=== PATIENT | male | born 1940 | race Caucasian/White ===

== ENCOUNTER 2018-02-07 12:53 | Emergency (ER) | payer OTHER, SELFPAY ==
[2018-02-07 12:54] VITALS: BP 149/91; PULSE 64; RESP 16; TEMP 36.8; O2SAT 97; BMI 23.8
--- NOTE | 2018-02-07 13:28 | ED.VISSUMM ---
- ER Visit Summary Date of Service: 02/07/18 Chief Complaint: Back pain History of Present Illness: The patient is a 77 M back pain after working out in the garden 2 days ago. Pain radiates to the back of the thigh. No loss of bowel or bladder control. No falls. Using topical BenGay cream with no relief. Had difficulty sleeping over last 2 days. States is similar symptoms 5 years ago was placed on naproxen and a pain medication. He states he was constipated due to medications at that time. However states the discomfort came the ED for treatment. He is followed by [place]. Denies history of gastric ulcers or kidney injuries. No other complaints. Physical Examination: General: Alert and oriented ?3, no acute distress HEENT: Normocephalic, atraumatic. Moist mucosa membranes Neck: supple, nontender. Cardiovascular: Regular rate and rhythm, no murmurs Respiratory: Normal breath sounds, symmetric, no distress Abdomen: Soft, nontender, nondistended Back: No midline tenderness. Tender palpation left lumbar, straight leg test negative bilaterally. 2+ patellar reflex bilaterally. Extremities: Nontender, no edema, pulses intact ?4 Neuro: no focal neurological deficits. Test Results: [] Emergency Department Course and Treatment: Patient nontoxic. History working the garden increasing pain afterwards. There is no falls or direct injuries. No indications for x-rays at this time. He will be treated symptomatically with naproxen and as needed oxycodone. Also placed on Colace to prevent constipation. He will follow-up with PCP, return if any worsening symptoms. Treatment Plan: [] Disposition: Discharge Impression: Sciatica This note was generated with M[employer] dictation software. It may contain incorrect words, spelling, and punctuation that were not noted in review of the chart prior to signing ED Disposition - Plan for ED Patient: Disposition: Home or Assisted Living Chief Complaint: Back Diagnosis: Sciatica Instructions: ED Sciatica Prescriptions: Oxycodone HCl/Acetaminophen [Percocet 5/325] 1 tablet PO Q6H PRN PRN 3 Days #12 tablet PRN Reason: Pain Docusate Sodium [Colace] 100 mg PO DAILY #20 capsule Naproxen [Naprosyn] 500 mg PO BID PRN #20 tablet Referrals: [facility] [Primary Care Provider] - 3-5 Days
--- NOTE | 2018-02-07 13:32 | ED.DCSUM_ITS ---
- ER Visit Summary Date of Service: 02/07/18 Chief Complaint: Back pain History of Present Illness: The patient is a 77 M back pain after working out in the garden 2 days ago. Pain radiates to the back of the thigh. No loss of bowel or bladder control. No falls. Using topical BenGay cream with no relief. Had difficulty sleeping over last 2 days. States is similar symptoms 5 years ago was placed on naproxen and a pain medication. He states he was constipated due to medications at that time. However states the discomfort came the ED for treatment. He is followed by [place]. Denies history of gastric ulcers or kidney injuries. No other complaints. Physical Examination: General: Alert and oriented ?3, no acute distress HEENT: Normocephalic, atraumatic. Moist mucosa membranes Neck: supple, nontender. Cardiovascular: Regular rate and rhythm, no murmurs Respiratory: Normal breath sounds, symmetric, no distress Abdomen: Soft, nontender, nondistended Back: No midline tenderness. Tender palpation left lumbar, straight leg test negative bilaterally. 2+ patellar reflex bilaterally. Extremities: Nontender, no edema, pulses intact ?4 Neuro: no focal neurological deficits. Test Results: [] Emergency Department Course and Treatment: Patient nontoxic. History working the garden increasing pain afterwards. There is no falls or direct injuries. No indications for x-rays at this time. He will be treated symptomatically with naproxen and as needed oxycodone. Also placed on Colace to prevent constipation. He will follow-up with PCP, return if any worsening symptoms. Treatment Plan: [] Disposition: Discharge Impression: Sciatica This note was generated with Tokal[employer] dictation software. It may contain incorrect words, spelling, and punctuation that were not noted in review of the chart prior to signing ED Disposition - Plan for ED Patient: Disposition: Home or Assisted Living Chief Complaint: Back Diagnosis: Sciatica Instructions: ED Sciatica Prescriptions: Oxycodone HCl/Acetaminophen [Percocet 5/325] 1 tablet PO Q6H PRN PRN 3 Days #12 tablet PRN Reason: Pain Docusate Sodium [Colace] 100 mg PO DAILY #20 capsule Naproxen [Naprosyn] 500 mg PO BID PRN #20 tablet Referrals: [facility] [Primary Care Provider] - 3-5 Days
[2018-02-07] MEDS: Naproxen 500 MG Tablet PO (13:55)
[2018-02-07] MEDS: oxyCODONE 5 MG Tablet PO (13:55)
[2018-02-07 13:58] VITALS: BP 149/91
== END 2018-02-07 14:03 | disposition home or self-care (01) ==
PROVIDERS: Emergency Provider Emergency Medicine
DX: M54.30 Sciatica, unspecified side (principal); E78.00 Pure hypercholesterolemia, unspecified
CPT/HCPCS: 99283

== ENCOUNTER 2019-03-19 15:09 | Emergency (ER) | payer OTHER, SELFPAY ==
[2019-03-19 15:10] VITALS: BP 151/100; PULSE 149; RESP 18; TEMP 36.5; O2SAT 97; BMI 23.1
[2019-03-19 15:34] VITALS: PULSE 139
[2019-03-19 15:44] VITALS: BP 151/76; PULSE 49; RESP 16; O2SAT 98
--- NOTE | 2019-03-19 16:03 | EKG12_ITS ---
Test Reason : TACHY Blood Pressure : / mmHG Vent. Rate : 116 BPM Atrial Rate : 208 BPM P-R Int : 000 ms QRS Dur : 082 ms QT Int : 286 ms P-R-T Axes : 000 053 -89 degrees QTc Int : 397 ms Atrial fibrillation with rapid ventricular response ST & T wave abnormality, consider inferolateral ischemia Abnormal ECG Confirmed by CON YUAN, BRIANA ([id number]), make up editor LISA BRAVO ([id number]) on 03/23/2019 8:51:03 AM Referred By: MARKO/ANKIT Confirmed By:BRIANA ANDUJAR MD
--- NOTE | 2019-03-19 16:06 | EKG12_ITS ---
Test Reason : REPEAT Blood Pressure : / mmHG Vent. Rate : 047 BPM Atrial Rate : 047 BPM P-R Int : 120 ms QRS Dur : 082 ms QT Int : 408 ms P-R-T Axes : 058 048 037 degrees QTc Int : 361 ms Sinus bradycardia Otherwise normal ECG Confirmed by CON YUAN, BRIANA ([id number]), electronic news gathering editor LISA BRAVO ([id number]) on 03/23/2019 8:51:15 AM Referred By: ANKIT Confirmed By:BRIANA ANDUJAR MD
--- NOTE | 2019-03-19 16:06 | ED.VISSUMM ---
- ER Visit Summary Date of Service: 03/19/19 Chief Complaint: Palpitations History of Present Illness: The patient is a 78 M who presents with palpitations that began today. Patient states that he felt his heart racing today. Approximately couple hours prior to arrival. Patient states he drank more caffeine than he usually does today. Patient states he drank 3 cups of coffee and a Pepsi-Cola. Patient states that his blood pressure continued to increase throughout the day. Patient denies any other symptoms. Patient denies any shortness of breath. Patient denies any nausea or vomiting. Patient denies any lightheadedness or dizziness. Patient states he does have a history of paroxysmal atrial fibrillation. Patient states he follows with a food service cashier at the [facility]. Physical Examination: Vital signs are stable. Patient's initial heart rate was 149. Patient is in no acute distress. Oral mucosa is pink and moist. Neck is supple. Trachea is midline. There is no JVD noted. Heart was regular and bradycardic. Lungs are clear and equal bilaterally. Abdomen is soft. Bowel sounds are normal. There is no tenderness. Cranial nerves II through XII are intact. There are no focal motor or sensory deficits noted. Test Results: Initial EKG showed atrial flutter with a rate of 116. There are nonspecific ST-T wave changes noted in the inferior leads. Prior EKG showed normal sinus rhythm with a rate of 56. There are no acute ST or T wave changes on that EKG dated 01/20/2017. EKG was repeated and showed sinus bradycardia with a rate of 47. There are no acute ST or T wave changes. CBC, basic metabolic profile, and troponin were obtained and were all normal. Chest x-ray shows chronic changes but no acute cardiopulmonary process. Emergency Department Course and Treatment: Prior to my examination the patient converted to a normal sinus rhythm. While I was examining the patient and he was on the nurse monitoring he had a normal sinus rhythm with a rate of 47. Patient feels better. Patient wants to go home and follow-up with his food service cashier at the [facility]. Patient was instructed to return if worse in any way. Patient understood and was agreeable with the plan. All questions were answered. Disposition: Discharge home Impression: Paroxysmal atrial flutter This note was generated with Spectrum Mobile[employer] software. It may contain incorrect words, spelling, and punctuation that were not noted in review of the chart prior to signing ED Disposition - Plan for ED Patient: Disposition: Home or Assisted Living Diagnosis: Paroxysmal atrial flutter Instructions: ED Paroxysmal Atrial Flutter [facility] [facility] [[facility] [place] - 3-5 Days
--- NOTE | 2019-03-19 16:10 | RAD_ITS ---
STUDY: X-RAY CHEST REASON FOR EXAM: Male, 78 years old. Palpitations. Chest pain. TECHNIQUE: Frontal and lateral views of the chest. COMPARISON: May 20, 2017 FINDINGS: There is stable hyperexpansion compatible with COPD. There are healed granulomatous calcifications. There is no demonstrated pleural abnormality. Normal size heart. Normal mediastinum and isela. Normal visualized pulmonary arteries. Normal visualized aortic arch and descending thoracic aorta. Normal visualized thoracic spine. Normal visualized ribs, clavicles, and shoulders. There is no demonstrated abnormality of the visualized soft tissue structures of the upper abdomen. RAD/Chest PA and Lateral IMPRESSION: Findings compatible with COPD unchanged. No acute finding. Electronically Signed: Emile Ponce MD at 16:29 EDT , Service support ,
--- NOTE | 2019-03-19 16:12 | ED.DCSUM_ITS ---
- ER Visit Summary Date of Service: 03/19/19 Chief Complaint: Palpitations History of Present Illness: The patient is a 78 M who presents with palpitations that began today. Patient states that he felt his heart racing today. Approximately couple hours prior to arrival. Patient states he drank more caffe ine than he usually does today. Patient states he drank 3 cups of coffee and a Pepsi-Cola. Patient states that his blood pressure continued to increase throughout the day. Patient denies any other symptoms. Patient denies any shortness of breath. Patient denies any nausea or vomiting. Patient denies any lightheadedness or dizziness. Patient states he does have a history of paroxysmal atrial fibrillation. Patient states he follows with a fire fighters dispatcher at the [facility]. Physical Examination: Vital signs are stable. Patient's initial heart rate was 149. Patient is in no acute distress. Oral mucosa is pink and moist. Neck is supple. Trachea is midline. There is no JVD noted. Heart was regular and bradycardic. Lungs are clear and equal bilaterally. Abdomen is soft. Bowel sounds are normal. There is no tenderness. Cranial nerves II through XII are intact. There are no focal motor or sensory deficits noted. Test Results: Initial EKG showed atrial flutter with a rate of 116. There are nonspecific ST-T wave changes noted in the inferior leads. Prior EKG showed normal sinus rhythm with a rate of 56. There are no acute ST or T wave changes on that EKG dated 01/20/2017. EKG was repeated and showed sinus bradycardia with a rate of 47. There are no acute ST or T wave changes. CBC, basic metabolic profile, and troponin were obtained and were all normal. Chest x-ray shows chronic changes but no acute cardiopulmonary process. Emergency Department Course and Treatment: Prior to my examination the patient converted to a normal sinus rhythm. While I was examining the patient and he was on the equipment monitor phototypesetting he had a normal sinus rhythm with a rate of 47. Patient feels better. Patient wants to go home and follow-up with his fire fighters dispatcher at the [facility]. Patient was instructed to return if worse in any way. Patient understood and was agreeable with the plan. All questions were answered. Disposition: Discharge home Impression: Paroxysmal atrial flutter This note was generated with [employer]Gabation software. It may contain incorrect words, spelling, and punctuation that were not noted in review of the chart prior to signing ED Disposition - Plan for ED Patient: Disposition: Home or Assisted Living Diagnosis: Paroxysmal atrial flutter Instructions: ED Paroxysmal Atrial Flutter [place] [facility] [place] [place] - [facility]-5 Days
[2019-03-19 16:19] LABS: Absolute Neutrophil Count 2.8 X10^3/uL (2.0-7.7); Basophil# 0.02 X10^3/uL; Basophil% 0.4 % (0-1); Eosinophil# 0.15 X10^3/uL; Eosinophils% 2.9 % (0-5); Hematocrit 43.6 % (40-54); Hemoglobin 14.6 g/dl (13.0-16.5); Lymphocyte % 30.6 % (19-41); Mean Corp Hgb Conc 33.5 g/gl (32-36); Mean Corpuscular Hgb 30.7 pg (27.0-32.0); Mean Corpuscular Volume 91.6 fL (80-94); Mean Platelet Vol. 11.4 fl (6.2-12.0); Monocyte# 0.65 X10^3/uL; Monocyte% 12.4 % (0-10); Neutrophil # 2.79 X10^3/uL (2.7-7.7); Neutrophil % 53.3 % (47-70); POSITIVE COUNT NO; POSITIVE DIFFERENTIAL NO; POSITIVE MORPHOLOGY NO; Platelet Count 179 K/mm3 (150-450); RBC Distribution Width CV 13.4 % (11.6-14.6); Red Blood Count 4.76 M/mm3 (4.6-6.2); White Blood Count 5.2 K/mm3 (4.4-11.0)
[2019-03-19 16:30] VITALS: BP 133/74; PULSE 46; RESP 12; O2SAT 97
[2019-03-19 16:32] LABS: Anion Gap 9 (5-15); BUN 22 mg/dL (7-18); Calcium,Total 9.8 mg/dL (8.5-10.1); Chloride 106 mmol/L (98-107); EST Glomerular Filtration Rate 77 mL/min (>60); Est Glom Filt Rate - Afr Amer 93 mL/min (>60); Estimated Creatinine Clearance 55.08 ml/min; Glucose 93 mg/dL (74-106); Potassium 4.4 mmol/L (3.5-5.1); Sodium Level 142 mmol/L (136-145)
[2019-03-19 17:47] VITALS: BP 130/62; PULSE 45; RESP 15; O2SAT 98
[2019-03-19 18:18] VITALS: BP 119/63; PULSE 54; RESP 17; O2SAT 97
== END 2019-03-19 18:19 | disposition home or self-care (01) ==
PROVIDERS: Emergency Provider Emergency Medicine
DX: I48.92 Unspecified atrial flutter (principal); I48.91 Unspecified atrial fibrillation; N40.0 Benign prostatic hyperplasia without lower urinary tract symptoms; Z82.49 Family history of ischemic heart disease and other diseases of the circulatory system; Z87.891 Personal history of nicotine dependence; R30.0 Dysuria
CPT/HCPCS: 71046; 80048; 84484; 85025; 93005; 99284; A4216

== ENCOUNTER 2019-09-16 12:42 | Inpatient (IN) | payer MEDICARE, OTHER, SELFPAY ==
[2019-09-16] VITALS (21 sets, daily range): BP systolic 104–157; BP diastolic 51–103; PULSE 58–118; RESP 12–22; TEMP 36.6–37.1; O2SAT 94–99; BMI 24.5; BMI 24.6; BMI 24.2
--- NOTE | 2019-09-16 13:00 | RAD_ITS ---
STUDY: X-RAY CHEST REASON FOR EXAM: Male, 79 years old. Hypotension and palpitations. TECHNIQUE: Single AP portable view of the chest. COMPARISON: Comparison is made with prior examination dated March 19, 2019. FINDINGS: EKG electrodes are seen. Hyperinflation. There is no demonstrated pleural abnormality. Normal size heart. Normal mediastinum and isela. There is prominence of the pulmonary hilar arteries without peripheral pulmonary vascular congestion, suggesting pulmonary hypertension. There is atherosclerotic calcification of the aortic arch with tortuosity. There are degenerative changes of the visualized thoracic spine. Normal visualized ribs, clavicles, and shoulders. There is no demonstrated abnormality of the visualized soft tissue structures of the upper abdomen. RAD/Chest 1 View (Portable) IMPRESSION: Hyperinflation. Prominence of the central pulmonary arteries. Electronically Signed: Mike Medina, at 13:35 EST , Service support ,
--- NOTE | 2019-09-16 13:01 | EKG12_ITS ---
Test Reason : CP Blood Pressure : / mmHG Vent. Rate : 121 BPM Atrial Rate : 363 BPM P-R Int : 000 ms QRS Dur : 082 ms QT Int : 254 ms P-R-T Axes : 000 055 260 degrees QTc Int : 360 ms Atrial flutter with variable A-V block with premature ventricular or aberrantly conducted complexes Nonspecific T wave abnormality Abnormal ECG Confirmed by THOMAS YUAN, DENZEL ([id number]), story editor LIDYA BOLDEN ([id number]) on 09/19/2019 9:58:53 AM Referred By: Lucia Coronado Confirmed By:ADALID GUZMAN MD
[2019-09-16] MEDS: dilTIAZem 25 MG/5 ML Vial 20 MG IV BOLUS (13:12)
[2019-09-16 13:14] LABS: Absolute Lymphocyte Count 1.22 X10^3/uL (0.83-4.51); Absolute Neutrophil Count 5.6 X10^3/uL (2.0-7.7); Basophil# 0.02 X10^3/uL; Basophil% 0.3 % (0-1); Eosinophil# 0.07 X10^3/uL; Eosinophils% 0.9 % (0-5); Hematocrit 41.9 % (40-54); Hemoglobin 13.7 g/dL (13.0-16.5); Lymphocyte # 1.22 X10^3/ul (4.0); Lymphocyte % 15.6 % (19-41); Mean Corp Hgb Conc 32.7 g/dL (32-36); Mean Corpuscular Hgb 30.9 pg (27.0-32.0); Mean Corpuscular Volume 94.4 fL (80-94); Mean Platelet Vol. 10.8 fl (6.2-12.0); Monocyte# 0.92 X10^3/uL; Monocyte% 11.7 % (0-10); NRBC Flagged by Analyzer 0 % (0-5); Neutrophil # 5.59 X10^3/uL (2.7-7.7); Neutrophil % 71.2 % (47-70); Platelet Count 175 K/mm3 (150-450); RBC Distribution Width CV 13.2 % (11.6-14.6); RBC Distribution Width SD 45.4 fl (35.1-43.9); Red Blood Count 4.44 M/mm3 (4.6-6.2); White Blood Count 7.8 K/mm3 (4.4-11.0)
[2019-09-16] MEDS: 0.9% Normal Saline 1,000 ML 150 ML IV ×2 (13:15→17:58)
[2019-09-16 13:37] LABS: Anion Gap 8 (5-15); BUN 25 mg/dL (7-18); BUN/Creat Ratio 19.4 RATIO (10-20); Calcium,Total 8.9 mg/dL (8.5-10.1); Chloride 107 mmol/L (98-107); Creatinine, Serum 1.29 mg/dL (0.70-1.30); EST Glomerular Filtration Rate 57 mL/min (>60); Est Glom Filt Rate - Afr Amer 69 mL/min (>60); Estimated Creatinine Clearance 41.99 ml/min; Glucose 96 mg/dL (74-106); Potassium 4.5 mmol/L (3.5-5.1); Sodium Level 140 mmol/L (136-145); Thyroid Stim Hormone (TSH) 2.19 uIU/mL (0.358-3.74)
--- NOTE | 2019-09-16 14:43 | ED.DCSUM_ITS ---
- ER Visit Summary Date of Service: 09/16/19 Chief Complaint: [Palpitations] History of Present Illness: The patient is a 79 M [to the emergency department with palpitations and tachycardia x48 hours. Patient does have history of A. fib and a flutter that is paroxysmal. Patient with history of COPD and high cholesterol. Patient states that he was told by the [place] in [place] that he needed to have a pacemaker. Patient was also told that he could have it done in the community since he was so far away from the [place]. Patient states that he was to await scheduling of pacemaker through the [place]. Patient denies any chest pain or shortness of breath. He denies recent illness. He denies recent travel or surgery.] Physical Examination: [HEENT-PERRLA, EOMI. Cranial nerves II through XII grossly intact. TMs clear. Mucous membranes moist. No adenopathy. Cardiovascular-irregularly irregular and tachycardic. No murmurs auscultated. Lungs-clear to auscultation, chest wall stable without crepitus or subcu emphysema Abdomen-normoactive bowel sounds, soft, nontender, no rebound or rigidity, no peritoneal signs. Extremities-intact ?4, normal range of motion, normal pulses, atraumatic] Test Results: [EKG obtained showed atrial flutter with a rapid ventricular response of 121 bpm CBC with differential obtained showed a white blood cell count of 7.8, hemoglobin 13.7, hematocrit 42, plates 175. Chemistries unremarkable. BUN 25 and creatinine 1.29. Troponin is less than 0.015. TSH was 2.19. Chest x-ray showed hyperinflation.] Emergency Department Course and Treatment: [Patient was started on Cardizem 20 mg IV bolus which slowed his heart rate down into the 80s but then he started go back up. Patient was then given Cardizem 25 mg bolus and started on a Cardizem drip. Case discussed with hospitalist will evaluate patient for admission.] Treatment Plan: [Admit] Disposition: Admit] Impression: [Atrial flutter with rapid ventricular response] This note was generated with eOriginal dictation software. It may contain incorrect words, spelling, and punctuation that were not noted in review of the chart prior to signing ED Disposition - Plan for ED Patient: [place]errals: [facility] [Primary Care Provider] -
[2019-09-16] MEDS: dilTIAZem 25 MG/5 ML Vial IV BOLUS (14:58)
--- NOTE | 2019-09-16 15:36 | HP.PCM_ITS ---
History of Present Illness Date of Admission: 09/16/19 Chief Complaint: Palpitations. The patient is a 79 year old M with a past medical history of A. fib and also bradycardia as well as high cholesterol. He was admitted through the ED on 09/16/2019 with a complaint of palpitations for 2 days prior to presentation. He said he noted his heart rate was fast but he had absolutely no other symptoms and denied any lightheadedness or dizziness, headache, chest pain, abdominal pain, diarrhea or vomiting. Patient states he does have a history of A. fib but at the same time usually has a history of bradycardia when not in A. fib with heart rate going down into the 40s. Usually follows up at the [place] with his c ardiologist and states he was scheduled to have a pacemaker implanted 1 week ago. However he was told that under the new [place] plan with the [place] access [place], it would be advisable for him to get the pacemaker placed in a local hospital close to him so he would have to go all the way up to [facility]. He states he was told that the [place] would contact him about arrangement for this but nobody has contacted him. [facility] but has not gotten feedback from anyone so he decided to come into the ED. Review of symptoms otherwise negative. On admission in the ED, he was in A. fib with heart rate going up to 105. Temperature was unremarkable and CBC was also unremarkable. Initial troponin was less than 0.015 and TSH was 2.19. EKG showed no acute ST changes and showed atrial flutter with heart rate of up to 121. He has been admitted to be managed for A. fib with RVR. He was started on Cardizem drip in the ED to help control heart rate. [] Past Medical History Past Medical History (Chronic Problems): Chronic Problems Former smoker (Chronic) Hyperlipidemia (Chronic) COPD (chronic obstructive pulmonary disease) (Chronic) Allergies No Known Allergies Allergy (Verified 02/07/18 12:56) Home Medications: Ambulatory Orders Medication Instructions Recorded Apixaban [Eliquis] 5 mg PO BID 09/16/19 Ascorbic Acid [Vitamin C] 2,000 mg PO DAILY 09/16/19 Aspirin [Aspirin EC] 81.25 mg PO DAILY 09/16/19 Atorvastatin Calcium 40 mg PO QHS 09/16/19 Glucos Sul 2Kcl/MSM/Chond/C/Mn 1 cap PO DAILY 09/16/19 [Glucosamine Chondroitin Cap] Lactobacillus Acidophilus 1 cap PO DAILY 09/16/19 [Probiotic] Abercrombie-3 Fatty Acids/Fish Oil [Fish 1 cap PO DAILY 09/16/19 Oil 1,000 mg Capsule] Vitamin B Complex 1 tab PO DAILY 09/16/19 Surgical History: no surgical history, - Psychiatric History: No pertinent psych hx Lives: Spouse/ Significant Other Smoking Status: Former smoker Tobacco Use: Cigarettes Alcohol: None Drugs: None - *Family History Maternal History Items: No pertinent history Paternal History Items: No pertinent history Review of Systems Constitutional: Denies: Chills, Fever, Malaise, Weakness, Weight Change Eyes: Denies: Blurred vision HEENT: Denies: Head Aches, Sinus Congestion, Sinus Drainage Cardiovascular: Reports: Heaviness, Palpitations. Denies: Chest Pain, Chest Tightness, Edema, Light Headedness, Orthopnea Respiratory: Denies: Cough, Shortness of Breath, Shortness of breath at rest, Shortness of breath upon exertion, Sputum production Gastrointestinal: Denies: Abdominal Pain, Nausea, Vomiting Genitourinary: Denies: Dysuria Musculoskeletal: Reports: Back Pain. Denies: Joint Pain, Joint Tenderness Skin: Denies: Rash, Wounds Neurological: Denies: Numbness, Tingling, Focal weakness Psychiatric: Denies: Anxiety, Depression, Homicidal Ideations, Suicidal Ideations Hematologic/ Lymphatic: Denies: Easy Bruising, Easy Bleeding VTE Information - Inpt Only VTE Present on Admission: No VTE Pharm Prophylaxis ordered?: Yes - Physical Exam Vitals/I&O's: Vital Signs Temp Pulse Resp BP Pulse Ox 98.1 F 66 16 115/60 98 09/16/19 12:43 09/16/19 15:27 09/16/19 15:29 09/16/19 15:27 09/16/19 15:27 Oxygen Delivery Method Room Air Weight: 157 lb Body Mass Index (BMI) 24.5 General: Alert, Oriented x3, Cooperative, No apparent distress HEENT: Atraumatic, PERRLA, EOMI, Normocephalic Oral: Moist Mucosa Neck: Supple, No JVD, Negative Carotid Bruits Lungs: Clear to auscultation, Normal air movement, No rhonchi, No wheeze, No rales Cardiovascular: Normal S1, Normal S2, No murmurs, Irregular Rate - on cardizem drip Abdomen: Bowel Sounds Present, Soft, Non Tender, Non-Distended, No Hepato- splenomegaly Extremities: No clubbing, No cyanosis, No edema, Capillary Refill Less than 3 Seconds Skin: No rashes, No breakdown Musculoskeletal: No Tenderness to Palpation of Joints or Extremities Lymphatic: No Cervical, Supraclavicular, or Inguinal Adenopathy Neurological: Cranial nerves II-XII grossly intact, Neuro grossly intact, Motor Exam 5/5 strength throughout Psych/Mental Status: Normal Affect, Appropriate, Alert and oriented to time, place, person, mood and affect Laboratory Results 09/16/19 13:00: WBC 7.8, RBC 4.44 L, Hgb 13.7, Hct 41.9, MCV 94.4 H, MCH 30.9, MCHC 32.7, RDW Std Deviation 45.4 H, RDW Coeff of Dianna 13.2, Plt Count 175, MPV 10.8, Immature Gran % (Auto) 0.300, Neut % (Auto) 71.2 H, Lymph % (Auto) 15.6 L, [place] % (Auto) 11.7 H, Eos % (Auto) 0.9, Baso % (Auto) 0.3, Absolute Neuts (auto) 5.6, Absolute Lymphs (auto) 1.22, Nucleated RBC % 0 09/16/19 13:00: Sodium 140, Potassium 4.5, Chloride 107, Carbon Dioxide 25.0, Anion Gap 8, BUN 25 H, Creatinine 1.29, Estim Creat Clear Calc 41.99, Est GFR (MDRD) Af Amer 69, Est GFR (MDRD) Non-Af 57 L, BUN/Creatinine Ratio 19.4, Glucose 96, Calcium 8.9, Troponin I < 0.015, TSH 2.19 Diagnostic Data Chest X-Ray 09/16/19 13:00 IMPRESSION: Hyperinflation. Prominence of the central pulmonary arteries. Electronically Signed: Mike Medina, at 13:35 EST , Service support , Current Medications Sodium Chloride () 1,000 mls @ 150 mls/hr IV .Q6H40M [facility] Last Admin: 09/16/19 13:15 Dose: 150 mls/hr Documented by: Diltiazem HCl 125 mg/ Dextrose 125 mls @ 5 mls/hr IV .Q25H [facility]; Protocol Last Admin: 09/16/19 14:59 Dose: 5 mg/hr, 5 mls/hr Documented by: Assessment/Plan All Active Problems Sinus tachycardia (Acute) Troponin I above reference range (Acute) Abnormal EKG (Acute) Paroxysmal atrial fibrillation (Resolved) 79-year-old male admitted with a complaint of palpitations 1. 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 * Currently on Cardizem drip. * Was supposed to have a pacemaker started on account of bradycardia. * He is on Eliquis but is not on any beta-nancy on account of history of bradycardia. * Will consult cardiology as patient cannot be transitioned to an oral beta- nancy on account of history of bradycardia. He may need to have the pacemaker put in during this admission. * TSH within normal limit and potassium is also within normal limits. Will check magnesium. * Titrate and try to wean off Cardizem drip as tolerated. * [facility] * 2. Hyperlipidemia: On statin. DVT Prophylaxis: Eliquis Code Status: Full code * Patient counseled extensively about different types of CODE STATUS including full code, DNR CCA and DNR CCA. Patient elects to be full code. Total rhhz-ar-oaly time 16 minutes. Code Visit OBSV E&M: 19513 Initial observation care L3 Procedures: 79654 Advncd Care Plan 30 Min
--- NOTE | 2019-09-16 18:45 | RAD_ITS ---
HISTORY: right hip pain, no known injury ADDITIONAL HISTORY: None provided. TECHNIQUE: AP and lateral views of the right hip including AP pelvis Number of images including paperwork: 3 COMPARISON: None FINDINGS: BONES: No acute fracture. JOINTS: No subluxation. SOFT TISSUES: No distinct foreign body. RAD/HIP, UNI W/ Pelvis 2-3 Views IMPRESSION: No acute osseous abnormality. at 2242 Reported and signed by: Arlin Dan MD Electronically Signed: Arlin Dan MD at 22:42 EST Tel , Service support ,
[2019-09-16] MEDS: Acetaminophen 325 MG Tablet 650 MG PO (19:15)
[2019-09-16] MEDS: APIXABAN 5 MG TABLET PO (21:52)
[2019-09-16] MEDS: Atorvastatin Calcium 40 MG Tablet PO (21:52)
[2019-09-17] VITALS (28 sets, daily range): BP systolic 92–143; BP diastolic 48–80; PULSE 53–85; RESP 12–24; TEMP 36.7–36.8; O2SAT 92–98
[2019-09-17] MEDS: 0.9% Saline Lock 10 ML Syringe IV (00:26)
[2019-09-17] MEDS: Ketorolac 15 MG/ML Vial IV (00:26)
[2019-09-17] MEDS: 0.9% Normal Saline 1,000 ML 150 ML IV ×2 (00:30→07:06)
--- NOTE | 2019-09-17 00:41 | EKG12_ITS ---
Test Reason : Blood Pressure : / mmHG Vent. Rate : 053 BPM Atrial Rate : 053 BPM P-R Int : 128 ms QRS Dur : 082 ms QT Int : 416 ms P-R-T Axes : 078 050 069 degrees QTc Int : 390 ms Sinus bradycardia Nonspecific T wave abnormality Abnormal ECG When compared with ECG of 16-SEP-2019 12:51, MANUAL COMPARISON REQUIRED, DATA IS UNCONFIRMED Confirmed by THOMAS YUAN, DENZEL ([id number]), fan mail editor LIDYA BOLDEN ([id number]) on 09/19/2019 10:24:40 AM Referred By: Lucia Coronado Confirmed By:ADALID GUZMAN MD
--- NOTE | 2019-09-17 05:55 | ECHOD_ITS ---
Reason For Study: ATRIAL FIB-FLUTTER Procedure This was a 2D Doppler, Color Flow transthoracic echocardiogram. Exam performed portable in patient room. Left Ventricle Normal LV size. The estimated ejection fraction is 60 %. No evidence for diastolic dysfunction. No regional wall motion abnormalities noted. Right Ventricle Normal RV size. Normal systolic function. Atria The left atrium is mildly enlarged. The right atrium is mildly enlarged. No doppler evidence for ASD. Mitral Valve There is no mitral valve stenosis. No mitral valve insufficiency. Tricuspid Valve There is no tricuspid stenosis. Trivial tricuspid valve insufficiency. Pulmonary artery systolic pressure is 40 mmHg. Aortic Valve Trisinus/trileaflet aortic valve. There is no aortic stenosis. No aortic valve insufficiency. Pulmonic Valve There is no pulmonic valvular stenosis. No pulmonic valve insufficiency. Great Vessels Normal aortic root. Pericardium/Pleural No pericardial effusion. MMode/2D Measurements & Calculations LVIDd: 4.5 cm IVSd: 0.74 cm Ao root diam: 3.1 cm LVIDs: 3.2 cm LVPWd: 0.78 cm RVDd: 3.5 cm FS: 28.6 % LAV(MOD-bp): 55.2 ml LVAd ap4: 23.4 cm2 SV(MOD-sp4): 36.9 ml LAV(MOD-bp) Indexed: 30.8 ml/m2 EDV(MOD-sp4): 71.0 ml LAV(MOD-sp2): 67.4 ml EDV(sp4-el): 71.0 ml LAV(MOD-sp4): 42.0 ml LVAs ap4: 15.3 cm2 ESV(MOD-sp4): 34.1 ml ESV(sp4-el): 33.3 ml EF(MOD-sp4): 51.9 % EF(sp4-el): 53.1 % SV(sp4-el): 37.7 ml LA A4 area: 16.6 cm2 LA dimension(2D): 3.8 cm RA A4 area: 18.3 cm2 Doppler Measurements & Calculations MV E max ambar: 131.7 cm/sec Ao V2 max: 153.3 cm/sec LV V1 max: 82.9 cm/sec MV A max ambar: 30.0 cm/sec Ao max P.4 mmHg LV V1 max P.8 mmHg MV E/A: 4.4 PA V2 max: 82.3 cm/sec TR max ambar: 298.7 cm/sec TR max P.8 mmHg Interpretation Summary The estimated ejection fraction is 60 %. No evidence for diastolic dysfunction. The left atrium is mildly enlarged. The right atrium is mildly enlarged. Trivial tricuspid valve insufficiency. Pulmonary artery systolic pressure is 40 mmHg. Ordering Physician: Lucia Coronado Referring Physician: Lucia Coronado Performed By: Tere Posada RDCS
[2019-09-17 06:35] LABS: Absolute Lymphocyte Count 1.62 X10^3/uL (0.83-4.51); Absolute Neutrophil Count 3.8 X10^3/uL (2.0-7.7); Basophil# 0.02 X10^3/uL; Basophil% 0.3 % (0-1); Eosinophil# 0.07 X10^3/uL; Eosinophils% 1.1 % (0-5); Hematocrit 33.4 % (40-54); Hemoglobin 10.7 g/dL (13.0-16.5); Lymphocyte # 1.62 X10^3/ul (4.0); Lymphocyte % 25.2 % (19-41); Mean Corpuscular Hgb 30.5 pg (27.0-32.0); Mean Corpuscular Volume 95.2 fL (80-94); Mean Platelet Vol. 11.4 fl (6.2-12.0); NRBC Flagged by Analyzer 0 % (0-5); Neutrophil # 3.79 X10^3/uL (2.7-7.7); Neutrophil % 59.1 % (47-70); Platelet Count 124 K/mm3 (150-450); RBC Distribution Width CV 13.8 % (11.6-14.6); Red Blood Count 3.51 M/mm3 (4.6-6.2); White Blood Count 6.4 K/mm3 (4.4-11.0)
[2019-09-17 06:51] LABS: Anion Gap 3 (5-15); BUN 25 mg/dL (7-18); BUN/Creat Ratio 19.7 RATIO (10-20); Calcium,Total 7.9 mg/dL (8.5-10.1); Chloride 111 mmol/L (98-107); Creatinine, Serum 1.27 mg/dL (0.70-1.30); EST Glomerular Filtration Rate 58 mL/min (>60); Est Glom Filt Rate - Afr Amer 70 mL/min (>60); Estimated Creatinine Clearance 41.17 ml/min; Glucose 103 mg/dL (74-106); Potassium 4.8 mmol/L (3.5-5.1); Sodium Level 139 mmol/L (136-145)
[2019-09-17] MEDS: Ascorbic Acid 500 MG Tablet 2000 MG PO (08:01)
[2019-09-17] MEDS: Vitamin B Comp W-C Capsule 1 CAP PO (08:01)
[2019-09-17] MEDS: Aspirin E.C. 81 MG Tablet PO (08:01)
--- NOTE | 2019-09-17 10:55 | CON.PCM_ITS ---
Problem List (1) Tachy-jimmie syndrome Status: Acute Reason for Consult Date of Consultation: 09/17/19 History of Present Illness: The patient is a 79 year old M with a past medical history of A. fib and also bradycardia as well as high cholesterol. He was admitted through the ED on 09/16/2019 with a complaint of palpitations for 2 days prior to presentation. He said he noted his heart rate was fast but he had absolutely no other symptoms and denied any lightheadedness or dizziness, headache, chest pain, abdominal pain, diarrhea or vomiting. Patient states he does have a history of A. fib but at the same time usually has a history of bradycardia when not in A. fib with heart rate going down into the 40s. 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 However he was told that under the new [facility] plan with the [place] access insurance, it would be advisable for him to get the pacemaker placed in a local hospital close to him so he would have to go all the way up to [facility]. He states he was told that the [place] would contact him about arrangement for this but nobody has contacted him. He tried to get [facility] to the [facility] when his palpitations started but has not gotten feedback from anyone so he decided to come into the ED. Review of symptoms otherwise negative. On admission in the ED, he was in A. fib with heart rate going up to 105. Temperature was unremarkable and CBC was also unremarkable. Initial troponin was less than 0.015 and TSH was 2.19. EKG showed no acute ST changes and showed atrial flutter with heart rate of up to 121. He has been admitted to be managed for A. fib with RVR. He was started on Cardizem drip in the ED to help control heart rate. Patient was on Cardizem drip overnight. He has converted to sinus rhythm now. His heart rate is in the 50s on 5 mg/h of Cardizem IV. Patient does not recall having any symptoms from bradycardia. He does not recall being on any medications that worsen his bradycardia and required them to be stopped. Review of systems: All systems reviewed. All else is negative except that in the HPI. Past Medical History Allergies/Adverse Reactions: Allergies No Known Allergies Allergy (Verified 02/07/18 12:56) Home Medications: Ambulatory Orders Medication Instructions Recorded Apixaban [Eliquis] 5 mg PO BID 09/16/19 Ascorbic Acid [Vitamin C] 2,000 mg PO DAILY 09/16/19 Aspirin [Aspirin EC] 81.25 mg PO DAILY 09/16/19 Atorvastatin Calcium 40 mg PO QHS 09/16/19 Glucos Sul 2Kcl/MSM/Chond/C/Mn 1 cap PO DAILY 09/16/19 [Glucosamine Chondroitin Cap] Lactobacillus Acidophilus 1 cap PO DAILY 09/16/19 [Probiotic] [place]-3 Fatty Acids/Fish Oil [Fish 1 cap PO DAILY 09/16/19 Oil 1,000 mg Capsule] Vitamin B Complex 1 tab PO DAILY 09/16/19 Past Medical History (Chronic Problems): Chronic Problems Former smoker (Chronic) Hyperlipidemia (Chronic) COPD (chronic obstructive pulmonary disease) (Chronic) Surgical History: no surgical history, - Psychiatric History: No pertinent psych hx - *Family History Maternal History Items: No pertinent history Paternal History Items: No pertinent history Lives: Spouse/ Significant Other Smoking Status: Former smoker Tobacco Use: Cigarettes Alcohol: None Drugs: None Objective: Vital Signs Temp Pulse Resp BP Pulse Ox 98.2 F 55 L 16 111/80 95 09/17/19 10:00 09/17/19 10:00 09/17/19 10:00 09/17/19 10:00 09/17/19 10:00 Oxygen Delivery Method Room Air Weight: 154 lb 1.65 oz Body Mass Index (BMI) 24.2 Intake and Output for Last 24 Hours 09/15/19 09/16/19 09/17/19 23:59 23:59 23:59 Intake Total 2263.66 / 2263.83 1115.33 / 1115.33 Balance 2263.66 / 2263.83 1115.33 / 1115.33 General: Awake, Alert, Oriented x 3 HEENT: PERRL, EOMI, Sclera Non Icteric Neck: Supple, Good ROM, No Lymph Node Enlargement Lungs: Clear to auscultation Cardiovascular: Regular Rhythm, Normal S1, Normal S2, No Murmurs, No Rubs, No Gallops Abdomen: Soft Skin: No Rashes Psych/Mental Status: Appropriate 09/16/19 13:00: WBC 7.8, RBC 4.44 L, Hgb 13.7, Hct 41.9, MCV 94.4 H, MCH 30.9, MCHC 32.7, Plt Count 175, MPV 10.8, Immature Gran % (Auto) 0.300, Neut % (Auto) 71.2 H, Lymph % (Auto) 15.6 L, [place] % (Auto) 11.7 H, Eos % (Auto) 0.9, Baso % (Auto) 0.3, Absolute Neuts (auto) 5.6, Nucleated RBC % 0 09/16/19 13:00: Sodium 140, Potassium 4.5, Chloride 107, Carbon Dioxide 25.0, Anion Gap 8, BUN 25 H, Creatinine 1.29, Est GFR (MDRD) Af Amer 69, Est GFR (MDRD) Non-Af 57 L, BUN/Creatinine Ratio 19.4, Glucose 96, Calcium 8.9, Troponin I < 0.015 09/16/19 13:00: Magnesium 2.0 09/16/19 17:46: Troponin I < 0.015 09/16/19 20:25: Troponin I < 0.015 09/16/19 23:05: Troponin I < 0.015 09/17/19 06:15: WBC 6.4, RBC 3.51 L, Hgb 10.7 L, Hct 33.4 L, MCV 95.2 H, MCH 30.5, MCHC 32.0, Plt Count 124 L, MPV 11.4, Immature Gran % (Auto) 0.300, Neut % (Auto) 59.1, Lymph % (Auto) 25.2, [place] % (Auto) 14.0 H, Eos % (Auto) 1.1, Baso % (Auto) 0.3, Absolute Neuts (auto) 3.8, Nucleated RBC % 0 09/17/19 06:15: Sodium 139, Potassium 4.8, Chloride 111 H, Carbon Dioxide 25.0, Anion Gap 3 L, BUN 25 H, Creatinine 1.27, Est GFR (MDRD) Af Amer 70, Est GFR (MDRD) Non-Af 58 L, BUN/Creatinine Ratio 19.7, Glucose 103, Calcium 7.9 L Rhythm: EKG: ECHO: Stress Test: Cardiac Cath: PCI: CT Surgery: Holter monitor: EPS: PPM: CXR: Chest CT Scan: Assessment/Plan 1. A. fib: Patient has converted to sinus rhythm. His heart rate did not drop significantly after converting to sinus rhythm. He is currently on Cardizem at 5 mg/h. I think it will be reasonable to start him on a low-dose beta-nancy and see if he is able to tolerate this. He does not recall having any issues with being on medications that worsen his bradycardia. It appears that he he ju st was not started on AV jose blocking agents because of underlying sinus bradycardia. [facility] Eventually he may end up requiring a pacemaker for tachybrady syndrome. However at this time we do not have enough data to justify it right away. Continue Eliquis.
--- NOTE | 2019-09-17 11:25 | PN_ITS ---
Patient Problems: Active and Suspected Problems Tachy-jimmie syndrome (Acute) Reason for Visit: A. fib with RVR Subjective: Patient is an 79-year-old admitted with palpitations found to have A. fib with RVR at a monitored bed for subsequent management Objective: GENERAL: cooperative HEENT: Atraumatic; EYES; Anicteric, Normal Conjunctiva NECK; supple, normal thyroid, RESPIRATORY: Diminished to auscultation CARDIOVASCULAR: Regular S1 S2, GI: soft, normoactive bowel sounds, : No Renal angle tenderness; EXTREMITIES: No edema, no clubbing, MUSCULOSKELETAL: no muscle waisting NEURO: Awake; no lateralizing signs. SKIN: No Rash PSYCH; Flat affect Vitals/I&O's: Vital Signs Temp Pulse Resp BP Pulse Ox 98.2 F 55 L 16 111/80 95 09/17/19 10:00 09/17/19 10:00 09/17/19 10:00 09/17/19 10:00 09/17/19 10:00 Oxygen Delivery Method Room Air Weight: 69.9 kg Body Mass Index (BMI) 24.2 Intake and Output for Last 24 Hours 09/15/19 09/16/19 09/17/19 23:59 23:59 23:59 Intake Total 2263.66 / 2263.83 1115.33 / 1115.33 Balance 2263.66 / 2263.83 1115.33 / 1115.33 Laboratory Results 09/16/19 13:00: WBC 7.8, RBC 4.44 L, Hgb 13.7, Hct 41.9, MCV 94.4 H, MCH 30.9, MCHC 32.7, RDW Std Deviation 45.4 H, RDW Coeff of Dianna 13.2, Plt Count 175, MPV 10.8, Immature Gran % (Auto) 0.300, Neut % (Auto) 71.2 H, Lymph % (Auto) 15.6 L, [place] % (Auto) 11.7 H, Eos % (Auto) 0.9, Baso % (Auto) 0.3, Absolute Neuts (auto) 5.6, Absolute Lymphs (auto) 1.22, Nucleated RBC % 0 09/16/19 13:00: Sodium 140, Potassium 4.5, Chloride 107, Carbon Dioxide 25.0, Anion Gap 8, BUN 25 H, Creatinine 1.29, Estim Creat Clear Calc 41.99, Est GFR (MDRD) Af Amer 69, Est GFR (MDRD) Non-Af 57 L, BUN/Creatinine Ratio 19.4, Glucose 96, Calcium 8.9, Troponin I < 0.015, TSH 2.19 09/16/19 13:00: Magnesium 2.0 09/16/19 17:46: Troponin I < 0.015 09/16/19 20:25: Troponin I < 0.015 09/16/19 23:05: Troponin I < 0.015 09/17/19 06:15: WBC 6.4, RBC 3.51 L, Hgb 10.7 L, Hct 33.4 L, MCV 95.2 H, MCH 30.5, MCHC 32.0, RDW Std Deviation 48.0 H, RDW Coeff of Dianna 13.8, Plt Count 124 L, MPV 11.4, Immature Gran % (Auto) 0.300, Neut % (Auto) 59.1, Lymph % (Auto) 25.2, [place] % (Auto) 14.0 H, Eos % (Auto) 1.1, Baso % (Auto) 0.3, Absolute Neuts (auto) 3.8, Absolute Lymphs (auto) 1.62, Nucleated RBC % 0 09/17/19 06:15: Sodium 139, Potassium 4.8, Chloride 111 H, Carbon Dioxide 25.0, Anion Gap 3 L, BUN 25 H, Creatinine 1.27, Estim Creat Clear Calc 41.17, Est GFR (MDRD) Af Amer 70, Est GFR (MDRD) Non-Af 58 L, BUN/Creatinine Ratio 19.7, Glucose 103, Calcium 7.9 L Current Medications Acetaminophen (Tylenol) 650 mg PO Q6H PRN PRN PRN Reason: Pain Score 1-10/10 Last Admin: 09/16/19 19:15 Dose: 650 mg Documented by: Apixaban (Eliquis) 5 mg PO BID [facility] Last Admin: 09/16/19 21:52 Dose: 5 mg Documented by: Ascorbic Acid (Vitamin C) 2,000 mg PO DAILY [facility] Last Admin: 09/17/19 08:01 Dose: 2,000 mg Documented by: Aspirin (Ecotrin) 81 mg PO DAILY@0800 [facility] Last Admin: 09/17/19 08:01 Dose: 81 mg Documented by: Atorvastatin Calcium (Lipitor) 40 mg PO QHS [facility] Last Admin: 09/16/19 21:52 Dose: 40 mg Documented by: Dextrose (D50w Syringe) 0 gm IV X1 PRN; Protocol PRN Reason: Hypoglycemia Glucagon () 1 mg IM .X1 PRN PRN Reason: Hypoglycemia Sodium Chloride () 1,000 mls @ 150 mls/hr IV .Q6H40M [facility] Last Admin: 09/17/19 07:06 Dose: 150 mls/hr Documented by: Lactobacillus Acidophilus (Acidophilus) 1 tablet PO DAILY [facility] Last Admin: 09/17/19 08:02 Dose: 1 tablet Documented by: Metoprolol Tartrate (Lopressor (Beta Mono)) 25 mg PO BID [facility] Multivitamins (Allbee W/C Caplet, Thera B Comp/C) [facility] Last Admin: 09/17/19 08:01 Dose: 1 capsule Documented by: Sodium Chloride () 10 - 40 ml IV UD PRN PRN Reason: SALINE FLUSH Last Admin: 09/17/19 00:26 Dose: 10 ml Documented by: STROKE Vital Signs/Narrative: Vital Signs Temp Pulse Resp BP Pulse Ox 09/17/19 10:00 98.2 F 55 L 16 111/80 95 09/17/19 09:00 55 L 18 120/62 94 09/17/19 08:52 95 09/17/19 08:00 58 L 15 113/61 96 Medical Necessity - Tobacco Use Smoking Status: Former smoker Tobacco Use: Cigarettes Assessment/Plan All Active Problems Tachy-jimmie syndrome (Acute) Sinus tachycardia (Acute) Troponin I above reference range (Acute) Abnormal EKG (Acute) Paroxysmal atrial fibrillation (Resolved) Patient is an 79-year-old admitted with palpitations found to have A. fib with RVR at a monitored bed for subsequent management 1. A. fib with RVR ~Patient has history of paroxysmal A. fib presented with rapid ventricular response patient was started on Cardizem drip admitted to a monitored bed did convert. Consultation placed to cardiology patient seen by Dr. Bran his notes and recommendations reviewed patient is on systemic anticoagulation with Eliquis did continue 2. 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 Dyslipidemia ~patient is on statin therapy, continued at home dose 4. DVT prophylaxis on Eliquis Active Medications Acetaminophen (Tylenol) 650 mg PO Q6H PRN PRN PRN Reason: Pain Score 1-10/10 Last Admin: 09/16/19 19:15 Dose: 650 mg Documented by: Apixaban (Eliquis) 5 mg PO BID [facility] Last Admin: 09/17/19 11:29 Dose: 5 mg Documented by: Ascorbic Acid (Vitamin C) 2,000 mg PO DAILY [facility] Last Admin: 09/17/19 08:01 Dose: 2,000 mg Documented by: Aspirin (Ecotrin) 81 mg PO DAILY@0800 [facility] Last Admin: 09/17/19 08:01 Dose: 81 mg Documented by: Atorvastatin Calcium (Lipitor) 40 mg PO QHS [facility] Last Admin: 09/16/19 21:52 Dose: 40 mg Documented by: Dextrose (D50w Syringe) 0 gm IV X1 PRN; Protocol PRN Reason: Hypoglycemia Glucagon () 1 mg IM .X1 PRN PRN Reason: Hypoglycemia Sodium Chloride () 1,000 mls @ 150 mls/hr IV .Q6H40M [facility] Last Admin: 09/17/19 07:06 Dose: 150 mls/hr Documented by: Lactobacillus Acidophilus (Acidophilus) 1 tablet PO DAILY [facility] Last Admin: 09/17/19 08:02 Dose: 1 tablet Documented by: Metoprolol Tartrate (Lopressor (Beta Mono)) 25 mg PO BID [facility] Last Admin: 09/17/19 11:28 Dose: 25 mg Documented by: Multivitamins (Allbee W/C Caplet, Thera B Comp/C) [facility] Last Admin: 09/17/19 08:01 Dose: 1 capsule Documented by: Sodium Chloride () 10 - 40 ml IV UD PRN PRN Reason: SALINE FLUSH Last Admin: 09/17/19 00:26 Dose: 10 ml Documented by:
[2019-09-17] MEDS: Metoprolol Tartrate 25 MG Tablet PO ×2 (11:28→21:47)
[2019-09-17] MEDS: APIXABAN 5 MG TABLET PO ×2 (11:29→21:47)
--- NOTE | 2019-09-17 11:35 | CASEMGMT ---
JESSICA DANGELO assessment: Face to Face with patient for initial transition planning/care coordination assessment. JESSICA DANGELO introduced self and role at [facility], pt voices understanding and consents to assessment at this time. Pt is sitting up in bed in no distress at this time. Pt is A/Ox4 at this time and answers all questions appropriately at this time. Pt's and family are at bedside during assessment. Care providers, pharmacy, and demographics verified at this time. PCP: Edilma BAZZI, Dr. Ang, clinicals faxed to [place] transfer center at this time and pt states that he is willing to transfer at this time if there was a bed available but would like to be asked again if a bed became available. Pt believes that he will not be here much longer anyway. Specialists: Chemistry Research Assistant at [facility] Pharmacy: [place]/[facility] Tom Insurance: [place]/[facility] A Prescription Benefit: [place] Living Will/HPOA: Pt states has LW/HPOA and is aware that they are not on file at this time. Pt states that his , Trudy French, is HPOA. LNOK: Trudy French, Living Arrangements: Pt states lives with in mobile home with 3 steps in and states no concerns at home at this time. Pt states is independent with ADL's. Transportation: Pt states drives self and states no transportation concerns at this time. DME/HHC: Pt states has the following DME but does not use it: cane, walker, grab bars, and shower chair. Pt states no hx of HHC or SNF in the past. Pt states no concerns with going home at time of discharge. Pt states is retired. Pt states does not smoke or drink ETOH. Pt states no further concerns/needs at this time. CM to follow for any further discharge planning/needs. Advised pt to ask for CM if any further questions/concerns/needs arise, voices understanding. Pt Goal: Home [place] JESSICA DANGELO
--- NOTE | 2019-09-17 14:53 | CHAPLAIN ---
Type of Pastoral Visit _x__ Initial Visit ___ Follow-up Visit ___ On-call Visit ___ General Patient Visit ___ Spiritual Assessment ___ Family Conference ___ Bereavement ___ Rapid Response ___ Code Blue ___ Other (describe below) Pastoral Care Referral From _x__ Patient ___ Family ___ Nurse ___ Physician ___ Studio Camera Operator ___ Surfacing Technician ___ Other (describe below) Sacrament/Intervention _x__ Active listening ___ Anointing ___ Adventist ___ Bereavement ___ Communion _x__ Judith exploration ___ _x__ Life review _x__ Prayer ___ Reconciliation ___ Sacrament of Sick ___ Supportive presence ___ Wedding ___ Other (describe below) Pastoral Comments
[2019-09-17] MEDS: Acetaminophen 325 MG Tablet 650 MG PO (21:47)
[2019-09-17] MEDS: Atorvastatin Calcium 40 MG Tablet PO (21:47)
[2019-09-18] VITALS (25 sets, daily range): BP systolic 93–154; BP diastolic 58–96; PULSE 56–124; RESP 15–22; TEMP 36.5–36.8; O2SAT 96–100
[2019-09-18] MEDS: Metoprolol Tartrate 25 MG Tablet PO ×3 (09:15→21:30)
[2019-09-18] MEDS: APIXABAN 5 MG TABLET PO ×2 (09:16→21:29)
[2019-09-18] MEDS: Aspirin E.C. 81 MG Tablet PO (09:16)
[2019-09-18] MEDS: Vitamin B Comp W-C Capsule 1 CAP PO (09:17)
[2019-09-18] MEDS: Ascorbic Acid 500 MG Tablet 2000 MG PO (09:17)
--- NOTE | 2019-09-18 10:22 | PCM.PN.HOSP ---
Patient Problems: Active and Suspected Problems Tachy-jimmie syndrome (Acute) Reason for Visit: A. fib with RVR Subjective: Patient has flipped back into A. fib with RVR. He was given an additional dose of metoprolol 25 mg this morning. Subsequent med adjustment deferred to cardiology Objective: GENERAL: cooperative HEENT: Atraumatic; EYES; Anicteric, Normal Conjunctiva NECK; supple, normal thyroid, RESPIRATORY: Diminished to auscultation CARDIOVASCULAR: Irregular S1-S2 tachycardic GI: soft, normoactive bowel sounds, : No Renal angle tenderness; EXTREMITIES: No edema, no clubbing, MUSCULOSKELETAL: no muscle waisting NEURO: Awake; no lateralizing signs. SKIN: No Rash PSYCH; Flat affect Vitals/I&O's: Vital Signs Temp Pulse Resp BP Pulse Ox 97.7 F L 124 H 16 154/90 H 97 09/18/19 09:12 09/18/19 09:15 09/18/19 09:12 09/18/19 09:12 09/18/19 09:12 Oxygen Flow Rate (L/min) 2 Oxygen Delivery Method Room Air Weight: 69.9 kg Body Mass Index (BMI) 24.2 Intake and Output for Last 24 Hours 09/16/19 09/17/19 09/18/19 23:59 23:59 23:59 Intake Total 2263.66 / 2263.83 2848.00 / 3328.00 480 / 480 Balance 2263.66 / 2263.83 2848.00 / 3328.00 480 / 480 Current Medications Acetaminophen (Tylenol) 650 mg PO Q6H PRN PRN PRN Reason: Pain Score 1-10/10 Last Admin: 09/17/19 21:47 Dose: 650 mg Documented by: Apixaban (Eliquis) 5 mg PO BID [facility] Last Admin: 09/18/19 09:16 Dose: 5 mg Documented by: Ascorbic Acid (Vitamin C) 2,000 mg PO DAILY [facility] Last Admin: 09/18/19 09:17 Dose: 2,000 mg Documented by: Aspirin (Ecotrin) 81 mg PO DAILY@0800 [facility] Last Admin: 09/18/19 09:16 Dose: 81 mg Documented by: Atorvastatin Calcium (Lipitor) 40 mg PO QHS [facility] Last Admin: 09/17/19 21:47 Dose: 40 mg Documented by: Dextrose (D50w Syringe) 0 gm IV X1 PRN; Protocol PRN Reason: Hypoglycemia Glucagon () 1 mg IM .X1 PRN PRN Reason: Hypoglycemia Lactobacillus Acidophilus (Acidophilus) 1 tablet PO DAILY [facility] Last Admin: 09/18/19 09:17 Dose: 1 tablet Documented by: Metoprolol Tartrate (Lopressor (Beta Mono)) 25 mg PO BID [facility] Last Admin: 09/18/19 09:15 Dose: 25 mg Documented by: Multivitamins (Allbee W/C Caplet, Thera B Comp/C) 1 capsule PO DAILYCM [facility] Last Admin: 09/18/19 09:17 Dose: 1 capsule Documented by: Sodium Chloride () 10 - 40 ml IV UD PRN PRN Reason: SALINE FLUSH Last Admin: 09/17/19 00:26 Dose: 10 ml Documented by: STROKE Vital Signs/Narrative: Vital Signs Temp Pulse Resp BP Pulse Ox 09/18/19 09:15 124 H 09/18/19 09:12 97.7 F L 124 H 16 154/90 H 97 09/18/19 06:49 56 L Medical Necessity - Tobacco Use Smoking Status: Former smoker Tobacco Use: Cigarettes Assessment/Plan All Active Problems Tachy-jimmie syndrome (Acute) Sinus tachycardia (Acute) Troponin I above reference range (Acute) Abnormal EKG (Acute) Paroxysmal atrial fibrillation (Resolved) Patient is an 79-year-old admitted with palpitations found to have A. fib with RVR at a monitored bed for subsequent management 1. A. fib with RVR ~Patient has history of paroxysmal A. fib presented with rapid ventricular response patient was started on Cardizem drip admitted to a monitored bed did convert. Consultation placed to cardiology patient seen by Dr. Bran his notes and recommendations reviewed patient is on systemic anticoagulation with Eliquis did continue ?09/18/2019:Patient has flipped back into A. fib with RVR. He was given an additional dose of metoprolol 25 mg this morning. Subsequent med adjustment deferred to cardiology 2. 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 Dyslipidemia ~patient is on statin therapy, continued at home dose 4. DVT prophylaxis on Eliquis Code Visit Inpatient E&M: 73006 Subs Hosp L2
[2019-09-18] MEDS: Atorvastatin Calcium 40 MG Tablet PO (21:29)
[2019-09-18] MEDS: 0.9% Saline Lock 10 ML Syringe IV (23:57)
[2019-09-18] MEDS: Acetaminophen 325 MG Tablet 650 MG PO (23:57)
[2019-09-18] MEDS: Ketorolac 15 MG/ML Vial IV (23:57)
[2019-09-19] VITALS (21 sets, daily range): BP systolic 115–150; BP diastolic 62–104; PULSE 35–114; RESP 12–22; TEMP 36.2–36.8; O2SAT 93–99
--- NOTE | 2019-09-19 08:59 | PN_ITS ---
Patient Problems: Active and Suspected Problems Tachy-jimmie syndrome (Acute) Reason for Visit: Follow-up atrial fibrillation Subjective: Patient [facility] into [facility] with RVR his metoprolol dose on the morning of 09/18/2019 was increased from 25 mg to 50 mg x 1. Patient was started on amiodarone drip by cardiology. Patient insist he was scheduled to undergo pacemaker placement. Records requested from [facility]. Decision for pacemaker placement or otherwise deferred to cardiology. Objective: GENERAL: cooperative HEENT: Atraumatic; EYES; Anicteric, Normal Conjunctiva NECK; supple, normal thyroid, RESPIRATORY: Diminished to auscultation CARDIOVASCULAR: Irregular S1-S2 tachycardic GI: soft, normoactive bowel sounds, : No Renal angle tenderness; EXTREMITIES: No edema, no clubbing, MUSCULOSKELETAL: no muscle waisting NEURO: Awake; no lateralizing signs. SKIN: No Rash PSYCH; Flat affect Vitals/I&O's: Vital Signs Temp Pulse Resp BP Pulse Ox 98.2 F 88 18 145/89 H 98 09/19/19 06:00 09/19/19 08:00 09/19/19 08:00 09/19/19 08:00 09/19/19 08:00 Oxygen Flow Rate (L/min) 2 Oxygen Delivery Method Room Air Weight: 69.9 kg Body Mass Index (BMI) 24.2 Intake and Output for Last 24 Hours 09/17/19 09/18/19 09/19/19 23:59 23:59 23:59 Intake Total 2848.00 / 3328.00 1491.21 / 1747.91 388.79 / 388.79 Output Total 475 / 975 1075 / 1075 Balance 2848.00 / 3328.00 1016.21 / 772.91 -686.21 / -686.21 Current Medications Acetaminophen (Tylenol) 650 mg PO Q6H PRN PRN PRN Reason: Pain Score 1-10/10 Last Admin: 09/18/19 23:57 Dose: 650 mg Documented by: Apixaban (Eliquis) 5 mg PO BID [facility] Last Admin: 09/18/19 21:29 Dose: 5 mg Documented by: Ascorbic Acid (Vitamin C) 2,000 mg PO DAILY [facility] Last Admin: 09/18/19 09:17 Dose: 2,000 mg Documented by: Aspirin (Ecotrin) 81 mg PO DAILY@0800 [facility] Last Admin: 09/18/19 09:16 Dose: 81 mg Documented by: Atorvastatin Calcium (Lipitor) 40 mg PO QHS [facility] Last Admin: 09/18/19 21:29 Dose: 40 mg Documented by: Dextrose (D50w Syringe) 0 gm IV X1 PRN; Protocol PRN Reason: Hypoglycemia Glucagon () 1 mg IM .X1 PRN PRN Reason: Hypoglycemia Amiodarone HCl 360 mg/ (Dextrose) 200 mls @ 16.667 mls/hr CONT INF .Q12H [facility] Stop: 09/19/19 13:59 Last Infusion: 09/19/19 08:00 Dose: Infused Documented by: Lactobacillus Acidophilus (Acidophilus) 1 tablet PO DAILY [facility] Last Admin: 09/18/19 09:17 Dose: 1 tablet Documented by: Metoprolol Tartrate (Lopressor (Beta Mono)) 25 mg PO BID [facility] Last Admin: 09/18/19 21:30 Dose: 25 mg Documented by: Multivitamins (Allbee W/C Caplet, Thera B Comp/C) 1 capsule PO DAILYCM [facility] Last Admin: 09/18/19 09:17 Dose: 1 capsule Documented by: Sodium Chloride () 10 - 40 ml IV UD PRN PRN Reason: SALINE FLUSH Last Admin: 09/18/19 23:57 Dose: 10 ml Documented by: STROKE Vital Signs/Narrative: Vital Signs Temp Pulse Resp BP Pulse Ox 09/19/19 08:00 88 18 145/89 H 98 09/19/19 07:31 97 09/19/19 07:00 91 19 H 122/83 H 97 09/19/19 06:48 81 09/19/19 06:00 98.2 F 74 12 120/82 H 96 09/19/19 05:00 80 14 115/76 93 Medical Necessity - Tobacco Use Smoking Status: Former smoker Tobacco Use: Cigarettes Assessment/Plan All Active Problems Tachy-jimmie syndrome (Acute) Sinus tachycardia (Acute) Troponin I above reference range (Acute) Abnormal EKG (Acute) Paroxysmal atrial fibrillation (Resolved) Patient is an 79-year-old admitted with palpitations found to have A. fib with RVR at a monitored bed for subsequent management 1. A. fib with RVR ~Patient has history of paroxysmal A. fib presented with rapid ventricular re sponse patient was started on Cardizem drip admitted to a monitored bed did convert. Consultation placed to cardiology patient seen by Dr. Bran his notes and recommendations reviewed patient is on systemic anticoagulation with Eliquis did continue ?09/18/2019:Patient has flipped back into A. fib with RVR. He was given an additional dose of metoprolol 25 mg this morning. Subsequent med adjustment deferred to cardiology ?09/19/2019Patient went back into A. fib with RVR his metoprolol dose on the morning of 09/18/2019 was increased from 25 mg to 50 mg x 1. Patient was started on amiodarone drip by cardiology. Patient insist he was scheduled to undergo pacemaker placement. Records requested from [facility]. Decision for pacemaker placement or otherwise deferred to cardiology. 2. History of tachybradycardia syndrome ~patient was apparently under consideration for possible pacemaker placement decision deferred to patient's undercoater 3. Dyslipidemia ~patient is on statin therapy, continued at home dose 4. DVT prophylaxis on Eliquis Code Visit Inpatient E&M: 59374 Subs Hosp L2
[2019-09-19] MEDS: Ascorbic Acid 500 MG Tablet 2000 MG PO (09:08)
[2019-09-19] MEDS: Aspirin E.C. 81 MG Tablet PO (09:09)
[2019-09-19] MEDS: Vitamin B Comp W-C Capsule 1 CAP PO (09:09)
[2019-09-19] MEDS: APIXABAN 5 MG TABLET PO (09:09)
[2019-09-19] MEDS: Metoprolol Tartrate 25 MG Tablet PO (09:47)
--- NOTE | 2019-09-19 11:52 | EKG12_ITS ---
Test Reason : Blood Pressure : / mmHG Vent. Rate : 047 BPM Atrial Rate : 047 BPM P-R Int : 128 ms QRS Dur : 082 ms QT Int : 478 ms P-R-T Axes : 053 053 060 degrees QTc Int : 423 ms Sinus bradycardia Otherwise normal ECG When compared with ECG of 17-SEP-2019 00:55, Nonspecific T wave abnormality no longer evident in Lateral leads Confirmed by CON YUAN, BRIANA ([id number]), editorial assistant LIDYA BOLDEN ([id number]) on 09/20/2019 8:04:47 AM Referred By: Lucia Coronado Confirmed By:BRIANA ANDUJAR MD
--- NOTE | 2019-09-19 14:17 | PCM.DC ---
- Discharge Diagnoses Current Active Problems: Current Active and Chronic Problems Tachy-jimmie syndrome (Acute) You will use the following diet at home:: No restrictions Allergies/Adverse Reactions: Allergies No Known Allergies Allergy (Verified 02/07/18 12:56) Medications to take at Discharge Apixaban [Eliquis] 5 mg PO BID 09/16/19 Ascorbic Acid [Vitamin C] 2,000 mg PO DAILY 09/16/19 Aspirin [Aspirin EC] 81.25 mg PO DAILY 09/16/19 Atorvastatin Calcium 40 mg PO QHS 09/16/19 Glucos Sul 2Kcl/MSM/Chond/C/Mn [Glucosamine Chondroitin Cap] 1 cap PO DAILY 09/16/19 Lactobacillus Acidophilus [Probiotic] 1 cap PO DAILY 09/16/19 [place]-3 Fatty Acids/Fish Oil [Fish Oil 1,000 mg Capsule] 1 cap PO DAILY 09/16/19 Vitamin B Complex 1 tab PO DAILY 09/16/19 Metoprolol Tartrate [Lopressor (beta nancy)] 25 mg PO BID #60 tab 09/19/19 The following prescriptions were given: Metoprolol Tartrate [Lopressor (beta nancy)] 25 mg PO BID #60 tab Transmission Status: Pending to [facility] #30 Primary Care Physician: [facility],[place] [Primary Care Provider] - Test Results: Test results from this visit will be discussed in further detail at your follow-up appointment, if applicable. Please Follow Up With: Neela Bran MD When: in 2-3 days Proposed Discharge Date: 09/19/19
--- NOTE | 2019-09-19 14:20 | PCM.DC.SUM ---
Discharge Date and Diagnosis - Problem List Patient Problems: Active and Suspected Problems Atrial fibrillation with RVR (Acute) Date of Admission: 09/16/19 Date of Discharge: 09/19/19 - Primary Discharge Diagnosis Active and Suspected Problems Atrial fibrillation with RVR (Acute) - Secondary Discharge Diagnosis Chronic Problems Tachy-jimmie syndrome (Chronic) Former smoker (Chronic) Hyperlipidemia (Chronic) COPD (chronic obstructive pulmonary disease) (Chronic) Hospital Course and Treatment Operations: None Summary of Care Provided: T Patient is an 79-year-old admitted with palpitations found to have A. fib with RVR at a monitored bed for subsequent management 1. A. fib with RVR ~Patient has history of paroxysmal A. fib presented with rapid ventricular response patient was started on Cardizem drip admitted to a monitored bed did convert. Consultation placed to cardiology patient seen by Dr. Bran his notes and recommendations reviewed patient is on systemic anticoagulation with Eliquis did continue ?09/18/2019:Patient has flipped back into A. fib with RVR. He was given an additional dose of metoprolol 25 mg this morning. Subsequent med adjustment deferred to cardiology ?09/19/2019Patient went back into A. fib with RVR his metoprolol dose on the morning of 09/18/2019 was increased from 25 mg to 50 mg x 1. Patient was started on amiodarone drip by cardiology. Patient insist he was scheduled to undergo pacemaker placement. Records requested from [facility]. Decision for pacemaker placement or otherwise deferred to cardiology.. Patient was later seen by cardiology patient was cleared for discharge with plans for patient to follow-up with cardiology as outpatient for pacemaker placement 2. History of tachybradycardia syndrome ~patient was apparently under consideration for possible pacemaker placement decision deferred to patient's flarer 3. Dyslipidemia ~patient is on statin therapy, continued at home dose 4. DVT prophylaxis on Eliquis Patient Problems: Active and Suspected Problems Atrial fibrillation with RVR (Acute) Objective: GENERAL: cooperative HEENT: Atraumatic; EYES; Anicteric, Normal Conjunctiva NECK; supple, normal thyroid, RESPIRATORY: Diminished to auscultation CARDIOVASCULAR: Irregular S1-S2 tachycardic GI: soft, normoactive bowel sounds, : No Renal angle tenderness; EXTREMITIES: No edema, no clubbing, MUSCULOSKELETAL: no muscle waisting NEURO: Awake; no lateralizing signs. SKIN: No Rash - Physical Exam Vitals/I&O's: Vital Signs Temp Pulse Resp BP Pulse Ox 97.1 F L 50 L 17 131/67 H 99 09/19/19 09:03 09/19/19 13:00 09/19/19 13:00 09/19/19 13:00 09/19/19 13:00 Oxygen Flow Rate (L/min) 2 Oxygen Delivery Method Room Air Weight: 69.9 kg Body Mass Index (BMI) 24.2 Intake and Output for Last 24 Hours 09/17/19 09/18/19 09/19/19 23:59 23:59 23:59 Intake Total 2848.00 / 3328.00 1491.21 / 1747.91 1029.21 / 1029.21 Output Total 475 / 975 1525 / 1525 Balance 2848.00 / 3328.00 1016.21 / 772.91 -495.79 / -495.79 Current Medications Acetaminophen (Tylenol) 650 mg PO Q6H PRN PRN PRN Reason: Pain Score 1-10/10 Last Admin: 09/18/19 23:57 Dose: 650 mg Documented by: Amiodarone HCl (Cordarone) 200 mg PO BID [facility] Apixaban (Eliquis) 5 mg PO BID [facility] Last Admin: 09/19/19 09:09 Dose: 5 mg Documented by: Ascorbic Acid (Vitamin C) 2,000 mg PO DAILY [facility] Last Admin: 09/19/19 09:08 Dose: 2,000 mg Documented by: Aspirin (Ecotrin) 81 mg PO DAILY@0800 [facility] Last Admin: 09/19/19 09:09 Dose: 81 mg Documented by: Atorvastatin Calcium (Lipitor) 40 mg PO QHS [facility] Last Admin: 09/18/19 21:29 Dose: 40 mg Documented by: Dextrose (D50w Syringe) 0 gm IV X1 PRN; Protocol PRN Reason: Hypoglycemia Glucagon () 1 mg IM .X1 PRN PRN Reason: Hypoglycemia Lactobacillus Acidophilus (Acidophilus) 1 tablet PO DAILY [facility] Last Admin: 09/19/19 09:09 Dose: 1 tablet Documented by: Metoprolol Tartrate (Lopressor (Beta Mono)) 25 mg PO BID [facility] Last Admin: 09/19/19 09:47 Dose: 25 mg Documented by: Multivitamins (Allbee W/C Caplet, Thera B Comp/C) 1 capsule PO DAILYCM [facility] Last Admin: 09/19/19 09:09 Dose: 1 capsule Documented by: Sodium Chloride () 10 - 40 ml IV UD PRN PRN Reason: SALINE FLUSH Last Admin: 09/18/19 23:57 Dose: 10 ml Documented by: Discharge Diet: No Restrictions Home Medications: Medications to take at Discharge Apixaban [Eliquis] 5 mg PO BID 09/16/19 Ascorbic Acid [Vitamin C] 2,000 mg PO DAILY 09/16/19 Aspirin [Aspirin EC] 81.25 mg PO DAILY 09/16/19 Atorvastatin Calcium 40 mg PO QHS 09/16/19 Glucos Sul 2Kcl/MSM/Chond/C/Mn [Glucosamine Chondroitin Cap] 1 cap PO DAILY 09/16/19 Lactobacillus Acidophilus [Probiotic] 1 cap PO DAILY 09/16/19 [place]-3 Fatty Acids/Fish Oil [Fish Oil 1,000 mg Capsule] 1 cap PO DAILY 09/16/19 Vitamin B Complex 1 tab PO DAILY 09/16/19 Metoprolol Tartrate [Lopressor (beta mono)] 25 mg PO BID #60 tab 09/19/19 Following Prescrptions Were Given to Patient: Metoprolol Tartrate [Lopressor (beta mono)] 25 mg PO BID #60 tab Transmission Status: Pending to [facility] #30 Primary Care Physician: [facility],[place] [Primary Care Provider] - Please Follow Up With: Neela Bran MD When: in 2-3 days Disposition: Home Minutes spent on discharge:: 45 Patient Condition:: Stable Medical Necessity - Tobacco Use Smoking Status: Former smoker Tobacco Use: Cigarettes Meaningful Use Info Meaningful Use Diagnoses (Choose all that apply): None applicable Code Visit Inpatient E&M: 37800 Disch Hosp
--- NOTE | 2019-09-19 14:27 | DCINST_ITS ---
- Discharge Diagnoses Current Active Problems: Current Active and Chronic Problems Atrial fibrillation with RVR (Acute) Tachy-jimmie syndrome (Chronic) Allergies/Adverse Reactions: Allergies No Known Allergies Allergy (Verified 02/07/18 12:56) Medications to take at Discharge Apixaban [Eliquis] 5 mg PO BID 09/16/19 Ascorbic Acid [Vitamin C] 2,000 mg PO DAILY 09/16/19 Aspirin [Aspirin EC] 81.25 mg PO DAILY 09/16/19 Atorvastatin Calcium 40 mg PO QHS 09/16/19 Glucos Sul 2Kcl/MSM/Chond/C/Mn [Glucosamine Chondroitin Cap] 1 cap PO DAILY 09/16/19 Lactobacillus Acidophilus [Probiotic] 1 cap PO DAILY 09/16/19 [place]-3 Fatty Acids/Fish Oil [Fish Oil 1,000 mg Capsule] 1 cap PO DAILY 09/16/19 Vitamin B Complex 1 tab PO DAILY 09/16/19 Amiodarone HCl [Cordarone] 200 mg PO BID #60 tab 09/19/19 Metoprolol Tartrate [Lopressor (beta nancy)] 25 mg PO BID #60 tab 09/19/19 The following prescriptions were given: Amiodarone HCl [Cordarone] 200 mg PO BID #60 tab Transmission Status: Pending to [facility] #30 Metoprolol Tartrate [Lopressor (beta nancy)] 25 mg PO BID #60 tab Transmission Status: Received by [facility] #30 Primary Care Physician: [facility],[place] [Primary Care Provider] - Test Results: Test results from this visit will be discussed in further detail at your follow- up appointment, if applicable. Please Follow Up With: Neela Bran MD When: in 2-3 days Proposed Discharge Date: 09/19/19
--- NOTE | 2019-09-19 15:27 | PCM.PN.CARD ---
Subjectve: Patient continues to remain asymptomatic for the most part. He converted to sinus rhythm and was in sinus bradycardia. He states that when he got up he felt a little lightheaded but then he started doing some exercise to bring his heart rate up and his heart rate had gone up to the 70s. [facility]. 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 He had a 2D echo and September 2018 which showed preserved EF and mild AR. His A. fib was diagnosed in October 2014. Objective: Vital Signs Temp Pulse Resp BP Pulse Ox 97.1 F L 50 L 17 131/67 H 99 09/19/19 09:03 09/19/19 13:00 09/19/19 13:00 09/19/19 13:00 09/19/19 13:00 Oxygen Flow Rate (L/min) 2 Oxygen Delivery Method Room Air Weight: 154 lb 1.65 oz Body Mass Index (BMI) 24.2 Intake and Output for Last 24 Hours 09/17/19 09/18/19 09/19/19 23:59 23:59 23:59 Intake Total 2848.00 / 3328.00 1491.21 / 1747.91 1029.21 / 1029.21 Output Total 475 / 975 1525 / 1525 Balance 2848.00 / 3328.00 1016.21 / 772.91 -495.79 / -495.79 General: Awake, Alert, Oriented x 3 HEENT: PERRL, EOMI, Sclera Non Icteric Neck: Supple, Good ROM, No Lymph Node Enlargement Lungs: Clear to auscultation Cardiovascular: Regular Rhythm, Normal S1, Normal S2, No Murmurs, No Rubs, No Gallops Abdomen: Soft Extremities: No edema Skin: No Rashes Psych/Mental Status: Appropriate Rhythm: EKG: ECHO: Stress Test: Cardiac Cath: PCI: CT Surgery: Holter monitor: EPS: PPM: CXR: Chest CT Scan: Medical Necessity - Tobacco Use Smoking Status: Former smoker Tobacco Use: Cigarettes Assessment/Plan 1. A. fib: Patient has converted to sinus rhythm. It will be reasonable to keep the patient on amiodarone 200 mg p.o. twice daily and metoprolol at this time. He does have sinus bradycardia but does not appear to be chronotropically incompetent. He does not have any symptoms from bradycardia. We will see him in the office and at some point if it is felt that patient has tachybradycardia syndrome that requires a pacemaker then he will be scheduled for that. At this time there is no conclusive evidence of that.
--- NOTE | 2019-09-20 15:18 | CASEMGMT ---
Case Management DC F/u Call DC Date: 09/19/19 DC Diagnosis: Atrial fibrillation with RVR (Acute) DC Disposition: Home Lace/Strata: 09/15 Called patient cell phone listed on demographics, answered and this scientific writer introduced self and role. Patient states that he has been doing good, states that [facility] office and set him up with a f/u appointment for tomorrow 09/21/19 at 2:30pm. Has been taking his DC medication and has been monitoring his HR and BP. Denies any questions, concerns, or issues with ACI, Medications or F/u. Thanked patient for choosing care at [facility] and ended conversation. Caitlyn Macdonald RNCM
== END 2019-09-19 14:52 | disposition home or self-care (01) | DRG 310 ==
LOC: ED 13:08 → PCU 15:26
PROVIDERS: Admitting Provider Student in an Organized Health Care Education/Training Program; Emergency Provider Emergency Medicine; Referring Provider Student in an Organized Health Care Education/Training Program; Visit Provider Internal Medicine
DX: I48.91 Unspecified atrial fibrillation (principal); E78.5 Hyperlipidemia, unspecified; J44.9 Chronic obstructive pulmonary disease, unspecified; I48.92 Unspecified atrial flutter; Z87.891 Personal history of nicotine dependence; Z79.01 Long term (current) use of anticoagulants; I49.5 Sick sinus syndrome
CPT/HCPCS: 36415; 71045; 73502; 80048; 83735; 84443; 84484; 85025; 93005; 93306; 99284; J7030; Q9957; A4216

== ENCOUNTER 2019-10-11 08:45 | Day surgery (SDC) | payer OTHER, SELFPAY ==
[2019-09-28 14:27] VITALS: BMI 25.2
[2019-10-04 10:27] LABS: Bacteria 0 SEEN /hpf (None Seen); Mucous, Urine 0 SEEN /hpf (<or=2+); Red Blood Cells-Urine 0 SEEN /hpf (0-5); Squamous Epithelial Cells - UA 0 SEEN /hpf (0-5)
[2019-10-04 11:16] LABS: Color, Urine Yellow (Yellow); Glucose, Dipstick Normal (Normal); Ketone-Dipstick Negative (Negative); Leukocyte Esterase-Dipstick 25 /ul (Negative); Nitrite-Dipstick Negative (Negative); Occult Blood-Urine Negative /ul (Negative); Protein-Dipstick Negative (Negative); Urine Bilirubin Dipstick Negative (Negative); Urine Clarity Clear (Clear); Urine Urobilinogen Normal (Normal)
[2019-10-04 11:19] LABS: Hemoglobin 12.8 g/dL (13.0-16.5); Mean Corp Hgb Conc 31.2 g/dL (32-36); Mean Corpuscular Hgb 30.3 pg (27.0-32.0); Mean Corpuscular Volume 97.2 fL (80-94); Mean Platelet Vol. 11.1 fl (6.2-12.0); Platelet Count 276 K/mm3 (150-450); RBC Distribution Width CV 13.5 % (11.6-14.6); RBC Distribution Width SD 48.2 fl (35.1-43.9); Red Blood Count 4.22 M/mm3 (4.6-6.2); White Blood Count 6.7 K/mm3 (4.4-11.0)
[2019-10-04 11:21] LABS: White Blood Cells 0-5 SEEN /hpf (0-5)
[2019-10-04 11:24] LABS: International Normalized Ratio 1.5; Prothrombin Time (Protime)PT. 17.7 SECONDS (11.7-14.9)
[2019-10-04 11:44] LABS: Anion Gap 2 (5-15); BUN 24 mg/dL (7-18); BUN/Creat Ratio 16.7 RATIO (10-20); Calcium,Total 9.2 mg/dL (8.5-10.1); Chloride 109 mmol/L (98-107); Creatinine, Serum 1.44 mg/dL (0.70-1.30); EST Glomerular Filtration Rate 50 mL/min (>60); Est Glom Filt Rate - Afr Amer 61 mL/min (>60); Glucose 90 mg/dL (74-106); Potassium 4.7 mmol/L (3.5-5.1); Sodium Level 140 mmol/L (136-145)
[2019-10-08 12:27] VITALS: BMI 25.2
[2019-10-11] VITALS (14 sets, daily range): BP systolic 124–155; BP diastolic 63–83; PULSE 60–93; RESP 12–19; TEMP 36.3–36.8; O2SAT 91–96
[2019-10-11] MEDS: Cefazolin 2 GM in 0.9% Normal Saline 100 ML IV (07:00)
--- NOTE | 2019-10-11 12:06 | CL.IE_ITS ---
Patient: KATHIA PAT Study Date: 10/11/2019 Performing: Chino Reece MD : [id number] Age: 79 Gender: male PROCEDURES PERFORMED [id number] PACER INSERT+DUAL LEADS INDICATIONS Sinoatrial node dysfunction/Sick sinus syndrome PROCEDURE DETAILS The patient was brought to the Catheterization Lab in the postabsorptive nonsedated state. Infor med consent was obtained prior to the procedure. Local anesthetic was given subcutaneously to the le ft subclavian region with Lidocaine 2%. Access was achieved and a guidewire was advanced into the lef t subclavian vein. Incision was made to the left upper chest. PPM ventricular lead was inserted / pos itioned to right ventricular apex. PPM ventricular lead testing performed. PPM ventricular lead testi ng performed. PPM atrial lead was inserted / positioned to the right atrial appendage. PPM atrial luis angel d testing performed. PPM atrial lead was repositioned and checked. The Ventricular PM lead sutured in place with 2-0 Silk. The Atrial lead sutured in place with 2-0 Silk. PPM generator was attached to t he lead(s) and inserted into the pocket. PPM generator was then interrogated by the clinical statistical programmer. Devic e pocket was irrigated with antibiotic. The PPM generator was sutured in place with 2-0 Vicryl. Subcutaneous closure was completed with 3-0 Vicryl. Skin closure was completed with 4-0 Vicry l. Steri-strips applied to left subclavicular incision. Pressure dressing applied to left chest. Inst rument, sponge, and needle counts were noted to be normal. The patient tolerated the procedure well. Estimated Blood Loss: 100 ml's IMPLANTED / EX-PLANTED DEVICES IMPLANTED DEVICE(S): PPM Ventricular lead - Veneer Grader: [employer], Model # 7742 , Serial # [id number] PPM Atrial lead - Veneer Grader: [employer], Model # 7741 , Serial # [id number] PPM Generator - Veneer Grader: [employer], Model # L111 , Serial # [id number] DEVICE PARAMETERS ATRIAL LEAD PARAMETERS: P wave (mV) - 1.6 Current (mA) - 1.5 threshold (V) - 0.9 impedence (OHMS) - 628 P wave- 1.6 (mV) Current- 1.5 (mA) threshold- 0.9 (V) impedence- 628 (OHMS) VENTRICULAR LEAD PARAMETERS: R wave (mV) - 9.2 current (mA) - 0.8 threshold (V) - 0.7 impedence (OHMS) - 892 R wave- 9.2 (mV) Current- 0.8 (mA) threshold- 0.7 (V) impedence- 892 (OHMS) DEVICE PARAMETERS: Mode - DDD lower rate - 60 upper rate - 130 Mode- DDD Lower rate- 60 Upper rate- 130 CONCLUSIONS / RECOMMENDATIONS Device Conclusions: Successful implantation of a dual chamber pacemaker Device Recommendations: Follow up with Primary Care Physician PROCEDURE MEDICATIONS Versed 1 mg IV Fentanyl 50 mcg IV Oxygen: 2 L/min via nasal cannula Ancef 2 Gm IV @ 10/11/2019 10:36:05 Signed By Chino Reece MD On 10/11/2019 12:05:41 Chino Reece MD
--- NOTE | 2019-10-11 14:00 | NURSING ---
Pacer site noted to be swollen but soft, no bruising and non tender. Manual pressure held and Dr. Reece notified. ballistics laboratory gunsmith staff came to unit and held additional pressure then placed a sandbag over site. Continued to monitor [id number].
--- NOTE | 2019-10-11 15:00 | NURSING ---
Upon assessment, pacer site appears swollen again but soft. Bruising noted to left lower corner dressing. Manual pressure held again, Dr. Reece notified.. 1520- Dr. Reece at bedside, sandbag reapplied with pressure tape on.
[2019-10-11] MEDS: Metoprolol Tartrate 25 MG Tablet PO (19:56)
[2019-10-11] MEDS: Acetaminophen 325 MG Tablet PO (19:57)
[2019-10-11] MEDS: Atorvastatin Calcium 40 MG Tablet PO (19:57)
--- NOTE | 2019-10-11 20:00 | NURSING ---
Pt requesting to have meds given early with tylenol.
[2019-10-11] MEDS: Calcium Carbonate 500 MG Tablet 1000 MG PO (20:41)
[2019-10-12 03:02] VITALS: PULSE 60
[2019-10-12 05:00] VITALS: BP 137/66; PULSE 60; RESP 15; TEMP 36.9; O2SAT 94
--- NOTE | 2019-10-12 05:55 | RAD_ITS ---
STUDY: X-RAY CHEST REASON FOR EXAM: Male, 79 years old. s/p pacemaker insertion -- evaluate lead position -- to exclude pneumothorax TECHNIQUE: Frontal and lateral views of the chest. Current images were obtained at 0634 hours, in inspiratory phase. COMPARISON: Expiratory phase images done at 0640 hours today. Exam done on 09/16/2019. FINDINGS: There is no demonstrated pneumothorax. There is an atrioventricular pacemaker. The wires appear to be in adequate position. There is hyperinflation of the lungs consistent with chronic obstructive lung disease (COPD). There is mild chronic interstitial prominence in the lungs. There is no demonstrated pleural abnormality. Normal size heart. Normal mediastinum and isela. Normal visualized pulmonary arteries. There is atherosclerotic calcification of the aortic arch with tortuosity. There are mild degenerative changes of the visualized thoracic spine. Normal visualized ribs, clavicles, and shoulders. There is no demonstrated abnormality of the visualized soft tissue structures of the upper abdomen. RAD/Chest PA and Lateral IMPRESSION: Pacemaker wires appear to be in adequate position. COPD. No evidence for acute cardiopulmonary pathology. No demonstrated pneumothorax. Electronically Signed: Eduardo Duran MD at 7:16 EST , Service support ,
--- NOTE | 2019-10-12 05:55 | RAD_ITS ---
STUDY: X-RAY CHEST REASON FOR EXAM: Male, 79 years old. s/p pacemaker insertion -- evaluate lead position -- to exclude pneumothorax TECHNIQUE: Single AP portable view of the chest. Current exam was obtained in expiratory phase and it was done at 0640 hours. COMPARISON: Exam done at 0637 hours, obtained in inspiratory phase. FINDINGS: There is no demonstrated pneumothorax. There is a pacemaker box overlying the left side of the chest, with associated wires and right ventricular and atrial electrodes. Wires appear to be in adequate position and there is no visible breakage or kinking of the wires. There is mild chronic interstitial prominence in the lungs. There is no demonstrated acute pulmonary infiltrate. There is no demonstrated pleural abnormality. Normal size heart. Normal mediastinum and isela. Normal visualized pulmonary arteries. There is atherosclerotic calcification of the aortic arch with tortuosity. Normal visualized thoracic spine. Normal visualized ribs, clavicles, and shoulders. There is no demonstrated abnormality of the visualized soft tissue structures of the upper abdomen. RAD/Chest 1 View IMPRESSION: Pacemaker appears to be in adequate position. Right interstitial lung disease. No demonstrated pneumothorax. Electronically Signed: Eduardo Duran MD at 7:14 EST , Service support ,
[2019-10-12 07:00] VITALS: PULSE 60
--- NOTE | 2019-10-12 08:44 | PCM.DC.PACE ---
Discharge Diet: No Restrictions Discharge Activity: May Not Drive May shower in (days): 3 Call your doctor if your incision/area has: Continuous Slow Oozing, Sudden Increased Bleeding, Increased Pain/ Swelling, Increased Redness, Foul Smelling Discharge, Swelling at the incision site Call your doctor if you observe: Fever of 101 or Higher, Shortness of breath, Dizziness, Fainting spells, Swelling in the ankles, Chest pain, Prolonged hiccoughing, Increased palpitations (irregular heartbeat) Suture Line Care: Avoid Pulling/Pushing, Avoid Pinching/Bending Cleanse incision/area with: Do not get Incision Wet, Keep Dressing Clean & Dry Additional Dressing/Incision Instructions:: When dressing is removed, wash and dry incision. Keep covered with a light bandage if it is rubbing against your clothing. Do not cover the incision with an airtight bandage. Change the bandage daily. Do not remove steri strips. The strips will fall off on their own. Additional Instructions: Signs and Symptoms to Report to Your Doctor at Once - call your doctor's office or Doctor's Registry ([phone]) Call 911 or go to the nearest Emergency Department if you feel you need urgent care. *Infection (fever, increased redness or swelling at the incision site, drainage from the incision increased pain at the pacemaker site) *Shortness of breath *Dizziness *Fainting spells *Swelling in the ankles *Chest pain *Prolonged hiccoughing *Increased palpitaitons (irregular heartbeat) Medications: Take your pain medication as directed. Refer to your discharge instruction sheet for a list of medications you are to take. Allergies/Adverse Reactions: Allergies oxycodone [From Percocet] Allergy (Intermediate, Verified 09/28/19 14:31) Unknown Medications to take at Discharge Ascorbic Acid [Vitamin C] 2,000 mg PO DAILY 09/16/19 Atorvastatin Calcium 40 mg PO QHS 09/16/19 Glucos Sul 2Kcl/MSM/Chond/C/Mn [Glucosamine Chondroitin Cap] 1 cap PO DAILY 09/16/19 Lactobacillus Acidophilus [Probiotic] 1 cap PO DAILY 09/16/19 [place]-3 Fatty Acids/Fish Oil [Fish Oil 1,000 mg Capsule] 1 cap PO DAILY 09/16/19 Vitamin B Complex 1 tab PO DAILY 09/16/19 Metoprolol Tartrate [Lopressor (beta nancy)] 25 mg PO BID #60 tab 09/19/19 amiodarone 200 mg tablet 200 mg PO DAILY #30 tab 09/28/19 aspirin 81 mg tablet,delayed release 81 mg PO BID tab 09/28/19 Primary Care Physician: [facility] [Primary Care Provider] - Test Results: Test results from this visit will be discussed in further detail at your follow-up appointment, if applicable. Please Follow Up With: [facility] OCT 19 AT 10:30AM Proposed Discharge Date: 10/12/19
--- NOTE | 2019-10-12 08:53 | PN.CARD_ITS ---
Subjectve: Patient seen and evaluated Objective: Vital Signs Temp Pulse Resp BP Pulse Ox 98.5 F 60 15 137/66 H 94 10/12/19 05:00 10/12/19 07:00 10/12/19 05:00 10/12/19 05:00 10/12/19 05:00 Oxygen Delivery Method Room Air Weight: 161 lb Body Mass Index (BMI) 25.2 Intake and Output for Last 24 Hours 10/10/19 10/11/19 10/12/19 23:59 23:59 23:59 Intake Total 850 / 850 Output Total 775 / 775 350 / 350 Balance 75 / 75 -350 / -350 General: Awake, Alert, Oriented x 3 HEENT: PERRL, EOMI, Sclera Non Icteric Neck: Supple, Good ROM, No Lymph Node Enlargement Lungs: Clear to auscultation Cardiovascular: Regular Rhythm, Normal S1, Normal S2, No Murmurs, No Rubs, No Gallops Vascular: No Carotid Bruits, Normal Femoral Pulses, Normal Radial Pulses, Normal Dorsalis Pedal Pulse, Normal Posterior Tibial Pulses Abdomen: Bowel Sounds Present, Soft, Non Tender, No HSM, No Organomegaly Extremities: No Cyanosis, No Clubbing, No edema Musculoskeletal: No Erythema Skin: No Rashes Neurological: No Focal Motor or Sensory Deficit Rhythm: EKG: ECHO: Stress Test: Cardiac Cath: PCI: CT Surgery: Holter monitor: EPS: PPM: CXR: Chest CT Scan: Medical Necessity - Tobacco Use Smoking Status: Former smoker Assessment/Plan 1. S/P pacer placement * Pacer placement with good numbers and CXR with no pneumothorax * * will discharge later today for out patient follow up
--- NOTE | 2019-10-12 09:01 | CASEMGMT ---
JESSICA DANGELO NOTE: To room to talk with pt. Introduced self and role of JESSICA DANGELO. Pt resting in bed. Awake/alert/oriented. Denies having any concerns w/going home @ discharge. Denies any discharge planning needs. Sahra BSN JESSICA DANGELO
[2019-10-12 09:54] VITALS: BP 138/70; PULSE 60; RESP 16; TEMP 36.4; O2SAT 96
[2019-10-12 09:55] VITALS: PULSE 60
[2019-10-12] MEDS: Amiodarone 200 MG Tablet PO (09:55)
[2019-10-12] MEDS: Metoprolol Tartrate 25 MG Tablet PO (09:55)
== END 2019-10-12 08:47 | disposition home or self-care (01) ==
LOC: CLSP 08:48 → PCU 10-14 07:14
PROVIDERS: Specialist; Referring Provider Internal Medicine Cardiovascular Disease; Visit Provider Internal Medicine Cardiovascular Disease
DX: I48.0 Paroxysmal atrial fibrillation (principal); I49.5 Sick sinus syndrome; E78.5 Hyperlipidemia, unspecified; J44.9 Chronic obstructive pulmonary disease, unspecified; Z87.891 Personal history of nicotine dependence; Z79.02 Long term (current) use of antithrombotics/antiplatelets; Z79.82 Long term (current) use of aspirin; Z79.899 Other long term (current) drug therapy
CPT/HCPCS: 33208; 36415; 71045; 71046; 80048; 81001; 85027; 85610; 99152; 99153; J7040; J7050; C1894

== ENCOUNTER → 2020-10-10 13:19 | Outpatient (CLI) | payer OTHER, SELFPAY ==
[2020-05-16 14:30] VITALS: BMI 23.6
[2020-10-10 14:27] LABS: Hematocrit 43.1 % (40-54); Hemoglobin 13.4 g/dL (13.0-16.5); Mean Corp Hgb Conc 31.1 g/dL (32-36); Mean Corpuscular Hgb 30.2 pg (27.0-32.0); Mean Corpuscular Volume 97.1 fL (80-94); Mean Platelet Vol. 11.8 fl (6.2-12.0); Platelet Count 210 K/mm3 (150-450); RBC Distribution Width CV 13.2 % (11.6-14.6); RBC Distribution Width SD 47.6 fl (35.1-43.9); Red Blood Count 4.44 M/mm3 (4.6-6.2); White Blood Count 8.6 K/mm3 (4.4-11.0)
[2020-10-10 14:53] LABS: AST(SGOT) 27 U/L (15-37); Alanine Aminotransfer ALT/SGPT 21 U/L (16-61); Albumin, Serum 3.9 g/dL (3.2-5.0); Alkaline Phosphatase 97 U/L (45-117); Anion Gap 3 (5-15); BUN 20 mg/dL (7-18); BUN/Creat Ratio 17.4 RATIO (10-20); Calcium,Total 9.2 mg/dL (8.5-10.1); Chloride 104 mmol/L (98-107); Creatinine, Serum 1.15 mg/dL (0.70-1.30); EST Glomerular Filtration Rate 65 mL/min (>60); Est Glom Filt Rate - Afr Amer 78 mL/min (>60); Glucose 95 mg/dL (74-106); Potassium 4.3 mmol/L (3.5-5.1); Protein, Total 7.9 g/dL (6.4-8.2); Sodium Level 135 mmol/L (136-145)
== END ==
DX: I26.99 Other pulmonary embolism without acute cor pulmonale (principal); Z79.01 Long term (current) use of anticoagulants
CPT/HCPCS: 36415; 80053; 85027

== ENCOUNTER → 2020-11-01 06:47 | Outpatient (CLI) | payer OTHER, SELFPAY ==
[2020-10-24 10:16] VITALS: BMI 23.5
--- NOTE | 2020-11-01 18:35 | STRESSREP ---
Stress Test Report Pharmacologic myocardial perfusion stress test. 80-year-old man with a history of tachybradycardia syndrome. Stress protocol: Resting KG demonstrates normal sinus rhythm with a rate of 65 bpm normal intervals are noted resting blood pressure is 142/70 mmHg. 0.4 mg of regadenoson was infused per usual protocol followed by rapid intravenous saline flush injection continuous EKG monitoring was performed. The maximum heart rate attained was 88 bpm which was 63% of maximum predicted heart rate the maximum workload was 1 metabolic equivalent. At rest there were no ST or T wave changes noted to suggest abnormal flow reserve at peak infusion nonspecific ST-T wave changes were noted. No clinical angina was noted. Myocardial perfusion protocol. 11.1 mCi of technetium 99m sestamibi was injected at rest. 0.4 mg of regadenoson was infused per usual protocol. At peak infusion 33.2 mCi of technetium 99m sestamibi was injected stress images were obtained stress and rest images were reconstructed and compared in the short axis vertical long horizontal long axis. Gated images were also obtained per Perfusion SPECT analysis: Review of the stress images demonstrate normal uptake of tracer noted in all areas of the myocardium. The resting images similar demonstrate normal uptake of tracer noted in all areas of the myocardium. No areas of reversibility are noted suggest ischemia no previous infarct is noted. Gated SPECT analysis: The gated ejection fraction is 82%. Conclusion: Normal pharmacologic myocardial perfusion stress test. Preserved ejection fraction.
== END ==
PROVIDERS: Referring Provider Nurse Practitioner Family; Visit Provider Nurse Practitioner Family
DX: I25.10 Atherosclerotic heart disease of native coronary artery without angina pectoris (principal); Z95.0 Presence of cardiac pacemaker; R53.83 Other fatigue; R06.02 Shortness of breath; E78.5 Hyperlipidemia, unspecified; I48.91 Unspecified atrial fibrillation
CPT/HCPCS: 78452; 93017; A9500; A4216; J2785

== ENCOUNTER → 2020-11-03 10:39 | Outpatient (CLI) | payer OTHER, SELFPAY ==
[2020-10-24 10:16] VITALS: BMI 23.5
--- NOTE | 2020-11-03 16:23 | PFTCOMP ---
COMPLETE PULMONARY FUNCTION TEST INTERPRETATION Brief HPI: Patient is an 80 year old male, currently under the care of Solomon Ang, who presents to [facility] for complete pulmonary function tests secondary to diagnosis of dyspnea. Respiratory therapist reports good effort and reproducible results. Interpretation: Forced expiration spirometry shows a mild large airways obstructive ventilatory defect with an FEV1 of 79% predicted. There is a significant bronchodilator response in FEV1 and FVC by strict ATS criteria. Spirograms are of good quality and plateau slowly, indicating slowly emptying areas of the lungs. The respiratory flow volume loop shows decreased expiratory flow rates at all lung volumes consistent with airway obstruction. Lung volumes by body plethysmography show an elevated total lung capacity at 7.03 L, 131% predicted. FRC and RV are elevated out of proportion. Lung volume measurements are consistent with hyperinflation and air-trapping. Diffusion capacity by carbon monoxide is normal at 101% predicted. The airway resistance is normal. No previous pulmonary function tests were available for review. Impression: Partially reversible mild large airways obstructive ventilatory defect resulting in air trapping and hyperinflation, and a pattern consistent with COPD/asthma overlap syndrome.
== END ==
PROVIDERS: Referring Provider Nurse Practitioner Family; Visit Provider Nurse Practitioner Family
DX: R53.83 Other fatigue (principal); I49.5 Sick sinus syndrome; I48.91 Unspecified atrial fibrillation; E78.5 Hyperlipidemia, unspecified; I25.10 Atherosclerotic heart disease of native coronary artery without angina pectoris; R06.02 Shortness of breath
CPT/HCPCS: 94060; 94726; 94729

== ENCOUNTER → 2021-06-12 09:57 | Outpatient (CLI) | payer OTHER, SELFPAY ==
--- NOTE | 2021-06-12 10:07 | RAD_ITS ---
STUDY: X-RAY CHEST REASON FOR EXAM: Male, 80 years old. Chest pain. TECHNIQUE: Frontal and lateral views of the chest. COMPARISON: 10/12/2019. FINDINGS: Hyperexpansion unchanged. There is no demonstrated pleural abnormality. Normal size heart. Stable dual-lead cardiac pacer. Normal mediastinum and isela. Normal visualized pulmonary arteries. Stable aortic tortuosity with calcification Normal visualized thoracic spine. Normal visualized ribs, clavicles, and shoulders. There is no demonstrated abnormality of the visualized soft tissue structures of the upper abdomen. RAD/Chest PA and Lateral IMPRESSION: Stable hyperexpansion compatible with COPD. No active cardiopulmonary disease. Electronically Signed: Emile Ponce MD at 11:38 EDT , Service support ,
[2021-06-12 11:41] LABS: Absolute Lymphocyte Count 1.45 X10^3/uL (0.83-4.51); Absolute Neutrophil Count 4.2 X10^3/uL (2.0-7.7); Basophil# 0.04 X10^3/uL; Basophil% 0.6 % (0-1); Eosinophils% 1.5 % (0-5); Hematocrit 37.9 % (40-54); Lymphocyte # 1.45 X10^3/ul (0.83-4.51); Lymphocyte % 21.6 % (19-41); Mean Corp Hgb Conc 31.7 g/dL (32-36); Mean Corpuscular Hgb 30.4 pg (27.0-32.0); Mean Corpuscular Volume 95.9 fL (80-94); Mean Platelet Vol. 11.3 fl (6.2-12.0); Monocyte# 0.91 X10^3/uL; Monocyte% 13.6 % (0-10); NRBC Flagged by Analyzer 0 % (0-5); Neutrophil # 4.17 X10^3/uL (2.7-7.7); Neutrophil % 62.3 % (47-70); Platelet Count 272 K/mm3 (150-450); RBC Distribution Width CV 12.7 % (11.6-14.6); Red Blood Count 3.95 M/mm3 (4.6-6.2); White Blood Count 6.7 K/mm3 (4.4-11.0)
[2021-06-12 11:55] LABS: Anion Gap 3 (5-15); BUN 23 mg/dL (7-18); Calcium,Total 9.3 mg/dL (8.5-10.1); Chloride 105 mmol/L (98-107); Creatinine, Serum 1.21 mg/dL (0.70-1.30); EST Glomerular Filtration Rate 61 mL/min (>60); Est Glom Filt Rate - Afr Amer 74 mL/min (>60); Glucose 106 mg/dL (74-106); Potassium 4.4 mmol/L (3.5-5.1); Sodium Level 138 mmol/L (136-145)
[2021-06-13 12:31] LABS: BNP,B-Type NATRIURETIC PEPTIDE 256.9 pg/mL (0-100)
== END ==
PROVIDERS: Visit Provider Physician Assistant Medical
DX: R07.9 Chest pain, unspecified (principal); I48.91 Unspecified atrial fibrillation; E78.5 Hyperlipidemia, unspecified; R06.00 Dyspnea, unspecified; Z95.0 Presence of cardiac pacemaker
CPT/HCPCS: 36415; 71046; 80048; 83880; 85025

== ENCOUNTER 2021-06-25 11:08 | Emergency (ER) | payer OTHER, SELFPAY ==
[2021-06-25 11:09] VITALS: BP 162/78; PULSE 95; RESP 20; TEMP 36.1; O2SAT 100; BMI 21.1
--- NOTE | 2021-06-25 11:12 | EKG12_ITS ---
Test Reason : CP Blood Pressure : / mmHG Vent. Rate : 081 BPM Atrial Rate : 081 BPM P-R Int : 180 ms QRS Dur : 090 ms QT Int : 394 ms P-R-T Axes : 033 050 008 degrees QTc Int : 457 ms Atrial-paced rhythm Nonspecific T wave abnormality Abnormal ECG Confirmed by DANK YUAN, BRODERICK ([id number]), editor in chief LISA BRAVO ([id number]) on 06/27/2021 10:17:18 AM Referred By: YANCI/GENI Confirmed By:BRODERICK WEEMS MD
[2021-06-25 11:34] LABS: Absolute Lymphocyte Count 1.08 X10^3/uL (0.83-4.51); Absolute Neutrophil Count 4.8 X10^3/uL (2.0-7.7); Basophil# 0.02 X10^3/uL; Basophil% 0.3 % (0-1); Eosinophil# 0.05 X10^3/uL; Eosinophils% 0.7 % (0-5); Hemoglobin 11.6 g/dL (13.0-16.5); Lymphocyte # 1.08 X10^3/ul (0.83-4.51); Lymphocyte % 15.9 % (19-41); Mean Corp Hgb Conc 32.2 g/dL (32-36); Mean Corpuscular Hgb 29.6 pg (27.0-32.0); Mean Corpuscular Volume 91.8 fL (80-94); Mean Platelet Vol. 10.4 fl (6.2-12.0); Monocyte# 0.78 X10^3/uL; Monocyte% 11.5 % (0-10); NRBC Flagged by Analyzer 0 % (0-5); Neutrophil # 4.84 X10^3/uL (2.7-7.7); Neutrophil % 71.3 % (47-70); Platelet Count 287 K/mm3 (150-450); RBC Distribution Width CV 12.7 % (11.6-14.6); RBC Distribution Width SD 42.5 fl (35.1-43.9); Red Blood Count 3.92 M/mm3 (4.6-6.2); White Blood Count 6.8 K/mm3 (4.4-11.0)
--- NOTE | 2021-06-25 11:50 | RAD_ITS ---
STUDY: X-RAY CHEST REASON FOR EXAM: Male, 80 years old. Chest pain. TECHNIQUE: Single AP portable view of the chest. COMPARISON: 06/12/2021. FINDINGS: Left-sided cardiac device. Cardiac silhouette unremarkable. Pulmonary vascularity unremarkable. Aorta calcified. No focal patchy airspace opacities. No pleural effusions. COPD. Upper abdomen unremarkable. Osseous structures intact with degenerative features. No pneumothorax. RAD/Chest 1 View IMPRESSION: No acute cardiopulmonary findings COPD Electronically Signed: Pérez Dash DO at 12:05 EDT Tel , Service support ,
[2021-06-25 11:52] LABS: Anion Gap 7 (5-15); BUN 19 mg/dL (7-18); Calcium,Total 9.8 mg/dL (8.5-10.1); Chloride 102 mmol/L (98-107); Creatinine, Serum 1.19 mg/dL (0.70-1.30); EST Glomerular Filtration Rate 62 mL/min (>60); Est Glom Filt Rate - Afr Amer 75 mL/min (>60); Estimated Creatinine Clearance 41.45 ml/min; Glucose 111 mg/dL (74-106); Potassium 4.9 mmol/L (3.5-5.1); Sodium Level 135 mmol/L (136-145); Troponin-I HS 11 pg/mL (3.0-78.0)
[2021-06-25 12:09] VITALS: BP 130/94; PULSE 119; RESP 18; O2SAT 95
--- NOTE | 2021-06-25 12:16 | EDS_ITS ---
HPI History of Present Illness Chief Complaint: Chest Pain Informant: patient Onset/Context/Timing Onset: Weeks Timing: Waxes and wanes Quality: Positive for Sharp and - (Squeezing) Location: - (Around the lower ribs) Current Severity: Moderate Maximum Severity: Moderate Narrative Narrative: Patient presents with a several week history of lower rib pain. Patient states whenever he leans back he gets severe pain along the lower ribs. He has been seen in the cardiology's office twice for this. Work-ups at this point have been unremarkable. He is scheduled to undergo an echocardiogram on the . Patient states he called the office again this morning with pain and was told to come to the emergency room. He has a history of tachybradycardia syndrome and has a pacemaker in place. His last stress test was in October of this year and unremarkable. [facility] Medical History (Updated 06/25/21 @ 14:[address] Ermelinda Jj MD) Abnormal EKG Atrial fibrillation with RVR COPD (chronic obstructive pulmonary disease) Former smoker Hyperlipidemia Neuropathy Sinus tachycardia Tachy-jimmie syndrome Troponin I above reference range Home Medications Lactobacillus acidophilus 1 cap PO DAILY 09/16/19 [History Last Taken 10/10/19] ascorbic acid (vitamin C) 2,000 mg PO DAILY 09/16/19 [History Last Taken 10/10/19] omega-3 fatty acids-fish oil 1 cap PO DAILY 09/16/19 [History Last Taken 10/10/19] vitamin B complex 1 tab PO DAILY 09/16/19 [History Last Taken 10/10/19] aspirin 81 mg tablet,delayed release 81 mg PO BID tab 09/28/19 [History Last Taken 10/11/19] apixaban 5 mg tablet 5 mg PO BID #60 tab 10/19/19 [Rx Last Taken Unknown] atorvastatin 20 mg tablet 40 mg PO QHS tab 05/04/21 [History Last Taken Unknown] metoprolol tartrate 50 mg tablet 75 mg PO BID tab 06/13/21 [History Last Taken Unknown] hydrocodone-acetaminophen 1 tab PO Q6H PRN 3 Days #10 tab 06/25/21 [Rx Last Taken Unknown] omeprazole magnesium [Prilosec] 20 mg PO DAILY #30 ea 06/25/21 [Rx Last Taken Unknown] Allergy/AdvReac Type Severity Reaction Status Date / Time No Known Allergies Allergy Verified 06/25/21 11:11 Family History Mother Heart disease CHD Thyroid disorder Surgical History History of bilateral cataract extraction History of left heart catheterization History of tonsillectomy Presence of permanent cardiac pacemaker (10/11/19) Social History Smoking Status: Former smoker how long ago did patient quit smokin years ago alcohol intake: never substance use type: does not use caffeine: Yes Type: coffee Number of servings: 2 ROS ROS ED Constitutional Constitutional ED: Denies chills or fever(s) Eyes Eyes: Denies change in vision ENT ENT ED: Denies sore throat Cardiovascular Cardiovascular: Reports chest pain Respiratory/Chest Respiratory/Chest: Denies cough or dyspnea Gastrointestinal Gastrointestinal: Reports constipation; Denies abdominal pain, diarrhea, nausea or vomiting Genitourinary Genitourinary ED: Denies dysuria Musculoskeletal Musculoskeletal: Reports back pain Integumentary Denies rash Neurologic Neurologic: Denies headache(s) or weakness Psychiatric Psychiatric: Denies anxiety or depression Allergic/Immunologic Allergic/Immunologic ED: Denies urticaria EXAM Physical Exam Const Vital Signs: 06/25/21 11:09 06/25/21 12:03 06/25/21 12:09 Temperature 97 F L Temperature Source Temporal Pulse Rate 95 119 H Respiratory Rate 20 H 18 Respiratory Effort Normal Non-Labored Blood Pressure 162/78 H 130/94 H Blood Pressure Mean 106 106 Pulse Ox 100 95 Oxygen Delivery Method Room Air Room Air 06/25/21 13:00 06/25/21 14:00 06/25/21 15:18 Temperature Temperature Source Pulse Rate 60 60 81 Respiratory Rate 18 18 18 Respiratory Effort Blood Pressure 150/64 H 165/69 H 157/87 H Blood Pressure Mean 92 101 Pulse Ox 97 99 98 Oxygen Delivery Method Room Air Room Air Positive well nourished and well developed General Appearance ED: well developed HEENT normocephalic and atraumatic Eyes PERRL and EOMs intact bilaterally Neck supple Chest Wall inspection of chest normal and palpation of chest normal Resp normal respiratory effort Effort and Inspection: respiratory distress Cardio regular rate and regular rhythm GI normal to inspection, nondistended, normoactive bowel sounds, soft to palpation and non-tender Back/Spine no CVA tenderness Extremity normal to inspection Neuro oriented x3 Sensorium / Orientation: awake and alert Skin no rashes or lesions noted MDM MDM MDM Narrative Medical decision making narrative: Labs, EKG, chest x-ray obtained per nursing protocol. Patient is given a dose of fentanyl for pain. Lab Data Attestation: I reviewed the patient's lab results. Labs: Laboratory Results - last 24 hr 06/25/21 06/25/21 11:24 11:24 WBC 6.8 RBC 3.92 L Hgb 11.6 L Hct 36.0 L MCV 91.8 MCH 29.6 MCHC 32.2 RDW Std Deviation 42.5 RDW Coeff of Dianna 12.7 Plt Count 287 MPV 10.4 Immature Gran % (Auto) 0.300 Neut % (Auto) 71.3 H Lymph % (Auto) 15.9 L [place] % (Auto) 11.5 H Eos % (Auto) 0.7 Baso % (Auto) 0.3 Absolute Neuts (auto) 4.8 Absolute Lymphs (auto) 1.08 Nucleated RBC % 0 Sodium 135 L Potassium 4.9 Chloride 102 Carbon Dioxide 26.0 Anion Gap 7 BUN 19 H Creatinine 1.19 Estim Creat Clear Calc 41.45 Est GFR (MDRD) Af Amer 75 Est GFR (MDRD) Non-Af 62 BUN/Creatinine Ratio 16.0 Glucose 111 H Calcium 9.8 Troponin I High Sens 11 Radiography Chest X-Ray - ED: 1 View, Read by ED Physician and Chronic Changes Diagnostic Testing: Radiology Impression Chest X-Ray 06/25/21 11:50 IMPRESSION: No acute cardiopulmonary findings COPD Electronically Signed: Péerz Dash DO at 12:05 EDT Tel , Service support , Chest CT 06/25/21 13:25 IMPRESSION: Retrocardiac hiatal hernia with evidence of GE reflux but there is also suspicious soft tissue density in the retrocardiac area and an underlying gastroesophageal junction lesion is suspected. Recommend further evaluation with upper GI endoscopy Underlying emphysema with bleb formation throughout both lung wang. No organized infiltrate or effusion No suspicious adenopathy Degenerative bony changes Electronically Signed: Rell Reddy MD at 13:52 EDT , Service support , EKG Initial EKG: Attestation: I personally reviewed and interpreted this EKG as follows: Interpretation: Sinus Rhythm (Underlying sinus rhythm with paced beats. Ventricular rate 81 bpm. No acute ischemia. No findings consistent with pericarditis.) Treatment and Re-Evaluation Comments:: Chest x-ray per my interpretation reveals chronic changes with no acute findings. Lab work unremarkable with troponin of 11. Patient was given a dose of fentanyl for pain. I spoke with Dr. Blanco, patient's scroll shear operator. He did recommend obtaining a CT scan to ensure no mass or other cause of the patient's pain. CT of the chest does reveal a retrocardiac hiatal hernia with reflux but also suspicious soft tissue density in that area. Recommended further evaluation with upper GI. Test results are discussed with the patient. He has not had significant pain relief with the fentanyl. He is given morphine and Zofran along with Protonix and a GI cocktail. He will be given prescriptions for home and referred to both general surgery and GI who have capabilities of doing the upper scope for him. Return instructions provided. Discharge Plan Triage Chief Complaint: Chest Pain ED Provider: Ermelinda Jj Dx/Rx/DC Orders Clinical Impression: Hernia, hiatal Instructions: ED Hiatal Hernia Prescriptions: New Prilosec 10 mg susp,delayed release for recon 20 mg PO DAILY Qty: 30 RF: 0 hydrocodone-acetaminophen 5-325 mg tablet 1 tab PO Q6H PRN (Reason: pain) 3 Days Qty: 10 RF: 0 No Action aspirin [Adult Low Dose Aspirin] 81 mg tablet,delayed release (DR/EC) 81 mg PO BID RF: 0 apixaban 5 mg tablet 5 mg PO BID Qty: 60 RF: 11 atorvastatin 20 mg tablet 40 mg PO QHS RF: 0 metoprolol tartrate 50 mg tablet 75 mg PO BID RF: 0 ascorbic acid (vitamin C) 1,000 MG tablet 2,000 mg PO DAILY RF: 0 vitamin B complex 1 EACH tablet 1 tab PO DAILY RF: 0 omega-3 fatty acids-fish oil 1 EACH capsule 1 cap PO DAILY RF: 0 Lactobacillus acidophilus 1 EACH capsule 1 cap PO DAILY RF: 0 Primary Care Provider: [facility] Referrals: Constance Arias MD [STAFF PHYSICIAN] - As soon as possible Franco Perez DO [STAFF PHYSICIAN] - As soon as possible [facility] [Primary Care Provider] - Activity Restrictions/Additional Instructions: Information for both Dr. Perez, GI doctor, and Dr. Arias, general surgeon, have been given to you. You can follow-up with either for upper scope and further evaluation as discussed. Disposition Disposition: Home, Self Care Discharge Date/Time: 06/25/21 15:18
[2021-06-25] MEDS: fentaNYL 100 MCG/2 ML Ampul 25 MCG IV (12:46)
[2021-06-25 13:00] VITALS: BP 150/64; PULSE 60; RESP 18; O2SAT 97
--- NOTE | 2021-06-25 13:25 | CT_ITS ---
STUDY: CT CHEST WITH CONTRAST REASON FOR EXAM: Male, 80 years old. Chest pain/pressure, patient requests RADIATION DOSAGE (If Supplied By Facility): CTDIvol = ( 12.41 ) mGy, DLP = ( 338.24 ) mGycm TECHNIQUE: Transaxial imaging was performed following intravenous administration of IV 100mL Isovue-300. Multiplanar coronal and sagittal images were reformatted. Individualized dose optimization techniques were used for this CT. COMPARISON: Previous plain films FINDINGS: Lung windows show the lungs to be hyperexpanded with diffuse emphysematous blebs throughout both lung wang. Fibrotic scarring noted in the medial aspect of the left lower lobe. There is no organized infiltrate or effusion. Soft tissue windows show a normal-appearing thyroid gland. No suspicious axillary, mediastinal, or perihilar adenopathy. Normal heart and pericardium. There are calcifications of the coronary arteries. Normal mediastinum. Normal hilar regions. Normal enhanced pulmonary arteries. Normal aorta arch and descending thoracic aorta. There are diffuse degenerative changes of the thoracic spine. Limited cuts through the upper abdomen show a retrocardiac hiatal hernia. However, there is suggestion of a mass lesion at the GE junction, further evaluation with upper GI or endoscopy. CT/Chest WITH Contrast IMPRESSION: Retrocardiac hiatal hernia with evidence of GE reflux but there is also suspicious soft tissue density in the retrocardiac area and an underlying gastroesophageal junction lesion is suspected. Recommend further evaluation with upper GI endoscopy Underlying emphysema with bleb formation throughout both lung wang. No organized infiltrate or effusion No suspicious adenopathy Degenerative bony changes Electronically Signed: Rell Reddy MD at 13:52 EDT , Service support ,
[2021-06-25 14:00] VITALS: BP 165/69; PULSE 60; RESP 18; O2SAT 99
[2021-06-25] MEDS: Mag Hydrox/Al Hydrox/Simeth 30 ML UDC PO (14:39)
[2021-06-25] MEDS: Ondansetron 4 MG/2 ML Vial IV (14:40)
[2021-06-25] MEDS: Morphine 4 MG/ML Syringe IV (14:40)
[2021-06-25 15:18] VITALS: BP 157/87; PULSE 81; RESP 18; O2SAT 98
== END 2021-06-25 15:18 | disposition home or self-care (01) ==
PROVIDERS: Emergency Provider Emergency Medicine
DX: R07.9 Chest pain, unspecified (principal); E78.5 Hyperlipidemia, unspecified; G62.9 Polyneuropathy, unspecified; I48.91 Unspecified atrial fibrillation; J44.9 Chronic obstructive pulmonary disease, unspecified; K21.9 Gastro-esophageal reflux disease without esophagitis; K44.9 Diaphragmatic hernia without obstruction or gangrene; Z87.891 Personal history of nicotine dependence; Z95.0 Presence of cardiac pacemaker
CPT/HCPCS: 71045; 71260; 80048; 84484; 85025; 93005; 99284; J7050; Q9967; A4216; J2405

== ENCOUNTER 2021-07-01 13:10 | Emergency (ER) | payer OTHER, SELFPAY ==
[2021-07-01 13:11] VITALS: BP 158/60; PULSE 64; RESP 16; TEMP 36.8; O2SAT 99; BMI 21.9
--- NOTE | 2021-07-01 13:38 | ED.VIS.BACK ---
HPI History of Present Illness Chief Complaint: Other, Pain/Inj Detail of Chief Complaint: Neck stiffness Informant: patient and spouse/S.O. Onset/Context/Timing Onset: Days Context: Gradual Onset Timing: Continuous Quality: Dull and Aching Current Severity: Mild Maximum Severity: Mild Worsened by: improves with Movement Relieved by: Remaining Still Associated Symptoms Associated Symptoms: Negative for Numbness, Tingling, Radiation to Right Leg, Radiation to Left Leg, Fever, Abdominal Pain, Dysuria, Unable to Ambulate, Unable to Transfer, Urinary Retention, Urinary Incontinence, Constipation and Fecal Incontinence Narrative Narrative: 78-[facility]. Recently has been diagnosed with reflux. A year ago he had a pacemaker placed. He has been on Prilosec. He also takes Zofran daily for nausea and vomiting. States has been generous sleep with his head up and is causing to have neck stiffness and he states the [facility] is not really caring for his problems and need to be seen today. Pain is worse with movement of his neck. Prior similar symptoms: Yes Recent Illness/Hospitalization: No [facility] Medical History (Updated 07/01/21 @ 14:[address] MD) Abnormal EKG Atrial fibrillation with RVR COPD (chronic obstructive pulmonary disease) Former smoker Hyperlipidemia Neuropathy Sinus tachycardia Tachy-jimmie syndrome Troponin I above reference range Home Medications Lactobacillus acidophilus 1 cap PO DAILY 09/16/19 [History Last Taken 10/10/19] ascorbic acid (vitamin C) 2,000 mg PO DAILY 09/16/19 [History Last Taken 10/10/19] omega-3 fatty acids-fish oil 1 cap PO DAILY 09/16/19 [History Last Taken 10/10/19] vitamin B complex 1 tab PO DAILY 09/16/19 [History Last Taken 10/10/19] aspirin 81 mg tablet,delayed release 81 mg PO BID tab 09/28/19 [History Last Taken 10/11/19] apixaban 5 mg tablet 5 mg PO BID #60 tab 10/19/19 [Rx Last Taken Unknown] atorvastatin 20 mg tablet 40 mg PO QHS tab 05/04/21 [History Last Taken Unknown] metoprolol tartrate 50 mg tablet 75 mg PO BID tab 06/13/21 [History Last Taken Unknown] hydrocodone-acetaminophen 1 tab PO Q6H PRN 3 Days #10 tab 06/25/21 [Rx Last Taken Unknown] omeprazole magnesium [Prilosec] 20 mg PO DAILY #30 ea 06/25/21 [Rx Last Taken Unknown] hydrocodone-acetaminophen 1 tab PO Q6H PRN 5 Days #16 tab 07/01/21 [Rx Last Taken Unknown] metaxalone [Skelaxin] 800 mg PO TID #20 tab 07/01/21 [Rx Last Taken Unknown] Allergy/AdvReac Type Severity Reaction Status Date / Time No Known Allergies Allergy Verified 06/25/21 11:11 Family History Mother Heart disease CHD Thyroid disorder Surgical History History of bilateral cataract extraction History of left heart catheterization History of tonsillectomy Presence of permanent cardiac pacemaker (10/11/19) Social History Smoking Status: Former smoker how long ago did patient quit smokin years ago alcohol intake: never substance use type: does not use caffeine: Yes Type: coffee Number of servings: 2 ROS ROS ED ROS Narrative Denies recent illness. Reflux complaint neck pain Review of Systems ROS Unobtainable: Denies due to encephalopathy Constitutional Constitutional ED: Denies chills, fever(s) or subjective Eyes Eyes: Denies change in vision ENT ENT ED: Denies ear pain or sore throat Cardiovascular Cardiovascular: Denies chest pain or palpitations Respiratory/Chest Respiratory/Chest: Denies dyspnea or sputum Gastrointestinal Gastrointestinal: Reports nausea and vomiting; Denies abdominal pain or diarrhea Genitourinary Genitourinary ED: Denies dysuria Musculoskeletal Musculoskeletal: Reports neck pain; Denies myalgias Integumentary Denies rash Neurologic Neurologic: Denies headache(s) Psychiatric Psychiatric: Denies depression Endocrine Endocrinology: Denies polyuria Allergic/Immunologic Allergic/Immunologic ED: Denies urticaria EXAM Physical Exam Narrative Exam Narrative: Older male no acute distress. Vital signs stable afebrile. HEENT exam unremarkable. Neck is paraspinal soft tissue tenderness consistent with myofascial strain and spasm. Trachea midline. No meningismus. No lymphadenopathy. Lungs clear to auscultation bilaterally. Heart regular rate and rhythm no murmur. Left-sided chest wall pacemaker looks good. Abdomen soft nontender. Moving all 4 extremities. No weakness or numbness. Const Vital Signs: 07/01/21 13:11 07/01/21 13:18 Temperature 98.3 F Temperature Source Temporal Pulse Rate 64 Respiratory Rate 16 Respiratory Effort Normal Non-Labored Respiratory Pattern Normal Blood Pressure 158/60 H Blood Pressure Mean 92 Pulse Ox 99 Oxygen Delivery Method Room Air Positive well nourished and well developed; Negative for obese, cachectic, contractures or unkempt General Appearance ED: well developed and NAD; Negative for unkempt, cachectic, contractures or pallor Nutritional Appearance: Negative for cachectic or obese HEENT Reports moist mucous membranes Negative for trauma or tenderness Eyes PERRL and EOMs intact bilaterally Neck no lymphadenopathy, supple and no JVD Neck Narrative: Paraspinal paracervical soft tissue tenderness. General: tenderness Resp normal respiratory effort and clear to auscultation bilaterally Effort and Inspection: Negative for pain with movement or other Auscultation: Negative for rales or rhonchi Cardio regular rate, regular rhythm, S1 normal heart sound, S2 normal heart sound and no murmurs GI normal to inspection, nondistended, normoactive bowel sounds, soft to palpation, non-tender, non-distended and no masses Inspection: Negative for abdominal distention Palpation: Negative for tender, guarding or rebound tenderness present Back/Spine normal to inspection and no thoracic nor lumbar tenderness General Back: Negative for CVA tenderness Cervical Spine: Negative for cervical spine tenderness and paracervical muscle tenderness Thoracic Spine / Upper Back: Negative for paraspinal muscle tenderness Extremity normal to inspection General Extremety ED: Negative for edema or tenderness General Extremity: Negative for edema Neuro oriented x3 Sensorium / Orientation: alert; Negative for confused, lethargic or stuporous Motor Exam: strength 5/5 throughout Psych mental status grossly normal Appearance: Negative for unkempt Skin no rashes or lesions noted and no wounds General Skin Exam: Negative for jaundice or pallor MDM MDM MDM Narrative Medical decision making narrative: 80-year-old male with myofascial strain of his neck. He will be written for Skelaxin for his muscle strain and spasm. And limited Buckner for pain. [facility] Discharge Plan Triage Chief Complaint: Other, Pain/Inj ED Provider: Andre Way Dx/Rx/DC Orders Clinical Impression: Neck muscle strain Instructions: ED Neck Sprain or Strain Prescriptions: New metaxalone [Skelaxin] 800 mg tablet 800 mg PO TID Qty: 20 RF: 0 hydrocodone-acetaminophen 5-325 mg tablet 1 tab PO Q6H PRN (Reason: pain) 5 Days Qty: 16 RF: 0 No Action aspirin [Adult Low Dose Aspirin] 81 mg tablet,delayed release (DR/EC) 81 mg PO BID RF: 0 apixaban 5 mg tablet 5 mg PO BID Qty: 60 RF: 11 atorvastatin 20 mg tablet 40 mg PO QHS RF: 0 metoprolol tartrate 50 mg tablet 75 mg PO BID RF: 0 ascorbic acid (vitamin C) 1,000 MG tablet 2,000 mg PO DAILY RF: 0 vitamin B complex 1 EACH tablet 1 tab PO DAILY RF: 0 omega-3 fatty acids-fish oil 1 EACH capsule 1 cap PO DAILY RF: 0 Lactobacillus acidophilus 1 EACH capsule 1 cap PO DAILY RF: 0 Prilosec 10 mg susp,delayed release for recon 20 mg PO DAILY Qty: 30 RF: 0 hydrocodone-acetaminophen 5-325 mg tablet 1 tab PO Q6H PRN (Reason: pain) 3 Days Qty: 10 RF: 0 [facility] [Primary Care Provider] - As soon as possible Activity Restrictions/Additional Instructions: Hot shower, warm bath and massage to help relax the muscles in your neck. Along with medication Skelaxin which is a muscle relaxant. Limited Buckner which is a pain medication 1 pill every 4-6 hours as needed. Plenty of fluids and fiber to prevent constipation. No driving while using the Buckner. Follow-up with your [facility] providers. Disposition Disposition: Home, Self Care
== END 2021-07-01 14:19 | disposition home or self-care (01) ==
PROVIDERS: Emergency Provider Emergency Medicine
DX: S16.1XXA Strain of muscle, fascia and tendon at neck level, initial encounter (principal); X58.XXXA Exposure to other specified factors, initial encounter; Y92.9 Unspecified place or not applicable; Y99.9 Unspecified external cause status; R11.2 Nausea with vomiting, unspecified; E78.5 Hyperlipidemia, unspecified; G62.9 Polyneuropathy, unspecified; I48.91 Unspecified atrial fibrillation; J44.9 Chronic obstructive pulmonary disease, unspecified; Z79.01 Long term (current) use of anticoagulants; Z87.891 Personal history of nicotine dependence; Z79.82 Long term (current) use of aspirin; Z95.0 Presence of cardiac pacemaker
CPT/HCPCS: 99283

== ENCOUNTER → 2021-07-09 06:09 | Outpatient (CLI) | payer OTHER, SELFPAY ==
--- NOTE | 2021-07-09 06:15 | ECHOD_ITS ---
Reason For Study: Chest pain Procedure This was a 2D Doppler, Color Flow transthoracic echocardiogram. Exam performed in department. Left Ventricle Normal LV size. Left ventricular systolic function is normal. The estimated ejection fraction is 55 %. No regional wall motion abnormalities noted. Right Ventricle Normal RV size. Normal systolic function. Atria Normal left atrium. Normal right atrium. Mitral Valve There is mild mitral annular calcification. Tricuspid Valve Normal tricuspid valve. Mild (1+) tricuspid valve insufficiency. Pulmonary artery systolic pressure is 36 mmHg. Aortic Valve Normal aortic valve. Trisinus/trileaflet aortic valve. Pulmonic Valve Normal pulmonic valve. Great Vessels Normal aortic root. The pulmonary artery is normal size. Normal inferior vena cava. Pericardium/Pleural No pericardial effusion. MMode/2D Measurements & Calculations LVIDd: 4.1 cm IVSd: 0.91 cm Ao root diam: 3.0 cm LVIDs: 3.0 cm LVPWd: 1.1 cm RVDd: 2.5 cm FS: 24.9 % LAV(MOD-bp): 28.2 ml LA A4 area: 16.6 cm2 LA dimension(2D): 3.2 cm LAV(MOD-bp) Indexed: 16.2 ml/m2 LAV(MOD-sp2): 18.7 ml LAV(MOD-sp4): 38.3 ml RA A4 area: 13.7 cm2 Doppler Measurements & Calculations MV E max ambar: 123.2 cm/sec Ao V2 max: 164.1 cm/sec LV V1 max: 128.1 cm/sec Ao max P.8 mmHg LV V1 max P.6 mmHg PA V2 max: 107.7 cm/sec TR max ambar: 284.2 cm/sec TR max P.8 mmHg ECHO/Echo Complete Interpretation Summary Normal LV size. Left ventricular systolic function is normal. The estimated ejection fraction is 55 %. Pulmonary artery systolic pressure is 36 mmHg. Ordering Physician: Treva Trujillo/Chino Reece Referring Physician: [facility] Performed By: Mary Goodrich RDCS
[2021-07-09 08:13] LABS: Anion Gap 9 (5-15); BUN 16 mg/dL (7-18); BUN/Creat Ratio 13.7 RATIO (10-20); Chloride 98 mmol/L (98-107); Creatinine, Serum 1.17 mg/dL (0.70-1.30); EST Glomerular Filtration Rate 63 mL/min (>60); Est Glom Filt Rate - Afr Amer 77 mL/min (>60); Glucose 104 mg/dL (74-106); Potassium 4.4 mmol/L (3.5-5.1); Sodium Level 135 mmol/L (136-145)
--- NOTE | 2021-07-09 10:45 | STRESSREP ---
Stress Test Report Myocardial perfusion stress test. 81-year-old man with a history of chest pain. Medications apixaban, atorvastatin, metoprolol. Stress protocol: Resting EKG demonstrates atrial fibrillation with a rate of 142 bpm normal intervals are noted resting blood pressure is 132/80 mmHg. 0.4 mg of regadenoson was infused per usual protocol followed by rapid intravenous saline flush injection continuous EKG monitoring was performed. The maximum heart rate attained was 169 bpm which was 123% of maximum predicted heart rate the maximum workload was 1 metabolic equivalent. At rest there were T wave inversions noted in the inferolateral leads which were nonspecific. At peak infusion nonspecific changes for ischemia were noted though they appear to be worsening of the T wave inversion and ST depression noted in the inferolateral leads. No chest pain was noted. The final blood pressure was 140/82 mmHg. Myocardial perfusion protocol. 10.8 mCi of technetium 99m sestamibi was injected at rest. 0.4 mg of regadenoson was infused per usual protocol. At peak infusion 32.5 mCi of technetium 99m sestamibi was injected stress images were obtained stress and rest images were reconstructed and compared in the short axis vertical long horizontal long axis. Gated images were also obtained Perfusion SPECT analysis: Review of the stress images demonstrate normal uptake of tracer noted in all areas of the myocardium. The resting images similarly demonstrate normal uptake of tracer noted in all areas of the myocardium. No areas of reversibility are noted to suggest ischemia. No previous infarct is noted. Gated SPECT analysis: The gated ejection fraction is 72%. Conclusion: Normal pharmacologic myocardial perfusion stress test. Atrial fibrillation with uncontrolled ventricular response rate. Nonspecific EKG changes noted.
== END ==
PROVIDERS: Referring Provider Physician Assistant Medical; Visit Provider Physician Assistant Medical
DX: R07.9 Chest pain, unspecified (principal); I48.91 Unspecified atrial fibrillation; E78.5 Hyperlipidemia, unspecified; R06.00 Dyspnea, unspecified; Z95.0 Presence of cardiac pacemaker
CPT/HCPCS: 36415; 78452; 80048; 93017; 93306; A9500; A4216; J2785

== ENCOUNTER → 2021-07-18 10:15 | Outpatient (CLI) | payer OTHER, SELFPAY | PROVIDERS: Referring Provider Physician Assistant Medical; Visit Provider Physician Assistant Medical | DX: I48.91 Unspecified atrial fibrillation (principal) | CPT/HCPCS: 93225; 93226 ==

== ENCOUNTER 2021-07-22 14:24 | Emergency (ER) | payer OTHER, SELFPAY ==
[2021-07-22 14:25] VITALS: BP 172/80; PULSE 61; RESP 18; TEMP 36.6; O2SAT 100; BMI 20.9
--- NOTE | 2021-07-22 16:09 | EKG12_ITS ---
Test Reason : Blood Pressure : / mmHG Vent. Rate : 061 BPM Atrial Rate : 061 BPM P-R Int : 116 ms QRS Dur : 084 ms QT Int : 436 ms P-R-T Axes : 059 046 026 degrees QTc Int : 438 ms Sinus rhythm with Premature supraventricular complexes Nonspecific ST and T wave abnormality Abnormal ECG Confirmed by CON YUAN, BRIANA ([id number]), film or videotape editor LISA BRAVO ([id number]) on 07/23/2021 12:57:37 PM Referred By: RYAN Confirmed By:BRIANA ANDUJAR MD
--- NOTE | 2021-07-22 16:10 | CT_ITS ---
STUDY: CT ABDOMEN AND PELVIS WITH CONTRAST REASON FOR EXAM: Male, 81 years old. epigstric pain RADIATION DOSAGE (If Supplied By Facility): CTDIvol = ( 14.21 ) mGy, DLP = ( 380.09 ) mGycm TECHNIQUE: Transaxial images were obtained from the dome of the diaphragm to the symphysis pubis without oral contrast. IV 100mL Isovue-300 was administered. Sagittal and coronal images were reconstructed. Individualized dose optimization techniques were used for this CT. COMPARISON: None. FINDINGS: Small to moderate-sized bilateral layering pleural effusions, larger on the left. Small subsegmental compressive atelectasis in the lower lobes. Scattered pulmonary blebs. Subcentimeter hypodense lesions scattered throughout the liver, too small to characterize and probably representing simple cysts or small hemangiomas. Unremarkable spleen, pancreas, adrenals, and left kidney. A 1.0 cm cyst in the posterolateral cortex of the right kidney. No definite cholelithiasis. Normal appendix. Bowel loops nonobstructed. Sigmoid diverticula. No acute diverticulitis. No free air or free fluid. No adenopathy. Vascular calcification with no abdominal aortic aneurysm. Sections through the pelvis demonstrate an enlarged prostate gland protruding into the lumen of the urinary bladder. Correlation with rectal examination and serum PSA levels is recommended. Tiny fat-containing right inguinal hernia is seen. Multilevel thoracolumbar spondylosis. 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 Diffuse osteopenia. Small posterior disc bulge at L5-S1. CT/Abdomen/Pelvis W IV Cont ONLY IMPRESSION: Bilateral layering pleural effusions, larger on the left. No acute finding the abdomen and pelvis. Chronic nonemergent findings as above. Electronically Signed: Kelby Murray MD at 17:57 EDT Tel , Service support ,
[2021-07-22] MEDS: Morphine 4 MG/ML Syringe IV (16:25)
[2021-07-22] MEDS: Ondansetron 4 MG/2 ML Vial IV (16:25)
[2021-07-22 16:26] LABS: Absolute Lymphocyte Count 0.82 X10^3/uL (0.83-4.51); Basophil# 0.01 X10^3/uL; Basophil% 0.2 % (0-1); Eosinophil# 0.02 X10^3/uL; Eosinophils% 0.3 % (0-5); Hematocrit 34.3 % (40-54); Hemoglobin 10.8 g/dL (13.0-16.5); Lymphocyte # 0.82 X10^3/ul (0.83-4.51); Lymphocyte % 12.5 % (19-41); Mean Corp Hgb Conc 31.5 g/dL (32-36); Mean Corpuscular Hgb 28.3 pg (27.0-32.0); Monocyte# 0.66 X10^3/uL; NRBC Flagged by Analyzer 0 % (0-5); Neutrophil # 5.03 X10^3/uL (2.7-7.7); Neutrophil % 76.5 % (47-70); Platelet Count 385 K/mm3 (150-450); RBC Distribution Width CV 13.4 % (11.6-14.6); RBC Distribution Width SD 44.3 fl (35.1-43.9); Red Blood Count 3.81 M/mm3 (4.6-6.2); White Blood Count 6.6 K/mm3 (4.4-11.0)
[2021-07-22 16:30] VITALS: BP 167/75; PULSE 60; RESP 16; O2SAT 99
[2021-07-22 16:45] LABS: ALB/GLOB Ratio 0.7 RATIO (0.9-2.4); AST(SGOT) 29 U/L (15-37); Alanine Aminotransfer ALT/SGPT 17 U/L (16-61); Alkaline Phosphatase 82 U/L (45-117); Anion Gap 11 (5-15); BUN 15 mg/dL (7-18); BUN/Creat Ratio 12.2 RATIO (10-20); Calcium,Total 9.2 mg/dL (8.5-10.1); Chloride 97 mmol/L (98-107); Creatinine, Serum 1.23 mg/dL (0.70-1.30); EST Glomerular Filtration Rate 60 mL/min (>60); Est Glom Filt Rate - Afr Amer 72 mL/min (>60); Estimated Creatinine Clearance 39.09 ml/min; Globulin 4.5 g/dL (2.2-4.2); Glucose 101 mg/dL (74-106); Lipase 131 U/L (73-393); Potassium 4.5 mmol/L (3.5-5.1); Protein, Total 7.5 g/dL (6.4-8.2); Sodium Level 133 mmol/L (136-145); Troponin-I HS 17 pg/mL (3.0-78.0)
--- NOTE | 2021-07-22 17:44 | EDS_ITS ---
HPI HPI - GI History of Present Illness Chief Complaint: Abd Pain Narrative Narrative: 81-year-old male presenting with epigastric pain. He states this is an ongoing issue. He initially stated he was at [facility] and referred to Dr. Perez and Dr. Arias however when he called their offices they [facility]. He went to [facility] where he states he got an upper endoscopy and was told that he has a hiatal hernia. He is on a PPI and was given pain medicine. His pain continues. He states that he did follow-up with his PCP who did not refer him to anyone else. He states that he is having trouble eating due to the pain in his epigastric area. Denies fever or chills. Denies diarrhea. PFSH PFS Medical History Abnormal EKG Atrial fibrillation with RVR COPD (chronic obstructive pulmonary disease) Former smoker Hyperlipidemia Neuropathy Sinus tachycardia Tachy-jimmie syndrome Troponin I above reference range Home Medications ascorbic acid (vitamin C) 2,000 mg PO DAILY 09/16/19 [History Last Taken 10/10/19] omega-3 fatty acids-fish oil 1 cap PO DAILY 09/16/19 [History Last Taken 10/10/19] vitamin B complex 1 tab PO DAILY 09/16/19 [History Last Taken 10/10/19] aspirin 81 mg tablet,delayed release 81 mg PO BID tab 09/28/19 [History Last Taken 10/11/19] apixaban 5 mg tablet 5 mg PO BID #60 tab 10/19/19 [Rx Last Taken Unknown] atorvastatin 20 mg tablet 40 mg PO QHS tab 05/04/21 [History Last Taken Unknown] metoprolol tartrate 50 mg tablet 75 mg PO BID tab 06/13/21 [History Last Taken Unknown] omeprazole magnesium [Prilosec] 20 mg PO DAILY #30 ea 06/25/21 [Rx Last Taken Unknown] ondansetron HCl 4 mg PO Q8H PRN 07/22/21 [History Last Taken Unknown] Allergy/AdvReac Type Severity Reaction Status Date / Time No Known Allergies Allergy Verified 06/25/21 11:11 Family History Mother Heart disease CHD Thyroid disorder Surgical History History of bilateral cataract extraction History of left heart catheterization History of tonsillectomy Presence of permanent cardiac pacemaker (10/11/19) Social History Smoking Status: Former smoker how long ago did patient quit smokin years ago alcohol intake: never substance use type: does not use caffeine: Yes Type: coffee Number of servings: 2 ROS ROS ED Constitutional Constitutional ED: Denies chills or fever(s) ENT ENT ED: Denies rhinorrhea or sore throat Cardiovascular Cardiovascular: Denies chest pain or palpitations Respiratory/Chest Respiratory/Chest: Denies cough or dyspnea Gastrointestinal Gastrointestinal: Reports abdominal pain; Denies diarrhea or vomiting Genitourinary Genitourinary ED: Denies dysuria or hematuria Musculoskeletal Musculoskeletal: Denies arthralgias or myalgias Integumentary Denies Abrasions or rash Neurologic Neurologic: Denies headache(s) or paresthesias EXAM Physical Exam Const Vital Signs: 07/22/21 14:25 07/22/21 16:30 07/22/21 17:51 Temperature 98 F Temperature Source Temporal Pulse Rate 61 60 60 Respiratory Rate 18 16 14 Blood Pressure 172/80 H 167/75 H 149/71 H Blood Pressure Mean 110 105 97 Pulse Ox 100 99 99 Oxygen Delivery Method Room Air Room Air 07/22/21 18:06 Temperature Temperature Source Pulse Rate 67 Respiratory Rate 16 Blood Pressure 135/62 H Blood Pressure Mean 86 Pulse Ox 98 Oxygen Delivery Method Room Air Positive well nourished General Appearance ED: NAD HEENT Reports moist mucous membranes normocephalic and atraumatic Eyes PERRL and EOMs intact bilaterally Resp normal respiratory effort and clear to auscultation bilaterally Cardio regular rate and regular rhythm GI GI Narrative: Mild epigastric tenderness to palpation Neuro CN's II-XII intact bilaterally Sensorium / Orientation: alert, oriented to person, oriented to place and oriented to time Psych mental status grossly normal and thought process normal Skin No no wounds General Skin Exam: Negative for jaundice MDM MDM MDM Narrative Medical decision making narrative: Patient presenting with a history of epigastric pain and unknown hiatal hernia. Last time he was seen in the ED he did have a CT performed which showed a hiatal hernia and possibility of a mass at the GE junction. Since that time he followed up with his primary care provider at the [facility] and was sent to get an upper endoscopy which did not show any mass. He continues to have pain but was not referred to anybody on an outpatient basis. Patient states that he is able to get some liquids down but is having trouble eating solid foods. Given the location of his pain I did check an EKG which is a sinus rhythm with a ventricular to [address]-T wave normality and without significant interval change on my interpretation. Troponin is negative. Again was having his pain is epigastric and I do not believe this is ACS. I did obtain a CBC which shows that his white blood cell count is normal. Hemoglobin hematocrit are stable. Platelets are normal. Renal function is also normal. LFTs within normal limits. Lipase is negative. CT of the abdomen pelvis with IV contrast does show some bilateral pleural effusions however the patient is not having any shortness of breath and is not requiring oxygen. This is new from his previous CT. otherwise there are no acute findings that are new in the abdomen pelvis. I did sit and speak with he and his for at least 15 minutes regarding the hiatal hernia issue and that we did not have a provider here that could fix this problem. He states that he only has health care through the [facility] and he will need to go through them. Given that his blood work and his vital signs are completely normal I do not believe he needs an emergent transfer to another facility. I did recommend that he follow-up with his [facility] physician and see if he can get a referral to somebody within the [facility] system. He states that he has nausea medicine at home. He will try to take boost and Ensure. He is to continue to take his omeprazole. Bertha ent is stable for discharge at this time. Impression: 1. Bilateral pleural effusions 2. Epigastric pain with history of hiatal hernia. Lab Data Labs: Laboratory Results - last 24 hr 07/22/21 07/22/21 16:19 16:19 WBC 6.6 RBC 3.81 L Hgb 10.8 L Hct 34.3 L MCV 90.0 MCH 28.3 MCHC 31.5 L RDW Std Deviation 44.3 H RDW Coeff of Dianna 13.4 Plt Count 385 MPV 10.0 Immature Gran % (Auto) 0.500 Neut % (Auto) 76.5 H Lymph % (Auto) 12.[address] [place] % (Auto) 10.0 Eos % (Auto) 0.3 Baso % (Auto) 0.2 Absolute Neuts (auto) 5.0 Absolute Lymphs (auto) 0.82 L Nucleated RBC % 0 Sodium 133 L Potassium 4.5 Chloride 97 L Carbon Dioxide 25.0 Anion Gap 11 BUN 15 Creatinine 1.23 Estim Creat Clear Calc 39.09 Est GFR (MDRD) Af Amer 72 Est GFR (MDRD) Non-Af 60 BUN/Creatinine Ratio 12.2 Glucose 101 Calcium 9.2 Total Bilirubin 0.50 AST 29 ALT 17 Alkaline Phosphatase 82 Troponin I High Sens 17 Total Protein 7.5 Albumin 3.0 L Globulin 4.5 H Albumin/Globulin Ratio 0.7 L Lipase 131 Radiography Diagnostic Testing: Clinical Impression(s) from Imaging Studies Abdomen/Pelvis CT 07/22/21 16:10 IMPRESSION: Bilateral layering pleural effusions, larger on the left. No acute finding the abdomen and pelvis. Chronic nonemergent findings as above. Electronically Signed: Kelby Murray MD at 17:57 EDT Tel , Service support , Discharge Plan Triage Chief Complaint: Abd Pain ED Provider: Jayden Arredondo Dx/Rx/DC Orders Instructions: ED Pleural Effusion, ED Hiatal Hernia Prescriptions: No Action aspirin [Adult Low Dose Aspirin] 81 mg tablet,delayed release (DR/EC) 81 mg PO BID RF: 0 apixaban 5 mg tablet 5 mg PO BID Qty: 60 RF: 11 atorvastatin 20 mg tablet 40 mg PO QHS RF: 0 metoprolol tartrate 50 mg tablet 75 mg PO BID RF: 0 ascorbic acid (vitamin C) 1,000 MG tablet 2,000 mg PO DAILY RF: 0 vitamin B complex 1 EACH tablet 1 tab PO DAILY RF: 0 omega-3 fatty acids-fish oil 1 EACH capsule 1 cap PO DAILY RF: 0 Prilosec 10 mg susp,delayed release for recon 20 mg PO DAILY Qty: 30 RF: 0 ondansetron HCl 4 mg tablet 4 mg PO Q8H PRN (Reason: Nausea) RF: 0 [facility] Provider[facility] - Disposition Disposition: Home, Self Care
[2021-07-22 17:51] VITALS: BP 149/71; PULSE 60; RESP 14; O2SAT 99
[2021-07-22 18:06] VITALS: BP 135/62; PULSE 67; RESP 16; O2SAT 98
[2021-07-22 19:02] LABS: BNP,B-Type NATRIURETIC PEPTIDE 428.9 pg/mL (0-100)
== END 2021-07-22 19:03 | disposition home or self-care (01) ==
PROVIDERS: Emergency Provider Student in an Organized Health Care Education/Training Program
DX: R10.13 Epigastric pain (principal); K44.9 Diaphragmatic hernia without obstruction or gangrene; J90 Pleural effusion, not elsewhere classified; E78.5 Hyperlipidemia, unspecified; G62.9 Polyneuropathy, unspecified; I48.91 Unspecified atrial fibrillation; J44.9 Chronic obstructive pulmonary disease, unspecified; Z79.01 Long term (current) use of anticoagulants; Z79.82 Long term (current) use of aspirin; Z87.891 Personal history of nicotine dependence
CPT/HCPCS: 74177; 80053; 83690; 83880; 84484; 85025; 93005; 96374; 96375; 99285; Q9967; A4216; J2405

== ENCOUNTER 2021-08-08 20:15 | Emergency (ER) | payer OTHER, SELFPAY ==
[2021-08-08 20:16] VITALS: BP 134/65; PULSE 87; RESP 18; TEMP 36.3; O2SAT 95; BMI 20.2
--- NOTE | 2021-08-08 20:47 | EDS_ITS ---
HPI History of Present Illness Chief Complaint: General Illness Informant: patient and spouse/S.O. Narrative Narrative: 81-year-old male presents to the emergency department reporting a inability to swallow. Patient states that recently he was in the emergency dep artment and found his way up to [facility] where he states it was found that he had a mass outside of his esophagus pushing onto the esophagus. Since returning home he states that he has been doing mostly soft foods. He has been having to break his pain medication into 4 pieces just to swallow it. He states that today he could not drink his Ensure or ice chips that he kept vomiting it up. Patient states that he is due for his pain medicine and without it he is going to be in a lot of pain. He is worried about hydration. He states he has no way to get to [facility] so he came here. [facility] Medical History Abnormal EKG Atrial fibrillation with RVR COPD (chronic obstructive pulmonary disease) Esophageal mass Former smoker Hyperlipidemia Neuropathy Sinus tachycardia Tachy-jimmie syndrome Troponin I above reference range Home Medications ascorbic acid (vitamin C) 2,000 mg PO DAILY 09/16/19 [History Last Taken 10/10/19] omega-3 fatty acids-fish oil 1 cap PO DAILY 09/16/19 [History Last Taken 10/10/19] vitamin B complex 1 tab PO DAILY 09/16/19 [History Last Taken 10/10/19] aspirin 81 mg tablet,delayed release 81 mg PO BID tab 09/28/19 [History Last Taken 10/11/19] apixaban 5 mg tablet 5 mg PO BID #60 tab 10/19/19 [Rx Last Taken Unknown] atorvastatin 20 mg tablet 20 mg PO QHS tab 05/04/21 [History Last Taken Unknown] metoprolol tartrate 50 mg tablet 75 mg PO BID tab 06/13/21 [History Last Taken Unknown] omeprazole magnesium [Prilosec] 20 mg PO DAILY #30 ea 06/25/21 [Rx Last Taken Unknown] ondansetron HCl 4 mg PO Q8H PRN 07/22/21 [History Last Taken Unknown] Eliquis 2.5 mg PO/SL BID 08/08/21 [History Last Taken Unknown] Tylenol 325 mg PO.IVFORM PRN PRN 08/08/21 [History Last Taken Unknown] bisacodyl 5 mg PO/SL PRN PRN 08/08/21 [History Last Taken Unknown] docusate sodium 100 mg PO/SL BID 08/08/21 [History Last Taken Unknown] morphine 30 mg PO/SL Q12H PRN PRN 08/08/21 [History Last Taken Unknown] oxycodone 5 mg PO.IVFORM PRN PRN 08/08/21 [History Last Taken Unknown] Allergy/AdvReac Type Severity Reaction Status Date / Time PEDISONE Allergy Itching Uncoded 08/08/21 20:19 Family History Mother Heart disease CHD Thyroid disorder Surgical History History of bilateral cataract extraction History of left heart catheterization History of tonsillectomy Presence of permanent cardiac pacemaker (10/11/19) Social History Smoking Status: Former smoker how long ago did patient quit smokin years ago alcohol intake: never substance use type: does not use caffeine: Yes Type: coffee Number of servings: 2 ROS ROS ED Constitutional Constitutional ED: Denies chills or weight loss Eyes Eyes: Denies change in vision or diplopia ENT ENT ED: Denies ear pain, rhinorrhea or sore throat Cardiovascular Cardiovascular: Reports chest pain; Denies orthopnea, palpitations or racing heartbeat Respiratory/Chest Respiratory/Chest: Denies cough, dyspnea or orthopnea Gastrointestinal Gastrointestinal: Reports vomiting; Denies abdominal pain, diarrhea or nausea Genitourinary Genitourinary ED: Denies dysuria, hematuria or urinary frequency Musculoskeletal Musculoskeletal: Denies arthralgias or myalgias Integumentary Denies abscess or rash Neurologic Neurologic: Denies headache(s) or weakness Psychiatric Psychiatric: Denies anxiety, depression, suicidal ideation or suicidal thoughts Endocrine Endocrinology: Denies polydipsia, polyphagia or polyuria Allergic/Immunologic Allergic/Immunologic ED: Denies mouth swelling, tongue swelling or urticaria EXAM Physical Exam Const Vital Signs: 08/08/21 20:16 Temperature 97.4 F L Temperature Source Temporal Pulse Rate 87 Respiratory Rate 18 Blood Pressure 134/65 H Blood Pressure Mean 88 Pulse Ox 95 Oxygen Delivery Method Room Air Positive well nourished and well developed General Appearance ED: well developed HEENT Reports normocephalic, head/scalp atraumatic and moist mucous membranes Eyes PERRL and EOMs intact bilaterally Neck no lymphadenopathy, supple and no JVD Resp normal respiratory effort and clear to auscultation bilaterally Cardio regular rate, regular rhythm and no murmurs GI normal to inspection, nondistended, normoactive bowel sounds and non-tender Palpation: soft Back/Spine no CVA tenderness and normal ROM Extremity normal to inspection General Extremety ED: Negative for edema General Extremity: Negative for edema Neuro oriented x3 and CN's II-XII intact bilaterally Sensorium / Orientation: alert Motor Exam: strength 5/5 throughout Psych mental status grossly normal Mood & Affect: Negative for depressed or tearful Skin no rashes or lesions noted and no wounds MDM MDM MDM Narrative Medical decision making narrative: IV was established patient received IV fluids morphine and Zofran. Basic labs were obtained showed a BUN of 28 creatinine 1.47. I advised the patient that there is nothing that we can do for him here at the hospital. We do not have cardiothoracic surgery nor the resources that he is going to need to care for this mass. He states he has no way to get to [facility]. I informed him that in order for me [place] the [place] need to speak with someone there and get an accepting physician. [facility] I do not hear anything back within an hour I will leave another message. I spoke with the patient that we have not heard back from them. He understands. He states that he knows that there is not much we can do for him here but he cannot keep his pain medication down and cannot tolerate the pain. He would like to stay here [facility] received pain control and hydration and see if we can get [place] in the morning. Unless of course to call back [facility]. Lab Data Attestation: I reviewed the patient's lab results. Labs: Laboratory Results - last 24 hr 08/08/21 08/08/21 21:10 21:10 WBC 6.9 RBC 3.46 L Hgb 9.5 L Hct 30.7 L MCV 88.7 MCH 27.5 MCHC 30.9 L RDW Std Deviation 47.1 H RDW Coeff of Dianna 14.5 Plt Count 349 MPV 10.2 Immature Gran % (Auto) 0.100 Neut % (Auto) 66.6 Lymph % (Auto) 18.[address] [place] % (Auto) 13.2 H Eos % (Auto) 0.9 Baso % (Auto) 0.4 Absolute Neuts (auto) 4.6 Absolute Lymphs (auto) 1.29 Nucleated RBC % 0 Sodium 133 L Potassium 4.6 Chloride 97 L Carbon Dioxide 26.0 Anion Gap 10 BUN 28 H Creatinine 1.47 H Estim Creat Clear Calc 31.51 Est GFR (MDRD) Af Amer 59 L Est GFR (MDRD) Non-Af 49 L BUN/Creatinine Ratio 19.0 Glucose 114 H Calcium 9.7 Total Bilirubin 0.50 AST 36 ALT 19 Alkaline Phosphatase 84 Total Protein 7.6 Albumin 3.0 L Globulin 4.6 H Albumin/Globulin Ratio 0.7 L Discharge Plan Triage Chief Complaint: General Illness ED Provider: Renato Garcia Dx/Rx/DC Orders Clinical Impression: Mass in chest, Esophageal obstruction Prescriptions: No Action aspirin [Adult Low Dose Aspirin] 81 mg tablet,delayed release (DR/EC) 81 mg PO BID RF: 0 apixaban 5 mg tablet 5 mg PO BID Qty: 60 RF: 11 atorvastatin 20 mg tablet 20 mg PO QHS RF: 0 metoprolol tartrate 50 mg tablet 75 mg PO BID RF: 0 ascorbic acid (vitamin C) 1,000 MG tablet 2,000 mg PO DAILY RF: 0 vitamin B complex 1 EACH tablet 1 tab PO DAILY RF: 0 omega-3 fatty acids-fish oil 1 EACH capsule 1 cap PO DAILY RF: 0 Prilosec 10 mg susp,delayed release for recon 20 mg PO DAILY Qty: 30 RF: 0 ondansetron HCl 4 mg tablet 4 mg PO Q8H PRN (Reason: Nausea) RF: 0 Eliquis 2.5 mg PO/SL BID RF: 0 Tylenol 325 mg PO.IVFORM PRN PRN (Reason: Breakthrough Pain, Mild) RF: 0 bisacodyl 5 mg PO/SL PRN PRN (Reason: Constipation) RF: 0 docusate sodium 100 mg PO/SL BID RF: 0 morphine 30 mg PO/SL Q12H PRN PRN (Reason: Breakthrough Pain) RF: 0 oxycodone 5 mg PO.IVFORM PRN PRN (Reason: Breakthrough Pain, Severe) RF: 0 [facility] [facility] [Primary Care Provider] -
--- NOTE | 2021-08-08 20:50 | NURSING ---
TRIED CALLING THE [facility] ABOUT [facility]SFERRING PT AND ONLY KEPT GETTING A VOICEMAIL. I LEFT A MESSAGE TO HAVE THEM CALL ME BACK. WILL TRY AGAIN
[2021-08-08] MEDS: 0.9% Normal Saline 1,000 ML 1000 ML IV (21:03)
[2021-08-08] MEDS: Ondansetron 4 MG/2 ML Vial IV (21:05)
[2021-08-08] MEDS: Morphine 4 MG/ML Syringe IV (21:05)
[2021-08-08 21:18] LABS: Absolute Lymphocyte Count 1.29 X10^3/uL (0.83-4.51); Absolute Neutrophil Count 4.6 X10^3/uL (2.0-7.7); Basophil# 0.03 X10^3/uL; Basophil% 0.4 % (0-1); Eosinophil# 0.06 X10^3/uL; Eosinophils% 0.9 % (0-5); Hematocrit 30.7 % (40-54); Hemoglobin 9.5 g/dL (13.0-16.5); Lymphocyte # 1.29 X10^3/ul (0.83-4.51); Lymphocyte % 18.8 % (19-41); Mean Corp Hgb Conc 30.9 g/dL (32-36); Mean Corpuscular Hgb 27.5 pg (27.0-32.0); Mean Corpuscular Volume 88.7 fL (80-94); Mean Platelet Vol. 10.2 fl (6.2-12.0); Monocyte# 0.91 X10^3/uL; Monocyte% 13.2 % (0-10); NRBC Flagged by Analyzer 0 % (0-5); Neutrophil # 4.57 X10^3/uL (2.7-7.7); Neutrophil % 66.6 % (47-70); Platelet Count 349 K/mm3 (150-450); RBC Distribution Width CV 14.5 % (11.6-14.6); RBC Distribution Width SD 47.1 fl (35.1-43.9); Red Blood Count 3.46 M/mm3 (4.6-6.2); White Blood Count 6.9 K/mm3 (4.4-11.0)
[2021-08-08 21:30] LABS: ALB/GLOB Ratio 0.7 RATIO (0.9-2.4); AST(SGOT) 36 U/L (15-37); Alanine Aminotransfer ALT/SGPT 19 U/L (16-61); Alkaline Phosphatase 84 U/L (45-117); Anion Gap 10 (5-15); BUN 28 mg/dL (7-18); Calcium,Total 9.7 mg/dL (8.5-10.1); Chloride 97 mmol/L (98-107); Creatinine, Serum 1.47 mg/dL (0.70-1.30); EST Glomerular Filtration Rate 49 mL/min (>60); Est Glom Filt Rate - Afr Amer 59 mL/min (>60); Estimated Creatinine Clearance 31.51 ml/min; Globulin 4.6 g/dL (2.2-4.2); Glucose 114 mg/dL (74-106); Potassium 4.6 mmol/L (3.5-5.1); Protein, Total 7.6 g/dL (6.4-8.2); Sodium Level 133 mmol/L (136-145)
--- NOTE | 2021-08-08 22:32 | NURSING ---
CALLED THE [facility] MULTIPLE TIMES ABOUT PATIENT. EVEN ASKED THE MAKEUP INSTRUCTOR IF THERE WAS ANYONE ELSE I COULD SPEAK WITH AND WAS JUST TRANSFERRED TO THE TRANSFER CENTER AND ONCE AGAIN NO ANSWER. I HAVE LEFT MULTIPLE MESSAGES.
[2021-08-08] MEDS: 0.9% Normal Saline 1,000 ML 150 ML IV (23:04)
[2021-08-08] MEDS: HYDROmorphone 1 MG/ML Syringe IV (23:05)
[2021-08-08 23:07] VITALS: BP 153/133; PULSE 68; RESP 18; O2SAT 92
[2021-08-09] VITALS (7 sets, daily range): BP systolic 104–164; BP diastolic 45–79; PULSE 60–76; RESP 13–18; O2SAT 93–97
[2021-08-09] MEDS: HYDROmorphone 0.5 MG/0.5 ML SYRINGE IV ×2 (02:43→09:07)
--- NOTE | 2021-08-09 08:35 | NURSING ---
CALLED THE [facility] TO CHECK ON TRANSFER AND THEY INFORMED ME THAT THE DAY NURSE HAS NOT LOOKED AT THE PATIENTS INFORMATION YET. THEY WILL GET BACK WITH US ONCE THEY DO.
[2021-08-09] MEDS: 0.9% Normal Saline 1,000 ML 150 ML IV (08:40)
[2021-08-09] MEDS: Morphine 4 MG/ML Syringe IV ×3 (10:13→12:20)
[2021-08-09] MEDS: Enoxaparin 60 MG/0.6 ML Syringe SC (10:51)
[2021-08-09] MEDS: Metoprolol Tartrate 5 MG/5 ML Vial IV (10:51)
--- NOTE | 2021-08-09 11:38 | ED.RN ---
Trudy from [place] called and asked questions about pt. Pt is aware that they are trying to direct admit him instead of going to [place] ER. pt frustrated and in pain. pt unable to eat or drink at this time.
--- NOTE | 2021-08-09 12:30 | ED.RN ---
PT OUT OF ED WITH [facility]UGHTER [facility] PT SKIN P/W/D, RESP EVEN AND UNLABORED, NO DISTRESS NOTED.
== END 2021-08-09 12:30 ==
PROVIDERS: Emergency Medicine; Emergency Provider Emergency Medicine
DX: K22.2 Esophageal obstruction (principal); R22.2 Localized swelling, mass and lump, trunk; Z87.891 Personal history of nicotine dependence; Z95.0 Presence of cardiac pacemaker; J44.9 Chronic obstructive pulmonary disease, unspecified; E78.5 Hyperlipidemia, unspecified; I48.91 Unspecified atrial fibrillation; G62.9 Polyneuropathy, unspecified
CPT/HCPCS: 80053; 85025; 87426; 96361; 96372; 96374; 96375; 96376; 99285; J7030; A4216; J2405

== ENCOUNTER 2021-08-20 11:08 | Emergency (ER) | payer OTHER, SELFPAY ==
[2021-08-20 11:09] VITALS: BP 155/71; PULSE 70; RESP 18; TEMP 36.6; O2SAT 96; BMI 22.5
[2021-08-20 11:34] VITALS: BP 155/71; PULSE 70; RESP 18; TEMP 36.6; O2SAT 96
--- NOTE | 2021-08-20 12:02 | EX.ED.DYSGE1 ---
HPI History of Present Illness Chief Complaint: Cough Narrative Narrative: Patient presents with chief complaint of hemoptysis. He states that he has past medical history of a mass on the outside of his esophagus, which is causing him difficulty swallowing. It is narrowed his esophagus so that he cannot eat. He is currently undergoing radiation therapy, and has a tube in his chest for which he takes his oral medications and nourishment. He states this morning when he coughed and spit up in the commode, he had blood-tinged sputum. He denies any chest pain or shortness of breath. No difficulty bleeding. Of note, he states he has a pacemaker and takes Eliquis for atrial fibrillation. He went to the [facility] today and received his first radiation treatment and has 9 more, but states that he had told his primary care provider that he had spit up blood today, so he was told to present to the emergency department for evaluation. He denies any chest pain lightheadedness, near syncope, or any other symptoms. He states he feels well. He denies any other bleeding diathesis. [facility] Medical History Atrial fibrillation with RVR COPD (chronic obstructive pulmonary disease) Esophageal cancer Esophageal mass Esophageal obstruction Former smoker Hyperlipidemia Mass in chest Neuropathy Paroxysmal atrial fibrillation Tachy-jimmie syndrome Troponin I above reference range Home Medications atorvastatin 20 mg tablet 20 mg PO QHS tab 05/04/21 [History Last Taken Unknown] metoprolol tartrate 50 mg tablet 75 mg PO BID tab 06/13/21 [History Last Taken Unknown] omeprazole magnesium [Prilosec] 20 mg PO DAILY #30 ea 06/25/21 [Rx Last Taken Unknown] ondansetron HCl 4 mg PO Q8H PRN 07/22/21 [History Last Taken Unknown] Eliquis 2.5 mg PO/SL BID 08/08/21 [History Last Taken Unknown] Tylenol 325 mg PO.IVFORM PRN PRN 08/08/21 [History Last Taken Unknown] bisacodyl 5 mg PO/SL PRN PRN 08/08/21 [History Last Taken Unknown] docusate sodium 100 mg PO/SL BID 08/08/21 [History Last Taken Unknown] morphine 30 mg PO/SL Q4H PRN PRN 08/08/21 [History Last Taken Unknown] methadone 7.5 mg PO Q8H 08/20/21 [History Last Taken Unknown] Allergy/AdvReac Type Severity Reaction Status Date / Time PEDISONE Allergy Itching Uncoded 08/20/21 11:13 Family History Mother Heart disease CHD Thyroid disorder Surgical History History of bilateral cataract extraction History of left heart catheterization (01/21/17) History of tonsillectomy Presence of permanent cardiac pacemaker (10/11/19) Social History Smoking Status: Former smoker how long ago did patient quit smokin years ago alcohol intake: never substance use type: does not use caffeine: Yes Type: coffee Number of servings: 2 ROS ROS ED ROS Narrative Constitutional: No fever, no chills. HEENT: No sore throat. No neck pain. No loss of vision. No rhinorrhea. Cardiovascular: No chest pain. No palpitations. No pedal edema. Respiratory: No cough, no shortness of breath. Spitting up blood. Abdominal: No abdominal pain. No nausea. No vomiting. Genitourinary: No dysuria. No hematuria. Musculoskeletal: No myalgias. No arthralgias. Neurologic: No headaches. No dizziness. No lightheadedness. Skin: No rash. No change in color. Psychiatric: No depression. No anxiety. EXAM Physical Exam Narrative Exam Narrative: Afebrile. Vital signs noted. HEENT: Normocephalic. Atraumatic. PERRL, EOMI. Neck soft and supple. No point tenderness or step off. Airway patent. No posterior pharynx hemorrhage. Cardiovascular: Regular rate and rhythm. No murmurs, rubs, or gallops appreciated. Positive tube coming from anterior chest, no blood contained therein. Respiratory: No tachypnea. Lungs clear to auscultation bilaterally. Speaking in full sentences. Gastrointestinal: Abdomen soft, nontender, with normoactive bowel sounds. No rebound or guarding. Neurological: Awake. Alert. Nonfocal, nonlateralizing. Skin: No rash. Normal color. No pallor. Musculoskeletal: No pedal edema. Full range of motion extremities. Const Vital Signs: 08/20/21 11:09 08/20/21 11:34 Temperature 97.8 F 97.8 F Temperature Source Temporal Temporal Pulse Rate 70 70 Respiratory Rate 18 18 Respiratory Effort Normal Non-Labored Respiratory Depth Normal Respiratory Pattern Normal Blood Pressure 155/71 H 155/71 H Blood Pressure Mean 99 99 Pulse Ox 96 96 Oxygen Delivery Method Room Air Room Air MDM MDM MDM Narrative Medical decision making narrative: The patient does state that his mass does cause him to cough and spit up. He does admit to forcefully coughing up sputum in the commode this morning. He brings a sample of blood-tinged sputum. He has not had harris hemoptysis or hematemesis. I did check a CBC to reassure the patient about his blood count. He was told to hold his Eliquis for 1 to 2 days, then restart it, and was warned of the risk of stroke being off his anticoagulant. I feel he can be discharged safely home with follow-up. His CBC returned with a hemoglobin of 9.8, at his baseline. Platelet count normal at 375. He has not had any bleeding or coughing up of blood here in the emergency department. Once again, I feel he be discharged safely home with follow-up. Return instructions were reviewed. Disposition is discharged home in stable condition. Lab Data Attestation: I reviewed the patient's lab results. Labs: Laboratory Results - last 24 hr 08/20/21 12:14 WBC 7.1 RBC 3.56 L Hgb 9.8 L Hct 30.9 L MCV 86.8 MCH 27.5 MCHC 31.7 L RDW Std Deviation 47.9 H RDW Coeff of Dianna 15.1 H Plt Count 375 MPV 9.5 Immature Gran % (Auto) 0.400 Neut % (Auto) 72.8 H Lymph % (Auto) 10.7 L Bertie % (Auto) 15.0 H Eos % (Auto) 0.7 Baso % (Auto) 0.4 Absolute Neuts (auto) 5.2 Absolute Lymphs (auto) 0.76 L Nucleated RBC % 0 Discharge Plan Triage Chief Complaint: Cough ED Provider: Donald Sheehan Dx/Rx/DC Orders Prescriptions: No Action atorvastatin 20 mg tablet 20 mg PO QHS RF: 0 metoprolol tartrate 50 mg tablet 75 mg PO BID RF: 0 Prilosec 10 mg susp,delayed release for recon 20 mg PO DAILY Qty: 30 RF: 0 ondansetron HCl 4 mg tablet 4 mg PO Q8H PRN (Reason: Nausea) RF: 0 Eliquis 2.5 mg PO/SL BID RF: 0 Tylenol 325 mg PO.IVFORM PRN PRN (Reason: Breakthrough Pain, Mild) RF: 0 bisacodyl 5 mg PO/SL PRN PRN (Reason: Constipation) RF: 0 docusate sodium 100 mg PO/SL BID RF: 0 morphine 30 mg PO/SL Q4H PRN PRN (Reason: Breakthrough Pain) RF: 0 methadone 5 mg Tablet 7.5 mg PO Q8H RF: 0 Primary Care Provider: [facility],[place]
[2021-08-20 12:20] LABS: Absolute Lymphocyte Count 0.76 X10^3/uL (0.83-4.51); Absolute Neutrophil Count 5.2 X10^3/uL (2.0-7.7); Basophil# 0.03 X10^3/uL; Basophil% 0.4 % (0-1); Eosinophil# 0.05 X10^3/uL; Eosinophils% 0.7 % (0-5); Hematocrit 30.9 % (40-54); Hemoglobin 9.8 g/dL (13.0-16.5); Lymphocyte # 0.76 X10^3/ul (0.83-4.51); Lymphocyte % 10.7 % (19-41); Mean Corp Hgb Conc 31.7 g/dL (32-36); Mean Corpuscular Hgb 27.5 pg (27.0-32.0); Mean Corpuscular Volume 86.8 fL (80-94); Mean Platelet Vol. 9.5 fl (6.2-12.0); Monocyte# 1.06 X10^3/uL; NRBC Flagged by Analyzer 0 % (0-5); Neutrophil # 5.15 X10^3/uL (2.7-7.7); Neutrophil % 72.8 % (47-70); Platelet Count 375 K/mm3 (150-450); RBC Distribution Width CV 15.1 % (11.6-14.6); RBC Distribution Width SD 47.9 fl (35.1-43.9); Red Blood Count 3.56 M/mm3 (4.6-6.2); White Blood Count 7.1 K/mm3 (4.4-11.0)
[2021-08-20 13:05] VITALS: PULSE 68; RESP 17; O2SAT 95
== END 2021-08-20 13:06 | disposition home or self-care (01) ==
PROVIDERS: Emergency Provider Emergency Medicine
DX: R05.9 Cough, unspecified (principal); E78.5 Hyperlipidemia, unspecified; G62.9 Polyneuropathy, unspecified; I48.0 Paroxysmal atrial fibrillation; J44.9 Chronic obstructive pulmonary disease, unspecified; Z79.01 Long term (current) use of anticoagulants; Z95.0 Presence of cardiac pacemaker; Z87.891 Personal history of nicotine dependence
CPT/HCPCS: 85025; 99282

== ENCOUNTER 2021-08-27 00:27 | Inpatient (IN) | payer OTHER, SELFPAY ==
[2021-08-27] VITALS (50 sets, daily range): BP systolic 81–134; BP diastolic 47–92; PULSE 60–152; RESP 8–20; TEMP 36.1–37.1; O2SAT 84–99; BMI 24.8; BMI 23.0
--- NOTE | 2021-08-27 | IMM_PTH ---
PATIENT: KATHIA PAT LOC: [facility] U#:[id number] AGE/SX: 81/M ROOM: [facility] RE08/27/[address]: Dr. Martin Pederson MD : 1940 BED: 1 DIS: 09/04/2021 SPEC #: [id number] RECD: 08/28/21 12:54 STATUS: MAURICE REQ #: [id number] CELE: 08/27/21 00:[address]: Ankur Medina DEPT: IMMUNOHISTOCHEMISTRY RECD BY: Lynette Anaya ENTERED: 08/28/21 12:56 SP TYPE: IMMUNO OTHR DR: DO Dr. Mathew Nix MD Dr. Nana Yaa Koram, MD Dr. Paul Moodispaw, MD Christina Muller, CONTACT ASSEMBLER-C [facility] Tissues: THORACIC FLUID Procedures: RCC (add) NAPSIN A (add) Guy Ret (add) CEA (add) CK20 (add) CK5-6 (add) CK7 (add) CK8 (add) YANEZ-2 (add) P53 (add) TTF1 (add) Pankeratin (initial) P40 (add) CDX2 (add) PSAP (add) S-100 (add) PHYSICIAN & [place] [id number] SPECIMEN INFORMATION: Tissue Source: Thoracentesis fluid Clinical Info: Pleural effusion Specimen Number: [id number] CPT code: 10322, 60949 x15 METHODOLOGY: Deparaffinized sections of prefer/formalin-fixed tissue or PAP/DQ stained slides are incubated with monoclonal/polyclonal antibodies/oligonucleotide probes. Localization is made via biotin free immunoperoxidase method. Appropriate controls are performed and reacted as expected. Results on target cell population are indicated in the following table: RESULTS: ANTIBODY / CLONE RESULT AE1-3 (AE1/AE3/PCK26) positive CK7 (OV-TL12/30) positive CK8 (26mtseZ38) positive CK20 (KS20.8) negative YANEZ-2 (SP21) positive CDX2 (BJZ3274H) negative S-100 (4C4.9) negative TTF-1 (8G7G3/1) negative Napsin A (Rabbit Polyclonal) negative RCC (PN-15) negative PSAP (PASE/4LJ) negative CALRET (polyclonal) negative CK5-6 (D5 & 1684) negative P40 (BC28) negative CEA (11-7/TF-3HB-1) positive P53 (DO-7) positive, rare cells These tests were developed and their performance characteristics determined by [facility]. They may not have been cleared or approved by the U.S. Food and Drug Administration. The FDA has determined that such clearance or approval is not necessary. The above immunohistochemical/dualISH markers are ordered and reviewed by the Pathologist. INTERPRETATION: Thoracentesis fluid (cell block): Metastatic poorly differentiated non-small cell carcinoma, adenocarcinoma. See comment. AM:tom 08/29/2021 Comment: An upper GI primary is favored. The IHC profile excluded lung primary.
--- NOTE | 2021-08-27 | FLU_PTH ---
PATIENT: KATHIA PAT LOC: [facility] U#:[id number] AGE/SX: 81/M ROOM: [facility] RE08/27/[address]: Dr. Martin Pederson MD : 1940 BED: 1 DIS: 09/04/2021 SPEC #: [id number] RECD: 08/27/21 13:28 STATUS: MAURICE REQ #: [id number] CELE: 08/27/21 00:[address]: Ankur Medina DEPT: CYTOLOGY RECD BY: Javid Myers ENTERED: 08/27/21 13:28 SP TYPE: Fluid OTHR DR: MD Dr. Lucia Barragan MD [facility] Tissues: Pleural fluid, NOS Procedures: Special Stain Group II Surgery Specimen Level IV Cytospin Fluid Comments: @ Ordering doctor for SSII edited from to @ by JEMIMA at 08/28/21 110 @ Ordering doctor for SUIV edited from to @ by JEMIMA at 08/28/21 110 @ Ordering doctor for CYSPIN edited from to @ by RGOOD at 08/28/21 1102 @ Submitting doctor edited from to @ by RGOOD at 08/28/21 1102 HEADER OPERATION: Left thoracentesis PRE-OP DIAGNOSIS: Pleural effusion TISSUE SUBMITTED: Left thoracentesis fluid for cytology DIAGNOSIS CYTOLOGY Left thoracentesis fluid for cytology (cytospin and cell block): Metastatic non-small cell carcinoma, adenocarcinoma. See comment. AM:tom 08/28/2021 COMMENT Immunohistochemistry ([id number]) favors an upper GI primary. There is no evidence of a lung primary. Case discussed with Dr. Medina on 08/28/2021. Case has been reviewed in consultation with Dr. Bob who concurs with the above diagnosis. IDC:[facility] CYTOLOGY STUDY Slides are reviewed. CYTOLOGY GROSS Received is 90 ml of yellow cloudy fluid labeled with the patient's name and and designated per the requisition as thoracentesis. Submitted for cytology preparation including cell block. / tom 08/27/2021 TC:0 CPT: 88286, 29248
--- NOTE | 2021-08-27 00:48 | RAD_ITS ---
STUDY: X-RAY CHEST REASON FOR EXAM: Male, 81 years old. dyspnea TECHNIQUE: Single AP portable view of the chest. COMPARISON: 06/25/2021 FINDINGS: There is hyperinflation of the lungs consistent with chronic obstructive lung disease (COPD). Right lung is clear. Large right effusion with compressive consolidation. There is mild cardiac enlargement. Left chest wall pacer device is noted. Normal mediastinum and isela. Normal visualized pulmonary arteries. Normal visualized aortic arch and descending thoracic aorta. Normal visualized thoracic spine. Normal visualized ribs, clavicles, and shoulders. There is no demonstrated abnormality of the visualized soft tissue structures of the upper abdomen. RAD/Chest 1 View (Portable) IMPRESSION: Large left effusion with compressive consolidation. Right lung is clear. Consider thoracentesis for fluid evaluation Electronically Signed: Alfonso Schmid DO at 1:01 EST Tel , Service support ,
--- NOTE | 2021-08-27 00:48 | EKG12_ITS ---
Test Reason : SOB Blood Pressure : / mmHG Vent. Rate : 061 BPM Atrial Rate : 061 BPM P-R Int : 168 ms QRS Dur : 074 ms QT Int : 416 ms P-R-T Axes : 043 028 024 degrees QTc Int : 418 ms Atrial-paced rhythm Nonspecific T wave abnormality Abnormal ECG Confirmed by CON YUAN, BRIANA ([id number]), editorial specialist LISA BRAVO ([id number]) on 08/27/2021 11:17:00 AM Referred By: SCOTTY Confirmed By:BRIANA ANDUJAR MD
--- NOTE | 2021-08-27 00:49 | EDS_ITS ---
HPI History of Present Illness Chief Complaint: Shortness of Breath Detail of Chief Complaint: Shortness of breath that started approximately 4:56 PM yesterday. Informant: patient Narrative Narrative: Patient presents to the emergency department via EMS from home. Complains of shortness of breath that started approximately 4 5 PM. Patient states that he checked his blood pressure and at that time he was in atrial fibrillation. Patient has a history of atrial fibrillation has a pacemaker. He is currently on Eliquis. Patient also with history of stage IV lung cancer. Patient currently receiving radiation therapy but not chemotherapy. Patient has not been gaining weight. No history of CHF. He does have a cough and bringing up some white phlegm at times. He denies any fevers. He has had his Covid vaccines as well as booster. Patient denies any chest pain. He denies fevers. Prior similar symptoms: No PFSH PFSH Medical History Atrial fibrillation with RVR COPD (chronic obstructive pulmonary disease) Esophageal cancer Esophageal mass Esophageal obstruction Former smoker Hyperlipidemia Mass in chest Neuropathy Paroxysmal atrial fibrillation Tachy-jimmie syndrome Troponin I above reference range Home Medications atorvastatin 20 mg tablet 20 mg PO QHS tab 05/04/21 [History Last Taken Unknown] metoprolol tartrate 50 mg tablet 75 mg PO BID tab 06/13/21 [History Last Taken Unknown] omeprazole magnesium [Prilosec] 20 mg PO DAILY #30 ea 06/25/21 [Rx Last Taken Unknown] ondansetron HCl 4 mg PO Q8H PRN 07/22/21 [History Last Taken Unknown] Eliquis 2.5 mg PO/SL BID 08/08/21 [History Last Taken Unknown] Tylenol 325 mg PO.IVFORM PRN PRN 08/08/21 [History Last Taken Unknown] bisacodyl 5 mg PO/SL PRN PRN 08/08/21 [History Last Taken Unknown] docusate sodium 100 mg PO/SL BID 08/08/21 [History Last Taken Unknown] morphine 30 mg PO/SL Q4H PRN PRN 08/08/21 [History Last Taken Unknown] methadone 7.5 mg PO Q8H 08/20/21 [History Last Taken Unknown] Allergy/AdvReac Type Severity Reaction Status Date / Time oxycodone Allergy Itching Verified 08/27/21 00:34 Family History Mother Heart disease CHD Thyroid disorder Surgical History History of bilateral cataract extraction History of left heart catheterization (01/21/17) History of tonsillectomy Presence of permanent cardiac pacemaker (10/11/19) Social History Smoking Status: Former smoker how long ago did patient quit smokin years ago alcohol intake: never substance use type: does not use caffeine: Yes Type: coffee Number of servings: 2 ROS ROS ED Constitutional Constitutional ED: Reports systems reviewed and no addt'l complaints, except as documented; Denies body ache(s), change in weight or chills Eyes Eyes: Denies acute decrease in peripheral vision, change in vision, double vision or loss of vision ENT ENT ED: Reports none; Denies ear pain, lip swelling, loss taste/smell, neck pain, otalgia or sore throat Cardiovascular Cardiovascular: Reports none; Denies abdominal pain, chest pain with activity, leg edema, lightheadedness, palpitations, rapid heart rate or syncope Respiratory/Chest Respiratory/Chest: Reports none, cough and dyspnea; Denies change in mental status, dry cough, hemoptysis, shortness of breath at rest or shortness of breath with exertion Gastrointestinal Gastrointestinal: Reports none; Denies abdominal pain, change in stool character, diarrhea, hematemesis, hematochezia, melena, rectal bleeding or vomiting Genitourinary Genitourinary ED: Reports none; Denies abdominal discomfort, anuria, dysuria, genital pain or polyuria Musculoskeletal Musculoskeletal: Reports none; Denies arthralgias, back pain, difficulty walking, extremity pain, muscle weakness or myalgias Integumentary Reports none; Denies abscess or rash Neurologic Neurologic: Reports none; Denies abnormal gait, confusion, focal weakness, frequent falls, headache(s), loss of vision, numbness, paresthesias, radicular pain, vertigo or weakness Psychiatric Psychiatric: Reports systems reviewed and no addt'l complaints, except as documented and none; Denies behavioral changes, confusion, difficulty concentrating, hallucinations, suicidal ideation, tactile hallucinations or visual hallucinations Endocrine Endocrinology: Denies none, cold intolerance, excessive sweating, fatigue or heat intolerance Hematologic/Lymphatic Hematologic/Lymphatic: Reports none; Denies anemia, easy bleeding or easy bruising Allergic/Immunologic Allergic/Immunologic ED: Denies as per HPI, none, lip swelling, mouth swelling, throat swelling, tongue swelling or hives EXAM Physical Exam Const Vital Signs: 08/27/21 00:28 08/27/21 00:32 08/27/21 00:34 Temperature 98.7 F 98.7 F Temperature Source Temporal Temporal Pulse Rate 78 74 Respiratory Rate 20 H 19 H Respiratory Effort Short of Breath Respiratory Depth Normal Respiratory Pattern Normal Blood Pressure 134/58 H 134/58 H Blood Pressure Mean 83 83 Pulse Ox 89 84 Oxygen Delivery Method Room Air Room Air Non-Rebreather Oxygen Flow Rate (L/min) 3 08/27/21 00:56 08/27/21 02:33 Temperature Temperature Source Pulse Rate 60 118 H Respiratory Rate 13 16 Respiratory Effort Respiratory Depth Respiratory Pattern Blood Pressure 134/85 H Blood Pressure Mean 101 Pulse Ox 95 Oxygen Delivery Method Room Air Oxygen Flow Rate (L/min) Positive well nourished and well developed General Appearance ED: well developed and NAD HEENT Reports TM's clear and moist mucous membranes normocephalic and atraumatic; Negative for trauma or tenderness Tympanic Membrane ED: Yes TM's clear Eyes PERRL and EOMs intact bilaterally General Eye ED: Negative for pale conjunctiva or scleral icterus Neck no lymphadenopathy, supple and no JVD General: Negative for tenderness Chest Wall inspection of chest normal and palpation of chest normal Chest: Negative for tenderness Resp normal respiratory effort and clear to auscultation bilaterally Resp Narrative: Few rales noted in bases. Patient has decreased breath sounds in both bases left greater than right. No accessory muscle use or retractions. No conversational dyspnea. Effort and Inspection: Negative for respiratory distress or pain with movement Auscultation: wheezes; Negative for rhonchi or diminished lung sounds Cardio regular rate, regular rhythm, S1 normal heart sound, S2 normal heart sound and no murmurs Peripheral Pulses: pulses 2+ throughout GI normal to inspection, nondistended, normoactive bowel sounds, soft to palpation, non-tender, non-distended and no masses Back/Spine no CVA tenderness and no thoracic nor lumbar tenderness Extremity normal to inspection General Extremety ED: Negative for edema General Extremity: Negative for edema Neuro oriented x3, CN's II-XII intact bilaterally, no sensory deficits noted and gait normal Sensorium / Orientation: awake, alert, oriented to person, oriented to place and oriented to time Motor Exam: strength 5/5 throughout and strength abnormal Psych mental status grossly normal Skin no rashes or lesions noted and no wounds MDM MDM MDM Narrative Medical decision making narrative: IV line established on arrival. Patient was given a DuoNeb aerosol and Solu-Medrol 60 mg IV. X-rays of the chest obtained showed a large left pleural effusion. Patient has elevated BNP and edematous legs suspect CHF component. While in department patient would intermittently go into A. fib RVR. Patient was given Cardizem 20 mg IV bolus. Patient was given Lasix 40 mg IV. Case will be discussed with hospitalist evaluate patient for admission. Patient also placed on 2 L nasal cannula O2 as he was hypoxic when h e presented with an O2 sat of 84% on room air. Lab Data Attestation: I reviewed the patient's lab results. Labs: Laboratory Results - last 24 hr 08/27/21 08/27/21 08/27/21 01:00 01:00 01:00 WBC 5.8 RBC 3.46 L Hgb 9.5 L Hct 29.8 L MCV 86.1 MCH 27.5 MCHC 31.9 L RDW Std Deviation 49.3 H RDW Coeff of Dianna 15.7 H Plt Count 329 MPV 10.1 Immature Gran % (Auto) 0.900 Neut % (Auto) 77.6 H Lymph % (Auto) 6.6 L [place] % (Auto) 13.2 H Eos % (Auto) 1.2 Baso % (Auto) 0.5 Absolute Neuts (auto) 4.5 Absolute Lymphs (auto) 0.38 L Nucleated RBC % 0 Sodium 126 L Potassium 4.7 Chloride 86 L Carbon Dioxide 33.0 H Anion Gap 7 BUN 26 H Creatinine 1.00 Estim Creat Clear Calc 48.69 Est GFR (MDRD) Af Amer 92 Est GFR (MDRD) Non-Af 76 BUN/Creatinine Ratio 26.1 H Glucose 99 Lactic Acid 1.5 Calcium 8.4 L Troponin I High Sens 19 B-Natriuretic Peptide 08/27/21 01:00 WBC RBC Hgb Hct MCV MCH MCHC RDW Std Deviation RDW Coeff of Dianna Plt Count MPV Immature Gran % (Auto) Neut % (Auto) Lymph % (Auto) [place] % (Auto) Eos % (Auto) Baso % (Auto) Absolute Neuts (auto) Absolute Lymphs (auto) Nucleated RBC % Sodium Potassium Chloride Carbon Dioxide Anion Gap BUN Creatinine Estim Creat Clear Calc Est GFR (MDRD) Af Amer Est GFR (MDRD) Non-Af BUN/Creatinine Ratio Glucose Lactic Acid Calcium Troponin I High Sens B-Natriuretic Peptide 837.4 H Radiography Diagnostic Testing: Clinical Impression(s) from Imaging Studies Chest X-Ray 08/27/21 00:48 IMPRESSION: Large left effusion with compressive consolidation. Right lung is clear. Consider thoracentesis for fluid evaluation Electronically Signed: Alfonso Schmid DO at 1:01 EST Tel , Service support , EKG Initial EKG: Attestation: I personally reviewed and interpreted this EKG as follows: Comments: Atrially paced rhythm with nonspecific ST changes with a ve ntricular rate of 61 bpm Prior EKG tracings: available for review Prior: Changed Discharge Plan Triage Chief Complaint: Shortness of Breath ED Provider: Lorie Woodard Dx/Rx/DC Orders Clinical Impression: Paroxysmal atrial fibrillation, CHF (congestive heart failure), Pleural effusion, Hypoxemia Prescriptions: No Action atorvastatin 20 mg tablet 20 mg PO QHS RF: 0 metoprolol tartrate 50 mg tablet 75 mg PO BID RF: 0 Prilosec 10 mg susp,delayed release for recon 20 mg PO DAILY Qty: 30 RF: 0 ondansetron HCl 4 mg tablet 4 mg PO Q8H PRN (Reason: Nausea) RF: 0 Eliquis 2.5 mg PO/SL BID RF: 0 Tylenol 325 mg PO.IVFORM PRN PRN (Reason: Breakthrough Pain, Mild) RF: 0 bisacodyl 5 mg PO/SL PRN PRN (Reason: Constipation) RF: 0 docusate sodium 100 mg PO/SL BID RF: 0 morphine 30 mg PO/SL Q4H PRN PRN (Reason: Breakthrough Pain) RF: 0 methadone 5 mg Tablet 7.5 mg PO Q8H RF: 0 [facility] [Primary Care Provider] - Disposition Disposition: Acute Care Hospital [facility]
[2021-08-27] MEDS: Ipratropium/Albuterol Sulfate 3 ML AMPUL.NEB INHALATION (00:55)
[2021-08-27] MEDS: MethylPREDNISolone 125 MG/2 ML Vial 60 MG IV (01:15)
[2021-08-27 01:17] LABS: Absolute Lymphocyte Count 0.38 X10^3/uL (0.83-4.51); Absolute Neutrophil Count 4.5 X10^3/uL (2.0-7.7); Basophil# 0.03 X10^3/uL; Basophil% 0.5 % (0-1); Eosinophil# 0.07 X10^3/uL; Eosinophils% 1.2 % (0-5); Hematocrit 29.8 % (40-54); Hemoglobin 9.5 g/dL (13.0-16.5); Lymphocyte # 0.38 X10^3/ul (0.83-4.51); Lymphocyte % 6.6 % (19-41); Mean Corp Hgb Conc 31.9 g/dL (32-36); Mean Corpuscular Hgb 27.5 pg (27.0-32.0); Mean Corpuscular Volume 86.1 fL (80-94); Mean Platelet Vol. 10.1 fl (6.2-12.0); Monocyte# 0.76 X10^3/uL; Monocyte% 13.2 % (0-10); NRBC Flagged by Analyzer 0 % (0-5); Neutrophil # 4.46 X10^3/uL (2.7-7.7); Neutrophil % 77.6 % (47-70); POSITIVE DIFFERENTIAL YES; Platelet Count 329 K/mm3 (150-450); RBC Distribution Width CV 15.7 % (11.6-14.6); RBC Distribution Width SD 49.3 fl (35.1-43.9); Red Blood Count 3.46 M/mm3 (4.6-6.2); White Blood Count 5.8 K/mm3 (4.4-11.0)
[2021-08-27 01:27] LABS: Differential Indicated SCAN CRITERIA MET
[2021-08-27 02:32] LABS: BNP,B-Type NATRIURETIC PEPTIDE 837.4 pg/mL (0-100)
[2021-08-27 02:35] LABS: Anion Gap 7 (5-15); BUN 26 mg/dL (7-18); BUN/Creat Ratio 26.1 RATIO (10-20); Calcium,Total 8.4 mg/dL (8.5-10.1); Chloride 86 mmol/L (98-107); EST Glomerular Filtration Rate 76 mL/min (>60); Est Glom Filt Rate - Afr Amer 92 mL/min (>60); Estimated Creatinine Clearance 48.69 ml/min; Glucose 99 mg/dL (74-106); Lactic Acid 1.5 mmol/L (0.4-1.9); Potassium 4.7 mmol/L (3.5-5.1); Sodium Level 126 mmol/L (136-145); Troponin-I HS 19 pg/mL (3.0-78.0)
[2021-08-27] MEDS: Furosemide 40 MG/4 ML Vial IV ×3 (02:40→17:07)
[2021-08-27] MEDS: dilTIAZem 25 MG/5 ML Vial 20 MG IV BOLUS (02:44)
--- NOTE | 2021-08-27 02:55 | HP.PCM.HOS_ITS ---
[facility] - General General Date of Admission: 08/27/21 Date of Service: 08/27/21 Chief Complaint: SOB HPI Narrative KATHIA PAT, is a 81 M with a significant history of esophageal mass; paroxysmal atrial fibrillation; tachy-bradycardia syndrome; and with permanent pacemaker who presented to the emergency department with shortness of breath that started few hours before presentation. His shortness of breath is at rest. Associated with symptom is orthopnea and paroxysmal nocturnal dyspnea. Also patient reports of bilateral lower extremity edema that started about 2 weeks ago and for which Doppler of bilateral lower extremity was negative for clots. Earlier on the same day of presentation patient routinely check his blood pressure and his pulse. His atrial fibrillation persisted per his reading on his home machine. 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 He reported that this mass was found via CT scans and PET scans. Because of the mass he is unable to eat and he is on Jevity tube feeding. He is unable to further clarify the type of Jevity tube feeding he takes. Reportedly he takes 5 cans/day: Half of a can every 1 hour. Patient follows up with Dr. Luna, oncologist. Also he is getting radiation for his cancer [facility] Medical History Atrial fibrillation with RVR COPD (chronic obstructive pulmonary disease) Esophageal cancer Esophageal mass Esophageal obstruction Former smoker Hyperlipidemia Mass in chest Neuropathy Paroxysmal atrial fibrillation Tachy-jimmie syndrome Troponin I above reference range Home Medications atorvastatin 20 mg tablet 20 mg PO QHS tab 05/04/21 [History Last Taken Unknown] metoprolol tartrate 50 mg tablet 75 mg PO BID tab 06/13/21 [History Last Taken Unknown] omeprazole magnesium [Prilosec] 20 mg PO DAILY #30 ea 06/25/21 [Rx Last Taken Unknown] ondansetron HCl 4 mg PO Q8H PRN 07/22/21 [History Last Taken Unknown] Eliquis 2.5 mg PO/SL BID 08/08/21 [History Last Taken Unknown] Tylenol 325 mg PO.IVFORM PRN PRN 08/08/21 [History Last Taken Unknown] bisacodyl 5 mg PO/SL PRN PRN 08/08/21 [History Last Taken Unknown] docusate sodium 100 mg PO/SL BID 08/08/21 [History Last Taken Unknown] morphine 30 mg PO/SL Q4H PRN PRN 08/08/21 [History Last Taken Unknown] methadone 7.5 mg PO Q8H 08/20/21 [History Last Taken Unknown] Allergy/AdvReac Type Severity Reaction Status Date / Time oxycodone Allergy Itching Verified 08/27/21 00:34 Family History Mother Heart disease CHD Thyroid disorder Surgical History History of bilateral cataract extraction History of left heart catheterization (01/21/17) History of tonsillectomy Presence of permanent cardiac pacemaker (10/11/19) Social History Smoking Status: Former smoker how long ago did patient quit smokin years ago alcohol intake: never substance use type: does not use caffeine: Yes Type: coffee Number of servings: 2 ROS ROS Narrative Constitutional: Reports fatigue. Reports about 16 pounds gain weight since after June 2021 and of weight he has gained some weight back. Denies fever and chills. Eyes: Denies blurry vision, change in eye color, change in vision, discharge from eye(s), double vision, erythema, eye pain, loss of vision or other HEENT: Denies abnormal hearing, dysphagia, ear pain, epistaxis, headache(s), hearing loss, nasal congestion, nasal discharge, post nasal drip, sinus pressure, sore throat or other Cardiovascular: Denies chest pain or palpitations. Reports orthopnea and paroxysmal nocturnal dyspnea Respiratory/Chest: Reports shortness of breath. Denies cough, excessive phlegm production. Gastrointestinal: Denies abdominal pain, coffee ground emesis, constipation, diarrhea, dyspepsia, hematemesis, hematochezia, loose stools, melena, nausea, vomiting or other Genitourinary: Denies burning urination, difficulty urinating, dysuria, hematuria, urinary incontinence, urinary urgency or other Musculoskeletal: Denies arthralgias, back pain, joint pain, joint stiffness, joint swelling, myalgias, neck pain or other Neurologic: Denies abnormal gait, abnormal speech, confusion, disequilibrium, dizziness, focal weakness, headache(s), numbness, paresthesias, seizure-like activity, seizures, syncope, tingling, tremor(s) or other Psychiatric: Denies anxiety, depression, homicidal ideation, suicidal ideation or other Endocrinology: Denies change in body appearance, cold intolerance, excessive sweating, heat intolerance, polydipsia, polyuria or other Hematologic/Lymphatic: Denies anemia, easy bleeding, easy bruising, lymphadenopathy or other Integumentary: Denies rashes Allergic/Immunologic: Denies rhinitis, hives, eczema, asthma or other Vital Signs Vital Signs Vital Signs: 08/27/21 00:28 08/27/21 00:32 08/27/21 00:34 Temperature 98.7 F 98.7 F Temperature Source Temporal Temporal Pulse Rate 78 74 Respiratory Rate 20 H 19 H Respiratory Effort Short of Breath Respiratory Depth Normal Respiratory Pattern Normal Blood Pressure 134/58 H 134/58 H Blood Pressure Mean 83 83 Pulse Ox 89 84 Oxygen Delivery Method Room Air Room Air Non-Rebreather Oxygen Flow Rate (L/min) 3 08/27/21 00:56 08/27/21 02:33 Temperature Temperature Source Pulse Rate 60 118 H Respiratory Rate 13 16 Respiratory Effort Respiratory Depth Respiratory Pattern Blood Pressure 134/85 H Blood Pressure Mean 101 Pulse Ox 95 Oxygen Delivery Method Room Air Oxygen Flow Rate (L/min) Weight Weight: 67.8 kg Body Mass Index (BMI) 24.8 Physical Exam Narrative Physical exam: General: Well-nourished, well-developed. Head: Normocephalic, atraumatic, no tenderness Eyes: PERRLA, EOMI ENT, no trauma, moist mucous membranes, no rhinorrhea Neck: Nontender, full range of motion, no spinal tenderness, deformities, step- off CVS: Tachycardia, irregularly irregular rate and rhythm. S1-S2 present. No murmur, gallop or rub. Respiratory : No wheezing. Diminished lung sounds at left posterior middle and lower lung wang. Chest wall nontender. Abdomen: Soft, nontender, nondistended, normal bowel sounds, no masses : Deferred Back: Nontender, no CVA tenderness, no midline spinal tenderness, deformities, step-offs Extremities: Edema of bilateral lower legs and feet 3-4+. Nontender full range of motion, no trauma Skin: Normal color, no trauma, abrasions Neuro: Alert, oriented, cranial nerves II through XII grossly intact. Psychiatry: Normal mood. Normal affect. Not depressed. Not anxious. Results Lab / Micro Data Result Diagrams: 08/27/21 01:00 08/27/21 01:00 Labs: Laboratory Results - last 24 hr 08/27/21 01:00: WBC 5.8, RBC 3.46 L, Hgb 9.5 L, Hct 29.8 L, MCV 86.1, MCH 27.5, MCHC 31.9 L, RDW Std Deviation 49.3 H, RDW Coeff of Dianna 15.7 H, Plt Count 329, MPV 10.1, Immature Gran % (Auto) 0.900, Neut % (Auto) 77.6 H, Lymph % (Auto) 6.6 L, [place] % (Auto) 13.2 H, Eos % (Auto) 1.2, Baso % (Auto) 0.5, Absolute Neuts (auto) 4.5, Absolute Lymphs (auto) 0.38 L, Nucleated RBC % 0 08/27/21 01:00: Sodium 126 L, Potassium 4.7, Chloride 86 L, Carbon Dioxide 33.0 H, Anion Gap 7, BUN 26 H, Creatinine 1.00, Estim Creat Clear Calc 48.69, Est GFR (MDRD) Af Amer 92, Est GFR (MDRD) Non-Af 76, BUN/Creatinine Ratio 26.1 H, Glu cose 99, Calcium 8.4 L, Troponin I High Sens 19 08/27/21 01:00: Lactic Acid 1.5 08/27/21 01:00: B-Natriuretic Peptide 837.4 H Micro: Microbiology 08/27/21 01:17 Nasal Secretion SARS-CoV-2 Antigen (Rapid) - Final Radiology Impression Chest X-Ray 08/27/21 00:48 IMPRESSION: Large left effusion with compressive consolidation. Right lung is clear. Consider thoracentesis for fluid evaluation Electronically Signed: Alfonso Schmid DO at 1:01 EST Tel , Service support , Assessment & Plan Assessment/Plan (1) Acute hypoxemic respiratory failure: (2) Pleural effusion: (3) Hypoxemia: (4) CHF (congestive heart failure): QUALIFIERS: Heart failure type: diastolic Heart failure chronicity: acute on chronic Qualified Code(s): I50.33 - Acute on chronic diastolic (congestive) heart failure (5) Paroxysmal atrial fibrillation with rapid ventricular response: PLAN: Acute hypoxemic respiratory failure secondary to left pleural effusion; and congestive heart failure likely from paroxysmal atrial fibrillation with rapid regular response. Patient at baseline is not on home oxygen. At emergency department lowest oxygen saturation was 84%. Impression of chest x-ray by radiologist: Large left effusion with compressive consolidation. Actual chest x-ray image was independently interpreted and I agree with radiologist interpretation. Supplemental oxygenation was started emergency department and continued. Left pleural effusion Etiology likely from esophageal mass or heart failure. Check PT/INR Agree with radiologist for thoracentesis. Diagnostic thoracentesis with pleural studies including cytology ordered. Serum LDH and protein ordered to check Light criteria. Paroxysmal atrial fibrillation. On monitor patient heart rate went as high as 150. Received Cardizem 20 mg IV push at emergency department. Will put on Cardizem drip. Potassium level at emergency department was 4.7. 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 Treatment of heart failure as above. Fluid restriction ordered Acute exacerbation of heart failure with preserved ejection fraction Place on monitored bed on a progressive care unit Weight on admission to the floor; and then daily Strict I&O's BNP is a 37.4 Diuresis with [Lasix 2 times home dose and in IV form] Echo on 07/09/2021 showed estimated ejection fraction of 55%. Pulmonary artery systolic pressure was 36 mmHg. Monitor electrolytes and renal function Trend blood pressure Daron wrap to bilateral lower extremities Fluid restriction of 1500 mls daily Cardiac diet ordered Esophageal mass Patient to continue outpatient follow-up with oncologist and radiation oncologist Continue home tube feeding for dysphagia. Okay to have ice by mouth as at home. DVT prophylaxis: Hold Eliquis because of possible thoracentesis. SCD ordered
--- NOTE | 2021-08-27 04:05 | US_ITS ---
PROCEDURE: ULTRASOUND GUIDED THORACENTESIS. DATE: 08/27/2021. INDICATION: Male, 81 years old. Left pleural effusion PHYSICIAN: Mike Medina M.D. PROCEDURE: The risks, benefits, and alternatives to the procedure were explained to the patient. The specific risks of bleeding, infection, and pneumothorax requiring chest tube insertion were discussed and accepted. Written informed consent was obtained. Ultrasonographic evaluation of the left lower pleural space was carried out. An adequate pocket was identified. The patient was placed in the sitting, upright position. The overlying skin was prepped and draped in sterile fashion. 1% lidocaine was administered subcutaneously for local anesthesia. Under ultrasound guidance, a 5 Croatian thoracentesis needle/catheter system was advanced into the left posterior lower pleural fluid collection. Approximately 1350 mL of sarah-colored fluid was drained. The catheter was removed, and a sterile dressing was applied. A specimen was collected and sent to the laboratory for analysis, as requested by the referring clinician. The patient tolerated the procedure well. A chest x-ray was ordered. US/Thoracentesis W US IMPRESSION: Ultrasound-guided left thoracentesis. Electronically Signed: Mike Medina MD at 13:27 EST , Service support ,
--- NOTE | 2021-08-27 04:07 | PCS.PANDOC ---
PANDEMIC DOCUMENTATION INITIATED: Date: 05/28/2021 Time: 190
[2021-08-27 05:16] LABS: Anion Gap 9 (5-15); BUN 26 mg/dL (7-18); BUN/Creat Ratio 24.3 RATIO (10-20); Calcium,Total 8.5 mg/dL (8.5-10.1); Chloride 85 mmol/L (98-107); Creatinine, Serum 1.07 mg/dL (0.70-1.30); EST Glomerular Filtration Rate 70 mL/min (>60); Est Glom Filt Rate - Afr Amer 85 mL/min (>60); Glucose 127 mg/dL (74-106); Magnesium 2.5 mg/dL (1.6-2.6); Potassium 4.5 mmol/L (3.5-5.1); Sodium Level 123 mmol/L (136-145); Thyroid Stim Hormone (TSH) 1.43 uIU/mL (0.358-3.74)
[2021-08-27] MEDS: 0.9% Saline Lock 10 ML Syringe IV ×4 (05:17→18:26)
[2021-08-27] MEDS: Acetaminophen 650 MG/20 ML UDC GT (05:46)
[2021-08-27 08:09] LABS: ALB/GLOB Ratio 0.5 RATIO (0.9-2.4); LDH 279 U/L (87-241); Protein, Total 7.3 g/dL (6.4-8.2)
[2021-08-27 08:12] LABS: International Normalized Ratio 1.3; Prothrombin Time (Protime)PT. 15.5 SECONDS (11.7-14.9)
[2021-08-27] MEDS: LANSOPRAZOLE 15 MG CAPSULE.DR GT (09:41)
[2021-08-27] MEDS: Metoprolol Tartrate 25 MG Tablet 75 MG GT (11:05)
[2021-08-27] MEDS: Lidocaine 2% (20 ml mdv) 20 ML Vial INFILT (12:45)
--- NOTE | 2021-08-27 12:55 | RAD_ITS ---
STUDY: X-RAY CHEST REASON FOR EXAM: Male, 81 years old. Pneumothorax TECHNIQUE: AP inspiration and expiration views. COMPARISON: Comparison is made with prior examination dated 08/27/2021 at 12:43 AM. FINDINGS: The patient is status post left thoracentesis. Residual left pleural-parenchymal changes are seen. There is no evidence of pneumothorax. RAD/Chest Insp/Exp 2 View IMPRESSION: Status post left thoracentesis. No evidence of pneumothorax. Residual pleural parenchymal changes at the left lung base. Electronically Signed: Mike Medina MD at 13:29 EST , Service support ,
[2021-08-27 12:58] LABS: Cytology, Body Fluid / CSF SEE PATHOLOGY REPORT
[2021-08-27 13:17] LABS: Body Fluid Mononuclear WBC # 0.131 10^3/uL; Body Fluid Polynuclear WBC # 0.013 10^3/uL; Body Fluid Total Cells Counted 0.195 10^3/ul; White Blood Count/Body Fluid 0.144 10^3/uL
[2021-08-27 13:31] LABS: Glucose, Body Fluid 139 mg/dL (40-70); LDH,Body Fluid 234 Units/l (Not Establ.); Protein, Body Fluid 3.3 g/dL (Not Establ.)
--- NOTE | 2021-08-27 13:37 | EKG12_ITS ---
Test Reason : RYTHUM CHG Blood Pressure : / mmHG Vent. Rate : 060 BPM Atrial Rate : 060 BPM P-R Int : 116 ms QRS Dur : 082 ms QT Int : 444 ms P-R-T Axes : 020 041 008 degrees QTc Int : 444 ms Normal sinus rhythm T wave abnormality, consider anterior ischemia Abnormal ECG Confirmed by DANK YUAN, BRODERICK ([id number]), scientific publications editor LISA BRAVO ([id number]) on 08/29/2021 10:03:53 AM Referred By: Confirmed By:BRODERICK WEEMS MD
[2021-08-27 14:05] LABS: Auto B Fluid Analyzer BKGD Ct COUNTS W/IN LIMITS (W/IN LIMITS)
[2021-08-27 14:06] LABS: Appearance/Body Fluid SL CLDY; Color/Body Fluid YELLOW; Source- Body Fluid THORACENTESIS
[2021-08-27 14:12] LABS: Lymphocytes 8 %; Mesothelial Cells 11 %; Monocytes 24 %; Neutrophil (Segs) 8 %; Other Cell Type/BF 49 %
[2021-08-27 14:14] LABS: Body Fluid QC Type(s) BF1Q; Red Cell Count/Body Fluid 32 /mm3
[2021-08-27] MEDS: Jevity 1.5. 1,000 ML Bottle 120 ML GT ×3 (14:27→21:00)
--- NOTE | 2021-08-27 14:29 | PN.HOSP_ITS ---
Subjective Subjective Patient seen and examined. He was drowsy but arousable. He had no active complaints. He denied being short of breath and denied chest pain, nausea vomiting or diarrhea. Review of systems otherwise negative. He was on 4 L of oxygen at time of review. He is due for thoracentesis today. Objective Data Objective Data Vital Signs: Vital Signs Temp Pulse Resp BP Pulse Ox 97.9 F 60 13 105/58 L 93 08/27/21 08:30 08/27/21 13:31 08/27/21 13:30 08/27/21 13:30 08/27/21 13:30 Oxygen Flow Rate (L/min) [4] 4 Oxygen Flow Rate (L/min) [3] 4 Oxygen Flow Rate (L/min) [2] 4 Oxygen Flow Rate (L/min) [1 ( 4 Initial Baseline)] Oxygen Flow Rate (L/min) 4 Oxygen Delivery Method [4] Nasal Cannula Oxygen Delivery Method [3] Nasal Cannula Oxygen Delivery Method [2] Nasal Cannula Oxygen Delivery Method [1 ( Nasal Cannula Initial Baseline)] Oxygen Delivery Method Nasal Cannula Weight: 138 lb 3.677 oz Body Mass Index (BMI) 23.0 Intake & Output: Intake and Output for Last 24 Hours 08/25/21 08/26/21 08/27/21 23:59 23:59 23:59 Intake Total 196.42 / 196.42 Output Total 1999 Balance -1803.58 / -1803.58 Medical Nutrition Assessment Dietitian: Malnutrition Criteria Met Start: 08/27/21 10:52 Freq: Status: Active Protocol: Document 08/27/21 10:52 RMA (Rec: 08/27/21 10:52 RMA [id number]) Nutrition Malnutrition Evidence of Malnutrition Exists Yes Malnutrition (severe): Acute Illness/Injury Evidenced By Suboptimal Energy Intake ( Moderate),Weight Loss (Severe) ,Physical Changes (Moderate) Intake Problem Inadequate Oral Intake Etiology related to dysphagia/ esophageal cancer Signs/Symptoms as evidenced by NPO/PEG tube feeding for nutrition Status Active Problem Clinical Problem Acute Disease or Injury Related Malnutrition Etiology Severe protein/calorie malnutrition in the context of acute illness related to dysphagia/inadequate oral intake and increased energy expenditure/malignancy Signs/Symptoms as evidenced by NPO/PEG tube feedings, approximately 6-8% wt loss x past 1-2 months, BLLE 3+ pitting edema which is likely asking further wt loss and muscle/fat wasting noted in the face orbitals and temporal regions Status Active Problem Recommendation Dietitian Recommendations/Changes NPO except ice chips. Will order Jevity 1.5 Guy 240ml bolus feedings 5 times per day with 100ml water flush Q feeding to provide 1800 kcal, 77 gm protein and 1412 ml free water per day. Suggest start boluses with 120ml for the first 2-4 feedings to establish TF tolerance and increase to goal bolus of 240ml 5 times per day to meet~100% estimated nutrition needs. Will monitor weights, labs and TF tolerance as established. Lab / Micro Data Result Diagrams: 08/27/21 01:00 08/27/21 04:42 Labs: Laboratory Results - last 24 hr 08/27/21 01:00: WBC 5.8, RBC 3.46 L, Hgb 9.5 L, Hct 29.8 L, MCV 86.1, MCH 27.5, MCHC 31.9 L, RDW Std Deviation 49.3 H, RDW Coeff of Dianna 15.7 H, Plt Count 329, MPV 10.1, Immature Gran % (Auto) 0.900, Neut % (Auto) 77.6 H, Lymph % (Auto) 6.6 L, [place] % (Auto) 13.2 H, Eos % (Auto) 1.2, Baso % (Auto) 0.5, Absolute Neuts (auto) 4.5, Absolute Lymphs (auto) 0.38 L, Nucleated RBC % 0 08/27/21 01:00: Sodium 126 L, Potassium 4.7, Chloride 86 L, Carbon Dioxide 33.0 H, Anion Gap 7, BUN 26 H, Creatinine 1.00, Estim Creat Clear Calc 48.69, Est GFR (MDRD) Af Amer 92, Est GFR (MDRD) Non-Af 76, BUN/Creatinine Ratio 26.1 H, Glucose 99, Calcium 8.4 L, Troponin I High Sens 19 08/27/21 01:00: Lactic Acid 1.5 08/27/21 01:00: B-Natriuretic Peptide 837.4 H 08/27/21 04:42: Lactate Dehydrogenase 279 H, Total Protein 7.3, Globulin 5.0 H, Albumin/Globulin Ratio 0.5 L 08/27/21 04:42: Sodium 123 L, Potassium 4.5, Chloride 85 L, Carbon Dioxide 29.0, Anion Gap 9, BUN 26 H, Creatinine 1.07, Estim Creat Clear Calc 45.50, Est GFR (MDRD) Af Amer 85, Est GFR (MDRD) Non-Af 70, BUN/Creatinine Ratio 24.3 H, Glucose 127 H, Calcium 8.5, Magnesium 2.5, TSH 1.43 08/27/21 07:43: PT 15.5 H, INR 1.3 08/27/21 12:39: Fluid Glucose 139 H, Fluid Total Protein 3.3, Fluid LDH 234 08/27/21 12:39: Fluid Source THORACENTESIS, Fluid Color YELLOW, Fluid Appearance SL CLDY, Fluid WBC 0.144, Fluid RBC 32, Fluid Tot Cell Count 0.195, Fld Polynuclear WBCs # 0.013, Fld Polynuclear WBCs % 9.0, Fluid Mononuclear WBCs 0.131, Fld Mononuclear WBCs % 91.0, Fluid Neutrophils 8, Fluid Lymphocytes 8, Fluid Monocytes 24, Fld Mesothelial Cells 11, Fluid Other Cells 49, Fl Pathologi st Comment May follow, Fluid Comment 2 SEE COMMENT Micro: Microbiology 08/27/21 01:17 Nasal Secretion SARS-CoV-2 Antigen (Rapid) - Final Radiography Diagnostic Testing: Radiology Impression Chest X-Ray 08/27/21 00:48 IMPRESSION: Large left effusion with compressive consolidation. Right lung is clear. Consider thoracentesis for fluid evaluation Electronically Signed: Alfonso Schmid DO at 1:01 EST Tel , Service support , Thoracentesis Ultrasound 08/27/21 04:05 IMPRESSION: Ultrasound-guided left thoracentesis. Electronically Signed: Mike Medina MD at 13:27 EST , Service support , Chest X-Ray 08/27/21 12:55 IMPRESSION: Status post left thoracentesis. No evidence of pneumothorax. Residual pleural parenchymal changes at the left lung base. Electronically Signed: Mike Medina MD at 13:29 EST , Service support , Physical Exam Const alert, oriented x3 and no apparent distress Orientation / Consciousness: lethargic HEENT head/scalp atraumatic and moist oral mucous membranes Head and Scalp: normocephalic Eyes PERRL and EOMs intact bilaterally Neck no lymphadenopathy Resp Resp Narrative: markedly diminished breath sounds on the right, with no wheezes or crackles. on 4L of oxygen. Cardio regular rate, regular rhythm, S1 normal heart sound, S2 normal heart sound and no murmurs Extremity normal to inspection, full ROM and no clubbing, cyanosis or edema Peripheral Pulses: Yes pulses 2+ throughout Neuro CN's II-XII intact bilaterally and moves all extremities Sensorium / Orientation: awake Psych affect normal Assessment & Plan Assessment/Plan (1) CHF (congestive heart failure): QUALIFIERS: Heart failure chronicity: acute on chronic Heart failure type: diastolic Qualified Code(s): I50.33 - Acute on chronic diastolic (congestive) heart failure (2) Pleural effusion: (3) Acute hypoxemic respiratory failure: (4) Paroxysmal atrial fibrillation with rapid ventricular response: PLAN: #Acute hypoxic respiratory failure due to right sided pleural effusion * Patient is s/p thoracentesis today. * Because of pleural effusion is unclear. He does have a history of esophageal cancer so this could be malignant. * Currently on 4 L of oxygen. Titrate oxygen to maintain saturation above 90%. * Breathing treatments bronchodilators. * Consult pulmonology * #A. fib with RVR * Patient started on Cardizem drip on admission on account of A. fib with RVR. Heart rate is now improved and he is converted to sinus rhythm. * Will put patient back on his home dose of metoprolol and wean off of Cardizem drip. * Eliquis held on admission due to patient going to have thoracentesis. * #Hyperlipidemia: On statin #History of esophageal cancer recently diagnosed * Follow-up with oncology on outpatient basis * #Hyponatremia: * Sodium is down to 123 today. Will check serum osmolality as well as urine sodium and urine osmolality. * Hope it will improve with diuresis as patient is fluid overloaded. * Consult nephrology if sodium worsens. #Acute exacerbation of heart failure preserved ejection fraction * BNP was 837.4. 2D echo from June 2021 showed EF of 55%. * Being diuresed with IV Lasix. * #Chronic malnutrition: Likely due to esophageal cancer. On nutritional supplements with Jevity DVT prophylaxis: SCDs Charges/Coding Visit Charges Inpatient E&M: 31251 Subs Hosp L3
--- NOTE | 2021-08-27 15:02 | CASEMGMT ---
Pt's wfie contacted this RN CM regarding home O2 set-up and in-network provider concerns. This RN CM spoke with Palmer at [facility] office who reports after speaking with her billing department that there are no indicators that [facility] is not in network is not a Tier 1 provider. This RN CM also called [facility] who provides home O2 services. Per their lead generation representative, they do not service the [facility] area. This RN CM phoned pt's back and informed her of the above findings. She expressed understanding and appreciation. No further concerns or question voiced. Jonathan Orellana RN CM
--- NOTE | 2021-08-27 15:18 | NURSING ---
This RN reviewed SN charting and was with SN during all medication administration
--- NOTE | 2021-08-27 15:26 | CASEMGMT ---
JESSICA DANGELO assessment: Face to Face with patient for initial transition planning/care coordination assessment. JESSICA DANGELO introduced self and role at [facility], pt voices understanding and consents to assessment. Pt is sitting up in bed in no distress on 4L nc. Pt is A/Ox4 and answers all questions appropriately. Care providers, pharmacy, and demographics verified. Presentation: Pt c/o SOB, vomiting, non-productive cough Admitting dx: Left pleural effusion PCP: [facility] Specialists: Chevy, cardio; Cheryl, onc Preferred Pharmacy: [facility] Insurance: [place]/[facility] A Prescription Benefit: [place] Living Will/HPOA: Pt has LW/HPOA and is aware that they are not on file at [facility]. Pt's , Trudy French, is HPOA. LNOK: Trudy French, ; Peace Tierney, daughter Living Arrangements: Pt lives with in mobile home with 4 steps in w/ rail and states no concerns at home. Pt is independent with ADL's. Transportation: Pt states daughter drives and states no transportation concerns. DME/HHC: Pt has the following DME: cane, grab bars, walker, and shower chair. Pt states no need for any further DME, but if qualifies for home oxygen would like to use [facility] for O2 set up. Pt states is currently active with [facility] and [facility] SN. Pt states no hx of SNF. Due to esophageal mass, pt is unable to eat and has a feeding tube with Jevity. Pt is currently getting radiation for mass. This JESSICA DANGELO verified with palliative that pt is active and pt actually spoke with them this am. Pt states no concerns with going home at time of discharge. Pt is retired. Pt states does not smoke cigarettes or drink ETOH. Pt voices no further concerns/needs. CM to follow for any further discharge planning/needs. Advised pt to ask for CM if any further questions/concerns/need arise, voices understanding. Pt Goal: Home Plan: [place] JESSICA DANGELO
[2021-08-27 17:06] LABS: Osmolality, Serum 274 mOsm/KG (280-301)
[2021-08-27 18:27] LABS: Urine Sodium 37 mmol/L (Not Establ.)
[2021-08-27 18:35] LABS: Osmolality, Urine 419 mOsm/KG
[2021-08-27] MEDS: Metoprolol Tartrate 100 MG Tablet GT (20:55)
[2021-08-27] MEDS: Atorvastatin Calcium 20 MG Tablet GT (20:55)
[2021-08-28] VITALS (40 sets, daily range): BP systolic 78–165; BP diastolic 53–119; PULSE 77–136; RESP 10–22; TEMP 36.2–36.7; O2SAT 86–100
--- NOTE | 2021-08-28 | FLU_PTH ---
PATIENT: KATHIA PAT LOC: [facility]#:[id number] AGE/SX: 81/M ROOM: [facility] RE08/27/[address]: Dr. Martin Pederson MD : [id number] BED: 1 DIS: 09/04/2021 SPEC #: [id number] RECD: 08/28/21 13:21 STATUS: MAURICE REQ #: [id number] CELE: 08/28/21 00:[address]: Ankur Medina DEPT: CYTOLOGY RECD BY: Javid Myers ENTERED: 08/28/21 13:23 SP TYPE: Fluid OTHR DR: MD Dr. Robert Mendieta DO Dr. Joseph Agyepong, MD Dr. Nana Yaa Koram, MD Dr. Paul Moodispaw, MD Christina Muller, PE TEACHER-C [facility] Tissues: THORACIC FLUID Procedures: Special Stain Group II Surgery Specimen Level IV Cytospin Fluid Comments: @ Ordering doctor for SSII edited from to @ by JEMIMA at 08/29/21 1051 @ Ordering doctor for SUIV edited from to @ by JEMIMA at 08/29/21 1051 @ Ordering doctor for CYSPIN edited from to @ by JEMIMA at 08/29/21 1051 @ Submitting doctor edited from to @ by JEMIMA at 08/29/21 1051 HEADER OPERATION: Ultrasound-guided thoracentesis, left chest PRE-OP DIAGNOSIS: Pleural effusion TISSUE SUBMITTED: Thoracentesis fluid for cytology DIAGNOSIS CYTOLOGY Thoracentesis fluid for cytology (cytospin and cell block): Positive for malignant cells consistent with metastatic adenocarcinoma. See comment. 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 Case has been reviewed in consultation with Dr. Bob who concurs with the above diagnosis. IDC:SJ CYTOLOGY STUDY Slides are reviewed. CYTOLOGY GROSS Received is 90 ml of gold cloudy fluid labeled with the patient's name and and designated per the requisition as thoracentesis. Submitted for cytology preparation including cell block. / tom 08/28/2021 TC:0 CPT: 39237, 47844
--- NOTE | 2021-08-28 02:29 | EKG12_ITS ---
Test Reason : CP Blood Pressure : / mmHG Vent. Rate : 134 BPM Atrial Rate : 133 BPM P-R Int : 000 ms QRS Dur : 084 ms QT Int : 318 ms P-R-T Axes : 000 027 -76 degrees QTc Int : 474 ms Atrial fibrillation Nonspecific T wave abnormality Abnormal ECG Confirmed by DANK YUAN, BRODERICK ([id number]), mapping editor LISA BRAVO ([id number]) on 08/29/2021 10:03:19 AM Referred By: LONG Confirmed By:BRODERICK WEEMS MD
[2021-08-28] MEDS: Jevity 1.5. 1,000 ML Bottle 120 ML GT (06:08)
[2021-08-28 06:32] LABS: Absolute Lymphocyte Count 0.63 X10^3/uL (0.83-4.51); Absolute Neutrophil Count 9.4 X10^3/uL (2.0-7.7); Basophil# 0.02 X10^3/uL; Basophil% 0.2 % (0-1); Hematocrit 31.9 % (40-54); Hemoglobin 10.5 g/dL (13.0-16.5); Lymphocyte # 0.63 X10^3/ul (0.83-4.51); Lymphocyte % 5.3 % (19-41); Mean Corp Hgb Conc 32.9 g/dL (32-36); Mean Corpuscular Hgb 27.3 pg (27.0-32.0); Mean Corpuscular Volume 83.1 fL (80-94); Mean Platelet Vol. 9.6 fl (6.2-12.0); Monocyte% 14.3 % (0-10); NRBC Flagged by Analyzer 0 % (0-5); Neutrophil # 9.44 X10^3/uL (2.7-7.7); Neutrophil % 79.5 % (47-70); POSITIVE DIFFERENTIAL YES; Platelet Count 374 K/mm3 (150-450); RBC Distribution Width CV 15.8 % (11.6-14.6); RBC Distribution Width SD 47.5 fl (35.1-43.9); Red Blood Count 3.84 M/mm3 (4.6-6.2); White Blood Count 11.9 K/mm3 (4.4-11.0)
[2021-08-28 06:34] LABS: Differential Indicated SCAN CRITERIA MET
[2021-08-28 06:55] LABS: Differential Comment SCANNED
[2021-08-28 07:10] LABS: Anion Gap 8 (5-15); BUN 33 mg/dL (7-18); Calcium,Total 8.7 mg/dL (8.5-10.1); Chloride 85 mmol/L (98-107); EST Glomerular Filtration Rate 76 mL/min (>60); Est Glom Filt Rate - Afr Amer 92 mL/min (>60); Estimated Creatinine Clearance 48.45 ml/min; Glucose 119 mg/dL (74-106); Potassium 4.7 mmol/L (3.5-5.1); Sodium Level 123 mmol/L (136-145)
--- NOTE | 2021-08-28 08:12 | EX.PCM.CONCC ---
Assessment & Plan Assessment/Plan (1) Pleural effusion: (2) CHF (congestive heart failure): QUALIFIERS: Heart failure type: diastolic Heart failure chronicity: acute on chronic Qualified Code(s): I50.33 - Acute on chronic diastolic (congestive) heart failure (3) Paroxysmal atrial fibrillation with rapid ventricular response: PLAN: RECOMMENDATIONS: 1. Await cytology on original thoracentesis 2. Repeat thoracentesis for additional volume removal and cytology 3. Diuresis as tolerated 4. Continue Cardizem 5. Anticipate reinitiation of Eliquis following thoracentesis IMPRESSIONS: 1. Acute hypoxic respiratory insufficiency secondary to left pleural effusion Exact history is unclear at this time. Patient does have carry a diagnosis of esophageal cancer and has received radiation. It is unclear if the patient had lung involvement. Recommend obtaining records from [facility]. Patient did have a thoracentesis with approximately 1400 cc removed yesterday. However, chest x-ray postprocedure shows significant residual fluid. Laboratory studies on the original thoracentesis is suggestive of an exudate pathology by LDH criteria and has abnormal cells. Given patient's need for anticoagulation and persistence and hypoxia, would recommend repeating thoracentesis for therapeutic reasons. Will obtain a cytology only on this fluid. 2. A. fib with RVR/acute diastolic CHF Patient appears to be responding well to Cardizem drip. We will hold Eliquis therapy to facilitate thoracentesis to help with hypoxia. Anticoagulation can be reinitiated following thoracentesis if there are no complications. Agree with continued diuresis given elevated BNP. 3. Hyperlipidemia/hyponatremia/advanced age/chronic malnutrition/poor insight Complicates care, management, recovery and prognosis. Unclear of hyponatremia is related to an SIADH paraneoplastic condition versus decreased p.o. intake given recent diagnosis of esophageal cancer. Okay to continue statin from my perspective. HPI Consult Data Date of Consult: 08/28/21 HPI Narrative HPI Narrative: KATHIA PAT is an 81 M, with past medical history listed below, who presents to [facility] 08/27/2021 secondary progressive shortness of breath. Patient had called EMS secondary to worsening shortness of breath and palpitations. Patient does have a history of A. fib in the past and has a pacemaker. Patient is on Eliquis at baseline. Patient reportedly had received radiation therapy secondary to esophageal versus lung cancer, but no chemotherapy. Patient denied any history of CHF, but had had a cough productive of white phlegm. Patient denied any fevers and states that he had been vaccinated against COVID-19 with a booster. In the ER, patient was afebrile, normotensive and not tachycardic. However, patient was hypoxic at 84% on room air requiring 4 L to maintain saturations. Laboratory work-up showed an anemia of 9.5 hemoglobin, sodium of 126, chloride of 86 and creatinine of 1. Lactate was within normal limits. BNP was elevated at 837. Chest x-ray showed a large left pleural effusion. The patient was admitted to the floor for further evaluation. Since being admitted to the floor, patient has had a thoracentesis with approximately 1400 cc removed. Patient states that this subjectively helped his shortness of breath, but overnight he had significant issues with palpitations. Patient was placed on a Cardizem drip with improvement. Patient has never had this problem previously. Patient is a relatively poor historian. Patient states that he does have a 40+ pack year smoking history, but is never seen a shaker plate operator previously. Patient is unaware of any previous pulmonary function test. Patient has not had a thoracentesis previously. Patient states that approximately 8 to 9 weeks ago he had an endoscopy secondary to dysphagia. This showed esophageal cancer from his report. Patient had received 5 doses of radiation, but no chemotherapy. Patient is unclear if he had lung invasion at that time. Patient states he is getting most of his care at the [facility]. Patient has very poor insight into his overall condition. Patient states he was fine until the last 3 to 4 months. Patient has had palpitations associated with A. fib previously. Patient denies any sick exposures. Patient has not had any hematemesis, melena or hematochezia. Patient has not required supplemental oxygen previously. Review of systems otherwise negative from a constitutional, HEENT, respiratory, cardiovascular, GI, genitourinary, musculoskeletal, skin, neurologic, psychiatric and hematologic system unless stated above. [facility] Medical History Atrial fibrillation Atrial fibrillation with RVR Cancer COPD (chronic obstructive pulmonary disease) Esophageal cancer Esophageal mass Esophageal obstruction Former smoker High cholesterol Hyperlipidemia Irregular heart beat Mass in chest Neuropathy Pacemaker Paroxysmal atrial fibrillation Tachy-jimmie syndrome Troponin I above reference range Home Medications atorvastatin 20 mg tablet 20 mg PO QHS tab 05/04/21 [History Last Taken 08/26/21] metoprolol tartrate 50 mg tablet 75 mg PO BID tab 06/13/21 [History Last Taken 08/26/21] omeprazole magnesium [Prilosec] 20 mg PO DAILY #30 ea 06/25/21 [Rx Last Taken 08/26/21] ondansetron HCl 4 mg PO Q8H PRN 07/22/21 [History Last Taken Unknown] Eliquis 2.5 mg PO/SL BID 08/08/21 [History Last Taken 08/26/21] Tylenol 325 mg PO.IVFORM PRN PRN 08/08/21 [History Last Taken Unknown] bisacodyl 5 mg PO/SL PRN PRN 08/08/21 [History Last Taken 08/26/21] docusate sodium 100 mg PO/SL BID 08/08/21 [History Last Taken 08/26/21] morphine 30 mg PO/SL Q4H PRN PRN 08/08/21 [History Last Taken Unknown] methadone 7.5 mg PO Q8H 08/20/21 [History Last Taken 08/26/21] Allergy/AdvReac Type Severity Reaction Status Date / Time oxycodone Allergy Itching Verified 08/27/21 00:34 Family History Mother Heart disease CHD Thyroid disorder Surgical History History of bilateral cataract extraction History of left heart catheterization (01/21/17) History of tonsillectomy Presence of permanent cardiac pacemaker (10/11/19) Social History Smoking Status: Former smoker how long ago did patient quit smokin years ago alcohol intake: never substance use type: does not use caffeine: Yes Type: coffee Number of servings: 2 ROS ROS Narrative See HPI Physical Exam Const alert, oriented x3 and no apparent distress Orientation / Consciousness: lethargic HEENT head/scalp atraumatic and moist oral mucous membranes Head and Scalp: normocephalic Eyes PERRL and EOMs intact bilaterally Neck no lymphadenopathy Resp Effort and Inspection: able to speak in complete sentences Auscultation: diminished lung sounds; Negative for rales, rhonchi or wheezes Percussion: dullness Mid: left and Lower: left Cardio regular rate, regular rhythm, S1 normal heart sound, S2 normal heart sound and no murmurs GI normal to inspection, nondistended, normoactive bowel sounds Extremity normal to inspection, full ROM and no clubbing, cyanosis or edema Peripheral Pulses: Yes pulses 2+ throughout Neuro CN's II-XII intact bilaterally and moves all extremities Sensorium / Orientation: awake Psych affect normal Medical Records Data Medical Nutrition Assessment Dietitian: Malnutrition Criteria Met Start: 08/27/21 10:52 Freq: Status: Active Protocol: Document 08/27/21 10:52 RMA (Rec: 08/27/21 10:52 RMA [id number]) Nutrition Malnutrition Evidence of Malnutrition Exists Yes Malnutrition (severe): Acute Illness/Injury Evidenced By Suboptimal Energy Intake ( Moderate),Weight Loss (Severe) ,Physical Changes (Moderate) Intake Problem Inadequate Oral Intake Etiology related to dysphagia/ esophageal cancer Signs/Symptoms as evidenced by NPO/PEG tube feeding for nutrition Status Active Problem Clinical Problem Acute Disease or Injury Related Malnutrition Etiology Severe protein/calorie malnutrition in the context of acute illness related to dysphagia/inadequate oral intake and increased energy expenditure/malignancy Signs/Symptoms as evidenced by NPO/PEG tube feedings, approximately 6-8% wt loss x past 1-2 months, BLLE 3+ pitting edema which is likely asking further wt loss and muscle/fat wasting noted in the face orbitals and temporal regions Status Active Problem Recommendation Dietitian Recommendations/Changes NPO except ice chips. Will order Jevity 1.5 Guy 240ml bolus feedings 5 times per day with 100ml water flush Q feeding to provide 1800 kcal, 77 gm protein and 1412 ml free water per day. Suggest start boluses with 120ml for the first 2-4 feedings to establish TF tolerance and increase to goal bolus of 240ml 5 times per day to meet~100% estimated nutrition needs. Will monitor weights, labs and TF tolerance as established. Lab / Micro Data Result Diagrams: 08/28/21 06:24 08/28/21 06:24 Labs: Laboratory Results - last 24 hr 08/27/21 07:43: PT 15.5 H, INR 1.3 08/27/21 12:39: Fluid Glucose 139 H, Fluid Total Protein 3.3, Fluid LDH 234 08/27/21 12:39: Fluid Source THORACENTESIS, Fluid Color YELLOW, Fluid Appearance SL CLDY, Fluid WBC 0.144, Fluid RBC 32, Fluid Tot Cell Count 0.195, Fld Polynuclear WBCs # 0.013, Fld Polynuclear WBCs % 9.0, Fluid Mononuclear WBCs 0.131, Fld Mononuclear WBCs % 91.0, Fluid Neutrophils 8, Fluid Lymphocytes 8, Fluid Monocytes 24, Fld Mesothelial Cells 11, Fluid Other Cells 49, Fl Pathologist Comment May follow, Fluid Comment 2 SEE COMMENT 08/27/21 15:52: Serum Osmolality 274 L 08/27/21 17:48: Urine Osmolality 419, Ur Random Sodium 37 08/28/21 06:24: WBC 11.9 H, RBC 3.84 L, Hgb 10.5 L, Hct 31.9 L, MCV 83.1, MCH 27.3, MCHC 32.9, RDW Std Deviation 47.5 H, RDW Coeff of Dianna 15.8 H, Plt Count 374, MPV 9.6, Immature Gran % (Auto) 0.700, Neut % (Auto) 79.5 H, Lymph % (Auto) 5.3 L, [place] % (Auto) 14.3 H, Eos % (Auto) 0.0, Baso % (Auto) 0.2, Absolute Neuts (auto) 9.4 H, Absolute Lymphs (auto) 0.63 L, Nucleated RBC % 0, Differential Comment SCANNED, Diff Path Review May foll 08/28/21 06:24: Sodium 123 L, Potassium 4.7, Chloride 85 L, Carbon Dioxide 30.0, Anion Gap 8, BUN 33 H, Creatinine 1.00, Estim Creat Clear Calc 48.45, Est GFR (MDRD) Af Amer 92, Est GFR (MDRD) Non-Af 76, BUN/Creatinine Ratio 33.0 H, Glucose 119 H, Calcium 8.7 Radiology Impression Thoracentesis Ultrasound 08/27/21 04:05 IMPRESSION: Ultrasound-guided left thoracentesis. Electronically Signed: Mike Medina MD at 13:27 EST , Service support , Chest X-Ray 08/27/21 12:55 IMPRESSION: Status post left thoracentesis. No evidence of pneumothorax. Residual pleural parenchymal changes at the left lung base. Electronically Signed: Mike Medina MD at 13:29 EST , Service support , Charges/Coding Visit Charges Inpatient E&M: 39674 Init Hosp L3
--- NOTE | 2021-08-28 08:20 | US_ITS ---
PROCEDURE: ULTRASOUND GUIDED THORACENTESIS. DATE: 08/28/2021. INDICATION: Male, 81 years old. Left pleural effusion. PHYSICIAN: Mike Medina M.D. PROCEDURE: The risks, benefits, and alternatives to the procedure were explained to the patient. The specific risks of bleeding, infection, and pneumothorax requiring chest tube insertion were discussed and accepted. Written informed consent was obtained. Ultrasonographic evaluation of the left lower pleural space was carried out. An adequate pocket was identified. The patient was placed in the sitting, upright position. The overlying skin was prepped and draped in sterile fashion. 1% lidocaine was administered subcutaneously for local anesthesia. Under ultrasound guidance, a 5 [place] thoracentesis needle/catheter system was advanced into the left posterior lower pleural fluid collection. Approximately 1200 mL of sarah-colored fluid was drained. The catheter was removed, and a sterile dressing was applied. A specimen was collected and sent to the laboratory for analysis, as requested by the referring clinician. The patient tolerated the procedure well. A chest x-ray was ordered. US/Thoracentesis W US IMPRESSION: Ultrasound-guided left thoracentesis. Electronically Signed: Mike Medina MD at 10:23 EST , Service support ,
--- NOTE | 2021-08-28 09:55 | RAD_ITS ---
STUDY: X-RAY CHEST REASON FOR EXAM: Male, 81 years old. Post thora TECHNIQUE: AP inspiration and expiration views. COMPARISON: Comparison is made with prior study dated 08/27/2021. FINDINGS: The patient is status post left thoracentesis. There is no evidence of pneumothorax. Pleural-parenchymal changes are seen at the left lung base. RAD/Chest Insp/Exp 2 View IMPRESSION: Status post left thoracentesis. There is no evidence of pneumothorax. Electronically Signed: Mike Medina MD at 10:28 EST , Service support ,
--- NOTE | 2021-08-28 10:06 | PCM.CONS.C ---
Assessment & Plan Assessment/Plan (1) Paroxysmal atrial fibrillation with rapid ventricular response: PLAN: The patient has a history of paroxysmal atrial fibrillation. He has demonstrated recurrence of this atrial dysrhythmia with rapid ventricular response. He has been on rate control therapy. It may not be unreasonable to attempt additional antiarrhythmic therapy such as IV amiodarone with the hopes of regaining and/or maintaining sinus rhythm. He should continue anticoagulant therapy as deemed appropriate in and around the time of his noncardiovascular procedures. (2) Tachy-jimmie syndrome: PLAN: The patient has a history of a bradycardia tacky syndrome/sick sinus syndrome. He is status post permanent pacemaker placement. His pacemaker has been followed and has been reported as functioning appropriately. (3) Presence of permanent cardiac pacemaker: PLAN: The patient does have a permanent pacemaker as noted above. The patient's pacemaker was evaluated in June of this year. His lower rate limit set at 60 ppm's and is upper tracking limit is set at 130 ppm's. (4) CHF (congestive heart failure): QUALIFIERS: Heart failure type: diastolic Heart failure chronicity: acute on chronic Qualified Code(s): I50.33 - Acute on chronic diastolic (congestive) heart failure PLAN: The patient has a history of CHF . Based upon his previous studies this may be a CHF related to heart failure with preserved ejection fraction and exacerbated by his atrial dysrhythmia and/or noncardiovascular issues. At the present time he will need to be continued on medical therapy as best as possible. This could include agents such as nitrates, beta-blockers, diuretics, afterload reducing agents, etc. (5) Pleural effusion: PLAN: The patient does have a pleural effusion. It appears to be more prominent left-sided than right-sided. This does raise a concern as to the etiology being not only CHF potentially related to concerns of esophageal carcinoma. He is undergoing further evaluation for this with thoracentesis for both therapeutic and diagnostic components. (6) Esophageal cancer: PLAN: He will continue evaluation care by his other physicians for this. (7) Hyperlipidemia: QUALIFIERS: Hyperlipidemia type: unspecified Qualified Code(s): E78.5 - Hyperlipidemia, unspecified PLAN: He should continue risk factor evaluation care as deemed appropriate. Addt'l Comments The patient denies symptoms considered classic for angina pectoris, CHF / pulmonary edema (with respect to orthopnea / PND), ongoing palpitations, or near syncope / syncope. HPI Consult Data Date of Consult: 08/28/21 HPI Narrative HPI Narrative: KATHIA PAT, is a 81 year old white male who presents for scooter consultation based upon a history of paroxysmal atrial fibrillation with RVR superimposed upon a bradycardia tacky syndrome, permanent pacemaker placement, CAD (previously diagnosed as nonangiographically significant/nonobstructive), hyperlipidemia, and COPD who is currently undergoing evaluation for an intrathoracic mass with consideration for carcinoma of the esophagus and bilateral pleural effusions (left greater than right). The patient states that he can sense his heart rate at times go up. He can sense the elevated heart rate in his chest. He does not describe other ongoing symptoms of angina pectoris. He has had chronic shortness of breath and dyspnea. He states he is also had intermittent lower extremity peripheral pitting edema. He does not recall any near-syncope or syncope. He is currently undergoing evaluation for his intrathoracic mass lesion with consideration for esophageal carcinoma as well as evaluation for his pleural effusions. During this time he has been noted to be in atrial fibrillation with RVR. He is required IV diltiazem therapy. He does note when his heart rate comes down he feels better. He has undergone evaluation recently in June of this year with a transthoracic echocardiogram and a stress nuclear imaging study. The results are noted below. These studies did not lead him to the cardiac catheterization laboratory. He underwent a cardiac catheterization procedure in 2016. He is pending additional evaluation with thoracentesis. [facility] Medical History Atrial fibrillation Atrial fibrillation with RVR Cancer COPD (chronic obstructive pulmonary disease) Esophageal cancer Esophageal mass Esophageal obstruction Former smoker High cholesterol Hyperlipidemia Irregular heart beat Mass in chest Neuropathy Pacemaker Paroxysmal atrial fibrillation Tachy-jimmie syndrome Troponin I above reference range Home Medications atorvastatin 20 mg tablet 20 mg PO QHS tab 05/04/21 [History Last Taken 08/26/21] metoprolol tartrate 50 mg tablet 75 mg PO BID tab 06/13/21 [History Last Taken 08/26/21] omeprazole magnesium [Prilosec] 20 mg PO DAILY #30 ea 06/25/21 [Rx Last Taken 08/26/21] ondansetron HCl 4 mg PO Q8H PRN 07/22/21 [History Last Taken Unknown] Eliquis 2.5 mg PO/SL BID 08/08/21 [History Last Taken 08/26/21] Tylenol 325 mg PO.IVFORM PRN PRN 08/08/21 [History Last Taken Unknown] bisacodyl 5 mg PO/SL PRN PRN 08/08/21 [History Last Taken 08/26/21] docusate sodium 100 mg PO/SL BID 08/08/21 [History Last Taken 08/26/21] morphine 30 mg PO/SL Q4H PRN PRN 08/08/21 [History Last Taken Unknown] methadone 7.5 mg PO Q8H 08/20/21 [History Last Taken 08/26/21] Allergy/AdvReac Type Severity Reaction Status Date / Time oxycodone Allergy Itching Verified 08/27/21 00:34 Family History Mother Heart disease CHD Thyroid disorder Surgical History History of bilateral cataract extraction History of left heart catheterization (01/21/17) History of tonsillectomy Presence of permanent cardiac pacemaker (10/11/19) Social History Smoking Status: Former smoker how long ago did patient quit smokin years ago alcohol intake: never substance use type: does not use caffeine: Yes Type: coffee Number of servings: 2 ROS ROS Narrative This is an 81-year-old white male who appears to be awake and alert and in no acute distress. Constitutional Constitutional: Reports as per HPI Eyes Eyes: Reports as per HPI ENT HEENT: Reports as per HPI Cardiovascular Cardiovascular: Reports leg edema and palpitations Respiratory/Chest Respiratory/Chest: Reports dyspnea Gastrointestinal Gastrointestinal: Reports as per HPI Genitourinary Genitourinary: Reports as per HPI Musculoskeletal Musculoskeletal: Reports as per HPI Integumentary Integumentary: Reports as per HPI Neurologic Neurologic: Reports as per HPI Physical Exam Const alert, oriented x3 and no apparent distress Orientation / Consciousness: awake HEENT normocephalic, head/scalp atraumatic and hearing grossly normal bilaterally Eyes PERRL, EOMs intact bilaterally, conjunctivae normal and no scleral icterus Neck full ROM, supple and no JVD Resp Auscultation: diminished lung sounds bilateral lower (Left greater than right) Cardio Rhythm: abnormal rhythm irregularly irregular Heart Sounds: S1 normal and S2 normal GI normal to inspection, nondistended, normoactive bowel sounds Extremity General Extremity: edema bilateral lower extremity (Bilateral lower extremity Daron wraps in place) Details: mild Skin no rashes or lesions noted Neuro oriented x3, moves all extremities, no focal motor deficits and no sensory deficits noted Psych mental status grossly normal Risk Stratification Risk Stratification Applicable: No Procedure Criteria Type of Procedure Procedure Type: Elective Elective Risks - COVID COVID Risk Discussion: The surgeon/proceduralist and patient have discussed in detail the risk of exposure to and/or potential harm posed by the COVID-19 virus with having a surgery/procedure at this time versus the risk of delaying the surgery/procedure. It is not possible to know either the risk of delaying the surgery or procedure or chance of getting an infection with perfect accuracy, but a joint decision was made between the patient and the surgeon/proceduralist to proceed at this time with the scheduled surgery/procedure as indicated on the consent form. Objective Data Vital Signs: Vital Signs Temp Pulse Resp BP Pulse Ox 97.9 F 98 17 93/58 L 93 08/28/21 08:00 08/28/21 08:00 08/28/21 08:00 08/28/21 08:00 08/28/21 09:06 Oxygen Flow Rate (L/min) [4] 4 Oxygen Flow Rate (L/min) [3] 4 Oxygen Flow Rate (L/min) [2] 4 Oxygen Flow Rate (L/min) [1 ( 4 Initial Baseline)] Oxygen Flow Rate (L/min) 4 Oxygen Delivery Method [4] Nasal Cannula Oxygen Delivery Method [3] Nasal Cannula Oxygen Delivery Method [2] Nasal Cannula Oxygen Delivery Method [1 ( Nasal Cannula Initial Baseline)] Oxygen Delivery Method Nasal Cannula Weight: 134 lb 14.766 oz Body Mass Index (BMI) 23.0 Intake & Output: Intake and Output for Last 24 Hours 08/26/21 08/27/21 08/28/21 23:59 23:59 23:59 Intake Total 321.17 / 601.17 712.50 / 712.50 Output Total 2600 / 3100 500 / 500 Balance -2278.83 / -2498.83 212.50 / 212.50 Lab / Micro Data Result Diagrams: 08/28/21 06:24 08/28/21 06:24 Labs: Laboratory Results - last 24 hr 08/27/21 12:39: Fluid Glucose 139 H, Fluid Total Protein 3.3, Fluid LDH 234 08/27/21 12:39: Fluid Source THORACENTESIS, Fluid Color YELLOW, Fluid Appearance SL CLDY, Fluid WBC 0.144, Fluid RBC 32, Fluid Tot Cell Count 0.195, Fld Polynuclear WBCs # 0.013, Fld Polynuclear WBCs % 9.0, Fluid Mononuclear WBCs 0.131, Fld Mononuclear WBCs % 91.0, Fluid Neutrophils 8, Fluid Lymphocytes 8, Fluid Monocytes 24, Fld Mesothelial Cells 11, Fluid Other Cells 49, Fl Pathologist Comment May follow, Fluid Comment 2 SEE COMMENT 08/27/21 15:52: Serum Osmolality 274 L 08/27/21 17:48: Urine Osmolality 419, Ur Random Sodium 37 08/28/21 06:24: WBC 11.9 H, RBC 3.84 L, Hgb 10.5 L, Hct 31.9 L, MCV 83.1, MCH 27.3, MCHC 32.9, RDW Std Deviation 47.5 H, RDW Coeff of Dianna 15.8 H, Plt Count 374, MPV 9.6, Immature Gran % (Auto) 0.700, Neut % (Auto) 79.5 H, Lymph % (Auto) 5.3 L, [place] % (Auto) 14.3 H, Eos % (Auto) 0.0, Baso % (Auto) 0.2, Absolute Neuts (auto) 9.4 H, Absolute Lymphs (auto) 0.63 L, Nucleated RBC % 0, Differential Comment SCANNED, Diff Path Review May foll 08/28/21 06:24: Sodium 123 L, Potassium 4.7, Chloride 85 L, Carbon Dioxide 30.0, Anion Gap 8, BUN 33 H, Creatinine 1.00, Estim Creat Clear Calc 48.45, Est GFR (MDRD) Af Amer 92, Est GFR (MDRD) Non-Af 76, BUN/Creatinine Ratio 33.0 H, Glucose 119 H, Calcium 8.7 Cardiology Labs/Tests 08/27/21 15:52: Serum Osmolality 274 L 08/28/21 06:24: WBC 11.9 H, RBC 3.84 L, Hgb 10.5 L, Hct 31.9 L, MCV 83.1, MCH 27.3, MCHC 32.9, Plt Count 374, MPV 9.6, Immature Gran % (Auto) 0.700, Neut % (Auto) 79.5 H, Lymph % (Auto) 5.3 L, [place] % (Auto) 14.3 H, Eos % (Auto) 0.0, Baso % (Auto) 0.2, Absolute Neuts (auto) 9.4 H, Nucleated RBC % 0 08/28/21 06:24: Sodium 123 L, Potassium 4.7, Chloride 85 L, Carbon Dioxide 30.0, Anion Gap 8, BUN 33 H, Creatinine 1.00, Est GFR (MDRD) Af Amer 92, Est GFR (MDRD) Non-Af 76, BUN/Creatinine Ratio 33.0 H, Glucose 119 H, Calcium 8.7 Rhythm: Atrial fibrillation EKG: Atrial fibrillation ECHO: 07-09-2021 Interpretation Summary Normal LV size. Left ventricular systolic function is normal. The estimated ejection fraction is 55 %. Pulmonary artery systolic pressure is 36 mmHg. Stress Test: 07-09-2021 Stress Test Report Myocardial perfusion stress test. 81-year-old man with a history of chest pain. Medications apixaban, atorvastatin, metoprolol. Stress protocol: Resting EKG demonstrates atrial fibrillation with a rate of 142 bpm normal intervals are noted resting blood pressure is 132/80 mmHg. 0.4 mg of regadenoson was infused per usual protocol followed by rapid intravenous saline flush injection continuous EKG monitoring was performed. The maximum heart rate attained was 169 bpm which was 123% of maximum predicted heart rate the maximum workload was 1 metabolic equivalent. At rest there were T wave inversions noted in the inferolateral leads which were nonspecific. At peak infusion nonspecific changes for ischemia were noted though they appear to be worsening of the T wave inversion and ST depression noted in the inferolateral leads. No chest pain was noted. The final blood pressure was 140/82 mmHg. Myocardial perfusion protocol. 10.8 mCi of technetium 99m sestamibi was injected at rest. 0.4 mg of regadenoson was infused per usual protocol. At peak infusion 32.5 mCi of technetium 99m sestamibi was injected stress images were obtained stress and rest images were reconstructed and compared in the short axis vertical long horizontal long axis. Gated images were also obtained Perfusion SPECT analysis: Review of the stress images demonstrate normal uptake of tracer noted in all areas of the myocardium. The resting images similarly demonstrate normal uptake of tracer noted in all areas of the myocardium. No areas of reversibility are noted to suggest ischemia. No previous infarct is noted. Gated SPECT analysis: The gated ejection fraction is 72%. Conclusion: Normal pharmacologic myocardial perfusion stress test. Atrial fibrillation with uncontrolled ventricular response rate. Nonspecific EKG changes noted. Cardiac Cath: 01-21-2017 Left ventricle: Normal with an LVEF 65% Left main: Angiographically normal LAD: 40% calcification; mid 50% stenosis LCx: Angiographically normal RCA: 40% mid stenosis; distal 40% stenosis and 30% calcification; right posterior left ventricular branch-angiographically normal; right PDA-within normal limits PPM: 10-11-2019 Fitbit: Model number: [id number]. Serial number: [id number] Radiography Diagnostic Testing: Radiology Impression Thoracentesis Ultrasound 08/27/21 04:05 IMPRESSION: Ultrasound-guided left thoracentesis. Electronically Signed: Mike Medina MD at 13:27 EST , Service support , Chest X-Ray 08/27/21 12:55 IMPRESSION: Status post left thoracentesis. No evidence of pneumothorax. Residual pleural parenchymal changes at the left lung base. Electronically Signed: Mike Medina MD at 13:29 EST , Service support ,
[2021-08-28 10:07] LABS: Cytology, Body Fluid / CSF SEE PATHOLOGY REPORT
[2021-08-28] MEDS: Furosemide 40 MG/4 ML Vial IV ×2 (11:06→18:35)
[2021-08-28] MEDS: Jevity 1.5. 1,000 ML Bottle 240 ML GT ×4 (11:07→21:32)
[2021-08-28] MEDS: Lidocaine 2% (20 ml mdv) 20 ML Vial INFILT (11:07)
[2021-08-28] MEDS: LANSOPRAZOLE 15 MG CAPSULE.DR GT (11:07)
[2021-08-28] MEDS: Metoprolol Tartrate 100 MG Tablet GT ×2 (11:47→21:32)
[2021-08-28 12:18] LABS: Pathologist Comment/Body Fluid Reviewed
--- NOTE | 2021-08-28 12:22 | PN.HOSP_ITS ---
Subjective Subjective Patient seen and examined. He had no active complaints. He went back into afib with RVR overnight, and so had to be put back on the cardizem drip. Pulmonology has been consulted and patient is to have a repeat thoracentesis today.REview of systems otherwise negative. Objective Data Objective Data Vital Signs: Vital Signs Temp Pulse Resp BP Pulse Ox 97.9 F 110 H 12 97/71 97 08/28/21 08:00 08/28/21 11:47 08/28/21 11:18 08/28/21 11:47 08/28/21 11:18 Oxygen Flow Rate (L/min) [4] 5 Oxygen Flow Rate (L/min) [3] 5 Oxygen Flow Rate (L/min) [2] 5 Oxygen Flow Rate (L/min) [1 ( 5 Initial Baseline)] Oxygen Flow Rate (L/min) 4 Oxygen Delivery Method [4] Nasal Cannula Oxygen Delivery Method [3] Nasal Cannula Oxygen Delivery Method [2] Nasal Cannula Oxygen Delivery Method [1 ( Nasal Cannula Initial Baseline)] Oxygen Delivery Method Nasal Cannula Weight: 134 lb 14.766 oz Body Mass Index (BMI) 23.0 Intake & Output: Intake and Output for Last 24 Hours 08/26/21 08/27/21 08/28/21 23:59 23:59 23:59 Intake Total 321.17 / 601.17 848.83 / 848.83 Output Total 2600 / 3100 1700 / 1700 Balance -2278.83 / -2498.83 -851.17 / -851.17 Medical Nutrition Assessment Dietitian: Malnutrition Criteria Met Start: 08/27/21 10:52 Freq: Status: Active Protocol: Document 08/27/21 10:52 RMA (Rec: 08/27/21 10:52 RMA [id number]) Nutrition Malnutrition Evidence of Malnutrition Exists Yes Malnutrition (severe): Acute Illness/Injury Evidenced By Suboptimal Energy Intake ( Moderate),Weight Loss (Severe) ,Physical Changes (Moderate) Intake Problem Inadequate Oral Intake Etiology related to dysphagia/ esophageal cancer Signs/Symptoms as evidenced by NPO/PEG tube feeding for nutrition Status Active Problem Clinical Problem Acute Disease or Injury Related Malnutrition Etiology Severe protein/calorie malnutrition in the context of acute illness related to dysphagia/inadequate oral intake and increased energy expenditure/malignancy Signs/Symptoms as evidenced by NPO/PEG tube feedings, approximately 6-8% wt loss x past 1-2 months, BLLE 3+ pitting edema which is likely asking further wt loss and muscle/fat wasting noted in the face orbitals and temporal regions Status Active Problem Recommendation Dietitian Recommendations/Changes NPO except ice chips. Will order Jevity 1.5 Guy 240ml bolus feedings 5 times per day with 100ml water flush Q feeding to provide 1800 kcal, 77 gm protein and 1412 ml free water per day. Suggest start boluses with 120ml for the first 2-4 feedings to establish TF tolerance and increase to goal bolus of 240ml 5 times per day to meet~100% estimated nutrition needs. Will monitor weights, labs and TF tolerance as established. Lab / Micro Data Result Diagrams: 08/28/21 06:24 08/28/21 06:24 Labs: Laboratory Results - last 24 hr 08/27/21 12:39: Fluid Glucose 139 H, Fluid Total Protein 3.3, Fluid LDH 234 08/27/21 12:39: Fluid Source THORACENTESIS, Fluid Color YELLOW, Fluid Appearance SL CLDY, Fluid WBC 0.144, Fluid RBC 32, Fluid Tot Cell Count 0.195, Fld Polynuclear WBCs # 0.013, Fld Polynuclear WBCs % 9.0, Fluid Mononuclear WBCs 0.131, Fld Mononuclear WBCs % 91.0, Fluid Neutrophils 8, Fluid Lymphocytes 8, Fluid Monocytes 24, Fld Mesothelial Cells 11, Fluid Other Cells 49, Fl Pathologist Comment Reviewed, Fluid Comment 2 SEE COMMENT 08/27/21 15:52: Serum Osmolality 274 L 08/27/21 17:48: Urine Osmolality 419, Ur Random Sodium 37 08/28/21 06:24: WBC 11.9 H, RBC 3.84 L, Hgb 10.5 L, Hct 31.9 L, MCV 83.1, MCH 27.3, MCHC 32.9, RDW Std Deviation 47.5 H, RDW Coeff of Dianna 15.8 H, Plt Count 374, MPV 9.6, Immature Gran % (Auto) 0.700, Neut % (Auto) 79.5 H, Lymph % (Auto) 5.3 L, [place] % (Auto) 14.3 H, Eos % (Auto) 0.0, Baso % (Auto) 0.2, Absolute Neuts (auto) 9.4 H, Absolute Lymphs (auto) 0.63 L, Nucleated RBC % 0, Differential Comment SCANNED, Diff Path Review May 08/28/21 06:24: Sodium 123 L, Potassium 4.7, Chloride 85 L, Carbon Dioxide 30.0, Anion Gap 8, BUN 33 H, Creatinine 1.00, Estim Creat Clear Calc 48.45, Est GFR (MDRD) Af Amer 92, Est GFR (MDRD) Non-Af 76, BUN/Creatinine Ratio 33.0 H, Glucose 119 H, Calcium 8.7 Micro: Microbiology 08/27/21 01:17 Nasal Secretion SARS-CoV-2 Antigen (Rapid) - Final Radiography Diagnostic Testing: Radiology Impression Thoracentesis Ultrasound 08/27/21 04:05 IMPRESSION: Ultrasound-guided left thoracentesis. Electronically Signed: Mike Medina MD at 13:27 EST , Service support , Chest X-Ray 08/27/21 12:55 IMPRESSION: Status post left thoracentesis. No evidence of pneumothorax. Residual pleural parenchymal changes at the left lung base. Electronically Signed: Mike Medina MD at 13:29 EST , Service support , Thoracentesis Ultrasound 08/28/21 08:20 IMPRESSION: Ultrasound-guided left thoracentesis. Electronically Signed: Mike Medina MD at 10:23 EST , Service support , Chest X-Ray 08/28/21 09:55 IMPRESSION: Status post left thoracentesis. There is no evidence of pneumothorax. Electronically Signed: Mike Medina MD at 10:28 EST , Service support , Physical Exam Const alert, oriented x3 and no apparent distress Exam Limitations: no limitations HEENT head/scalp atraumatic and moist oral mucous membranes Head and Scalp: normocephalic Eyes PERRL and EOMs intact bilaterally Neck no lymphadenopathy Resp Resp Narrative: markedly diminished breath sounds on the right, with no wheezes or crackles. still on 4L of oxygen. Cardio regular rate, regular rhythm, S1 normal heart sound, S2 normal heart sound and no murmurs GI normal to inspection, nondistended, normoactive bowel sounds, soft to palpation, non-tender and non-distended Extremity normal to inspection, full ROM and no clubbing, cyanosis or edema Peripheral Pulses: Yes pulses 2+ throughout Neuro CN's II-XII intact bilaterally and moves all extremities Sensorium / Orientation: awake Psych affect normal Assessment & Plan Assessment/Plan (1) CHF (congestive heart failure): QUALIFIERS: Heart failure type: diastolic Heart failure chronicity: acute on chronic Qualified Code(s): I50.33 - Acute on chronic diastolic (congestive) heart failure (2) Pleural effusion: (3) Acute hypoxemic respiratory failure: (4) Paroxysmal atrial fibrillation with rapid ventricular response: PLAN: #Acute hypoxic respiratory failure due to right sided pleural effusion * Patient is s/p thoracentesis, he had removal of 1.4L of fluid. Fluid analysis per light;s criteria showed an exudate. * post thoracentesis CXR still showed significant residual pleural fluid. To get a repeat thoracentesis today * pulmonology on board. * Breathing treatments bronchodilators. * #A. fib with RVR * Patient was weaned off of Cardizem drip yesterday and metoprolol dose increased. However he went back into A. fib with RVR and Cardizem drip had to be resumed. * Cardiology consulted today. * #Hyperlipidemia: On statin #History of esophageal cancer recently diagnosed * Follow-up with oncology on outpatient basis * pleural effusion appears to be exudative, which is concerning as it could be due to malignant spread from the esophageal cancer. * Cytology pending. * #Hyponatremia: * Sodium remains 123 today. * Serum osmolality was low at 274 and urine osmolality was normal at 419. Urine sodium is 37 * Consult nephrology in light of persistent hyponatremia * #Acute exacerbation of heart failure preserved ejection fraction * BNP was 837.4. 2D echo from June 2021 showed EF of 55%. * on IV lasix, which could be worsening the hyponatremia * #Chronic malnutrition: Likely due to esophageal cancer. On nutritional supplements with Jevity DVT prophylaxis: SCDs Charges/Coding Visit Charges Inpatient E&M: 91346 Subs Hosp L3
[2021-08-28 12:25] LABS: Pathologist Review Reviewed
[2021-08-28] MEDS: morphine (oral solution) 10MG/0.5ML Syringe 30 MG GT (12:32)
--- NOTE | 2021-08-28 13:02 | CASEMGMT ---
Pt is also active [facility] SN and NORMA order placed. SStaten RN CM
--- NOTE | 2021-08-28 15:36 | CASEMGMT ---
Patient wanted to complete a will where he leaves everything to his . SW explained SW does not do that type of will. SW explained the Healthcare Power of Night Guard and a Healthcare Living Will to patient. He wanted to complete the documents. SW completed documents with patient. Copies were made and given to patient along with originals. SW also placed a copy of each in patient's chart. Erinn Abdi [employer]
[2021-08-28] MEDS: 0.9% Saline Lock 10 ML Syringe IV (18:36)
[2021-08-28] MEDS: Atorvastatin Calcium 20 MG Tablet GT (21:32)
[2021-08-29] VITALS (42 sets, daily range): BP systolic 77–171; BP diastolic 51–142; PULSE 90–156; RESP 10–25; TEMP 36.2–37; O2SAT 90–98
[2021-08-29] MEDS: Jevity 1.5. 1,000 ML Bottle 240 ML GT ×5 (06:27→22:07)
[2021-08-29 08:25] LABS: Absolute Lymphocyte Count 0.28 X10^3/uL (0.83-4.51); Hematocrit 28.6 % (40-54); Hemoglobin 9.2 g/dL (13.0-16.5); Lymphocyte # 0.28 X10^3/ul (0.83-4.51); Lymphocyte % 3.9 % (19-41); Mean Corp Hgb Conc 32.2 g/dL (32-36); Mean Corpuscular Hgb 27.6 pg (27.0-32.0); Mean Corpuscular Volume 85.9 fL (80-94); Mean Platelet Vol. 9.6 fl (6.2-12.0); Monocyte% 12.5 % (0-10); NRBC Flagged by Analyzer 0 % (0-5); Neutrophil # 5.96 X10^3/uL (2.7-7.7); POSITIVE DIFFERENTIAL YES; Platelet Count 305 K/mm3 (150-450); RBC Distribution Width CV 15.9 % (11.6-14.6); RBC Distribution Width SD 49.4 fl (35.1-43.9); Red Blood Count 3.33 M/mm3 (4.6-6.2); White Blood Count 7.2 K/mm3 (4.4-11.0)
[2021-08-29 08:28] LABS: Differential Indicated SCAN CRITERIA MET
[2021-08-29 08:45] LABS: Anion Gap 8 (5-15); BUN 45 mg/dL (7-18); BUN/Creat Ratio 34.6 RATIO (10-20); Calcium,Total 8.2 mg/dL (8.5-10.1); Chloride 80 mmol/L (98-107); EST Glomerular Filtration Rate 56 mL/min (>60); Est Glom Filt Rate - Afr Amer 68 mL/min (>60); Estimated Creatinine Clearance 36.48 ml/min; Glucose 173 mg/dL (74-106); Potassium 4.4 mmol/L (3.5-5.1); Sodium Level 122 mmol/L (136-145)
--- NOTE | 2021-08-29 08:49 | PN.CARD_ITS ---
Subjective Subjective The patient states he is breathing better today status post his left-sided thoracentesis yesterday. Objective Data Vital Signs: Vital Signs Temp Pulse Resp BP Pulse Ox 98.0 F 95 14 120/70 90 08/29/21 08:31 08/29/21 08:31 08/29/21 08:31 08/29/21 08:31 08/29/21 08:31 Oxygen Flow Rate (L/min) [4] 5 Oxygen Flow Rate (L/min) [3] 5 Oxygen Flow Rate (L/min) [2] 5 Oxygen Flow Rate (L/min) [1 ( 5 Initial Baseline)] Oxygen Flow Rate (L/min) 4 Oxygen Delivery Method [4] Nasal Cannula Oxygen Delivery Method [3] Nasal Cannula Oxygen Delivery Method [2] Nasal Cannula Oxygen Delivery Method [1 ( Nasal Cannula Initial Baseline)] Oxygen Delivery Method Nasal Cannula Weight: 132 lb 0.91 oz Body Mass Index (BMI) 23.0 Intake & Output: Intake and Output for Last 24 Hours 08/27/21 08/28/21 08/29/21 23:59 23:59 23:59 Intake Total 321.17 / 601.17 1768.08 / 1768.08 943.67 / 943.67 Output Total 2600 / 3100 2725 / 2725 300 / 300 Balance -2278.83 / -2498.83 -956.92 / -956.92 643.67 / 643.67 Lab / Micro Data Result Diagrams: 08/29/21 08:12 08/29/21 08:12 Labs: Laboratory Results - last 24 hr 08/27/21 12:39: Fl Pathologist Comment Reviewed 08/28/21 06:24: Diff Path Review Reviewed 08/29/21 08:12: WBC 7.2, RBC 3.33 L, Hgb 9.2 L, Hct 28.6 L, MCV 85.9, MCH 27.6, MCHC 32.2, RDW Std Deviation 49.4 H, RDW Coeff of Dianna 15.9 H, Plt Count 305, MPV 9.6, Immature Gran % (Auto) 0.600, Neut % (Auto) 83.0 H, Lymph % (Auto) 3.9 L, [place] % (Auto) 12.5 H, Eos % (Auto) 0.0, Baso % (Auto) 0.0, Absolute Neuts (auto) 6.0, Absolute Lymphs (auto) 0.28 L, Nucleated RBC % 0 08/29/21 08:12: Sodium 122 L, Potassium 4.4, Chloride 80 L, Carbon Dioxide 34.0 H, Anion Gap 8, BUN 45 H, Creatinine 1.30, Estim Creat Clear Calc 36.48, Est GFR (MDRD) Af Amer 68, Est GFR (MDRD) Non-Af 56 L, BUN/Creatinine Ratio 34.6 H, Glucose 173 H, Calcium 8.2 L Cardiology Labs/Tests 08/29/21 08:12: WBC 7.2, RBC 3.33 L, Hgb 9.2 L, Hct 28.6 L, MCV 85.9, MCH 27.6, MCHC 32.2, Plt Count 305, MPV 9.6, Immature Gran % (Auto) 0.600, Neut % (Auto) 83.0 H, Lymph % (Auto) 3.9 L, [place] % (Auto) 12.5 H, Eos % (Auto) 0.0, Baso % (Auto) 0.0, Absolute Neuts (auto) 6.0, Nucleated RBC % 0 08/29/21 08:12: Sodium 122 L, Potassium 4.4, Chloride 80 L, Carbon Dioxide 34.0 H, Anion Gap 8, BUN 45 H, Creatinine 1.30, Est GFR (MDRD) Af Amer 68, Est GFR (MDRD) Non-Af 56 L, BUN/Creatinine Ratio 34.6 H, Glucose 173 H, Calcium 8.2 L Rhythm: Atrial fibrillation Chest CT Scan: Radiography Diagnostic Testing: Radiology Impression Thoracentesis Ultrasound 08/28/21 08:20 IMPRESSION: Ultrasound-guided left thoracentesis. Electronically Signed: Mike Medina MD at 10:23 EST , Service support , Chest X-Ray 08/28/21 09:55 IMPRESSION: Status post left thoracentesis. There is no evidence of pneumothorax. Electronically Signed: Mike Medina MD at 10:28 EST , Service support , Physical Exam Const alert, oriented x3 and no apparent distress Orientation / Consciousness: awake HEENT normocephalic, head/scalp atraumatic and hearing grossly normal bilaterally Eyes PERRL, EOMs intact bilaterally, conjunctivae normal and no scleral icterus Neck full ROM, supple and no JVD Resp Auscultation: diminished lung sounds bilateral lower (Left greater than right) Cardio Rhythm: abnormal rhythm irregularly irregular Heart Sounds: S1 normal and S2 normal GI normal to inspection, nondistended, normoactive bowel sounds Extremity General Extremity: edema bilateral lower extremity (Bilateral lower extremity Daron wraps in place) Details: mild Skin no rashes or lesions noted Neuro oriented x3, moves all extremities, no focal motor deficits and no sensory deficits noted Psych mental status grossly normal Assessment & Plan Assessment/Plan (1) Paroxysmal atrial fibrillation with rapid ventricular response: PLAN: The patient has a history of paroxysmal atrial fibrillation. He has demonstrated recurrence of this atrial dysrhythmia with rapid ventricular response. He has been on rate control therapy. An attempt will be made to change his IV diltiazem and IV amiodarone to oral medications. He should continue anticoagulant therapy as deemed appropriate in and around the time of his noncardiovascular procedures. (2) Tachy-jimmie syndrome: PLAN: The patient has a history of a bradycardia tacky syndrome/sick sinus syndrome. He is status post permanent pacemaker placement. His pacemaker has been followed and has been reported as functioning appropriately. (3) Presence of permanent cardiac pacemaker: PLAN: The patient does have a permanent pacemaker as noted above. The patient's pacemaker was evaluated in June of this year. His lower rate limit set at 60 ppm's and is upper tracking limit is set at 130 ppm's. (4) CHF (congestive heart failure): QUALIFIERS: Heart failure type: diastolic Heart failure chronicity: acute on chronic Qualified Code(s): I50.33 - Acute on chronic diastolic (congestive) heart failure PLAN: The patient has a history of CHF . Based upon his previous studies this may be a CHF related to heart failure with preserved ejection f raction and exacerbated by his atrial dysrhythmia and/or noncardiovascular issues. At the present time he will need to be continued on medical therapy as best as possible. This could include agents such as nitrates, beta-blockers, diuretics, afterload reducing agents, etc. (5) Pleural effusion: PLAN: The patient does have a pleural effusion. The patient is now status post left-sided thoracentesis. He appears to be symptomatically improved. (6) Esophageal cancer: PLAN: He will continue evaluation care by his other physicians for this. (7) Hyperlipidemia: QUALIFIERS: Hyperlipidemia type: unspecified Qualified Code(s): E78.5 - Hyperlipidemia, unspecified PLAN: He should continue risk factor evaluation care as deemed appropriate. Addt'l Comments This note was generated using a voice recognition system and there may be i ncorrect words, spelling or punctuation that were not noted when reviewing the office note prior to saving.
[2021-08-29 08:56] LABS: Differential Comment SCANNED
--- NOTE | 2021-08-29 09:26 | CON.PCM.RE_ITS ---
Assessment & Plan Assessment/Plan (1) Hyponatremia: PLAN: sodium was normal before. now low. presented with fluid overload. BNP high. has fluid overload systematically. poor oral intake. received lasix BID. sodium lower. no tolvaptan available. add salt tablets and cut back lasix. HPI Consult Data Date of Consult: 08/29/21 HPI Narrative HPI Narrative: KATHIA PAT, is a 81 M who presents to the hospital with complaints of difficulty swallowing. renal consulted for hyponatremia. he was recently diagnosed with esophageal ca. not on any treatment yet. found to have massive left sided effusion s/p tap. exudative. ? malignant effusions. sodium is down to 122 today. appetite not great. eating mostly ice chips and soft foods. [facility] Medical History Atrial fibrillation Atrial fibrillation with RVR Cancer COPD (chronic obstructive pulmonary disease) Esophageal cancer Esophageal mass Esophageal obstruction Former smoker High cholesterol Hyperlipidemia Irregular heart beat Mass in chest Neuropathy Pacemaker Paroxysmal atrial fibrillation Tachy-jimmie syndrome Troponin I above reference range Home Medications atorvastatin 20 mg tablet 20 mg PO QHS tab 05/04/21 [History Last Taken 08/26/21] metoprolol tartrate 50 mg tablet 75 mg PO BID tab 06/13/21 [History Last Taken 08/26/21] omeprazole magnesium [Prilosec] 20 mg PO DAILY #30 ea 06/25/21 [Rx Last Taken 08/26/21] ondansetron HCl 4 mg PO Q8H PRN 07/22/21 [History Last Taken Unknown] Eliquis 2.5 mg PO/SL BID 08/08/21 [History Last Taken 08/26/21] Tylenol 325 mg PO.IVFORM PRN PRN 08/08/21 [History Last Taken Unknown] bisacodyl 5 mg PO/SL PRN PRN 08/08/21 [History Last Taken 08/26/21] docusate sodium 100 mg PO/SL BID 08/08/21 [History Last Taken 08/26/21] morphine 30 mg PO/SL Q4H PRN PRN 08/08/21 [History Last Taken Unknown] methadone 7.5 mg PO Q8H 08/20/21 [History Last Taken 08/26/21] Allergy/AdvReac Type Severity Reaction Status Date / Time oxycodone Allergy Itching Verified 08/27/21 00:34 Family History Mother Heart disease CHD Thyroid disorder Surgical History History of bilateral cataract extraction History of left heart catheterization (01/21/17) History of tonsillectomy Presence of permanent cardiac pacemaker (10/11/19) Social History Smoking Status: Former smoker how long ago did patient quit smokin years ago alcohol intake: never substance use type: does not use caffeine: Yes Type: coffee Number of servings: 2 Physical Exam Narrative Alert awake oriented x 3 no obvious distress no pallor no icterus no JVD s1s2 no murmurs lungs clear abdomen soft no organomegaly no edema no cyanosis Medical Records Data Medical Nutrition Assessment Dietitian: Malnutrition Criteria Met Start: 08/27/21 10:5 2 Freq: Status: Active Protocol: Document 08/27/21 10:52 RMA (Rec: 08/27/21 10:52 RMA [id number]) Nutrition Malnutrition Evidence of Malnutrition Exists Yes Malnutrition (severe): Acute Illness/Injury Evidenced By Suboptimal Energy Intake ( Moderate),Weight Loss (Severe) ,Physical Changes (Moderate) Intake Problem Inadequate Oral Intake Etiology related to dysphagia/ esophageal cancer Signs/Symptoms as evidenced by NPO/PEG tube feeding for nutrition Status Active Problem Clinical Problem Acute Disease or Injury Related Malnutrition Etiology Severe protein/calorie malnutrition in the context of acute illness related to dysphagia/inadequate oral intake and increased energy expenditure/malignancy Signs/Symptoms as evidenced by NPO/PEG tube feedings, approximately 6-8% wt loss x past 1-2 months, BLLE 3+ pitting edema which is likely asking further wt loss and muscle/fat wasting noted in the face orbitals and temporal regions Status Active Problem Recommendation Dietitian Recommendations/Changes NPO except ice chips. Will order Jevity 1.5 Guy 240ml bolus feedings 5 times per day with 100ml water flush Q feeding to provide 1800 kcal, 77 gm protein and 1412 ml free water per day. Suggest start boluses with 120ml for the first 2-4 feedings to establish TF tolerance and increase to goal bolus of 240ml 5 times per day to meet~100% estimated nutrition needs. Will monitor weights, labs and TF tolerance as established. Lab / Micro Data Result Diagrams: 08/29/21 08:12 08/29/21 08:12 Labs: Laboratory Results - last 24 hr 08/27/21 12:39: Fl Pathologist Comment Reviewed 08/28/21 06:24: Diff Path Review Reviewed 08/29/21 08:12: WBC 7.2, RBC 3.33 L, Hgb 9.2 L, Hct 28.6 L, MCV 85.9, MCH 27.6, MCHC 32.2, RDW Std Deviation 49.4 H, RDW Coeff of Dianna 15.9 H, Plt Count 305, MPV 9.6, Immature Gran % (Auto) 0.600, Neut % (Auto) 83.0 H, Lymph % (Auto) 3.9 L, [place] % (Auto) 12.5 H, Eos % (Auto) 0.0, Baso % (Auto) 0.0, Absolute Neuts (auto) 6.0, Absolute Lymphs (auto) 0.28 L, Nucleated RBC % 0, Differential Comment SCANNED 08/29/21 08:12: Sodium 122 L, Potassium 4.4, Chloride 80 L, Carbon Dioxide 34.0 H, Anion Gap 8, BUN 45 H, Creatinine 1.30, Estim Creat Clear Calc 36.48, Est GFR (MDRD) Af Amer 68, Est GFR (MDRD) Non-Af 56 L, BUN/Creatinine Ratio 34.6 H, Glucose 173 H, Calcium 8.2 L Radiology Impression Thoracentesis Ultrasound 08/28/21 08:20 IMPRESSION: Ultrasound-guided left thoracentesis. Electronically Signed: Mike Medina MD at 10:23 EST , Service support , Chest X-Ray 08/28/21 09:55 IMPRESSION: Status post left thoracentesis. There is no evidence of pneumothorax. Electronically Signed: Mike Medina MD at 10:28 EST , Service support ,
[2021-08-29] MEDS: Lansoprazole 15 MG Capsule.DR GT (09:28)
[2021-08-29] MEDS: Furosemide 40 MG/4 ML Vial IV (09:28)
[2021-08-29] MEDS: 0.9% Saline Lock 10 ML Syringe IV ×2 (09:30→14:38)
[2021-08-29] MEDS: Amiodarone 200 MG Tablet PO ×3 (09:36→22:06)
[2021-08-29] MEDS: dilTIAZem 60 MG Tablet PO ×2 (10:03→18:14)
[2021-08-29] MEDS: Sodium Chloride 1 GM Tablet PO ×2 (14:37→22:06)
--- NOTE | 2021-08-29 14:51 | CHAPLAIN ---
Type of Pastoral Visit _x__ Initial Visit ___ Follow-up Visit ___ On-call Visit ___ General Patient Visit ___ Spiritual Assessment ___ Family Conference ___ Bereavement ___ Rapid Response ___ Code Blue ___ Other (describe below) Pastoral Care Referral From _x__ Patient ___ Family _x__ Nurse ___ Physician ___ Sustainability Project Manager ___ Harness Brusher ___ Other (describe below) Sacrament/Intervention _x__ Active listening ___ Anointing ___ Sikhism ___ Bereavement ___ Communion _x__ Judith exploration ___ _x__ Life review _x__ Prayer ___ Reconciliation ___ Sacrament of Sick ___ Supportive presence ___ Wedding ___ Other (describe below) Pastoral Comments
--- NOTE | 2021-08-29 16:43 | PN.HOSP_ITS ---
Subjective Subjective Patient seen and examined. He has no active complaints. Review of systems otherwise negative. He had repeated thoracentesis with removal of 1200cc of fluid. He has remained hemodynamically stable otherwise. Objective Data Objective Data Vital Signs: Vital Signs Temp Pulse Resp BP Pulse Ox 97.8 F 108 H 18 116/69 98 08/29/21 14:26 08/29/21 14:26 08/29/21 14:26 08/29/21 14:26 08/29/21 14:26 Oxygen Flow Rate (L/min) [4] 5 Oxygen Flow Rate (L/min) [3] 5 Oxygen Flow Rate (L/min) [2] 5 Oxygen Flow Rate (L/min) [1 ( 5 Initial Baseline)] Oxygen Flow Rate (L/min) 4 Oxygen Delivery Method [4] Nasal Cannula Oxygen Delivery Method [3] Nasal Cannula Oxygen Delivery Method [2] Nasal Cannula Oxygen Delivery Method [1 ( Nasal Cannula Initial Baseline)] Oxygen Delivery Method Nasal Cannula Weight: 132 lb 0.91 oz Body Mass Index (BMI) 23.0 Intake & Output: Intake and Output for Last 24 Hours 08/27/21 08/28/21 08/29/21 23:59 23:59 23:59 Intake Total 321.17 / 601.17 1768.08 / 1768.08 1504.38 / 1504.38 Output Total 2600 / 3100 2725 / 2725 730 / 730 Balance -2278.83 / -2498.83 -956.92 / -956.92 774.38 / 774.38 Medical Nutrition Assessment Dietitian: Malnutrition Criteria Met Start: 08/27/21 10:52 Freq: Status: Active Protocol: Document 08/27/21 10:52 RMA (Rec: 08/27/21 10:52 RMA [id number]) Nutrition Malnutrition Evidence of Malnutrition Exists Yes Malnutrition (severe): Acute Illness/Injury Evidenced By Suboptimal Energy Intake ( Moderate),Weight Loss (Severe) ,Physical Changes (Moderate) Intake Problem Inadequate Oral Intake Etiology related to dysphagia/ esophageal cancer Signs/Symptoms as evidenced by NPO/PEG tube feeding for nutrition Status Active Problem Clinical Problem Acute Disease or Injury Related Malnutrition Etiology Severe protein/calorie malnutrition in the context of acute illness related to dysphagia/inadequate oral intake and increased energy expenditure/malignancy Signs/Symptoms as evidenced by NPO/PEG tube feedings, approximately 6-8% wt loss x past 1-2 months, BLLE 3+ pitting edema which is likely asking further wt loss and muscle/fat wasting noted in the face orbitals and temporal regions Status Active Problem Recommendation Dietitian Recommendations/Changes NPO except ice chips. Will order Jevity 1.5 Guy 240ml bolus feedings 5 times per day with 100ml water flush Q feeding to provide 1800 kcal, 77 gm protein and 1412 ml free water per day. Suggest start boluses with 120ml for the first 2-4 feedings to establish TF tolerance and increase to goal bolus of 240ml 5 times per day to meet~100% estimated nutrition needs. Will monitor weights, labs and TF tolerance as established. Lab / Micro Data Result Diagrams: 08/29/21 08:12 08/29/21 08:12 Labs: Laboratory Results - last 24 hr 08/29/21 08:12: WBC 7.2, RBC 3.33 L, Hgb 9.2 L, Hct 28.6 L, MCV 85.9, MCH 27.6, MCHC 32.2, RDW Std Deviation 49.4 H, RDW Coeff of Dianna 15.9 H, Plt Count 305, MPV 9.6, Immature Gran % (Auto) 0.600, Neut % (Auto) 83.0 H, Lymph % (Auto) 3.9 L, [place] % (Auto) 12.5 H, Eos % (Auto) 0.0, Baso % (Auto) 0.0, Absolute Neuts (auto) 6.0, Absolute Lymphs (auto) 0.28 L, Nucleated RBC % 0, Differential Comment SCANNED 08/29/21 08:12: Sodium 122 L, Potassium 4.4, Chloride 80 L, Carbon Dioxide 34.0 H, Anion Gap 8, BUN 45 H, Creatinine 1.30, Estim Creat Clear Calc 36.48, Est GFR (MDRD) Af Amer 68, Est GFR (MDRD) Non-Af 56 L, BUN/Creatinine Ratio 34.6 H, Glucose 173 H, Calcium 8.2 L Micro: Microbiology 08/27/21 01:00 Blood Culture (Wb) - Anticubital Left Blood Culture - Preliminary No growth in 48 hours. 08/27/21 01:17 Nasal Secretion SARS-CoV-2 Antigen (Rapid) - Final Physical Exam Const alert, oriented x3 and no apparent distress Orientation / Consciousness: lethargic Exam Limitations: no limitations HEENT head/scalp atraumatic and moist oral mucous membranes Head and Scalp: normocephalic Eyes PERRL and EOMs intact bilaterally Neck no lymphadenopathy Resp Resp Narrative: markedly diminished breath sounds on the right, with no wheezes or crackles. still on 4L of oxygen. 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 Fluid analysis per light;s criteria showed an exudate. * he repeat thoracentesis yesterday with removal of 1.2L of fluid. cytology is pending. * pulmonology on board. * Breathing treatments bronchodilators. * #A. fib with RVR * now on cardizem drip and amiodarone drip. * Cardiology consulted today. * anticoagulation on hold due to him requiring thoracentesis * #Hyperlipidemia: On statin #History of esophageal cancer recently diagnosed * Follow-up with oncology on outpatient basis * pleural effusion appears to be exudative, which is concerning as it could be due to malignant spread from the esophageal cancer. * Cytology pending. * #Hyponatremia: * Sodium is 122 today. * Serum osmolality was low at 274 and urine osmolality was normal at 419. Urine sodium is 37 * nephrology consulted in light of persistent hyponatremia. * Per nephrology, to add salt tablets and cut back Lasix. There is no tolvaptan available to administer to patient. * #Acute exacerbation of heart failure preserved ejection fraction * BNP was 837.4. 2D echo from June 2021 showed EF of 55%. * lasix dose decreased as this was likely worsening the hyponatremia. * #Chronic malnutrition: Likely due to esophageal cancer. On nutritional supplements with Jevity DVT prophylaxis: SCDs. will consider resuming anticoagulation tomorrow Charges/Coding Visit Charges Inpatient E&M: 54447 [facility] L3
[2021-08-29] MEDS: Metoprolol Tartrate 100 MG Tablet GT (22:06)
[2021-08-29] MEDS: Atorvastatin Calcium 20 MG Tablet GT (22:06)
[2021-08-30] VITALS (14 sets, daily range): BP systolic 84–108; BP diastolic 54–71; PULSE 77–115; RESP 16–18; TEMP 36.5–37.1; O2SAT 93–100
[2021-08-30] MEDS: dilTIAZem 60 MG Tablet PO ×4 (00:31→23:13)
[2021-08-30] MEDS: Sodium Chloride 1 GM Tablet PO ×3 (06:07→22:48)
[2021-08-30] MEDS: Jevity 1.5. 1,000 ML Bottle 240 ML GT ×4 (06:07→18:25)
--- NOTE | 2021-08-30 08:16 | PCM.PN.REN ---
Subjective Subjective No diarrhea. no N/V/No headache. awake and alert and in good spirit Objective Data Objective Data Vital Signs: Vital Signs Temp Pulse Resp BP Pulse Ox 98.7 F 108 H 18 84/64 L 98 08/30/21 05:55 08/30/21 07:48 08/30/21 05:55 08/30/21 05:55 08/30/21 05:55 Oxygen Flow Rate (L/min) [4] 5 Oxygen Flow Rate (L/min) [3] 5 Oxygen Flow Rate (L/min) [2] 5 Oxygen Flow Rate (L/min) [1 ( 5 Initial Baseline)] Oxygen Flow Rate (L/min) 4 Oxygen Delivery Method [4] Nasal Cannula Oxygen Delivery Method [3] Nasal Cannula Oxygen Delivery Method [2] Nasal Cannula Oxygen Delivery Method [1 ( Nasal Cannula Initial Baseline)] Oxygen Delivery Method Nasal Cannula Weight: 59.5 kg Body Mass Index (BMI) 23.0 Intake & Output: Intake and Output for Last 24 Hours 08/28/21 08/29/21 08/30/21 23:59 23:59 23:59 Intake Total 1768.08 / 1768.08 2184.38 / 2184.38 Output Total 2725 / 2725 730 / 730 Balance -956.92 / -956.92 1454.38 / 1454.38 Medical Nutrition Assessment Dietitian: Malnutrition Criteria Met Start: 08/27/21 10:52 Freq: Status: Active Protocol: Document 08/27/21 10:52 RMA (Rec: 08/27/21 10:52 RMA [id number]) Nutrition Malnutrition Evidence of Malnutrition Exists Yes Malnutrition (severe): Acute Illness/Injury Evidenced By Suboptimal Energy Intake ( Moderate),Weight Loss (Severe) ,Physical Changes (Moderate) Intake Problem Inadequate Oral Intake Etiology related to dysphagia/ esophageal cancer Signs/Symptoms as evidenced by NPO/PEG tube feeding for nutrition Status Active Problem Clinical Problem Acute Disease or Injury Related Malnutrition Etiology Severe protein/calorie malnutrition in the context of acute illness related to dysphagia/inadequate oral intake and increased energy expenditure/malignancy Signs/Symptoms as evidenced by NPO/PEG tube feedings, approximately 6-8% wt loss x past 1-2 months, BLLE 3+ pitting edema which is likely asking further wt loss and muscle/fat wasting noted in the face orbitals and temporal regions Status Active Problem Recommendation Dietitian Recommendations/Changes NPO except ice chips. Will order Jevity 1.5 Guy 240ml bolus feedings 5 times per day with 100ml water flush Q feeding to provide 1800 kcal, 77 gm protein and 1412 ml free water per day. Suggest start boluses with 120ml for the first 2-4 feedings to establish TF tolerance and increase to goal bolus of 240ml 5 times per day to meet~100% estimated nutrition needs. Will monitor weights, labs and TF tolerance as established. Lab / Micro Data Result Diagrams: 08/29/21 08:12 08/29/21 08:12 Labs: Laboratory Results - last 24 hr 08/29/21 08:12: WBC 7.2, RBC 3.33 L, Hgb 9.2 L, Hct 28.6 L, MCV 85.9, MCH 27.6, MCHC 32.2, RDW Std Deviation 49.4 H, RDW Coeff of Dianna 15.9 H, Plt Count 305, MPV 9.6, Immature Gran % (Auto) 0.600, Neut % (Auto) 83.0 H, Lymph % (Auto) 3.9 L, [place] % (Auto) 12.5 H, Eos % (Auto) 0.0, Baso % (Auto) 0.0, Absolute Neuts (auto) 6.0, Absolute Lymphs (auto) 0.28 L, Nucleated RBC % 0, Differential Comment SCANNED 08/29/21 08:12: Sodium 122 L, Potassium 4.4, Chloride 80 L, Carbon Dioxide 34.0 H, Anion Gap 8, BUN 45 H, Creatinine 1.30, Estim Creat Clear Calc 36.48, Est GFR (MDRD) Af Amer 68, Est GFR (MDRD) Non-Af 56 L, BUN/Creatinine Ratio 34.6 H, Glucose 173 H, Calcium 8.2 L Micro: Microbiology 08/27/21 01:00 Blood Culture (Wb) - Anticubital Left Blood Culture - Preliminary No growth in 48 hours. 08/27/21 01:17 Nasal Secretion SARS-CoV-2 Antigen (Rapid) - Final Physical Exam Narrative Patient is awake and alert AT [facility] No JVD Lung CTA Heart s1 s2 rrr Neurology: [id number] Ext no edema Assessment & Plan Assessment/Plan (1) Hyponatremia: PLAN: Hyponatremia : hypotonic. 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
--- NOTE | 2021-08-30 08:52 | PN.CARD_ITS ---
Subjective Subjective The patient denies any ongoing acute chest discomfort. He does believe his breathing has improved since the thoracentesis. He denies any sensation of the rapid heart rate. Objective Data Vital Signs: Vital Signs Temp Pulse Resp BP Pulse Ox 98.7 F 108 H 18 84/64 L 98 08/30/21 05:55 08/30/21 07:48 08/30/21 05:55 08/30/21 05:55 08/30/21 05:55 Oxygen Flow Rate (L/min) [4] 5 Oxygen Flow Rate (L/min) [3] 5 Oxygen Flow Rate (L/min) [2] 5 Oxygen Flow Rate (L/min) [1 ( 5 Initial Baseline)] Oxygen Flow Rate (L/min) 4 Oxygen Delivery Method [4] Nasal Cannula Oxygen Delivery Method [3] Nasal Cannula Oxygen Delivery Method [2] Nasal Cannula Oxygen Delivery Method [1 ( Nasal Cannula Initial Baseline)] Oxygen Delivery Method Nasal Cannula Weight: 131 lb 2.801 oz Body Mass Index (BMI) 23.0 Intake & Output: Intake and Output for Last 24 Hours 08/28/21 08/29/21 08/30/21 23:59 23:59 23:59 Intake Total 1768.08 / 1768.08 2184.38 / 2184.38 Output Total 2725 / 2725 730 / 730 Balance -956.92 / -956.92 1454.38 / 1454.38 Lab / Micro Data Result Diagrams: 08/29/21 08:12 08/29/21 08:12 Labs: Laboratory Results - last 24 hr 08/29/21 08:12: Differential Comment SCANNED Micro: Microbiology 08/27/21 01:00 Blood Culture (Wb) - Anticubital Left Blood Culture - Preliminary No growth in 48 hours. Cardiology Labs/Tests Rhythm: Atrial fibrillation/flutter Physical Exam Const alert, oriented x3 and no apparent distress Orientation / Consciousness: awake HEENT normocephalic, head/scalp atraumatic and hearing grossly normal bilaterally Eyes PERRL, EOMs intact bilaterally, conjunctivae normal and no scleral icterus Neck full ROM, supple and no JVD Resp Auscultation: diminished lung sounds bilateral lower (Left greater than right) Cardio Rhythm: abnormal rhythm irregularly irregular Heart Sounds: S1 normal and S2 normal GI normal to inspection, nondistended, normoactive bowel sounds Extremity General Extremity: edema bilateral lower extremity (Bilateral lower extremity Daron wraps in place) Details: mild Skin no rashes or lesions noted Neuro oriented x3, moves all extremities, no focal motor deficits and no sensory deficits noted Psych mental status grossly normal Assessment & Plan Assessment/Plan (1) Paroxysmal atrial fibrillation with rapid ventricular response: PLAN: The patient has a history of paroxysmal atrial fibrillation. He has demonstrated recurrence of this atrial dysrhythmia with rapid ventricular response. He has been on rate control therapy. His IV diltiazem and IV amiodarone have been changed to oral agents. He continues to remain with a somewhat elevated heart rate but not as elevated as it was in the past. It may be reasonable to attempt a dose of digitalis and monitor his heart rate response and if there is a positive response perhaps this may be an agent that may benefit him. He should continue anticoagulant therapy as deemed appropriate in and around the time of his noncardiovascular procedures. 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 He is status post permanent pacemaker placement. His pacemaker has been followed and has been reported as functioning appropriately. (3) Presence of permanent cardiac pacemaker: PLAN: The patient does have a permanent pacemaker as noted above. The patient's pacemaker was evaluated in June of this year. His lower rate limit set at 60 ppm's and is upper tracking limit is set at 130 ppm's. (4) CHF (congestive heart failure): QUALIFIERS: Heart failure type: diastolic Heart failure chronicity: acute on chronic Qualified Code(s): I50.33 - Acute on chronic diastolic (congestive) heart failure PLAN: The patient has a history of CHF . Based upon his previous studies this may be a CHF related to heart failure with preserved ejection fraction and exacerbated by his atrial dysrhythmia and/or noncardiovascular issues. At the present time he will need to be continued on medical therapy as best as possible. This could include agents such as nitrates, beta-blockers, diuretics, afterload reducing agents, etc. (5) Pleural effusion: PLAN: The patient does have a pleural effusion. The patient is now status post left-sided thoracentesis. According to the thoracentesis cytology this appears to be positive for malignant [id number] cell carcinoma. He will continue evaluation care per internal medicine and hematology/oncology. (6) Esophageal cancer: PLAN: He will continue evaluation care by his other physicians for this. (7) Hyperlipidemia: QUALIFIERS: Hyperlipidemia type: unspecified Qualified Code(s): E78.5 - Hyperlipidemia, unspecified PLAN: He should continue risk factor evaluation care as deemed appropriat poncho Bautista'francisco Comments This note was generated using a voice recognition system and there may be incorrect words, spelling or punctuation that were not noted when reviewing the office note prior to saving.
--- NOTE | 2021-08-30 10:31 | ONC.CONSULT ---
Assessment & Plan Assessment/Plan (1) Paroxysmal atrial fibrillation with rapid ventricular response: Status: Acute Code(s): I48.0 - Paroxysmal atrial fibrillation (2) Tachy-jimmie syndrome: Status: Chronic Code(s): I49.5 - Sick sinus syndrome (3) Presence of permanent cardiac pacemaker: Status: Chronic Code(s): Z95.0 - Presence of cardiac pacemaker (4) CHF (congestive heart failure): Status: Acute Code(s): I50.9 - Heart failure, unspecified Qualifiers: Heart failure chronicity: acute on chronic Heart failure type: diastolic Qualified Code(s): I50.33 - Acute on chronic diastolic (congestive) heart failure (5) Pleural effusion: Status: Acute Code(s): J90 - Pleural effusion, not elsewhere classified (6) Esophageal cancer: Status: Acute Code(s): C15.9 - Malignant neoplasm of esophagus, unspecified (7) Hyperlipidemia: Status: Chronic Code(s): E78.5 - Hyperlipidemia, unspecified Qualifiers: Hyperlipidemia type: unspecified Qualified Code(s): E78.5 - Hyperlipidemia, unspecified (8) Malignant pleural effusion: Status: Acute Code(s): J91.0 - Malignant pleural effusion Plan: The patient is an 81 yo male recently diagnosed with a NSCLC (pubic bone biopsy; TTF-1 positive per pathology at [facility] Large tumor causing extrinsic compression to the esophagus. He has started on palliative radiation to that tumor. Now admitted for significant left pleural effusion that is malignant. He is a candidate for immunotherapy, so reasonable to assess for PleuX catheter placement while inpatient due to need for anticoagulation. Patient is willing to undergo this procedure. Discussed with Dr. Coronado. HPI Consult Data Date of Service:: 08/30/21 PCP / Referring Provider: [facility] Attending: Dr. Lucia Coronado MD Chief Complaint Chief Complaint: Malignant pleural effusion History of Present Illness History of Present Illness: HPI: This is an 81-year-old gentleman diagnosed with metastatic non-small cell lung cancer who presented with progressive dysphagia over the last 2 months. He started to having difficulty swallowing 2 months ago to solid and then liquid a month ago. He presented to the emergency room for abdominal pain on July 24, 2021. CT scan chest abdomen pelvis showed a 6.1 cm posterior mediastinal mass encompassing the distal esophagus.?There were also 1.4 cm LLL nodule and 2.3 cm left infrahilar soft tissue mass.? EGD on 07/27/21 showed moderate extrinsic compression of the lower third esophagus at 37 cm from the incisors. Biopsy of the esophagus showed no evidence of malignancy. PET/CT scan on 07/31/21 showed?increased uptake in the esophagus measuring 9 x 6.1 cm in the posterior mediastinal region with max SUV of 32.8. There were also hypermetabolic lesions in the pre-vascular space, paratracheal, AP window and left hilar node regions. There is a gastrohepatic lesion with SUV of 16. There were multiple small foci in right T1, bilateral scapula, right fourth rib, lumbar and sacral spine, the pubic bone and the right femur. EUS on 07/31/21 showed a hypoechoic mass measuring 6.3 cm in the posterior mediastinum invading into the wall of the esophagus at 35 cm from the incisor and FNA showed adenocarcinoma. CT guide biopsy of the right pubic bone on 08/01/21 showed metastatic adenocarcinoma of lung. Has not yet had brain imaging. His oral intakes are limited to ice chips due to dysphagia. He has?a PEG tube placed and he uses that for most of his fluid and nutrition needs. He started palliative radiation for the tumor compressing the esophagus. Dr. Luna did not recommended chemotherapy based on patient's poor nutritional status, but recommended immunotherapy based on the tumor's high mutational burden. Chest x-ray revealed large left pleural effusion with compressive consolidation. Right lung was clear. Underwent ultrasound-guided thoracentesis on 08/27. Approximately 1350 mL of sarah-colored fluid was drained. Due to significant residual fluid radiographically, patient underwent second ultrasound-guided thoracentesis on 08/28. Approximately 1200 cc of sarah-colored fluid was removed. Cytology from the first specimen demonstrated cells consistent with metastatic non-small cell carcinoma, adenocarcinoma. Second sample of fluid also positive. He has developed hyponatremia and cardiology is managing atrial fibrillation. 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: Yes Living Will: No PFSH Medical History Atrial fibrillation Atrial fibrillation with RVR Cancer COPD (chronic obstructive pulmonary disease) Esophageal cancer Esophageal mass Esophageal obstruction Former smoker High cholesterol Hyperlipidemia Irregular heart beat Mass in chest Neuropathy Pacemaker Paroxysmal atrial fibrillation Tachy-jimmie syndrome Troponin I above reference range Home Medications atorvastatin 20 mg tablet 20 mg PO QHS tab 05/04/21 [History Last Taken 08/26/21] metoprolol tartrate 50 mg tablet 75 mg PO BID tab 06/13/21 [History Last Taken 08/26/21] omeprazole magnesium [Prilosec] 20 mg PO DAILY #30 ea 06/25/21 [Rx Last Taken 08/26/21] ondansetron HCl 4 mg PO Q8H PRN 07/22/21 [History Last Taken Unknown] Eliquis 2.5 mg PO/SL BID 08/08/21 [History Last Taken 08/26/21] Tylenol 325 mg PO.IVFORM PRN PRN 08/08/21 [History Last Taken Unknown] bisacodyl 5 mg PO/SL PRN PRN 08/08/21 [History Last Taken 08/26/21] docusate sodium 100 mg PO/SL BID 08/08/21 [History Last Taken 08/26/21] morphine 30 mg PO/SL Q4H PRN PRN 08/08/21 [History Last Taken Unknown] methadone 7.5 mg PO Q8H 08/20/21 [History Last Taken 08/26/21] Allergy/AdvReac Type Severity Reaction Status Date / Time oxycodone Allergy Itching Verified 08/27/21 00:34 Family History Mother Heart disease CHD Thyroid disorder Surgical History History of bilateral cataract extraction History of left heart catheterization (01/21/17) History of tonsillectomy Presence of permanent cardiac pacemaker (10/11/19) Social History Smoking Status: Former smoker how long ago did patient quit smokin years ago alcohol intake: never substance use type: does not use caffeine: Yes Type: coffee Number of servings: 2 Physical Exam Const alert and oriented x3 Neck no lymphadenopathy Lymph Lymphatic: no lymphedema noted Resp Resp Narrative: Clear breath sounds right hemithorax and uper left. Tubular breath sounds left base. Cardio Cardio Narrative: Irregularly irregular. Extremity no clubbing, cyanosis or edema Vital Signs Temperature 98.7 F 08/30/21 05:55 Temperature Source Temporal 08/30/21 05:55 Pulse Rate 108 H 08/30/21 07:48 Pulse Strength Weak (1+) 08/28/21 20:50 Respiratory Rate 18 08/30/21 05:55 Respiratory Effort Non-Labored 08/30/21 10:00 Respiratory Depth Normal 08/30/21 10:00 Respiratory Pattern Normal 08/30/21 10:00 Blood Pressure 84/64 L 08/30/21 05:55 Blood Pressure Mean 70 08/30/21 05:55 Blood Pressure Source Monitor 08/30/21 05:55 Blood Pressure Position Semi-Fowlers 08/30/21 05:55 Blood Pressure Location Left Arm 08/30/21 05:55 Pulse Ox 98 08/30/21 05:55 Oxygen Delivery Method Nasal Cannula 08/30/21 10:00 Oxygen Flow Rate (L/min) 3 08/30/21 10:00 Laboratory Results - last 24 hr 08/27/21 12:39: Miscellaneous Cytology SEE PATHOLOGY REPORT 08/28/21 09:50: Miscellaneous Cytology SEE PATHOLOGY REPORT Microbiology 08/27/21 01:00 Blood Culture (Wb) - Anticubital Left Blood Culture - Preliminary No growth in 48 hours. Diagnostic Data Thoracentesis Ultrasound 08/28/21 08:20 IMPRESSION: Ultrasound-guided left thoracentesis. Electronically Signed: Mike Medina MD at 10:23 EST , Service support , Chest X-Ray 08/28/21 09:55 IMPRESSION: Status post left thoracentesis. There is no evidence of pneumothorax. Electronically Signed: Mike Medina MD at 10:28 EST , Service support ,
[2021-08-30] MEDS: Albumin Human 25% (50 mL) 12.5 GM/50 ML IV.SOLN IV (10:50)
[2021-08-30] MEDS: Digoxin 250 MCG/ML Ampul 500 MCG IV (10:51)
[2021-08-30] MEDS: Lansoprazole 15 MG Capsule.DR GT (10:51)
[2021-08-30] MEDS: Senna/Docusate Sodium 1 Tablet 2 TABLET GT ×2 (10:52→22:48)
[2021-08-30] MEDS: Polyethylene Glycol 3350 17 GM PACKET GT (10:57)
--- NOTE | 2021-08-30 12:59 | RAD_ITS ---
STUDY: X-RAY CHEST REASON FOR EXAM: Male, 81 years old. F/u L pleural effusion TECHNIQUE: Single AP portable view of the chest. COMPARISON: Comparison is made with prior examination dated 08/28/2021. FINDINGS: EKG electrodes are seen. There is evidence of a small left pleural effusion with left basilar infiltration and/or atelectasis which has progressed since prior study. Blunting of the right costo phrenic angle. RAD/Chest 1 View (Portable) IMPRESSION: Small left pleural effusion with left basilar atelectasis and/or infiltration. This has progressed as compared to prior study. Residual blunting of the right costophrenic angle. Electronically Signed: Mike Medina MD at 15:36 EST , Service support ,
--- NOTE | 2021-08-30 13:00 | EX.PCM.CON.S ---
Assessment & Plan Assessment/Plan (1) Malignant pleural effusion: PLAN: This is an 81-year-old male diagnosed with esophageal carcinoma currently undergoing radiation therapy who is diagnosed with a malignant pleural effusion this admission. He has required thoracentesis on 2 separate occasions already this admission and cytology specimens from these procedures were concordant for non-small cell adenocarcinoma. Patient is currently under evaluation for possible addition of immunotherapy. He currently is unable to ingest anything through an oral route and is dependent on enteral feeds via a PEG tube in the left upper quadrant. He has no history of interventions to his left thoracic cavity aside from the after mentioned thoracenteses. I find it a reasonable indication to proceed with Pleurx catheter management of this effusion and have described the procedure in detail to both patient and his who is at bedside. They wish to proceed as described. Tentatively planning for the procedure tomorrow under local MAC. Patient should have tube feeds held past midnight in anticipation of this procedure. Thank you for the opportunity to participate in Mr. French's care. HPI Consult Data Date of Consult: 08/30/21 HPI Narrative HPI Narrative: KATHIA FRENCH, is a 81 M with diagnosis of esophageal cancer (made 06/2021) on palliative radiation, who presented with severe shortness of breath 08/27/2021. He was diagnosed with a significant left-sided pleural effusion and underwent serial thoracenteses on 08/27 and 08/28. Cytology was examined for both procedures and concordant as non-small cell adenocarcinoma. Patient has also been managed for a acute on chronic heart failure exacerbation and inpatient has experienced episodes of atrial fibrillation with rapid ventricular response. Given the diagnosis of the recurrent, malignant pleural effusion surgery is consulted to evaluate patient for possible placement of Pleurx catheter. [facility] Medical History Atrial fibrillation Atrial fibrillation with RVR Cancer COPD (chronic obstructive pulmonary disease) Esophageal cancer Esophageal mass Esophageal obstruction Former smoker High cholesterol Hyperlipidemia Irregular heart beat Mass in chest Neuropathy Pacemaker Paroxysmal atrial fibrillation Tachy-jimmie syndrome Troponin I above reference range Home Medications atorvastatin 20 mg tablet 20 mg PO QHS tab 05/04/21 [History Last Taken 08/26/21] metoprolol tartrate 50 mg tablet 75 mg PO BID tab 06/13/21 [History Last Taken 08/26/21] omeprazole magnesium [Prilosec] 20 mg PO DAILY #30 ea 06/25/21 [Rx Last Taken 08/26/21] ondansetron HCl 4 mg PO Q8H PRN 07/22/21 [History Last Taken Unknown] Eliquis 2.5 mg PO/SL BID 08/08/21 [History Last Taken 08/26/21] Tylenol 325 mg PO.IVFORM PRN PRN 08/08/21 [History Last Taken Unknown] bisacodyl 5 mg PO/SL PRN PRN 08/08/21 [History Last Taken 08/26/21] docusate sodium 100 mg PO/SL BID 08/08/21 [History Last Taken 08/26/21] morphine 30 mg PO/SL Q4H PRN PRN 08/08/21 [History Last Taken Unknown] methadone 7.5 mg PO Q8H 08/20/21 [History Last Taken 08/26/21] Allergy/AdvReac Type Severity Reaction Status Date / Time oxycodone Allergy Itching Verified 08/27/21 00:34 Family History Mother Heart disease CHD Thyroid disorder Surgical History History of bilateral cataract extraction History of left heart catheterization (01/21/17) History of tonsillectomy Presence of permanent cardiac pacemaker (10/11/19) Social History Smoking Status: Former smoker how long ago did patient quit smokin years ago alcohol intake: never substance use type: does not use caffeine: Yes Type: coffee Number of servings: 2 Physical Exam Const alert, oriented x3 and no apparent distress General Appearance: cooperative and frail Chest Chest: wounds and other Posteriorly identify the access point for recent thoracenteses ; Negative for scars Resp normal respiratory effort Resp Narrative: Lung sounds are not markedly diminished across the bases with auscultation Auscultation: Negative for rales, rhonchi or wheezes Medical Records Data Medical Nutrition Assessment Dietitian: Malnutrition Criteria Met Start: 08/27/21 10:52 Freq: Status: Active Protocol: Document 08/27/21 10:52 RMA (Rec: 08/27/21 10:52 RMA [id number]) Nutrition Malnutrition Evidence of Malnutrition Exists Yes Malnutrition (severe): Acute Illness/Injury Evidenced By Suboptimal Energy Intake ( Moderate),Weight Loss (Severe) ,Physical Changes (Moderate) Intake Problem Inadequate Oral Intake Etiology related to dysphagia/ esophageal cancer Signs/Symptoms as evidenced by NPO/PEG tube feeding for nutrition Status Active Problem Clinical Problem Acute Disease or Injury Related Malnutrition Etiology Severe protein/calorie malnutrition in the context of acute illness related to dysphagia/inadequate oral intake and increased energy expenditure/malignancy Signs/Symptoms as evidenced by NPO/PEG tube feedings, approximately 6-8% wt loss x past 1-2 months, BLLE 3+ pitting edema which is likely asking further wt loss and muscle/fat wasting noted in the face orbitals and temporal regions Status Active Problem Recommendation Dietitian Recommendations/Changes NPO except ice chips. Will order Jevity 1.5 Guy 240ml bolus feedings 5 times per day with 100ml water flush Q feeding to provide 1800 kcal, 77 gm protein and 1412 ml free water per day. Suggest start boluses with 120ml for the first 2-4 feedings to establish TF tolerance and increase to goal bolus of 240ml 5 times per day to meet~100% estimated nutrition needs. Will monitor weights, labs and TF tolerance as established. Lab / Micro Data Result Diagrams: 08/29/21 08:12 08/29/21 08:12 Labs: Laboratory Results - last 24 hr 08/27/21 12:39: Miscellaneous Cytology SEE PATHOLOGY REPORT 08/28/21 09:50: Miscellaneous Cytology SEE PATHOLOGY REPORT Micro: Microbiology 08/27/21 01:00 Blood Culture (Wb) - Anticubital Left Blood Culture - Preliminary No growth in 48 hours. Charges/Coding Visit Charges Inpatient E&M: 88171 Init Hosp L2
[2021-08-30] MEDS: Amiodarone 200 MG Tablet PO ×2 (13:04→22:48)
[2021-08-30] MEDS: Metoprolol Tartrate 100 MG Tablet GT ×2 (13:04→22:48)
[2021-08-30] MEDS: 0.9% Saline Lock 10 ML Syringe IV (13:27)
[2021-08-30] MEDS: Ondansetron 4 MG/2 ML Vial IV (13:27)
--- NOTE | 2021-08-30 13:36 | PN.HOSP_ITS ---
Subjective Subjective Patient seen and examined. He was sitting comfortably in his chair and had no complaints. Review of systems otherwise negative. He was on 3 L of oxygen. Review of systems otherwise negative. Objective Data Objective Data Vital Signs: Vital Signs Temp Pulse Resp BP Pulse Ox 97.7 F L 103 H 16 101/66 96 08/30/21 08:00 08/30/21 13:04 08/30/21 08:00 08/30/21 13:04 08/30/21 08:00 Oxygen Flow Rate (L/min) [4] 5 Oxygen Flow Rate (L/min) [3] 5 Oxygen Flow Rate (L/min) [2] 5 Oxygen Flow Rate (L/min) [1 ( 5 Initial Baseline)] Oxygen Flow Rate (L/min) 3 Oxygen Delivery Method [4] Nasal Cannula Oxygen Delivery Method [3] Nasal Cannula Oxygen Delivery Method [2] Nasal Cannula Oxygen Delivery Method [1 ( Nasal Cannula Initial Baseline)] Oxygen Delivery Method Nasal Cannula Weight: 131 lb 2.801 oz Body Mass Index (BMI) 23.0 Intake & Output: Intake and Output for Last 24 Hours 08/28/21 08/29/21 08/30/21 23:59 23:59 23:59 Intake Total 1768.08 / 1768.08 2335.75 / 2335.75 50 / 50 Output Total 2725 / 2725 730 / 730 200 / 200 Balance -956.92 / -956.92 1605.75 / 1605.75 -150 / -150 Medical Nutrition Assessment Dietitian: Malnutrition Criteria Met Start: 08/27/21 10:52 Freq: Status: Active Protocol: Document 08/27/21 10:52 RMA (Rec: 08/27/21 10:52 RMA [id number]) Nutrition Malnutrition Evidence of Malnutrition Exists Yes Malnutrition (severe): Acute Illness/Injury Evidenced By Suboptimal Energy Intake ( Moderate),Weight Loss (Severe) ,Physical Changes (Moderate) Intake Problem Inadequate Oral Intake Etiology related to dysphagia/ esophageal cancer Signs/Symptoms as evidenced by NPO/PEG tube feeding for nutrition Status Active Problem Clinical Problem Acute Disease or Injury Related Malnutrition Etiology Severe protein/calorie malnutrition in the context of acute illness related to dysphagia/inadequate oral intake and increased energy expenditure/malignancy Signs/Symptoms as evidenced by NPO/PEG tube feedings, approximately 6-8% wt loss x past 1-2 months, BLLE 3+ pitting edema which is likely asking further wt loss and muscle/fat wasting noted in the face orbitals and temporal regions Status Active Problem Recommendation Dietitian Recommendations/Changes NPO except ice chips. Will order Jevity 1.5 Guy 240ml bolus feedings 5 times per day with 100ml water flush Q feeding to provide 1800 kcal, 77 gm protein and 1412 ml free water per day. Suggest start boluses with 120ml for the first 2-4 feedings to establish TF tolerance and increase to goal bolus of 240ml 5 times per day to meet~100% estimated nutrition needs. Will monitor weights, labs and TF tolerance as established. Lab / Micro Data Result Diagrams: 08/29/21 08:12 08/29/21 08:12 Labs: Laboratory Results - last 24 hr 08/27/21 12:39: Miscellaneous Cytology SEE PATHOLOGY REPORT 08/28/21 09:50: Miscellaneous Cytology SEE PATHOLOGY REPORT Micro: Microbiology 08/27/21 01:00 Blood Culture (Wb) - Anticubital Left Blood Culture - Preliminary No growth in 48 hours. 08/27/21 01:17 Nasal Secretion SARS-CoV-2 Antigen (Rapid) - Final Physical Exam Const alert, oriented x3 and no apparent distress Orientation / Consciousness: lethargic Exam Limitations: no limitations HEENT head/scalp atraumatic and moist oral mucous membranes Head and Scalp: normocephalic Eyes PERRL and EOMs intact bilaterally Neck no lymphadenopathy Resp Resp Narrative: markedly diminished breath sounds on the right, with no wheezes or crackles. on 3L of oxygen. Cardio regular rate, regular rhythm, S1 normal heart sound, S2 normal heart sound and no murmurs GI normal to inspection, nondistended, normoactive bowel sounds, soft to palpation, non-tender and non-distended Extremity normal to inspection, full ROM and no clubbing, cyanosis or edema Peripheral Pulses: Yes pulses 2+ throughout Skin no rashes or lesions noted Neuro CN's II-XII intact bilaterally and moves all extremities Sensorium / Orientation: awake Psych affect normal Assessment & Plan Assessment/Plan (1) CHF (congestive heart failure): QUALIFIERS: Heart failure type: diastolic Heart failure chronicity: acute on chronic Qualified Code(s): I50.33 - Acute on chronic diastolic (congestive) heart failure (2) Pleural effusion: (3) Acute hypoxemic respiratory failure: (4) Paroxysmal atrial fibrillation with rapid ventricular response: PLAN: #Acute hypoxic respiratory failure due to right sided pleural effusion * Patient is s/p thoracentesis x 2,with removal of a total of 2.6L of fluid. Fluid analysis per light;s criteria showed an exudate. * Cytology shows malignant cells consistent with metastatic adenocarcinoma with immunohistochemistry favoring upper GI primary * Oncology consulted. Per discussion with oncology, to consult general surgery for placement of Pleurx catheter * Cytology report is a bit confusing as oncologist now told me that the cancer is actually a primary non-small cell lung cancer causing extrinsic compression to the esophagus * Breathing treatments with bronchodilators. * #A. fib with RVR * Weaned off of Cardizem and amiodarone drip and now on p.o. Cardizem and p.o. 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 * recommends general surgery consult for pleurx catheter insertion * * #Hyponatremia: * Is pending today. * Serum osmolality was low at 274 and urine osmolality was normal at 419. Urine sodium is 37 * nephrology on board. * on salt tablets. Lasix dc'd. * There is no tolvaptan available to administer to patient. * #Acute exacerbation of heart failure preserved ejection fraction * BNP was 837.4. 2D echo from June 2021 showed EF of 55%. * lasix disontinued due to worsening hyponatremia * #Chronic malnutrition: Likely due to nonsmall cell lung cancer. On nutritional supplements with Jevity DVT prophylaxis: SCDs. Is now going to have a Pleurx catheter inserted by general surgery. To resume Eliquis after that. Charges/Coding Visit Charges Inpatient E&M: 15850 Subs Hosp L2
[2021-08-30 17:06] LABS: Anion Gap 7 (5-15); BUN 34 mg/dL (7-18); BUN/Creat Ratio 38.5 RATIO (10-20); Calcium,Total 8.6 mg/dL (8.5-10.1); Chloride 82 mmol/L (98-107); Creatinine, Serum 0.88 mg/dL (0.70-1.30); EST Glomerular Filtration Rate 88 mL/min (>60); Est Glom Filt Rate - Afr Amer 106 mL/min (>60); Estimated Creatinine Clearance 53.53 ml/min; Glucose 76 mg/dL (74-106); Potassium 3.8 mmol/L (3.5-5.1); Sodium Level 125 mmol/L (136-145)
[2021-08-30] MEDS: Atorvastatin Calcium 20 MG Tablet GT (22:48)
[2021-08-31] VITALS (19 sets, daily range): BP systolic 104–128; BP diastolic 42–109; PULSE 64–118; RESP 12–18; TEMP 36.5–37.1; O2SAT 90–100; BMI 22.3
--- NOTE | 2021-08-31 05:55 | EKG12_ITS ---
Test Reason : AM EKG Blood Pressure : / mmHG Vent. Rate : 083 BPM Atrial Rate : 066 BPM P-R Int : 000 ms QRS Dur : 084 ms QT Int : 384 ms P-R-T Axes : 000 036 249 degrees QTc Int : 451 ms Atrial fibrillation with premature ventricular or aberrantly conducted complexes ST & T wave abnormality, consider inferior ischemia ST & T wave abnormality, consider anterolateral ischemia Abnormal ECG When compared with ECG of 28-AUG-2021 02:36, Vent. rate has decreased BY [address] now depressed in Anterior leads T wave inversion more evident in Anterior leads Confirmed by THOMAS YUAN, DENZEL ([id number]), design editor LISA BRAVO ([id number]) on 08/31/2021 2:15:41 P M Referred By: DR ROWELL Confirmed By:ADALID GUZMAN MD
--- NOTE | 2021-08-31 07:36 | PCM.PN.REN ---
Subjective Subjective No worsening breathing On NC at 3 L/MIN No N/V/D Objective Data Objective Data Vital Signs: Vital Signs Temp Pulse Resp BP Pulse Ox 97.8 F 89 18 104/69 96 08/31/21 02:55 08/31/21 03:01 08/31/21 02:55 08/31/21 02:55 08/31/21 02:55 Oxygen Flow Rate (L/min) [4] 5 Oxygen Flow Rate (L/min) [3] 5 Oxygen Flow Rate (L/min) [2] 5 Oxygen Flow Rate (L/min) [1 ( 5 Initial Baseline)] Oxygen Flow Rate (L/min) 3 Oxygen Delivery Method [4] Nasal Cannula Oxygen Delivery Method [3] Nasal Cannula Oxygen Delivery Method [2] Nasal Cannula Oxygen Delivery Method [1 ( Nasal Cannula Initial Baseline)] Oxygen Delivery Method Nasal Cannula Weight: 60.9 kg Body Mass Index (BMI) 23.0 Intake & Output: Intake and Output for Last 24 Hours 08/29/21 08/30/21 08/31/21 23:59 23:59 23:59 Intake Total 2335.75 / 2335.75 250 / 250 Output Total 730 / 730 300 / 520 220 / 220 Balance 1605.75 / 1605.75 -50 / -270 -220 / -220 Medical Nutrition Assessment Dietitian: Malnutrition Criteria Met Start: 08/27/21 10:52 Freq: Status: Active Protocol: Document 08/27/21 10:52 RMA (Rec: 08/27/21 10:52 RMA [id number]) Nutrition Malnutrition Evidence of Malnutrition Exists Yes Malnutrition (severe): Acute Illness/Injury Evidenced By Suboptimal Energy Intake ( Moderate),Weight Loss (Severe) ,Physical Changes (Moderate) Intake Problem Inadequate Oral Intake Etiology related to dysphagia/ esophageal cancer Signs/Symptoms as evidenced by NPO/PEG tube feeding for nutrition Status Active Problem Clinical Problem Acute Disease or Injury Related Malnutrition Etiology Severe protein/calorie malnutrition in the context of acute illness related to dysphagia/inadequate oral intake and increased energy expenditure/malignancy Signs/Symptoms as evidenced by NPO/PEG tube feedings, approximately 6-8% wt loss x past 1-2 months, BLLE 3+ pitting edema which is likely asking further wt loss and muscle/fat wasting noted in the face orbitals and temporal regions Status Active Problem Recommendation Dietitian Recommendations/Changes NPO except ice chips. Will order Jevity 1.5 Guy 240ml bolus feedings 5 times per day with 100ml water flush Q feeding to provide 1800 kcal, 77 gm protein and 1412 ml free water per day. Suggest start boluses with 120ml for the first 2-4 feedings to establish TF tolerance and increase to goal bolus of 240ml 5 times per day to meet~100% estimated nutrition needs. Will monitor weights, labs and TF tolerance as established. Lab / Micro Data Result Diagrams: 08/29/21 08:12 08/30/21 16:02 Labs: Laboratory Results - last 24 hr 08/27/21 12:39: Miscellaneous Cytology SEE PATHOLOGY REPORT 08/28/21 09:50: Miscellaneous Cytology SEE PATHOLOGY REPORT 08/30/21 16:02: Sodium 125 L, Potassium 3.8, Chloride 82 L, Carbon Dioxide 36.0 H, Anion Gap 7, BUN 34 H, Creatinine 0.88, Estim Creat Clear Calc 53.53, Est GFR (MDRD) Af Amer 106, Est GFR (MDRD) Non-Af 88, BUN/Creatinine Ratio 38.5 H, Glucose 76, Calcium 8.6 Micro: Microbiology 08/27/21 01:00 Blood Culture (Wb) - Anticubital Left Blood Culture - Preliminary No growth in 48 hours. 08/27/21 01:17 Nasal Secretion SARS-CoV-2 Antigen (Rapid) - Final Radiography Diagnostic Testing: Radiology Impression Chest X-Ray 08/30/21 12:59 IMPRESSION: Small left pleural effusion with left basilar atelectasis and/or infiltration. This has progressed as compared to prior study. Residual blunting of the right costophrenic angle. Electronically Signed: Mike Medina MD at 15:36 EST , Service support , Physical Exam Narrative Patient is awake and alert AT IN No JVD Lung CTA Heart s1 s2 rrr Neurology: [id number] Ext no edema Assessment & Plan Assessment/Plan (1) Hyponatremia: PLAN: Hyponatremia : hypotonic. 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 doubt the patient is in CHF Na improved to 125 as per yesterday lab Will check Na today Continue holding lasix and will give another IV albumin 12.5 g today Continue salt tab Will give albumin IV No need for 3% NaCl continue nutrition via tube feeding check Na in am
--- NOTE | 2021-08-31 08:38 | PCM.PN.BLA ---
Progress Note Patient seen and examined at bedside during AM rounds. Is sitting upright in bed resting peacefully. He denies any acute events overnight. He denies any questions regarding today's plan Pleurx catheter insertion. Physical Exam Const alert, oriented x3 and no apparent distress Chest Chest Narrative: Posterior chest there is slight scab from thoracentesis access. On auscultation breath sounds are clear bilaterally without wheezes rales or rhonchi Assessment & Plan Assessment/Plan (1) Malignant pleural effusion: PLAN: This is an 81-year-old male diagnosed with non-small cell versus esophageal carcinoma currently undergoing radiation therapy who is diagnosed with a malignant pleural effusion this admission. He has required thoracentesis on 2 separate occasions already this admission and cytology specimens from these procedures were concordant for non-small cell adenocarcinoma. Yesterday we discussed placement of a Pleurx catheter to which he and his spouse gave their consent. This morning we discussed pragmatic details like where the catheter would exit and how this may fit with patient's sleeping patterns. We resolved to try to arrange an exit site on the anterior abdominal wall but distant enough from patient's PEG tube exit site to mitigate the risk for infection. Plan to proceed for Pleurx catheter insertion in approximately 12:30 PM today. Visit Charges Inpatient E&M: 32561 Init Hosp L2
[2021-08-31] MEDS: Albumin Human 25% (50 mL) 12.5 GM/50 ML IV.SOLN IV (08:57)
[2021-08-31] MEDS: 0.9% Saline Lock 10 ML Syringe IV ×3 (09:03→17:17)
--- NOTE | 2021-08-31 09:20 | PN.CARD_ITS ---
Subjective Subjective The patient denies any new acute cardiac symptoms this morning. He does believe after receiving the digitalis yesterday that his heart rate came under somewhat better control for period of time. Objective Data Vital Signs: Vital Signs Temp Pulse Resp BP Pulse Ox 97.8 F 83 16 107/57 L 95 08/31/21 09:00 08/31/21 09:00 08/31/21 09:00 08/31/21 09:00 08/31/21 09:00 Oxygen Flow Rate (L/min) [4] 5 Oxygen Flow Rate (L/min) [3] 5 Oxygen Flow Rate (L/min) [2] 5 Oxygen Flow Rate (L/min) [1 ( 5 Initial Baseline)] Oxygen Flow Rate (L/min) 3 Oxygen Delivery Method [4] Nasal Cannula Oxygen Delivery Method [3] Nasal Cannula Oxygen Delivery Method [2] Nasal Cannula Oxygen Delivery Method [1 ( Nasal Cannula Initial Baseline)] Oxygen Delivery Method Nasal Cannula Weight: 134 lb 4.184 oz Body Mass Index (BMI) 23.0 Intake & Output: Intake and Output for Last 24 Hours 08/29/21 08/30/21 08/31/21 23:59 23:59 23:59 Intake Total 2335.75 / 2335.75 250 / 250 Output Total 730 / 730 300 / 520 220 / 220 Balance 1605.75 / 1605.75 -50 / -270 -220 / -220 Lab / Micro Data Result Diagrams: 08/29/21 08:12 08/30/21 16:02 Labs: Laboratory Results - last 24 hr 08/27/21 12:39: Miscellaneous Cytology SEE PATHOLOGY REPORT 08/28/21 09:50: Miscellaneous Cytology SEE PATHOLOGY REPORT 08/30/21 16:02: Sodium 125 L, Potassium 3.8, Chloride 82 L, Carbon Dioxide 36.0 H, Anion Gap 7, BUN 34 H, Creatinine 0.88, Estim Creat Clear Calc 53.53, Est GFR (MDRD) Af Amer 106, Est GFR (MDRD) Non-Af 88, BUN/Creatinine Ratio 38.5 H, Glucose 76, Calcium 8.6 Cardiology Labs/Tests 08/30/21 16:02: Sodium 125 L, Potassium 3.8, Chloride 82 L, Carbon Dioxide 36.0 H, Anion Gap 7, BUN 34 H, Creatinine 0.88, Est GFR (MDRD) Af Amer 106, Est GFR (MDRD) Non-Af 88, BUN/Creatinine Ratio 38.5 H, Glucose 76, Calcium 8.6 Rhythm: Atrial fibrillation EKG: Atrial fibrillation; PVCs; nonspecific ST/T wave abnormality Radiography Diagnostic Testing: Radiology Impression Chest X-Ray 08/30/21 12:59 IMPRESSION: Small left pleural effusion with left basilar atelectasis and/or infiltration. This has progressed as compared to prior study. Residual blunting of the right costophrenic angle. Electronically Signed: Mike Medina MD at 15:36 EST , Service support , Physical Exam Const alert, oriented x3 and no apparent distress Orientation / Consciousness: awake HEENT normocephalic, head/scalp atraumatic and hearing grossly normal bilaterally Eyes PERRL, EOMs intact bilaterally, conjunctivae normal and no scleral icterus Neck full ROM, supple and no JVD Resp Auscultation: diminished lung sounds bilateral lower (Left greater than right) Cardio Rhythm: abnormal rhythm irregularly irregular Heart Sounds: S1 normal and S2 normal GI normal to inspection, nondistended, normoactive bowel sounds Extremity General Extremity: edema bilateral lower extremity (Bilateral lower extremity Daron wraps in place) Details: mild Skin no rashes or lesions noted Neuro oriented x3, moves all extremities, no focal motor deficits and no sensory deficits noted Psych mental status grossly normal Assessment & Plan Assessment/Plan (1) Paroxysmal atrial fibrillation with rapid ventricular response: PLAN: The patient has a history of paroxysmal atrial fibrillation. He has demonstrated recurrence of this atrial dysrhythmia with rapid ventricular response. He has been on rate control therapy. His IV diltiazem and IV amiodarone have been changed to oral agents. He did appear to have a positive response to the IV digitalis. At the present time he will continue his beta-nancy therapy and his calcium channel antagonist therapy. He will proceed with additional medical therapy with digitalis as long as tolerated and as long as it appears to be beneficial to him. His amiodarone therapy will be placed on hold. He should continue anticoagulant therapy as deemed appropriate in and around the time of his noncardiovascular procedures. 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 He is status post permanent pacemaker placement. This does provide him a backup with respect to the potential of becoming bradycardic on his medications. His pacemaker has been followed and has been reported as functioning appropriately. (3) Presence of permanent cardiac pacemaker: PLAN: The patient does have a permanent pacemaker as noted above. The patient's pacemaker was evaluated in June of this year. His lower rate limit set at 60 ppm's and is upper tracking limit is set at 130 ppm's. (4) CHF (congestive heart failure): QUALIFIERS: Heart failure type: diastolic Heart failure chronicity: acute on chronic Qualified Code(s): I50.33 - Acute on chronic diastolic (congestive) heart failure PLAN: The patient has a history of CHF . Based upon his previous studies this may be a CHF related to heart failure with preserved ejection fraction and exacerbated by his atrial dysrhythmia and/or noncardiovascular issues. At the present time he will need to be continued on medical therapy as best as possible. This could include agents such as nitrates, beta-blockers, diuretics, afterload reducing agents, etc. (5) Pleural effusion: PLAN: The patient does have a pleural effusion. The patient is now status post left-sided thoracentesis. According to the thoracentesis cytology this appears to be positive for malignant [id number] cell carcinoma. He will continue evaluation care per internal medicine and hematology/oncology. (6) Esophageal cancer: PLAN: He will continue evaluation care by his other physicians for this. (7) Hyperlipidemia: QUALIFIERS: Hyperlipidemia type: unspecified Qualified Code(s): E 78.5 - Hyperlipidemia, unspecified PLAN: He should continue risk factor evaluation care as deemed appropriate. Addt'l Comments This note was generated using a voice recognition system and there may be incorrect words, spelling or punctuation that were not noted when reviewing the office note prior to saving.
[2021-08-31 10:28] LABS: Urine Sodium 25 mmol/L (Not Establ.)
[2021-08-31] MEDS: Digoxin 250 MCG/ML Ampul IV (10:42)
--- NOTE | 2021-08-31 11:36 | PN.HOSP_ITS ---
Subjective Subjective Patient seen and examined. He had no complaints today and felt well. Review of symptoms otherwise negative. He is for Pleurx catheter insertion today. He is noted to be mildly tachycardic with heart rate of 118 today but is otherwise hemodynamically stable. Sodium is 125 today. Objective Data Objective Data Vital Signs: Vital Signs Temp Pulse Resp BP Pulse Ox 97.8 F 118 H 16 107/57 L 99 08/31/21 09:00 08/31/21 10:42 08/31/21 09:00 08/31/21 09:00 08/31/21 09:20 Oxygen Flow Rate (L/min) [4] 5 Oxygen Flow Rate (L/min) [3] 5 Oxygen Flow Rate (L/min) [2] 5 Oxygen Flow Rate (L/min) [1 ( 5 Initial Baseline)] Oxygen Flow Rate (L/min) 3 Oxygen Delivery Method [4] Nasal Cannula Oxygen Delivery Method [3] Nasal Cannula Oxygen Delivery Method [2] Nasal Cannula Oxygen Delivery Method [1 ( Nasal Cannula Initial Baseline)] Oxygen Delivery Method Nasal Cannula Weight: 134 lb 4.184 oz Body Mass Index (BMI) 23.0 Intake & Output: Intake and Output for Last 24 Hours 08/29/21 08/30/21 08/31/21 23:59 23:59 23:59 Intake Total 2335.75 / 2335.75 250 / 250 50 / 50 Output Total 730 / 730 300 / 520 220 / 220 Balance 1605.75 / 1605.75 -50 / -270 -170 / -170 Medical Nutrition Assessment Dietitian: Malnutrition Criteria Met Start: 08/27/21 10:52 Freq: Status: Active Protocol: Document 08/27/21 10:52 RMA (Rec: 08/27/21 10:52 RMA [id number]) Nutrition Malnutrition Evidence of Malnutrition Exists Yes Malnutrition (severe): Acute Illness/Injury Evidenced By Suboptimal Energy Intake ( Moderate),Weight Loss (Severe) ,Physical Changes (Moderate) Intake Problem Inadequate Oral Intake Etiology related to dysphagia/ esophageal cancer Signs/Symptoms as evidenced by NPO/PEG tube feeding for nutrition Status Active Problem Clinical Problem Acute Disease or Injury Related Malnutrition Etiology Severe protein/calorie malnutrition in the context of acute illness related to dysphagia/inadequate oral intake and increased energy expenditure/malignancy Signs/Symptoms as evidenced by NPO/PEG tube feedings, approximately 6-8% wt loss x past 1-2 months, BLLE 3+ pitting edema which is likely asking further wt loss and muscle/fat wasting noted in the face orbitals and temporal regions Status Active Problem Recommendation Dietitian Recommendations/Changes NPO except ice chips. Will order Jevity 1.5 Guy 240ml bolus feedings 5 times per day with 100ml water flush Q feeding to provide 1800 kcal, 77 gm protein and 1412 ml free water per day. Suggest start boluses with 120ml for the first 2-4 feedings to establish TF tolerance and increase to goal bolus of 240ml 5 times per day to meet~100% estimated nutrition needs. Will monitor weights, labs and TF tolerance as established. Lab / Micro Data Result Diagrams: 08/29/21 08:12 08/30/21 16:02 Labs: Laboratory Results - last 24 hr 08/30/21 16:02: Sodium 125 L, Potassium 3.8, Chloride 82 L, Carbon Dioxide 36.0 H, Anion Gap 7, BUN 34 H, Creatinine 0.88, Estim Creat Clear Calc 53.53, Est GFR (MDRD) Af Amer 106, Est GFR (MDRD) Non-Af 88, BUN/Creatinine Ratio 38.5 H, Glucose 76, Calcium 8.6 08/31/21 10:15: Ur Random Sodium 25 Micro: Microbiology 08/27/21 01:00 Blood Culture (Wb) - Anticubital Left Blood Culture - Preliminary No growth in 48 hours. 08/27/21 01:17 Nasal Secretion SARS-CoV-2 Antigen (Rapid) - Final Radiography Diagnostic Testing: Radiology Impression Chest X-Ray 08/30/21 12:59 IMPRESSION: Small left pleural effusion with left basilar atelectasis and/or infiltration. This has progressed as compared to prior study. Residual blunting of the right costophrenic angle. Electronically Signed: Mike Medina MD at 15:36 EST , Service support , Physical Exam Const alert, oriented x3 and no apparent distress Orientation / Consciousness: lethargic Exam Limitations: no limitations HEENT head/scalp atraumatic and moist oral mucous membranes Head and Scalp: normocephalic Eyes PERRL and EOMs intact bilaterally Neck no lymphadenopathy Resp Resp Narrative: markedly diminished breath sounds on the right, with no wheezes or crackles. on 3L of oxygen. Cardio regular rhythm, S1 normal heart sound, S2 normal heart sound and no murmurs Cardio Narrative: tachycardic GI normal to inspection, nondistended, normoactive bowel sounds, soft to palpation, non-tender and non-distended Extremity normal to inspection, full ROM and no clubbing, cyanosis or edema Peripheral Pulses: Yes pulses 2+ throughout Skin no rashes or lesions noted Neuro CN's II-XII intact bilaterally and moves all extremities Sensorium / Orientation: awake Psych affect normal Assessment & Plan Assessment/Plan (1) CHF (congestive heart failure): QUALIFIERS: Heart failure type: diastolic Heart failure chronicity: acute on chronic Qualified Code(s): I50.33 - Acute on chronic diastolic (congestive) heart failure (2) Pleural effusion: (3) Acute hypoxemic respiratory failure: (4) Paroxysmal atrial fibrillation with rapid ventricular response: PLAN: #Acute hypoxic respiratory failure due to right sided pleural effusion * Patient is s/p thoracentesis x 2,with removal of a total of 2.6L of fluid. Fluid analysis per light;s criteria showed an exudate. * Cytology shows malignant cells consistent with metastatic adenocarcinoma with immunohistochemistry favoring upper GI primary * Oncology on board. Per discussion with oncology, to consult general surgery for placement of Pleurx catheter * Cytology report is a bit confusing as oncologist now told me that the cancer is actually a primary non-small cell lung cancer causing extrinsic compression to the esophagus * Breathing treatments with bronchodilators. * for Pleurx catheter insertion today by general surgery. * #A. fib * RVR has resolved * Weaned off of Cardizem and amiodarone drip and now on p.o. Cardizem and p.o. 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 * to follow up with oncology on outpatient basis. * #Hyponatremia: * Is 125 today * Serum osmolality was low at 274 and urine osmolality was normal at 419. Urine sodium is 37 * nephrology on board. * on salt tablets. Lasix dc'd. * There is no tolvaptan available to administer to patient. * #Acute exacerbation of heart failure preserved ejection fraction * BNP was 837.4. 2D echo from June 2021 showed EF of 55%. * lasix disontinued due to worsening hyponatremia * #Chronic malnutrition: Likely due to nonsmall cell lung cancer. On nutritional supplements with Jevity. On tube feeding via PEG tube. DVT prophylaxis: SCDs. to resume eliquis after pleurx catheter is inserted. Charges/Coding Visit Charges Inpatient E&M: 91734 Subs Hosp L2
[2021-08-31] MEDS: Lactated Ringers 1,000 ML 15 ML IV (11:52)
--- NOTE | 2021-08-31 12:30 | CASEMGMT ---
Patient has a Healthcare Power of Mold Release Worker and a Healthcare Living Will on file at [facility] as he completed them this visit. They should be scanned into his medical record once he is discharged. Patient's Trudy is his Healthcare POA. Erinn FELIPE
[2021-08-31] MEDS: Cefazolin 2 GM in 0.9% Normal Saline 100 ML IV (13:01)
--- NOTE | 2021-08-31 13:40 | RAD_ITS ---
STUDY: X-RAY CHEST REASON FOR EXAM: Male, 81 years old. PLEUREX CATH PLACEMENT TECHNIQUE: Single AP portable view of the chest. COMPARISON: Comparison is made with prior study done earlier today. FINDINGS: A left-sided Pleurx catheter has been placed. This is unchanged. There is evidence of subcutaneous emphysema overlying the left chest wall. RAD/Chest 1 View IMPRESSION: Status post placement of a left Pleurx catheter with the tip in the mid medial aspect of the left hemithorax. There appears to be a kink in the mid-distal portion of the catheter. A repeat radiograph is recommended. Electronically Signed: Mike Medina MD at 14:34 EST , Service support ,
--- NOTE | 2021-08-31 13:51 | RAD_ITS ---
STUDY: X-RAY CHEST REASON FOR EXAM: Male, 81 years old. Left Pleurx catheter placement. TECHNIQUE: Oblique view COMPARISON: Comparison is made with prior examination dated 08/30/2021. FINDINGS: A left-sided Pleurx catheter has been placed with the tip in the mid medial aspect of the left hemithorax. A loop is seen in the mid portion of the catheter. This may represent kinking. Stable pleural parenchymal changes at the left lung base. RAD/Special CXR (Obl/Decub/A/L) IMPRESSION: A left-sided Pleurx catheter has been placed. There appears to be a kink in the mid distal portion. A repeat radiograph is recommended. Electronically Signed: Mike Medina MD at 14:33 EST , Service support ,
--- NOTE | 2021-08-31 14:13 | PCM.OPRPT ---
Report of Operation Date of Procedure: 08/31/21 Pre-Operative Diagnosis: Left-sided malignant pleural effusion Post-Operative Diagnosis: Same Surgery/Procedure Performed:: Left-sided Pleurx catheter placement Description of Surgical Findings:: ?No fluid was able to be aspirated from the pleural space given the positioning required ?Passage of the wire without resistance ?Minimal drainage of serosanguineous fluid once Pleurx catheter was placed to suction ?1 chamber, intermittent air leak with placement of tube to suction ?Peculiar curling of catheter within the thoracic cavity on intraoperative chest x-ray requiring follow-up imaging Surgeon: Raymond Sullivan metal organ pipe maker: None Type of Anesthesia: MAC/Supplemental/Local Anesthesiologist: Saturnino Jarquin Specimen's removed: none Drains: Pleurvac to catheter Estimated Blood Loss (mL): <10 Description of Procedure: After appropriate identification in the preoperative holding area the patient was brought to the operating room where he remained in his hospital bed but was administered MAC sedation. Preoperative antibiotics were administered. Patient was then placed on a bump with the left chest wall elevated. Ultrasound was used to confirm the level of catheter placement by identifying the pleural interface, however, I did not visualize fluid in this orientation and suspected this was due to the patient's positioning where the fluid would naturally pool towards the mediastinum. Therefore, I proceeded with the operation. The chest wall was prepped and draped in a sterile fashion. I then created a local block at the catheter insertion site and along the planned tunneling area using 1% lidocaine (18 mL). A finder needle was then used to attempt to locate the pleural fluid posterior to where I had ultrasounded to start the operation. Unfortunately, no fluid was identified through this approach but I did begin to aspirate a small amount of air. This indicated to me that I had probably inadvertently injured the visceral pleura with the needle tip but had otherwise identified the pleural cavity. Therefore, I elected to try to pass a guidewire which passed without any resistance into the chest cavity. The wire was left in place and attention was turned to tunneling the catheter from our counterincision approximately 5 cm medially. This was done after connecting the catheter to the tunneler device and bluntly pushing the tunneler to the wire insertion site. Then, in Seldinger fashion the dilators were used to dilate the tract over the wire and a peel-away sheath was placed without resistance. I intentionally did not place the sheath fully in the chest to try to reduce the risk for the tip injuring the lung and begin to feed the catheter into the sheath. I noted resistance to passage of the catheter through the sheath but this seemed to be a function of friction along the catheter within the sheath and so I placed some lubrication on the catheter which did facilitate this passage. Ultimately the catheter was fully fed into the chest and the sheath was removed. The catheter was then connected to the drainage adapter and to the Pleur-evac box with wall suction. I was surprised to find very little serosanguineous drainage with this connection and did note a small 1?chamber, intermittent air leak with the Pleur-evac device. With this unexpected finding, I elected to obtain an intraoperative chest x-ray. This x-ray showed peculiar coiling of the catheter along the distal one third of the catheter within the chest. Given the design of the catheter with a one-way valve, there was no way for me to entertain placing a wire to straighten out this catheter so I elected to see if it would continue to drain if the patient was repositioned and terminated the procedure. Prior to procedure completion, I closed the insertion site in the chest wall with a single interrupted 2-0 silk. A second silk suture was used to secure the catheter at its exit site from the tunnel. Then the provided foam/Tegaderm dressing was applied to the chest wall. Patient appeared to tolerate the procedure without complication, but still had minimal drainage. I visited with radiology to determine their interpretation of my intraoperative imaging and they could not exclude possible clip externally on the posterior aspect of the patient so we elected to repeat the imaging. Repeat imaging was consistent with index imaging and I decided to have more definitive imaging performed with a noncontrasted CT. This CAT scan showed the catheter had been inadvertently placed through the left upper lobe in the lingular region and was resting against the hilar portion of the lung. Significantly, no pneumothorax was noted. Convinced, this was the cause of patient's air leak and would likely propagate an air leak, I proceeded with catheter removal at the patient's bedside and placed a occlusive dressing. In the absence of a pneumothorax, I elected to forego immediate placement of a chest tube and will obtain a post?pull chest x-ray 1 hour post pull. I explained the above findings to the patient and that we would watch for possible development of a pneumothorax. I also shared with him that we would have to await reaccumulation of pleural fluid before reattempting a drainage catheter procedure. He expressed appreciation for this communication and understanding of its terms. Complications ?Malposition of the catheter through a portion of the lung parenchyma requiring removal Admit VTE Documentation VTE Mechan Device Prophylaxis: SCD's Procedures Cardiovascular CF Procedures [id number]: [id number] Insert pleural cath
--- NOTE | 2021-08-31 14:40 | RAD_ITS ---
STUDY: X-RAY CHEST REASON FOR EXAM: Male, 81 years old. pleur placement - PACU TECHNIQUE: Single AP portable view of the chest. COMPARISON: Comparison is made with prior study done earlier today at 1:46 PM. FINDINGS: Stable examination with findings suggestive of a loop in the mid distal portion of the left Pleurx catheter. RAD/Chest 1 View (Portable) IMPRESSION: Stable examination. Electronically Signed: Mike Medina MD at 15:07 EST , Service support ,
--- NOTE | 2021-08-31 15:32 | CT_ITS ---
STUDY: CT Chest W/O Contrast Injection 08/31/2021 4:40 PM REASON FOR EXAM: Male, 81 years old. examine new pleureX catheter placement Individualized dose optimization techniques were used for this CT. TECHNIQUE: Transaxial imaging was performed withoutIV contrast material. COMPARISON: None. FINDINGS: There are degenerative changes of the shoulders. There are bilateral pleural effusions. There is bilateral pneumonia. Left chest tube in place. No pneumothorax. Left subcutaneous air. There are scattered blebs and bullae. This can be seen in pulmonary emphysema. There is a left sided pacemaker batterypack. There are calcifications of the coronary arteries. Normal mediastinum. Normal hilar regions. Normal pulmonary arteries. There is atherosclerotic calcification of the aortic arch with tortuosity and elongation of the aortic arch and descending thoracic aorta. There are multi-level degenerative changes of the thoracic spine. There is a PEG tube in place. Ascites. CT/Chest without Contrast IMPRESSION: There are bilateral pleural effusions. There is bilateral pneumonia. Left chest tube in place. No pneumothorax. Left subcutaneous air Abdominal ascites Electronically Signed: Smith Rios MD at 16:47 EST , Service support ,
--- NOTE | 2021-08-31 15:53 | CASEMGMT ---
Pt is still off the floor for pleurx placement. Prior to procedure, pt was on 3L nc and is not on home oxygen. [facility] but [facility] and per , they are unable to self-pay for home oxygen d/t lack of funds. Dr. Coronado updated, voices understanding. CM to follow. Chyna LOPEZ CM
[2021-08-31] MEDS: HYDROmorphone 0.5 MG/0.5 ML SYRINGE IV (17:17)
--- NOTE | 2021-08-31 17:55 | RAD_ITS ---
STUDY: X-RAY CHEST REASON FOR EXAM: Male, 81 years old. CHEST PAIN f/u catheter pull, r/o pneumothorax TECHNIQUE: XR Chest 1 View COMPARISON: Study done earlier today. FINDINGS: There are bilateral pleural effusions. There are bilateral infiltrates. There is a left sided pacemaker batterypack. Subcutaneous emphysema. Normal size heart. Normal mediastinum and isela. Normal visualized pulmonary arteries. There is atherosclerotic calcification of the aortic arch with tortuosity. There are diffuse degenerative changes of the visualized thoracic spine. There is degenerative osteoarthritis of the bilateral shoulders. There is no demonstrated abnormality of the visualized soft tissue structures of the upper abdomen. RAD/Chest 1 View (Portable) IMPRESSION: Pulmonary findings appear worse. There is no pneumothorax. Electronically Signed: Smith Rios MD at 18:50 EST , Service support ,
[2021-08-31] MEDS: dilTIAZem 60 MG Tablet PO ×2 (18:35→23:03)
[2021-08-31] MEDS: Jevity 1.5. 1,000 ML Bottle 240 ML GT ×2 (18:35→22:39)
[2021-08-31] MEDS: Senna/Docusate Sodium 1 Tablet 2 TABLET GT (22:35)
[2021-08-31] MEDS: Atorvastatin Calcium 20 MG Tablet GT (22:35)
[2021-08-31] MEDS: Sodium Chloride 1 GM Tablet PO (22:35)
[2021-08-31] MEDS: Metoprolol Tartrate 100 MG Tablet GT (22:35)
[2021-09-01] VITALS (11 sets, daily range): BP systolic 101–115; BP diastolic 49–59; PULSE 64–80; RESP 16–18; TEMP 36.4–36.8; O2SAT 94–99
[2021-09-01] MEDS: Sodium Chloride 1 GM Tablet PO (05:42)
[2021-09-01] MEDS: dilTIAZem 60 MG Tablet PO ×3 (05:43→18:36)
[2021-09-01] MEDS: Jevity 1.5. 1,000 ML Bottle 240 ML GT ×5 (05:44→21:32)
--- NOTE | 2021-09-01 07:00 | RAD_ITS ---
STUDY: X-RAY CHEST REASON FOR EXAM: Male, 81 years old. Fever and cough TECHNIQUE: PA and lateral views of the chest. COMPARISON: Yesterday FINDINGS: EKG leads overlie the chest. Stable appearance of a left subclavian pacemaker Lungs are expanded with bilateral pleural effusions, left greater than right, and bibasilar atelectasis. Overall there is been no significant interval change since the previous study. No clearly demonstrated pneumothorax Normal size heart. Normal mediastinum and isela. Normal visualized pulmonary arteries. There is atherosclerotic calcification of the aortic arch with tortuosity. There are diffuse degenerative changes of the visualized thoracic spine. There is degenerative osteoarthritis of the bilateral shoulders. There is no demonstrated abnormality of the visualized soft tissue structures of the upper abdomen. RAD/Chest PA and Lateral IMPRESSION: No interval change Electronically Signed: Rell Reddy MD at 9:31 EST , Service support ,
[2021-09-01 08:32] LABS: Sodium Level 125 mmol/L (136-145)
--- NOTE | 2021-09-01 08:57 | PN.SURG_ITS ---
Subjective Subjective Patient chest x-ray did not appear to have a pneumothorax awaiting read, patient denies any issues breathing Objective Data Objective Data Vital Signs: Vital Signs Temp Pulse Resp BP Pulse Ox 98.2 F 64 17 112/51 L 99 09/01/21 02:56 09/01/21 03:00 09/01/21 02:56 09/01/21 02:56 09/01/21 02:56 Oxygen Flow Rate (L/min) [4] 5 Oxygen Flow Rate (L/min) [3] 5 Oxygen Flow Rate (L/min) [2] 5 Oxygen Flow Rate (L/min) [1 ( 5 Initial Baseline)] Oxygen Flow Rate (L/min) 3 Oxygen Delivery Method [4] Nasal Cannula Oxygen Delivery Method [3] Nasal Cannula Oxygen Delivery Method [2] Nasal Cannula Oxygen Delivery Method [1 ( Nasal Cannula Initial Baseline)] Oxygen Delivery Method Room Air Weight: 137 lb 5.568 oz Body Mass Index (BMI) 22.3 Intake & Output: Intake and Output for Last 24 Hours 08/30/21 08/31/21 09/01/21 23:59 23:59 23:59 Intake Total 250 / 250 360 / 360 200 / 200 Output Total 300 / 520 970 / 970 80 / 80 Balance -50 / -270 -610 / -610 120 / 120 Medical Nutrition Assessment Dietitian: Malnutrition Criteria Met Start: 08/27/21 10:52 Freq: Status: Active Protocol: Document 08/27/21 10:52 RMA (Rec: 08/27/21 10:52 RMA [id number]) Nutrition Malnutrition Evidence of Malnutrition Exists Yes Malnutrition (severe): Acute Illness/Injury Evidenced By Suboptimal Energy Intake ( Moderate),Weight Loss (Severe) ,Physical Changes (Moderate) Intake Problem Inadequate Oral Intake Etiology related to dysphagia/ esophageal cancer Signs/Symptoms as evidenced by NPO/PEG tube feeding for nutrition Status Active Problem Clinical Problem Acute Disease or Injury Related Malnutrition Etiology Severe protein/calorie malnutrition in the context of acute illness related to dysphagia/inadequate oral intake and increased energy expenditure/malignancy Signs/Symptoms as evidenced by NPO/PEG tube feedings, approximately 6-8% wt loss x past 1-2 months, BLLE 3+ pitting edema which is likely asking further wt loss and muscle/fat wasting noted in the face orbitals and temporal regions Status Active Problem Recommendation Dietitian Recommendations/Changes NPO except ice chips. Will order Jevity 1.5 Guy 240ml bolus feedings 5 times per day with 100ml water flush Q feeding to provide 1800 kcal, 77 gm protein and 1412 ml free water per day. Suggest start boluses with 120ml for the first 2-4 feedings to establish TF tolerance and increase to goal bolus of 240ml 5 times per day to meet~100% estimated nutrition needs. Will monitor weights, labs and TF tolerance as established. Lab / Micro Data Result Diagrams: 08/29/21 08:12 09/01/21 07:44 Labs: Laboratory Results - last 24 hr 08/31/21 10:15: Ur Random Sodium 25 09/01/21 07:44: Sodium 125 L Micro: Microbiology 08/27/21 01:00 Blood Culture (Wb) - Anticubital Left Blood Culture - Final No growth in 5 days. 08/27/21 01:17 Nasal Secretion SARS-CoV-2 Antigen (Rapid) - Final Radiography Diagnostic Testing: Radiology Impression Chest X-Ray 08/31/21 13:40 IMPRESSION: Status post placement of a left Pleurx catheter with the tip in the mid medial aspect of the left hemithorax. There appears to be a kink in the mid-distal portion of the catheter. A repeat radiograph is recommended. Electronically Signed: Mike Medina MD at 14:34 EST , Service support , Chest X-Ray 08/31/21 13:51 IMPRESSION: A left-sided Pleurx catheter has been placed. There appears to be a kink in the mid distal portion. A repeat radiograph is recommended. Electronically Signed: Mike Medina MD at 14:33 EST , Service support , Chest X-Ray 08/31/21 14:40 IMPRESSION: Stable examination. Electronically Signed: Mike Medina MD at 15:07 EST , Service support , Chest CT 08/31/21 15:32 IMPRESSION: There are bilateral pleural effusions. There is bilateral pneumonia. Left chest tube in place. No pneumothorax. Left subcutaneous air Abdominal ascites Electronically Signed: Smith Rios MD at 16:47 EST , Service support , Chest X-Ray 08/31/21 17:55 IMPRESSION: Pulmonary findings appear worse. There is no pneumothorax. Electronically Signed: Smith Rios MD at 18:50 EST , Service support , Physical Exam Narrative Previous left chest tube site dressed, abdomen PEG tube in place, nontender Assessment & Plan Assessment/Plan (1) Malignant pleural effusion: PLAN: Await chest x-ray read. From CTA of the chest does appear that these fluid collections are slightly loculated thus I think he could benefit from Pleurx catheter on Friday a little more inferior/posterior to previous placement. Will discuss with Dr. Sullivan. Kar for anticoagulation with Lovenox therapeutic to hold Friday night's dose for plan for OR on Friday--as long as official chest x-ray read okay. Bharti Irwin M.D. Pager: [phone] [facility] [address] [place] [address], [facility], [address] [place] [address] Office: [phone] Charges/Coding Visit Charges Inpatient E&M: 83639 Subs Hosp L2
[2021-09-01] MEDS: Lansoprazole 15 MG Capsule.DR GT (10:15)
[2021-09-01] MEDS: Metoprolol Tartrate 100 MG Tablet GT ×2 (10:15→21:37)
[2021-09-01] MEDS: Senna/Docusate Sodium 1 Tablet 2 TABLET GT ×2 (10:15→21:32)
[2021-09-01] MEDS: Digoxin 250 MCG Tablet PO (10:15)
--- NOTE | 2021-09-01 10:35 | PCM.PN.REN ---
Subjective Subjective no new complaints Objective Data Objective Data Vital Signs: Vital Signs Temp Pulse Resp BP Pulse Ox 98.1 F 74 16 101/49 L 95 09/01/21 10:00 09/01/21 10:15 09/01/21 10:00 09/01/21 10:00 09/01/21 10:00 Oxygen Flow Rate (L/min) [4] 5 Oxygen Flow Rate (L/min) [3] 5 Oxygen Flow Rate (L/min) [2] 5 Oxygen Flow Rate (L/min) [1 ( 5 Initial Baseline)] Oxygen Flow Rate (L/min) 2 Oxygen Delivery Method [4] Nasal Cannula Oxygen Delivery Method [3] Nasal Cannula Oxygen Delivery Method [2] Nasal Cannula Oxygen Delivery Method [1 ( Nasal Cannula Initial Baseline)] Oxygen Delivery Method Nasal Cannula Weight: 62.3 kg Body Mass Index (BMI) 22.3 Intake & Output: Intake and Output for Last 24 Hours 08/30/21 08/31/21 09/01/21 23:59 23:59 23:59 Intake Total 250 / 250 360 / 360 400 / 400 Output Total 300 / 520 970 / 970 80 / 80 Balance -50 / -270 -610 / -610 320 / 320 Medical Nutrition Assessment Dietitian: Malnutrition Criteria Met Start: 08/27/21 10:52 Freq: Status: Active Protocol: Document 08/27/21 10:52 RMA (Rec: 08/27/21 10:52 RMA [id number]) Nutrition Malnutrition Evidence of Malnutrition Exists Yes Malnutrition (severe): Acute Illness/Injury Evidenced By Suboptimal Energy Intake ( Moderate),Weight Loss (Severe) ,Physical Changes (Moderate) Intake Problem Inadequate Oral Intake Etiology related to dysphagia/ esophageal cancer Signs/Symptoms as evidenced by NPO/PEG tube feeding for nutrition Status Active Problem Clinical Problem Acute Disease or Injury Related Malnutrition Etiology Severe protein/calorie malnutrition in the context of acute illness related to dysphagia/inadequate oral intake and increased energy expenditure/malignancy Signs/Symptoms as evidenced by NPO/PEG tube feedings, approximately 6-8% wt loss x past 1-2 months, BLLE 3+ pitting edema which is likely asking further wt loss and muscle/fat wasting noted in the face orbitals and temporal regions Status Active Problem Recommendation Dietitian Recommendations/Changes NPO except ice chips. Will order Jevity 1.5 Guy 240ml bolus feedings 5 times per day with 100ml water flush Q feeding to provide 1800 kcal, 77 gm protein and 1412 ml free water per day. Suggest start boluses with 120ml for the first 2-4 feedings to establish TF tolerance and increase to goal bolus of 240ml 5 times per day to meet~100% estimated nutrition needs. Will monitor weights, labs and TF tolerance as established. Lab / Micro Data Result Diagrams: 08/29/21 08:12 09/01/21 07:44 Labs: Laboratory Results - last 24 hr 09/01/21 07:44: Sodium 125 L Micro: Microbiology 08/27/21 01:00 Blood Culture (Wb) - Anticubital Left Blood Culture - Final No growth in 5 days. 08/27/21 01:17 Nasal Secretion SARS-CoV-2 Antigen (Rapid) - Final Radiography Diagnostic Testing: Radiology Impression Chest X-Ray 08/31/21 13:40 IMPRESSION: Status post placement of a left Pleurx catheter with the tip in the mid medial aspect of the left hemithorax. There appears to be a kink in the mid-distal portion of the catheter. A repeat radiograph is recommended. Electronically Signed: Mike Medina MD at 14:34 EST , Service support , Chest X-Ray 08/31/21 13:51 IMPRESSION: A left-sided Pleurx catheter has been placed. There appears to be a kink in the mid distal portion. A repeat radiograph is recommended. Electronically Signed: Mike Medina MD at 14:33 EST , Service support , Chest X-Ray 08/31/21 14:40 IMPRESSION: Stable examination. Electronically Signed: Mike Medina MD at 15:07 EST , Service support , Chest CT 08/31/21 15:32 IMPRESSION: There are bilateral pleural effusions. There is bilateral pneumonia. Left chest tube in place. No pneumothorax. Left subcutaneous air Abdominal ascites Electronically Signed: Smith Rios MD at 16:47 EST , Service support , Chest X-Ray 08/31/21 17:55 IMPRESSION: Pulmonary findings appear worse. There is no pneumothorax. Electronically Signed: Smith Rios MD at 18:50 EST , Service support , Chest X-Ray 09/01/21 07:00 IMPRESSION: No interval change Electronically Signed: Rell Reddy MD at 9:31 EST , Service support , Physical Exam Narrative Alert awake oriented x 3 no obvious distress no pallor no icterus no JVD s1s2 no murmurs lungs clear abdomen soft no organomegaly ++ edema no cyanosis Assessment & Plan Assessment/Plan (1) Hyponatremia: PLAN: Hyponatremia : hypotonic. 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
--- NOTE | 2021-09-01 14:36 | PN.HOSP_ITS ---
Subjective Subjective Patient seen and examined. He has no complaints today. Review of systems otherwise negative. Pleurx catheter was unsuccessful. General surgery to attempt again on Friday. Review of systems otherwise negative. Objective Data Objective Data Vital Signs: Vital Signs Temp Pulse Resp BP Pulse Ox 98.1 F 74 16 101/49 L 95 09/01/21 10:00 09/01/21 10:15 09/01/21 10:00 09/01/21 10:00 09/01/21 10:00 Oxygen Flow Rate (L/min) [4] 5 Oxygen Flow Rate (L/min) [3] 5 Oxygen Flow Rate (L/min) [2] 5 Oxygen Flow Rate (L/min) [1 ( 5 Initial Baseline)] Oxygen Flow Rate (L/min) 2 Oxygen Delivery Method [4] Nasal Cannula Oxygen Delivery Method [3] Nasal Cannula Oxygen Delivery Method [2] Nasal Cannula Oxygen Delivery Method [1 ( Nasal Cannula Initial Baseline)] Oxygen Delivery Method Nasal Cannula Weight: 137 lb 5.568 oz Body Mass Index (BMI) 22.3 Intake & Output: Intake and Output for Last 24 Hours 08/30/21 08/31/21 09/01/21 23:59 23:59 23:59 Intake Total 250 / 250 360 / 360 400 / 400 Output Total 300 / 520 970 / 970 80 / 80 Balance -50 / -270 -610 / -610 320 / 320 Medical Nutrition Assessment Dietitian: Malnutrition Criteria Met Start: 08/27/21 10:52 Freq: Status: Active Protocol: Document 08/27/21 10:52 RMA (Rec: 08/27/21 10:52 RMA [id number]) Nutrition Malnutrition Evidence of Malnutrition Exists Yes Malnutrition (severe): Acute Illness/Injury Evidenced By Suboptimal Energy Intake ( Moderate),Weight Loss (Severe) ,Physical Changes (Moderate) Intake Problem Inadequate Oral Intake Etiology related to dysphagia/ esophageal cancer Signs/Symptoms as evidenced by NPO/PEG tube feeding for nutrition Status Active Problem Clinical Problem Acute Disease or Injury Related Malnutrition Etiology Severe protein/calorie malnutrition in the context of acute illness related to dysphagia/inadequate oral intake and increased energy expenditure/malignancy Signs/Symptoms as evidenced by NPO/PEG tube feedings, approximately 6-8% wt loss x past 1-2 months, BLLE 3+ pitting edema which is likely asking further wt loss and muscle/fat wasting noted in the face orbitals and temporal regions Status Active Problem Recommendation Dietitian Recommendations/Changes NPO except ice chips. Will order Jevity 1.5 Guy 240ml bolus feedings 5 times per day with 100ml water flush Q feeding to provide 1800 kcal, 77 gm protein and 1412 ml free water per day. Suggest start boluses with 120ml for the first 2-4 feedings to establish TF tolerance and increase to goal bolus of 240ml 5 times per day to meet~100% estimated nutrition needs. Will monitor weights, labs and TF tolerance as established. Lab / Micro Data Result Diagrams: 08/29/21 08:12 09/01/21 07:44 Labs: Laboratory Results - last 24 hr 09/01/21 07:44: Sodium 125 L Micro: Microbiology 08/27/21 01:00 Blood Culture (Wb) - Anticubital Left Blood Culture - Final No growth in 5 days. 08/27/21 01:17 Nasal Secretion SARS-CoV-2 Antigen (Rapid) - Final Radiography Diagnostic Testing: Radiology Impression Chest X-Ray 08/31/21 14:40 IMPRESSION: Stable examination. Electronically Signed: Mike Medina MD at 15:07 EST , Service support , Chest CT 08/31/21 15:32 IMPRESSION: There are bilateral pleural effusions. There is bilateral pneumonia. Left chest tube in place. No pneumothorax. Left subcutaneous air Abdominal ascites Electronically Signed: Smith Rios MD at 16:47 EST , Service support , Chest X-Ray 08/31/21 17:55 IMPRESSION: Pulmonary findings appear worse. There is no pneumothorax. Electronically Signed: Smith Rios MD at 18:50 EST , Service support , Chest X-Ray 09/01/21 07:00 IMPRESSION: No interval change Electronically Signed: Rell Reddy MD at 9:31 EST , Service support , Physical Exam Const alert, oriented x3 and no apparent distress Orientation / Consciousness: lethargic Exam Limitations: no limitations Nutritional Appearance: cachectic HEENT head/scalp atraumatic and moist oral mucous membranes Head and Scalp: normocephalic Eyes PERRL and EOMs intact bilaterally Neck no lymphadenopathy Resp Resp Narrative: markedly diminished breath sounds on the right, with no wheezes or crackles. on 2L of oxygen. Cardio S1 normal heart sound, S2 normal heart sound and no murmurs Cardio Narrative: afib, rate controlled GI normal to inspection, nondistended, normoactive bowel sounds, soft to palpation, non-tender and non-distended Extremity normal to inspection, full ROM and no clubbing, cyanosis or edema Peripheral Pulses: Yes pulses 2+ throughout Skin no rashes or lesions noted Neuro CN's II-XII intact bilaterally and moves all extremities Sensorium / Orientation: awake Psych affect normal Assessment & Plan Assessment/Plan (1) CHF (congestive heart failure): QUALIFIERS: Heart failure type: diastolic Heart failure chronicity: acute on chronic Qualified Code(s): I50.33 - Acute on chronic diastolic (congestive) heart failure (2) Pleural effusion: (3) Acute hypoxemic respiratory failure: (4) Paroxysmal atrial fibrillation with rapid ventricular response: PLAN: #Acute hypoxic respiratory failure due to right sided pleural effusion * Patient is s/p thoracentesis x 2,with removal of a total of 2.6L of fluid. Fluid analysis per Light's criteria showed an exudate. * Cytology shows malignant cells consistent with metastatic adenocarcinoma with immunohistochemistry favoring upper GI primary * Oncology on board. * had attempt at Pleurx catheter insertion yesterday by general surgery, but this was unsuccessful. * Chest CT and CXR were negative for any pneumothorax * for repeat attempt at Pleurx catheter insertion on Friday * * #A. fib * RVR has resolved * on p.o. Cardizem and p.o. 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 * to follow up with oncology on outpatient basis. * #Hyponatremia: * Is still 125 today * nephrology on board. * on salt tablets. Lasix dc'd. * There is no tolvaptan available to administer to patient. * #Acute exacerbation of heart failure preserved ejection fraction * BNP was 837.4. 2D echo from June 2021 showed EF of 55%. * lasix disontinued due to worsening hyponatremia * #Chronic malnutrition: * Likely due to nonsmall cell lung cancer. On nutritional supplements with Jevity. On tube feeding via PEG tube. DVT prophylaxis: SCDs. to resume eliquis after pleurx catheter is inserted. Started on lovenox today Charges/Coding Visit Charges Inpatient E&M: 70544 Subs Hosp L2
[2021-09-01] MEDS: Sodium Chloride 1 GM Tablet 2 GM PO ×2 (15:17→21:32)
[2021-09-01] MEDS: Furosemide 20 MG Tablet PO (15:18)
--- NOTE | 2021-09-01 15:22 | PCM.PN.CARD ---
Subjective Subjective No symptoms reported today. Right-sided chest tube removed Objective Data Vital Signs: Vital Signs Temp Pulse Resp BP Pulse Ox 98.1 F 74 16 101/49 L 95 09/01/21 10:00 09/01/21 10:15 09/01/21 10:00 09/01/21 10:00 09/01/21 10:00 Oxygen Flow Rate (L/min) [4] 5 Oxygen Flow Rate (L/min) [3] 5 Oxygen Flow Rate (L/min) [2] 5 Oxygen Flow Rate (L/min) [1 ( 5 Initial Baseline)] Oxygen Flow Rate (L/min) 2 Oxygen Delivery Method [4] Nasal Cannula Oxygen Delivery Method [3] Nasal Cannula Oxygen Delivery Method [2] Nasal Cannula Oxygen Delivery Method [1 ( Nasal Cannula Initial Baseline)] Oxygen Delivery Method Nasal Cannula Weight: 137 lb 5.568 oz Body Mass Index (BMI) 22.3 Intake & Output: Intake and Output for Last 24 Hours 08/30/21 08/31/21 09/01/21 23:59 23:59 23:59 Intake Total 250 / 250 360 / 360 400 / 400 Output Total 300 / 520 970 / 970 80 / 80 Balance -50 / -270 -610 / -610 320 / 320 Lab / Micro Data Result Diagrams: 08/29/21 08:12 09/01/21 07:44 Labs: Laboratory Results - last 24 hr 09/01/21 07:44: Sodium 125 L Micro: Microbiology 08/27/21 01:00 Blood Culture (Wb) - Anticubital Left Blood Culture - Final No growth in 5 days. Cardiology Labs/Tests 09/01/21 07:44: Sodium 125 L Rhythm: Atrial fibrillation with controlled ventricular rate. Radiography Diagnostic Testing: Radiology Impression Chest CT 08/31/21 15:32 IMPRESSION: There are bilateral pleural effusions. There is bilateral pneumonia. Left chest tube in place. No pneumothorax. Left subcutaneous air Abdominal ascites Electronically Signed: Smith Rios MD at 16:47 EST , Service support , Chest X-Ray 08/31/21 17:55 IMPRESSION: Pulmonary findings appear worse. There is no pneumothorax. Electronically Signed: Smith Rios MD at 18:50 EST , Service support , Chest X-Ray 09/01/21 07:00 IMPRESSION: No interval change Electronically Signed: Rell Reddy MD at 9:31 EST , Service support , Physical Exam Narrative Patient alert orientated Review of the cardiac telemetry revealed underlying atrial fibrillation with controlled ventricular rate Overall cardiac exam S1-S2 is irregular Chest exam diminished air entry on the right side with right-sided dullness Central nervous system exam no focal neurological deficit. Assessment & Plan Assessment/Plan (1) Malignant pleural effusion: (2) Acute hypoxemic respiratory failure: (3) Tachy-jimmie syndrome: (4) Paroxysmal atrial fibrillation with rapid ventricular response: PLAN: 86-year-old patient with history of non-small cell lung cancer with metastasis to the pleura and has right pleural effusion. Current medication and cardiac care plan discussed with the nursing staff. Right sided chest tube was removed with the plan of attempting reinsertion on Friday. Chest x-ray no evidence of pneumothorax Patient has underlying A. fib with controlled ventricular rate now on calcium channel nancy and beta-nancy Cardiovascular assessment and recommendations; 1. Paroxysmal atrial fibrillation now with controlled ventricular rate we will continue rate control with diltiazem and metoprolol 2. Echocardiographic evaluation in June 2021 showed ejection fraction of around 55. 3. We will discuss long-term anticoagulation following, oncology and surgery plan for management of pleural effusion.
[2021-09-01] MEDS: Enoxaparin 60 MG/0.6 ML Syringe SC (15:32)
[2021-09-01] MEDS: Atorvastatin Calcium 20 MG Tablet GT (21:38)
[2021-09-02] VITALS (10 sets, daily range): BP systolic 107–110; BP diastolic 49–58; PULSE 72–86; RESP 18; TEMP 36.3–36.8; O2SAT 94–100
[2021-09-02] MEDS: dilTIAZem 60 MG Tablet PO ×4 (00:13→17:48)
[2021-09-02] MEDS: Enoxaparin 60 MG/0.6 ML Syringe SC ×2 (00:13→09:18)
[2021-09-02] MEDS: Jevity 1.5. 1,000 ML Bottle 240 ML GT ×4 (05:33→17:47)
[2021-09-02] MEDS: Sodium Chloride 1 GM Tablet 2 GM PO ×3 (05:34→21:02)
[2021-09-02 06:51] LABS: Absolute Lymphocyte Count 0.36 X10^3/uL (0.83-4.51); Absolute Neutrophil Count 3.5 X10^3/uL (2.0-7.7); Basophil# 0.02 X10^3/uL; Basophil% 0.4 % (0-1); Eosinophil# 0.06 X10^3/uL; Eosinophils% 1.3 % (0-5); Hematocrit 27.2 % (40-54); Hemoglobin 8.8 g/dL (13.0-16.5); Lymphocyte # 0.36 X10^3/ul (0.83-4.51); Lymphocyte % 7.9 % (19-41); Mean Corp Hgb Conc 32.4 g/dL (32-36); Mean Corpuscular Hgb 27.8 pg (27.0-32.0); Mean Corpuscular Volume 85.8 fL (80-94); Mean Platelet Vol. 9.5 fl (6.2-12.0); Monocyte# 0.62 X10^3/uL; Monocyte% 13.5 % (0-10); NRBC Flagged by Analyzer 0 % (0-5); Neutrophil % 76.5 % (47-70); POSITIVE DIFFERENTIAL YES; Platelet Count 297 K/mm3 (150-450); RBC Distribution Width CV 15.9 % (11.6-14.6); RBC Distribution Width SD 49.4 fl (35.1-43.9); Red Blood Count 3.17 M/mm3 (4.6-6.2); White Blood Count 4.6 K/mm3 (4.4-11.0)
[2021-09-02 06:56] LABS: Differential Indicated SCAN CRITERIA MET
[2021-09-02 07:13] LABS: Anion Gap 5 (5-15); BUN 30 mg/dL (7-18); BUN/Creat Ratio 34.6 RATIO (10-20); Calcium,Total 7.9 mg/dL (8.5-10.1); Chloride 83 mmol/L (98-107); Creatinine, Serum 0.87 mg/dL (0.70-1.30); EST Glomerular Filtration Rate 89 mL/min (>60); Est Glom Filt Rate - Afr Amer 108 mL/min (>60); Estimated Creatinine Clearance 55.96 ml/min; Glucose 174 mg/dL (74-106); Potassium 4.2 mmol/L (3.5-5.1); Sodium Level 123 mmol/L (136-145)
[2021-09-02 07:26] LABS: Anisocytosis 1+
--- NOTE | 2021-09-02 09:01 | PCM.PN.SRG ---
Subjective Subjective Patient denies any difficulty breathing however when hooked up to a pulse ox he was 80 on room air. Patient did come up to 93 with 4 L, official chest x-ray from yesterday showed no pneumothorax. Objective Data Objective Data Vital Signs: Vital Signs Temp Pulse Resp BP Pulse Ox 98.1 F 74 18 110/58 L 100 09/02/21 02:56 09/02/21 03:00 09/02/21 02:56 09/02/21 02:56 09/02/21 02:56 Oxygen Flow Rate (L/min) [4] 5 Oxygen Flow Rate (L/min) [3] 5 Oxygen Flow Rate (L/min) [2] 5 Oxygen Flow Rate (L/min) [1 ( 5 Initial Baseline)] Oxygen Flow Rate (L/min) 1 Oxygen Delivery Method [4] Nasal Cannula Oxygen Delivery Method [3] Nasal Cannula Oxygen Delivery Method [2] Nasal Cannula Oxygen Delivery Method [1 ( Nasal Cannula Initial Baseline)] Oxygen Delivery Method Room Air Weight: 141 lb 5.061 oz Body Mass Index (BMI) 22.3 Intake & Output: Intake and Output for Last 24 Hours 08/31/21 09/01/21 09/02/21 23:59 23:59 23:59 Intake Total 360 / 360 980 / 980 340 / 340 Output Total 970 / 970 705 / 705 Balance -610 / -610 275 / 275 340 / 340 Medical Nutrition Assessment Dietitian: Malnutrition Criteria Met Start: 08/27/21 10:52 Freq: Status: Active Protocol: Document 08/27/21 10:52 RMA (Rec: 08/27/21 10:52 RMA [id number]) Nutrition Malnutrition Evidence of Malnutrition Exists Yes Malnutrition (severe): Acute Illness/Injury Evidenced By Suboptimal Energy Intake ( Moderate),Weight Loss (Severe) ,Physical Changes (Moderate) Intake Problem Inadequate Oral Intake Etiology related to dysphagia/ esophageal cancer Signs/Symptoms as evidenced by NPO/PEG tube feeding for nutrition Status Active Problem Clinical Problem Acute Disease or Injury Related Malnutrition Etiology Severe protein/calorie malnutrition in the context of acute illness related to dysphagia/inadequate oral intake and increased energy expenditure/malignancy Signs/Symptoms as evidenced by NPO/PEG tube feedings, approximately 6-8% wt loss x past 1-2 months, BLLE 3+ pitting edema which is likely asking further wt loss and muscle/fat wasting noted in the face orbitals and temporal regions Status Active Problem Recommendation Dietitian Recommendations/Changes NPO except ice chips. Will order Jevity 1.5 Guy 240ml bolus feedings 5 times per day with 100ml water flush Q feeding to provide 1800 kcal, 77 gm protein and 1412 ml free water per day. Suggest start boluses with 120ml for the first 2-4 feedings to establish TF tolerance and increase to goal bolus of 240ml 5 times per day to meet~100% estimated nutrition needs. Will monitor weights, labs and TF tolerance as established. Lab / Micro Data Result Diagrams: 09/02/21 06:44 09/02/21 06:44 Labs: Laboratory Results - last 24 hr 09/02/21 06:44: WBC 4.6, RBC 3.17 L, Hgb 8.8 L, Hct 27.2 L, MCV 85.8, MCH 27.8, MCHC 32.4, RDW Std Deviation 49.4 H, RDW Coeff of Dianna 15.9 H, Plt Count 297, MPV 9.5, Immature Gran % (Auto) 0.400, Neut % (Auto) 76.5 H, Lymph % (Auto) 7.9 L, [place] % (Auto) 13.5 H, Eos % (Auto) 1.3, Baso % (Auto) 0.4, Absolute Neuts (auto) 3.5, Absolute Lymphs (auto) 0.36 L, Nucleated RBC % 0, Anisocytosis 1+ 09/02/21 06:44: Sodium 123 L, Potassium 4.2, Chloride 83 L, Carbon Dioxide 35.0 H, Anion Gap 5, BUN 30 H, Creatinine 0.87, Estim Creat Clear Calc 55.96, Est GFR (MDRD) Af Amer 108, Est GFR (MDRD) Non-Af 89, BUN/Creatinine Ratio 34.6 H, Glucose 174 H, Calcium 7.9 L Micro: Microbiology 08/27/21 01:00 Blood Culture (Wb) - Anticubital Left Blood Culture - Final No growth in 5 days. 08/27/21 01:17 Nasal Secretion SARS-CoV-2 Antigen (Rapid) - Final Radiography Diagnostic Testing: Radiology Impression Chest X-Ray 09/01/21 07:00 IMPRESSION: No interval change Electronically Signed: Rell Reddy MD at 9:31 EST , Service support , Physical Exam Narrative Previous left chest tube site dressed, abdomen PEG tube in place, nontender Assessment & Plan Assessment/Plan (1) Malignant pleural effusion: PLAN: Will discuss with Dr. Sullivan for likely placement of Pleurx catheter. Plan to hold therapeutic Lovenox tonight and n.p.o. after midnight. Bharti Irwin M.D. Pager: [phone] [facility] [address] [place] [address], [facility], [address] [place] [address] Office: [phone] Charges/Coding Visit Charges Inpatient E&M: 87142 Subs Hosp L2
[2021-09-02] MEDS: Metoprolol Tartrate 100 MG Tablet GT ×2 (09:20→21:00)
[2021-09-02] MEDS: Digoxin 250 MCG Tablet PO (09:20)
[2021-09-02] MEDS: Senna/Docusate Sodium 1 Tablet 2 TABLET GT ×2 (09:20→21:02)
[2021-09-02] MEDS: Furosemide 20 MG Tablet PO (09:21)
[2021-09-02] MEDS: Lansoprazole 15 MG Capsule.DR GT (09:21)
--- NOTE | 2021-09-02 12:34 | PN.HOSP_ITS ---
Subjective Subjective Patient seen and examined. Patient was sleepy. He had no active complaints. Review of systems otherwise negative. She is to have Pleurx catheter insertion tomorrow. Objective Data Objective Data Vital Signs: Vital Signs Temp Pulse Resp BP Pulse Ox 98.3 F 73 18 107/49 L 94 09/02/21 11:00 09/02/21 11:00 09/02/21 11:00 09/02/21 11:00 09/02/21 11:00 Oxygen Flow Rate (L/min) [4] 5 Oxygen Flow Rate (L/min) [3] 5 Oxygen Flow Rate (L/min) [2] 5 Oxygen Flow Rate (L/min) [1 ( 5 Initial Baseline)] Oxygen Flow Rate (L/min) 4 Oxygen Delivery Method [4] Nasal Cannula Oxygen Delivery Method [3] Nasal Cannula Oxygen Delivery Method [2] Nasal Cannula Oxygen Delivery Method [1 ( Nasal Cannula Initial Baseline)] Oxygen Delivery Method Nasal Cannula Weight: 141 lb 5.061 oz Body Mass Index (BMI) 22.3 Intake & Output: Intake and Output for Last 24 Hours 08/31/21 09/01/21 09/02/21 23:59 23:59 23:59 Intake Total 360 / 360 980 / 980 610 / 610 Output Total 970 / 970 705 / 705 Balance -610 / -610 275 / 275 610 / 610 Medical Nutrition Assessment Dietitian: Malnutrition Criteria Met Start: 08/27/21 10:52 Freq: Status: Active Protocol: Document 08/27/21 10:52 RMA (Rec: 08/27/21 10:52 RMA [id number]) Nutrition Malnutrition Evidence of Malnutrition Exists Yes Malnutrition (severe): Acute Illness/Injury Evidenced By Suboptimal Energy Intake ( Moderate),Weight Loss (Severe) ,Physical Changes (Moderate) Intake Problem Inadequate Oral Intake Etiology related to dysphagia/ esophageal cancer Signs/Symptoms as evidenced by NPO/PEG tube feeding for nutrition Status Active Problem Clinical Problem Acute Disease or Injury Related Malnutrition Etiology Severe protein/calorie malnutrition in the context of acute illness related to dysphagia/inadequate oral intake and increased energy expenditure/malignancy Signs/Symptoms as evidenced by NPO/PEG tube feedings, approximately 6-8% wt loss x past 1-2 months, BLLE 3+ pitting edema which is likely asking further wt loss and muscle/fat wasting noted in the face orbitals and temporal regions Status Active Problem Recommendation Dietitian Recommendations/Changes NPO except ice chips. Will order Jevity 1.5 Guy 240ml bolus feedings 5 times per day with 100ml water flush Q feeding to provide 1800 kcal, 77 gm protein and 1412 ml free water per day. Suggest start boluses with 120ml for the first 2-4 feedings to establish TF tolerance and increase to goal bolus of 240ml 5 times per day to meet~100% estimated nutrition needs. Will monitor weights, labs and TF tolerance as established. Lab / Micro Data Result Diagrams: 09/02/21 06:44 09/02/21 06:44 Labs: Laboratory Results - last 24 hr 09/02/21 06:44: WBC 4.6, RBC 3.17 L, Hgb 8.8 L, Hct 27.2 L, MCV 85.8, MCH 27.8, MCHC 32.4, RDW Std Deviation 49.4 H, RDW Coeff of Dianna 15.9 H, Plt Count 297, MPV 9.5, Immature Gran % (Auto) 0.400, Neut % (Auto) 76.5 H, Lymph % (Auto) 7.9 L, [place] % (Auto) 13.5 H, Eos % (Auto) 1.3, Baso % (Auto) 0.4, Absolute Neuts (auto) 3.5, Absolute Lymphs (auto) 0.36 L, Nucleated RBC % 0, Anisocytosis 1+ 09/02/21 06:44: Sodium 123 L, Potassium 4.2, Chloride 83 L, Carbon Dioxide 35.0 H, Anion Gap 5, BUN 30 H, Creatinine 0.87, Estim Creat Clear Calc 55.96, Est GFR (MDRD) Af Amer 108, Est GFR (MDRD) Non-Af 89, BUN/Creatinine Ratio 34.6 H, Glucose 174 H, Calcium 7.9 L Micro: Microbiology 08/27/21 01:00 Blood Culture (Wb) - Anticubital Left Blood Culture - Final No growth in 5 days. 08/27/21 01:17 Nasal Secretion SARS-CoV-2 Antigen (Rapid) - Final Physical Exam Const alert and oriented x3 Orientation / Consciousness: lethargic Exam Limitations: no limitations Nutritional Appearance: cachectic HEENT head/scalp atraumatic and moist oral mucous membranes Head and Scalp: normocephalic Eyes PERRL and EOMs intact bilaterally Neck no lymphadenopathy Resp Resp Narrative: markedly diminished breath sounds on the right, with no wheezes or crackles. on 2L of oxygen. Cardio S1 normal heart sound, S2 normal heart sound and no murmurs Cardio Narrative: afib, rate controlled GI normal to inspection, nondistended, normoactive bowel sounds, soft to palpation, non-tender and non-distended Extremity normal to inspection, full ROM and no clubbing, cyanosis or edema Skin no rashes or lesions noted Neuro CN's II-XII intact bilaterally and moves all extremities Sensorium / Orientation: awake Psych affect normal Assessment & Plan Assessment/Plan (1) CHF (congestive heart failure): QUALIFIERS: Heart failure type: diastolic Heart failure chronicity: acute on chronic Qualified Code(s): I50.33 - Acute on chronic diastolic (congestive) heart failure (2) Pleural effusion: (3) Acute hypoxemic respiratory failure: (4) Paroxysmal atrial fibrillation with rapid ventricular response: PLAN: #Acute hypoxic respiratory failure due to right sided pleural effusion * Patient is s/p thoracentesis x 2,with removal of a total of 2.6L of fluid. Fluid analysis per Light's criteria showed an exudate. * Cytology shows malignant cells consistent with metastatic adenocarcinoma with immunohistochemistry favoring upper GI primary * Oncology on board. * had attempt at Pleurx catheter insertion yesterday by general surgery, but this was unsuccessful. * Chest CT and CXR were negative for any pneumothorax * for repeat attempt at Pleurx catheter insertion on Friday * * #A. fib * RVR has resolved * on p.o. Cardizem and p.o. 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 * to follow up with oncology on outpatient basis. * #Hyponatremia: * Isoidum is 123 today * nephrology on board. * on salt tablets. Lasix dc'd. * * #Acute exacerbation of heart failure preserved ejection fraction * BNP was 837.4. 2D echo from June 2021 showed EF of 55%. * lasix disontinued due to worsening hyponatremia * #Chronic malnutrition: * Likely due to nonsmall cell lung cancer. On nutritional supplements with Jevity. On tube feeding via PEG tube. DVT prophylaxis: * SCDs. * to resume eliquis after pleurx catheter is inserted. lovenox was started in the interim, and dose will be held tonight,for Pleurx catheter tomorrow morning by general surgery. Charges/Coding Visit Charges Inpatient E&M: 71772 Subs Hosp L2
--- NOTE | 2021-09-02 14:21 | PCM.PN.CARD ---
Subjective Subjective No symptoms reported, no event noted from last night Objective Data Vital Signs: Vital Signs Temp Pulse Resp BP Pulse Ox 98.3 F 73 18 107/49 L 94 09/02/21 11:00 09/02/21 11:00 09/02/21 11:00 09/02/21 11:00 09/02/21 11:00 Oxygen Flow Rate (L/min) [4] 5 Oxygen Flow Rate (L/min) [3] 5 Oxygen Flow Rate (L/min) [2] 5 Oxygen Flow Rate (L/min) [1 ( 5 Initial Baseline)] Oxygen Flow Rate (L/min) 4 Oxygen Delivery Method [4] Nasal Cannula Oxygen Delivery Method [3] Nasal Cannula Oxygen Delivery Method [2] Nasal Cannula Oxygen Delivery Method [1 ( Nasal Cannula Initial Baseline)] Oxygen Delivery Method Nasal Cannula Weight: 141 lb 5.061 oz Body Mass Index (BMI) 22.3 Intake & Output: Intake and Output for Last 24 Hours 08/31/21 09/01/21 09/02/21 23:59 23:59 23:59 Intake Total 360 / 360 980 / 980 610 / 610 Output Total 970 / 970 705 / 705 Balance -610 / -610 275 / 275 610 / 610 Lab / Micro Data Result Diagrams: 09/02/21 06:44 09/02/21 06:44 Labs: Laboratory Results - last 24 hr 09/02/21 06:44: WBC 4.6, RBC 3.17 L, Hgb 8.8 L, Hct 27.2 L, MCV 85.8, MCH 27.8, MCHC 32.4, RDW Std Deviation 49.4 H, RDW Coeff of Dianna 15.9 H, Plt Count 297, MPV 9.5, Immature Gran % (Auto) 0.400, Neut % (Auto) 76.5 H, Lymph % (Auto) 7.9 L, [place] % (Auto) 13.5 H, Eos % (Auto) 1.3, Baso % (Auto) 0.4, Absolute Neuts (auto) 3.5, Absolute Lymphs (auto) 0.36 L, Nucleated RBC % 0, Anisocytosis 1+ 09/02/21 06:44: Sodium 123 L, Potassium 4.2, Chloride 83 L, Carbon Dioxide 35.0 H, Anion Gap 5, BUN 30 H, Creatinine 0.87, Estim Creat Clear Calc 55.96, Est GFR (MDRD) Af Amer 108, Est GFR (MDRD) Non-Af 89, BUN/Creatinine Ratio 34.6 H, Glucose 174 H, Calcium 7.9 L Cardiology Labs/Tests 09/02/21 06:44: WBC 4.6, RBC 3.17 L, Hgb 8.8 L, Hct 27.2 L, MCV 85.8, MCH 27.8, MCHC 32.4, Plt Count 297, MPV 9.5, Immature Gran % (Auto) 0.400, Neut % (Auto) 76.5 H, Lymph % (Auto) 7.9 L, [place] % (Auto) 13.5 H, Eos % (Auto) 1.3, Baso % (Auto) 0.4, Absolute Neuts (auto) 3.5, Nucleated RBC % 0 09/02/21 06:44: Sodium 123 L, Potassium 4.2, Chloride 83 L, Carbon Dioxide 35.0 H, Anion Gap 5, BUN 30 H, Creatinine 0.87, Est GFR (MDRD) Af Amer 108, Est GFR (MDRD) Non-Af 89, BUN/Creatinine Ratio 34.6 H, Glucose 174 H, Calcium 7.9 L Rhythm: Underlying atrial fibrillation with paced ventricular rhythm Assessment & Plan Assessment/Plan (1) Tachy-jimmie syndrome: (2) Presence of permanent cardiac pacemaker: (3) Acute hypoxemic respiratory failure: (4) Pleural effusion: (5) CHF (congestive heart failure): QUALIFIERS: Heart failure type: diastolic Heart failure chronicity: acute on chronic Qualified Code(s): I50.33 - Acute on chronic diastolic (congestive) heart failure (6) Paroxysmal atrial fibrillation with rapid ventricular response: PLAN: This 81-year-old patient with paroxysmal atrial fibrillation resolved On review of the cardiac telemetry has a underlying atrial fibrillation with paced ventricular rhythm. 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 Patient is scheduled for right thoracocentesis 2. We will continue to rate control with diltiazem and metoprolol in addition to digoxin 3. We will continue to monitor and follow-up clinically 4. Primary hat binder Dr. Block
[2021-09-02] MEDS: Lactated Ringers 1,000 ML 15 ML IV (18:20)
[2021-09-02] MEDS: Atorvastatin Calcium 20 MG Tablet GT (21:00)
[2021-09-03] VITALS (19 sets, daily range): BP systolic 102–130; BP diastolic 49–71; PULSE 61–86; RESP 16–20; TEMP 36.3–36.9; O2SAT 93–98; BMI 23.4
[2021-09-03] MEDS: dilTIAZem 60 MG Tablet PO ×5 (00:03→23:28)
[2021-09-03] MEDS: Sodium Chloride 1 GM Tablet 2 GM PO ×3 (06:07→21:43)
[2021-09-03 06:25] LABS: Absolute Lymphocyte Count 0.43 X10^3/uL (0.83-4.51); Absolute Neutrophil Count 3.9 X10^3/uL (2.0-7.7); Basophil# 0.01 X10^3/uL; Basophil% 0.2 % (0-1); Differential Indicated SCAN CRITERIA MET; Eosinophil# 0.07 X10^3/uL; Eosinophils% 1.3 % (0-5); Hematocrit 28.9 % (40-54); Hemoglobin 9.2 g/dL (13.0-16.5); Lymphocyte # 0.43 X10^3/ul (0.83-4.51); Lymphocyte % 8.3 % (19-41); Mean Corp Hgb Conc 31.8 g/dL (32-36); Mean Corpuscular Hgb 26.9 pg (27.0-32.0); Mean Corpuscular Volume 84.5 fL (80-94); Mean Platelet Vol. 10.1 fl (6.2-12.0); Monocyte# 0.78 X10^3/uL; NRBC Flagged by Analyzer 0 % (0-5); Neutrophil # 3.85 X10^3/uL (2.7-7.7); Neutrophil % 74.2 % (47-70); POSITIVE DIFFERENTIAL YES; Platelet Count 355 K/mm3 (150-450); RBC Distribution Width CV 15.9 % (11.6-14.6); RBC Distribution Width SD 48.8 fl (35.1-43.9); Red Blood Count 3.42 M/mm3 (4.6-6.2); White Blood Count 5.2 K/mm3 (4.4-11.0)
[2021-09-03 06:51] LABS: Anion Gap 6 (5-15); BUN 23 mg/dL (7-18); BUN/Creat Ratio 31.6 RATIO (10-20); Calcium,Total 8.2 mg/dL (8.5-10.1); Chloride 84 mmol/L (98-107); Creatinine, Serum 0.73 mg/dL (0.70-1.30); EST Glomerular Filtration Rate 109 mL/min (>60); Est Glom Filt Rate - Afr Amer 132 mL/min (>60); Estimated Creatinine Clearance 48.69 ml/min; Glucose 91 mg/dL (74-106); Potassium 4.7 mmol/L (3.5-5.1); Sodium Level 124 mmol/L (136-145)
[2021-09-03 07:25] LABS: Hypochromasia 1+; Platelet Estimate A (ADEQ)
--- NOTE | 2021-09-03 08:20 | PCM.PN.SRG ---
Subjective Subjective Patient visited at bedside this morning. Is sleeping when I arrived. He denies any present complaints. He states over the weekend his left chest wall pain was minimal. He denies any respiratory distress. He states plans for repeat procedure were communicated with him yesterday he denies any questions. Objective Data Objective Data Vital Signs: Vital Signs Temp Pulse Resp BP Pulse Ox 97.7 F L 71 18 112/62 97 09/03/21 02:00 09/03/21 07:21 09/03/21 02:00 09/03/21 02:00 09/03/21 02:00 Oxygen Flow Rate (L/min) [4] 5 Oxygen Flow Rate (L/min) [3] 5 Oxygen Flow Rate (L/min) [2] 5 Oxygen Flow Rate (L/min) [1 ( 5 Initial Baseline)] Oxygen Flow Rate (L/min) 4 Oxygen Delivery Method [4] Nasal Cannula Oxygen Delivery Method [3] Nasal Cannula Oxygen Delivery Method [2] Nasal Cannula Oxygen Delivery Method [1 ( Nasal Cannula Initial Baseline)] Oxygen Delivery Method Nasal Cannula Weight: 140 lb 14.006 oz Body Mass Index (BMI) 22.3 Intake & Output: Intake and Output for Last 24 Hours 09/01/21 09/02/21 09/03/21 23:59 23:59 23:59 Intake Total 980 / 980 1520 / 1520 90 / 90 Output Total 705 / 705 400 / 400 Balance 275 / 275 1120 / 1120 90 / 90 Medical Nutrition Assessment Dietitian: Malnutrition Criteria Met Start: 08/27/21 10:52 Freq: Status: Active Protocol: Document 08/27/21 10:52 RMA (Rec: 08/27/21 10:52 RMA [id number]) Nutrition Malnutrition Evidence of Malnutrition Exists Yes Malnutrition (severe): Acute Illness/Injury Evidenced By Suboptimal Energy Intake ( Moderate),Weight Loss (Severe) ,Physical Changes (Moderate) Intake Problem Inadequate Oral Intake Etiology related to dysphagia/ esophageal cancer Signs/Symptoms as evidenced by NPO/PEG tube feeding for nutrition Status Active Problem Clinical Problem Acute Disease or Injury Related Malnutrition Etiology Severe protein/calorie malnutrition in the context of acute illness related to dysphagia/inadequate oral intake and increased energy expenditure/malignancy Signs/Symptoms as evidenced by NPO/PEG tube feedings, approximately 6-8% wt loss x past 1-2 months, BLLE 3+ pitting edema which is likely asking further wt loss and muscle/fat wasting noted in the face orbitals and temporal regions Status Active Problem Recommendation Dietitian Recommendations/Changes NPO except ice chips. Will order Jevity 1.5 Guy 240ml bolus feedings 5 times per day with 100ml water flush Q feeding to provide 1800 kcal, 77 gm protein and 1412 ml free water per day. Suggest start boluses with 120ml for the first 2-4 feedings to establish TF tolerance and increase to goal bolus of 240ml 5 times per day to meet~100% estimated nutrition needs. Will monitor weights, labs and TF tolerance as established. Lab / Micro Data Result Diagrams: 09/03/21 05:53 09/03/21 05:53 Labs: Laboratory Results - last 24 hr 09/03/21 05:53: WBC 5.2, RBC 3.42 L, Hgb 9.2 L, Hct 28.9 L, MCV 84.5, MCH 26.9 L, MCHC 31.8 L, RDW Std Deviation 48.8 H, RDW Coeff of Dianna 15.9 H, Plt Count 355, MPV 10.1, Immature Gran % (Auto) 1.000 H, Neut % (Auto) 74.2 H, Lymph % (Auto) 8.3 L, [place] % (Auto) 15.0 H, Eos % (Auto) 1.3, Baso % (Auto) 0.2, Absolute Neuts (auto) 3.9, Absolute Lymphs (auto) 0.43 L, Nucleated RBC % 0, Platelet Estimate A, Hypochromasia 1+ 09/03/21 05:53: Sodium 124 L, Potassium 4.7, Chloride 84 L, Carbon Dioxide 34.0 H, Anion Gap 6, BUN 23 H, Creatinine 0.73, Estim Creat Clear Calc 48.69, Est GFR (MDRD) Af Amer 132, Est GFR (MDRD) Non-Af 109, BUN/Creatinine Ratio 31.6 H, Glucose 91, Calcium 8.2 L Micro: Microbiology 08/27/21 01:00 Blood Culture (Wb) - Anticubital Left Blood Culture - Final No growth in 5 days. 08/27/21 01:17 Nasal Secretion SARS-CoV-2 Antigen (Rapid) - Final Physical Exam Const oriented x3 and no apparent distress Chest Chest Narrative: Post?pull occlusive dressing remains intact and left chest wall. There is no surrounding erythema. There is no tenderness with palpation. There is no crepitus with this palpation. Resp normal respiratory effort Assessment & Plan Assessment/Plan (1) Malignant pleural effusion: PLAN: 81-year-old male with non-small cell the and malignant pleural effusion (left) status post unsuccessful Pleurx catheter placement 08/31/2021. Patient's chest x-ray from 09/01/2021 did not show development of pneumothorax and respiratory status remained stable. We will plan for repeat procedure today with patient to have tube feeds held until procedure. Charges/Coding Visit Charges Inpatient E&M: 26500 Subs Hosp L2
[2021-09-03] MEDS: Senna/Docusate Sodium 1 Tablet 2 TABLET GT ×2 (09:31→15:37)
[2021-09-03] MEDS: Digoxin 250 MCG Tablet PO (09:31)
[2021-09-03] MEDS: Furosemide 20 MG Tablet PO (09:31)
[2021-09-03] MEDS: Lansoprazole 15 MG Capsule.DR GT (09:32)
[2021-09-03] MEDS: Metoprolol Tartrate 100 MG Tablet GT ×2 (09:32→21:43)
[2021-09-03] MEDS: Polyethylene Glycol 3350 17 GM PACKET GT (09:34)
[2021-09-03] MEDS: Ondansetron 4 MG/2 ML Vial IV (09:49)
--- NOTE | 2021-09-03 11:19 | PCM.PN.REN ---
Subjective Subjective No new events Objective Data Objective Data Vital Signs: Vital Signs Temp Pulse Resp BP Pulse Ox 97.4 F L 83 16 102/52 L 98 09/03/21 08:00 09/03/21 09:32 09/03/21 08:00 09/03/21 08:00 09/03/21 08:00 Oxygen Flow Rate (L/min) [4] 5 Oxygen Flow Rate (L/min) [3] 5 Oxygen Flow Rate (L/min) [2] 5 Oxygen Flow Rate (L/min) [1 ( 5 Initial Baseline)] Oxygen Flow Rate (L/min) 4 Oxygen Delivery Method [4] Nasal Cannula Oxygen Delivery Method [3] Nasal Cannula Oxygen Delivery Method [2] Nasal Cannula Oxygen Delivery Method [1 ( Nasal Cannula Initial Baseline)] Oxygen Delivery Method Nasal Cannula Weight: 63.9 kg Body Mass Index (BMI) 22.3 Intake & Output: Intake and Output for Last 24 Hours 09/01/21 09/02/21 09/03/21 23:59 23:59 23:59 Intake Total 980 / 980 1520 / 1520 180 / 180 Output Total 705 / 705 400 / 400 Balance 275 / 275 1120 / 1120 180 / 180 Medical Nutrition Assessment Dietitian: Malnutrition Criteria Met Start: 08/27/21 10:52 Freq: Status: Active Protocol: Document 08/27/21 10:52 RMA (Rec: 08/27/21 10:52 RMA [id number]) Nutrition Malnutrition Evidence of Malnutrition Exists Yes Malnutrition (severe): Acute Illness/Injury Evidenced By Suboptimal Energy Intake ( Moderate),Weight Loss (Severe) ,Physical Changes (Moderate) Intake Problem Inadequate Oral Intake Etiology related to dysphagia/ esophageal cancer Signs/Symptoms as evidenced by NPO/PEG tube feeding for nutrition Status Active Problem Clinical Problem Acute Disease or Injury Related Malnutrition Etiology Severe protein/calorie malnutrition in the context of acute illness related to dysphagia/inadequate oral intake and increased energy expenditure/malignancy Signs/Symptoms as evidenced by NPO/PEG tube feedings, approximately 6-8% wt loss x past 1-2 months, BLLE 3+ pitting edema which is likely asking further wt loss and muscle/fat wasting noted in the face orbitals and temporal regions Status Active Problem Recommendation Dietitian Recommendations/Changes NPO except ice chips. Will order Jevity 1.5 Guy 240ml bolus feedings 5 times per day with 100ml water flush Q feeding to provide 1800 kcal, 77 gm protein and 1412 ml free water per day. Suggest start boluses with 120ml for the first 2-4 feedings to establish TF tolerance and increase to goal bolus of 240ml 5 times per day to meet~100% estimated nutrition needs. Will monitor weights, labs and TF tolerance as established. Lab / Micro Data Result Diagrams: 09/03/21 05:53 09/03/21 05:53 Labs: Laboratory Results - last 24 hr 09/03/21 05:53: WBC 5.2, RBC 3.42 L, Hgb 9.2 L, Hct 28.9 L, MCV 84.5, MCH 26.9 L, MCHC 31.8 L, RDW Std Deviation 48.8 H, RDW Coeff of Dianna 15.9 H, Plt Count 355, MPV 10.1, Immature Gran % (Auto) 1.000 H, Neut % (Auto) 74.2 H, Lymph % (Auto) 8.3 L, [place] % (Auto) 15.0 H, Eos % (Auto) 1.3, Baso % (Auto) 0.2, Absolute Neuts (auto) 3.9, Absolute Lymphs (auto) 0.43 L, Nucleated RBC % 0, Platelet Estimate A, Hypochromasia 1+ 09/03/21 05:53: Sodium 124 L, Potassium 4.7, Chloride 84 L, Carbon Dioxide 34.0 H, Anion Gap 6, BUN 23 H, Creatinine 0.73, Estim Creat Clear Calc 48.69, Est GFR (MDRD) Af Amer 132, Est GFR (MDRD) Non-Af 109, BUN/Creatinine Ratio 31.6 H, Glucose 91, Calcium 8.2 L Micro: Microbiology 08/27/21 01:00 Blood Culture (Wb) - Anticubital Left Blood Culture - Final No growth in 5 days. 08/27/21 01:17 Nasal Secretion SARS-CoV-2 Antigen (Rapid) - Final Physical Exam Narrative Alert awake oriented x 3 no obvious distress no pallor no icterus no JVD s1s2 no murmurs lungs clear abdomen soft no organomegaly ++ edema no cyanosis Assessment & Plan Assessment/Plan (1) Hyponatremia: PLAN: Hyponatremia : hypotonic. Clinically now has signs of volume overload. 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 We started him on salt tablets which seems to have contributed to edema. Does not tolerate any dose of Lasix. Started on low-dose Lasix on Friday and sodium dropped by 2 points. Will temporarily hold Lasix tablets. Continue salt tablets.
--- NOTE | 2021-09-03 11:46 | PN.HOSP_ITS ---
Subjective Subjective Doing well, no issues overnight. For Pleurx catheter placement today Objective Data Objective Data Vital Signs: Vital Signs Temp Pulse Resp BP Pulse Ox 97.4 F L 83 16 102/52 L 98 09/03/21 08:00 09/03/21 09:32 09/03/21 08:00 09/03/21 08:00 09/03/21 08:00 Oxygen Flow Rate (L/min) [4] 5 Oxygen Flow Rate (L/min) [3] 5 Oxygen Flow Rate (L/min) [2] 5 Oxygen Flow Rate (L/min) [1 ( 5 Initial Baseline)] Oxygen Flow Rate (L/min) 4 Oxygen Delivery Method [4] Nasal Cannula Oxygen Delivery Method [3] Nasal Cannula Oxygen Delivery Method [2] Nasal Cannula Oxygen Delivery Method [1 ( Nasal Cannula Initial Baseline)] Oxygen Delivery Method Nasal Cannula Weight: 140 lb 14.006 oz Body Mass Index (BMI) 22.3 Intake & Output: Intake and Output for Last 24 Hours 09/02/21 09/03/21 09/04/21 03:59 03:59 03:59 Intake Total 780 / 780 1610 / 1610 90 / 90 Output Total 705 / 705 400 / 400 Balance 75 / 75 1210 / 1210 90 / 90 Medical Nutrition Assessment Dietitian: Malnutrition Criteria Met Start: 08/27/21 10:52 Freq: Status: Active Protocol: Document 08/27/21 10:52 RMA (Rec: 08/27/21 10:52 RMA [id number]) Nutrition Malnutrition Evidence of Malnutrition Exists Yes Malnutrition (severe): Acute Illness/Injury Evidenced By Suboptimal Energy Intake ( Moderate),Weight Loss (Severe) ,Physical Changes (Moderate) Intake Problem Inadequate Oral Intake Etiology related to dysphagia/ esophageal cancer Signs/Symptoms as evidenced by NPO/PEG tube feeding for nutrition Status Active Problem Clinical Problem Acute Disease or Injury Related Malnutrition Etiology Severe protein/calorie malnutrition in the context of acute illness related to dysphagia/inadequate oral intake and increased energy expenditure/malignancy Signs/Symptoms as evidenced by NPO/PEG tube feedings, approximately 6-8% wt loss x past 1-2 months, BLLE 3+ pitting edema which is likely asking further wt loss and muscle/fat wasting noted in the face orbitals and temporal regions Status Active Problem Recommendation Dietitian Recommendations/Changes NPO except ice chips. Will order Jevity 1.5 Guy 240ml bolus feedings 5 times per day with 100ml water flush Q feeding to provide 1800 kcal, 77 gm protein and 1412 ml free water per day. Suggest start boluses with 120ml for the first 2-4 feedings to establish TF tolerance and increase to goal bolus of 240ml 5 times per day to meet~100% estimated nutrition needs. Will monitor weights, labs and TF tolerance as established. Lab / Micro Data Result Diagrams: 09/03/21 05:53 09/03/21 05:53 Labs: Laboratory Results - last 24 hr 09/03/21 05:53: WBC 5.2, RBC 3.42 L, Hgb 9.2 L, Hct 28.9 L, MCV 84.5, MCH 26.9 L , MCHC 31.8 L, RDW Std Deviation 48.8 H, RDW Coeff of Dianna 15.9 H, Plt Count 355, MPV 10.1, Immature Gran % (Auto) 1.000 H, Neut % (Auto) 74.2 H, Lymph % (Auto) 8.3 L, [place] % (Auto) 15.0 H, Eos % (Auto) 1.3, Baso % (Auto) 0.2, Absolute Neuts (auto) 3.9, Absolute Lymphs (auto) 0.43 L, Nucleated RBC % 0, Platelet Estimate A, Hypochromasia 1+ 09/03/21 05:53: Sodium 124 L, Potassium 4.7, Chloride 84 L, Carbon Dioxide 34.0 H, Anion Gap 6, BUN 23 H, Creatinine 0.73, Estim Creat Clear Calc 48.69, Est GFR (MDRD) Af Amer 132, Est GFR (MDRD) Non-Af 109, BUN/Creatinine Ratio 31.6 H, Glucose 91, Calcium 8.2 L Micro: Microbiology 08/27/21 01:00 Blood Culture (Wb) - Anticubital Left Blood Culture - Final No growth in 5 days. 08/27/21 01:17 Nasal Secretion SARS-CoV-2 Antigen (Rapid) - Final Physical Exam Const alert, oriented x3 and no apparent distress General Appearance: cooperative HEENT normocephalic and moist oral mucous membranes Eyes PERRL, EOMs intact bilaterally and conjunctivae normal Neck supple and no JVD Resp normal respiratory effort, no retractions and no use of accessory muscles Auscultation: diminished lung sounds; Negative for crackles, rales, rhonchi or wheezes Cardio regular rate, regular rhythm, S1 normal heart sound, S2 normal heart sound and no murmurs GI soft to palpation, non-tender and non-distended; Negative for hepatosplenomegaly Extremity no clubbing, cyanosis or edema Skin no rashes or lesions noted Neuro no focal motor deficits and no sensory deficits noted Psych affect normal Appearance: appropriate Assessment & Plan Assessment/Plan (1) CHF (congestive heart failure): QUALIFIERS: Heart failure type: diastolic Heart failure chronicity: acute on chronic Qualified Code(s): I50.33 - Acute on chronic diastolic (congestive) heart failure (2) Pleural effusion: (3) Acute hypoxemic respiratory failure: (4) Paroxysmal atrial fibrillation with rapid ventricular response: PLAN: 1. Acute hypoxic respiratory failure secondary to right-sided malignant pleural effusion/metastatic non-small cell lung cancer ?Attempted Pleurx catheter placement on Friday failed, will retry today ?He has 5 more radiation treatments for palliative treatment of this cancer. ?I had a 20-minute discussion on him about advanced care planning. He states that if he cannot have a good quality of life then he does not want to go any further treatments. I discussed with him that this tumor is likely not resectable but he would not talk to a surgeon about that issue, and in review of oncology's notes he could be a candidate for immunotherapy. I advised him that prior to making any decisions about hospice versus treatment, to talk with his oncologist about the side effects of immunotherapy and and the benefit of treatment. He is already enrolled in palliative care. 2. HTN/HLD/A. fib/acute on chronic dCHF ?Blood pressures appear stable, RVR has resolved ?Continue with p.o. Cardizem and amiodarone, appreciate cardiology's assistance ?Can restart Eliquis once Pleurx catheter is in place. ?Continue with statin ?We will see how he does with the Pleurx catheter, Lasix was discontinued secondary to hyponatremia which is stable 3. Chronic malnutrition/GERD ?This is due to his cancer as he has an inability to swallow, has a PEG tube in place we will continue with tube feeds ?Continue with PPI DVT: SCDs, will restart Eliquis tomorrow after Pleurx catheter placement Charges/Coding Visit Charges Inpatient E&M: 06249 Subs Hosp L2 Procedures Hospitalists Procedures: 69024 Advncd Care Plan 30 Min
--- NOTE | 2021-09-03 12:07 | CASEMGMT ---
SW met with patient and his per their request. Patient said he wants to do a last will and testament. The doctor told him he does not have much longer to live. SW explained to patient again that [facility] does not do those documents. SW suggested they talk with their finance attorney. They asked if SW could get them the phone number for Daksha, an finance attorney in [place]. SW obtained phone number and gave it to patient and his . SW asked them to notify someone if they need their finance attorney to come into [facility] as they will need permission. Erinn Abdi [employer]GE [employer]AD TEACHER MATTEO
--- NOTE | 2021-09-03 12:15 | CASEMGMT ---
ROMAN spoke with patient's law office. An rumper was going to come to [facility] to sign the last will and testament. She asked if someone could witness the signing. ROMAN said it would be best if someone from their office came with the rumper. She said that is fine. ROMAN let patient and his know that SW will notify the charge nurse so we can the director of front office at the main entrance. Erinn Abdi [employer]CROW[employer] ENGINEERYu FELIPE
--- NOTE | 2021-09-03 14:03 | OP.PCM_ITS ---
Problems Associated Problem List Diagnoses (1) Malignant pleural effusion: Report of Operation Date of Procedure: 09/03/21 Pre-Operative Diagnosis: Left-sided malignant pleural effusion Post-Operative Diagnosis: Same Surgery/Procedure Performed:: Insertion of Pleurx catheter with radiographic and ultrasound guidance Surgeon: Raymond Sullivan tar distillation supervisor: Bharti Irwin Type of Anesthesia: MAC/Supplemental/Local Anesthesiologist: Abundio Simpson Drains: Pleurx catheter with Pleur-evac system Estimated Blood Loss (mL): <10 Description of Procedure: After appropriate indication in the preoperative holding area the patient was brought to the operating room where he was positioned supine on the operating room table. Preoperative antibiotics were administered. Ultrasound was used to localize a fluid level 3 interspaces inferior to the inframammary fold. MAC anesthesia was begun to enhance patient's comfort throughout the procedure. The left chest wall was prepped and draped in usual sterile fashion. Then a formal timeout was conducted for both patient and procedure. Procedure was begun by raising a wheal of 1% lidocaine (total volume 13 mL). Once the skin was sufficiently anesthetized, a finder needle was used to locate straw?colored pleural fluid. The needle was withdrawn from the outer sheath and there was free flow of pleural fluid. However, when we attempted to thread the wire we met resistance so we used fluoroscopy to determine the position of the wire. Twice, the wire appeared to coil within the chest wall and there was resistance to advancement. Ultimately, we withdrew the needle and sheath and reapproached the fluid collection more en face. This time the fluid returned more briskly and the wire fed without resistance. Again, fluoroscopy used to confirm wire placement?this time showing it to be within the pleural cavity. With the wire at the insertion site, a counterincision was made approximately 6 cm inferomedially. The catheter was trimmed shorter and then placed onto the tunneler device. The tunneler was used to tunnel the catheter back to the insertion site. At the insertion site the wire tract was serially dilated and the peel-away sheath was placed. Once more fluoroscopy was used to confirm the position of the tunneler. Satisfied with this position, the catheter was then fed into the peel-away sheath and the sheath was torn away. A final check with fluoroscopy revealed no kinking of the barium strip along the catheter. Catheter was then placed to suction and a total of 1400 mL of straw?colored serous fluid was evacuated from the chest cavity. The catheter was tied in place at the exit site of the tunnel with a 3-0 silk and the insertion site was closed with a single interrupted 3-0 silk. The procedure site was cleaned and dried then the provided split foam dressing and gauze was placed around the catheter for the ensemble was cleared into place with the provided Tegaderm. Because the patient's adjacent PEG tube dressing had been soiled/saturated, we changed dressing there as well. Patient appeared to tolerate the procedure without issue and was taken to PACU for ongoing recovery. A chest x-ray was obtained in PACU demonstrating appropriate positioning of the catheter and partial resolution of the patient's pleural effusion. Procedures Cardiovascular CF Procedures [id number]: [id number] Insert pleural cath
--- NOTE | 2021-09-03 14:13 | RAD_ITS ---
INDICATION: PLEURX CATHETER PLACEMENT IN LEFT LUNG EXAMINATION/TECHNIQUE: X-RAY - XR Chest 1 View COMPARISON: September 01 FINDINGS: LINES/DEVICES: Bipolar pacer. Several monitor leads seen over the chest. Placement of Pleurx catheter left lung base. LUNGS: Significant improvement left pleural effusion with some residual noted. Bibasilar infiltrates. Possibly small right pleural effusion. MEDIASTINUM AND CARDIOVASCULAR STRUCTURES: Cardiac silhouette is mildly prominent. Atherosclerotic calcification aortic arch. BONES AND SOFT TISSUES: Unremarkable. RAD/Chest 1 View (Portable) IMPRESSION: Placement of Pleurx catheter left lung base with improvement left pleural effusion. However there is a small right pleural effusion and bibasilar infiltrates or atelectasis. No evidence for pneumothorax. Electronically Signed: Amarjit Cox MD at 14:46 EST Tel , Service support ,
--- NOTE | 2021-09-03 15:18 | NURSING ---
This RN reviewed SN charting
--- NOTE | 2021-09-03 15:21 | PCM.PN.CARD ---
Subjective Subjective No symptoms reported. Objective Data Vital Signs: Vital Signs Temp Pulse Resp BP Pulse Ox 98.5 F 62 16 111/59 L 98 09/03/21 14:45 09/03/21 14:45 09/03/21 14:45 09/03/21 14:45 09/03/21 14:45 Oxygen Flow Rate (L/min) [4] 5 Oxygen Flow Rate (L/min) [3] 5 Oxygen Flow Rate (L/min) [2] 5 Oxygen Flow Rate (L/min) [1 ( 5 Initial Baseline)] Oxygen Flow Rate (L/min) 4 Oxygen Delivery Method [4] Nasal Cannula Oxygen Delivery Method [3] Nasal Cannula Oxygen Delivery Method [2] Nasal Cannula Oxygen Delivery Method [1 ( Nasal Cannula Initial Baseline)] Oxygen Delivery Method Nasal Cannula Weight: 140 lb 14.006 oz Body Mass Index (BMI) 23.4 Intake & Output: Intake and Output for Last 24 Hours 09/01/21 09/02/21 09/03/21 23:59 23:59 23:59 Intake Total 980 / 980 1520 / 1520 180 / 180 Output Total 705 / 705 400 / 400 Balance 275 / 275 1120 / 1120 180 / 180 Lab / Micro Data Result Diagrams: 09/03/21 05:53 09/03/21 05:53 Labs: Laboratory Results - last 24 hr 09/03/21 05:53: WBC 5.2, RBC 3.42 L, Hgb 9.2 L, Hct 28.9 L, MCV 84.5, MCH 26.9 L, MCHC 31.8 L, RDW Std Deviation 48.8 H, RDW Coeff of Dianna 15.9 H, Plt Count 355, MPV 10.1, Immature Gran % (Auto) 1.000 H, Neut % (Auto) 74.2 H, Lymph % (Auto) 8.3 L, [place] % (Auto) 15.0 H, Eos % (Auto) 1.3, Baso % (Auto) 0.2, Absolute Neuts (auto) 3.9, Absolute Lymphs (auto) 0.43 L, Nucleated RBC % 0, Platelet Estimate A, Hypochromasia 1+ 09/03/21 05:53: Sodium 124 L, Potassium 4.7, Chloride 84 L, Carbon Dioxide 34.0 H, Anion Gap 6, BUN 23 H, Creatinine 0.73, Estim Creat Clear Calc 48.69, Est GFR (MDRD) Af Amer 132, Est GFR (MDRD) Non-Af 109, BUN/Creatinine Ratio 31.6 H, Glucose 91, Calcium 8.2 L Cardiology Labs/Tests 09/03/21 05:53: WBC 5.2, RBC 3.42 L, Hgb 9.2 L, Hct 28.9 L, MCV 84.5, MCH 26.9 L, MCHC 31.8 L, Plt Count 355, MPV 10.1, Immature Gran % (Auto) 1.000 H, Neut % (Auto) 74.2 H, Lymph % (Auto) 8.3 L, [place] % (Auto) 15.0 H, Eos % (Auto) 1.3, Baso % (Auto) 0.2, Absolute Neuts (auto) 3.9, Nucleated RBC % 0 09/03/21 05:53: Sodium 124 L, Potassium 4.7, Chloride 84 L, Carbon Dioxide 34.0 H, Anion Gap 6, BUN 23 H, Creatinine 0.73, Est GFR (MDRD) Af Amer 132, Est GFR (MDRD) Non-Af 109, BUN/Creatinine Ratio 31.6 H, Glucose 91, Calcium 8.2 L Rhythm: Paced ventricular rhythm with underlying atrial fibrillation Radiography Diagnostic Testing: Radiology Impression Chest X-Ray 09/03/21 14:13 IMPRESSION: Placement of Pleurx catheter left lung base with improvement left pleural effusion. However there is a small right pleural effusion and bibasilar infiltrates or atelectasis. No evidence for pneumothorax. Electronically Signed: Amarjit Cox MD at 14:46 EST Tel , Service support , Assessment & Plan Assessment/Plan (1) Malignant pleural effusion: (2) Presence of permanent cardiac pacemaker: (3) Tachy-jimmie syndrome: (4) Hyperlipidemia: QUALIFIERS: Hyperlipidemia type: unspecified Qualified Code(s): E78.5 - Hyperlipidemia, unspecified (5) Acute hypoxemic respiratory failure: (6) Paroxysmal atrial fibrillation with rapid ventricular response: PLAN: Patient is 81-year-old with malignant pleural effusion Non-small cell lung cancer Underwent insertion of Pleurx catheter under radiographic and ultrasound guidance/patient with left-sided malignant pleural effusion Patient has a history of tachybradycardia syndrome status post permanent pacemaker And has paroxysmal atrial fibrillation And noted on this admission had paroxysmal A. fib with RVR started on treatment with rate control which include diltiazem, metoprolol and digoxin The rate has been controlled with a paced ventricular rhythm Cardiovascular assessment and recommendation. 1. We will continue current treatment. 2. We will discuss anticoagulation following chest tube removal 3. Primary electrical subcontractor Dr. Block
[2021-09-03] MEDS: Jevity 1.5. 1,000 ML Bottle 240 ML GT ×3 (15:38→21:44)
[2021-09-03] MEDS: 0.9% Saline Lock 10 ML Syringe IV (21:43)
[2021-09-03] MEDS: Atorvastatin Calcium 20 MG Tablet GT (21:43)
[2021-09-04] VITALS (11 sets, daily range): BP systolic 105–124; BP diastolic 54–62; PULSE 60–88; RESP 12–20; TEMP 36.5–37.1; O2SAT 3–100
[2021-09-04] MEDS: Jevity 1.5. 1,000 ML Bottle 240 ML GT (05:19)
[2021-09-04] MEDS: Sodium Chloride 1 GM Tablet 2 GM PO ×2 (05:19→15:19)
[2021-09-04] MEDS: dilTIAZem 60 MG Tablet PO ×2 (05:19→12:16)
--- NOTE | 2021-09-04 07:59 | PN.SURG_ITS ---
Subjective Subjective Patient is seen and examined during AM rounds. He is sleeping when I arrived. He states that he rested well yesterday after his procedure and denies any significant discomfort today. He is not noted any improvement in his breathing, but states his breathing was not particularly labored before the procedure eithe r. At times he describes shortness of breath with coughing fits. Objective Data Objective Data Vital Signs: Vital Signs Temp Pulse Resp BP Pulse Ox 97.7 F L 75 12 109/56 L 93 09/04/21 04:00 09/04/21 07:43 09/04/21 04:00 09/04/21 05:18 09/04/21 07:57 Oxygen Flow Rate (L/min) [4] 5 Oxygen Flow Rate (L/min) [3] 5 Oxygen Flow Rate (L/min) [2] 5 Oxygen Flow Rate (L/min) [1 ( 5 Initial Baseline)] Oxygen Flow Rate (L/min) 4 Oxygen Delivery Method [4] Nasal Cannula Oxygen Delivery Method [3] Nasal Cannula Oxygen Delivery Method [2] Nasal Cannula Oxygen Delivery Method [1 ( Nasal Cannula Initial Baseline)] Oxygen Delivery Method Nasal Cannula Weight: 141 lb 12.116 oz Body Mass Index (BMI) 23.4 Intake & Output: Intake and Output for Last 24 Hours 09/02/21 09/03/21 09/04/21 23:59 23:59 23:59 Intake Total 1520 / 1520 390 / 450 90 / 90 Output Total 400 / 400 260 / 260 Balance 1120 / 1120 390 / 270 -170 / -170 Medical Nutrition Assessment Dietitian: Malnutrition Criteria Met Start: 08/27/21 10:52 Freq: Status: Active Protocol: Document 09/03/21 13:01 RMA (Rec: 09/03/21 13:01 RMA [id number]) Nutrition Malnutrition Evidence of Malnutrition Exists Yes Malnutrition (severe): Acute Illness/Injury Evidenced By Suboptimal Energy Intake ( Moderate),Weight Loss (Severe) ,Physical Changes (Moderate) Intake Problem Inadequate Enteral Nutrition Infusion Etiology suspected prior to admit related to inadequate volume per patient report Signs/Symptoms as evidenced by recent wt loss and inadequate TF schedule at home reported per patient Status Resolved Problem Inadequate Oral Intake Etiology related to dysphagia/ esophageal cancer Signs/Symptoms as evidenced by NPO/PEG tube feeding for nutrition Status Active Problem Clinical Problem Acute Disease or Injury Related Malnutrition Etiology Severe protein/calorie malnutrition in the context of acute illness related to dysphagia/inadequate oral intake and increased energy expenditure/malignancy Signs/Symptoms as evidenced by NPO/PEG tube feedings, approximately 6-8% wt loss x past 1-2 months, BLLE 3+ pitting edema which is likely asking further wt loss and muscle/fat wasting noted in the face orbitals and temporal regions Status Active Problem Recommendation Dietitian Recommendations/Changes NPO; Continue Jevity 1.5 240ml bolus feedings 5 times per day as tolerated with 100ml water flush Q feeding to provide 1800 kcal, 77 gm protein and 1412 ml free water per day. Will monitor weight, labs, bowel movements, and TF tolerance as continued. Follow-up with TF adjustments as needed. Lab / Micro Data Result Diagrams: 09/03/21 05:53 09/03/21 05:53 Micro: Microbiology 08/27/21 01:00 Blood Culture (Wb) - Anticubital Left Blood Culture - Final No growth in 5 days. 08/27/21 01:17 Nasal Secretion SARS-CoV-2 Antigen (Rapid) - Final Radiography Diagnostic Testing: Radiology Impression Chest X-Ray 09/03/21 14:13 IMPRESSION: Placement of Pleurx catheter left lung base with improvement left pleural effusion. However there is a small right pleural effusion and bibasilar infiltrates or atelectasis. No evidence for pneumothorax. Electronically Signed: Amarjit Cox MD at 14:46 EST Tel , Service support , Physical Exam Const no apparent distress Chest Chest: chest tube left; Negative for crepitus or tenderness Resp normal respiratory effort Resp Narrative: No air leak on Pleur-evac with provocative maneuvers including coughing Assessment & Plan Assessment/Plan (1) Malignant pleural effusion: PLAN: Postoperative day 1 from successful placement of left Pleurx c atheter. Patient had approximately 160 mL drainage since yesterday's procedure. This is serous in character. There is no airleak with the connected Pleur-evac system. I, therefore, capped the line and instructed nursing to keep the Pleur- evac system available for the next 1 hour should the patient develop any respiratory distress. However, I suspect from an infusion standpoint he should be eligible for discharge. Concerning ongoing management, to have the patient follow-up in our clinic on 09/10/2021 for instruction on use of his new Pleurx catheter. Ultimately, he will also require suture removal of permanent sutures that were placed to close the insertion site and tether the tube and the tunneling tract until the catheter cuff has been incorporated. Charges/Coding Visit Charges Inpatient E&M: 64510 Subs Hosp L2
[2021-09-04 08:20] LABS: Absolute Lymphocyte Count 0.37 X10^3/uL (0.83-4.51); Absolute Neutrophil Count 3.4 X10^3/uL (2.0-7.7); Basophil# 0.02 X10^3/uL; Basophil% 0.4 % (0-1); Eosinophil# 0.08 X10^3/uL; Eosinophils% 1.8 % (0-5); Hematocrit 30.1 % (40-54); Hemoglobin 9.5 g/dL (13.0-16.5); Lymphocyte # 0.37 X10^3/ul (0.83-4.51); Lymphocyte % 8.3 % (19-41); Mean Corp Hgb Conc 31.6 g/dL (32-36); Mean Corpuscular Hgb 27.2 pg (27.0-32.0); Mean Corpuscular Volume 86.2 fL (80-94); Mean Platelet Vol. 9.9 fl (6.2-12.0); Monocyte# 0.59 X10^3/uL; Monocyte% 13.2 % (0-10); NRBC Flagged by Analyzer 0 % (0-5); Neutrophil # 3.39 X10^3/uL (2.7-7.7); Neutrophil % 75.6 % (47-70); POSITIVE DIFFERENTIAL YES; Platelet Count 356 K/mm3 (150-450); RBC Distribution Width SD 50.2 fl (35.1-43.9); Red Blood Count 3.49 M/mm3 (4.6-6.2); White Blood Count 4.5 K/mm3 (4.4-11.0)
[2021-09-04 08:21] LABS: Differential Indicated SCAN CRITERIA MET
--- NOTE | 2021-09-04 08:32 | NURSING ---
Pleurx drainage bottle in room for patient to take home at discharge per Dr Sullivan request. Other supplies have been ordered by Dr Sullivan office. JESSICA Tracey and patient aware this is to be sent home with patient at discharge.
[2021-09-04 08:53] LABS: Basophilic Stippling RARE; Hypochromasia 1+; Platelet Estimate ADEQUATE (ADEQ)
[2021-09-04 09:03] LABS: Anion Gap 5 (5-15); BUN 22 mg/dL (7-18); BUN/Creat Ratio 25.9 RATIO (10-20); Calcium,Total 8.2 mg/dL (8.5-10.1); Chloride 87 mmol/L (98-107); Creatinine, Serum 0.85 mg/dL (0.70-1.30); EST Glomerular Filtration Rate 92 mL/min (>60); Est Glom Filt Rate - Afr Amer 111 mL/min (>60); Estimated Creatinine Clearance 57.28 ml/min; Glucose 147 mg/dL (74-106); Potassium 4.5 mmol/L (3.5-5.1); Sodium Level 126 mmol/L (136-145)
--- NOTE | 2021-09-04 09:40 | CASEMGMT ---
Addendum entered by Darleen Johnson 09/04/21 16:31: D/c summ/instructions faxed. Byron notified his intake of pt and that they will accept. Chyna RN CM Addendum entered by Darleen Johnson 09/04/21 16:05: This RN CM did speak with daughter and she is awaiting call to meet [facility] at pt's home to set up oxygen. Chyna RN CM Addendum entered by Darleen Johnson 09/04/21 15:41: Per Jojo at [facility], they spoke with daughter and she is meeting them at the house to set up oxygen for pt. Chyna RN CM Addendum entered by Darleen Johnson 09/04/21 15:11: Call back from [facility] and they cannot staff pt. This RN CM received a call back from Byron at [facility] and he states they can accept pt at this time and do start of care 09/05/21. Call to Dimple at [facility] to see who pt's tube feed supplies are set up thru and will notify [facility] with same info. Pt/ updated on all, voice understanding. Palliative notified of pt d/c, voice understanding. Per Leydi at [facility], pt gets his tube feed supplies filled thru the [facility] like any other script. Pt to be set up to see Dr. Sullivan on 09/10/21 for f/u and further pleurx supplies. Chyna RN CM Addendum entered by Darleen Johnson 09/04/21 14:42: Calls to [facility] and [facility] and they don't service pt's area. [facility] is reviewing referral and will call this RN CM back. Per [facility], they cannot accept pt. Per [facility], they do not have staffing. Per On [facility] of [facility], they do not accept MCR pt's. Call to Prudence at [facility] and she is going to check with her engraver tire mold and call this RN CM back. Call to Dimple at [facility] to see who was following for pt's HHC and per Marissa Musa AGRONOMY SUPERVISOR at [facility] is following and HHC is being billed thru [facility]. Call to Leydi at [facility] and she states pt's HHC was set up thru [facility] but that Marissa Monroe AGRONOMY SUPERVISOR can also sign to follow pt via his [facility]. CM to follow. Chyna LOPEZ CM Addendum entered by Darleen Johnson 09/04/21 14:13: Call from [facility] and they cannot accept pt d/t staffing. Chyna LOPEZ CM Addendum entered by Darleen Johnson 09/04/21 14:03: Call from [facility] and state they will attempt to get ahold of family to get home oxygen set up in home prior to pt discharge and then they will provide pt tank for discharge. Jojo at [email or web address]'s contact info: [phone]. Jojo aware that plan is for d/c today. Chyna LOPEZ CM Addendum entered by Darleen Johnson 09/04/21 13:34: Call from Leann at [facility] and she states she cannot accept pt d/t pleurx cath at this time. Call to several more agencies and they state they do not have staffing or can't accept pleurx. Call to [facility] about coordinating HHC and per Leydi, it would be a several day process for this to occur. Referrals then faxed to [facility], [facility], and [facility] at this time. CM to follow. Chyna LOPEZ CM Addendum entered by Darleen Johnson 09/04/21 12:08: Oxygen testing obtained and pt needs 2L at rest and 4L w/ exertion. Testing and all [facility] home oxygen paperwork faxed to [facility] program and call to them to notify of referral, voice understanding. CM to follow for HHC set up. Chyna LOPEZ CM Addendum entered by Darleen Johnson 09/04/21 11:33: Call back from Sony at [facility] and they state they are now declining to take pt back d/t pleurx cath at this time. [facility] to update pt on same. Pt states no preference on further HHC and call placed to [facility] and they are not able to accept. Call to [facility] and they state they cannot accept pt but to fax them referral as their sister company, [place], may be able to accept. Referral faxed to [facility]. PT/OT at bedside with pt at this time as pt informed this RN ANTOLIN, that he 'can't walk'. Pt declined therapy 2 days ago and was out of the dept yesterday for pleurx placement. Pt prior to that had been CGA 100ft. CM to follow. Still awaiting on home oxygen testing. Chyna LOPEZ CM Original Note: [facility] home oxygen paperwork completed with pt and pt states would like PT/OT added to his [facility] order. Call to Dimple at [facility] and updated on pleurx cath management and to add PT/OT, voices understanding. [facility] also aware that plan is for pt to d/c today. JESSICA DANGELO awaiting home oxygen testing to fax to [facility]. CM to follow. Chyna LOPEZ CM
[2021-09-04] MEDS: Senna/Docusate Sodium 1 Tablet 2 TABLET GT (12:16)
[2021-09-04] MEDS: Metoprolol Tartrate 100 MG Tablet GT (12:16)
[2021-09-04] MEDS: Lansoprazole 15 MG Capsule.DR GT (12:16)
[2021-09-04] MEDS: Digoxin 250 MCG Tablet PO (12:18)
--- NOTE | 2021-09-04 12:24 | PCM.PN.REN ---
Subjective Subjective Sitting in chair, at bedside. Objective Data Objective Data Vital Signs: Vital Signs Temp Pulse Resp BP Pulse Ox 98.7 F 88 20 H 110/62 87 09/04/21 09:25 09/04/21 12:16 09/04/21 09:25 09/04/21 09:25 09/04/21 12:00 Oxygen Flow Rate (L/min) [4] 5 Oxygen Flow Rate (L/min) [3] 5 Oxygen Flow Rate (L/min) [2] 5 Oxygen Flow Rate (L/min) [1 ( 5 Initial Baseline)] Oxygen Flow Rate (L/min) [ 4 AMBULATING with Oxygen #2] Oxygen Flow Rate (L/min) [ 85 AMBULATING with Oxygen #1] Oxygen Flow Rate (L/min) [At 2 REST with Oxygen] Oxygen Flow Rate (L/min) 2 Oxygen Delivery Method [4] Nasal Cannula Oxygen Delivery Method [3] Nasal Cannula Oxygen Delivery Method [2] Nasal Cannula Oxygen Delivery Method [1 ( Nasal Cannula Initial Baseline)] Oxygen Delivery Method Nasal Cannula Weight: 64.3 kg Body Mass Index (BMI) 23.4 Intake & Output: Intake and Output for Last 24 Hours 09/02/21 09/03/21 09/04/21 23:59 23:59 23:59 Intake Total 1520 / 1520 390 / 450 90 / 90 Output Total 400 / 400 510 / 510 Balance 1120 / 1120 390 / 270 -420 / -420 Medical Nutrition Assessment Dietitian: Malnutrition Criteria Met Start: 08/27/21 10:52 Freq: Status: Active Protocol: Document 09/03/21 13:01 RMA (Rec: 09/03/21 13:01 RMA [id number]) Nutrition Malnutrition Evidence of Malnutrition Exists Yes Malnutrition (severe): Acute Illness/Injury Evidenced By Suboptimal Energy Intake ( Moderate),Weight Loss (Severe) ,Physical Changes (Moderate) Intake Problem Inadequate Enteral Nutrition Infusion Etiology suspected prior to admit related to inadequate volume per patient report Signs/Symptoms as evidenced by recent wt loss and inadequate TF schedule at home reported per patient Status Resolved Problem Inadequate Oral Intake Etiology related to dysphagia/ esophageal cancer Signs/Symptoms as evidenced by NPO/PEG tube feeding for nutrition Status Active Problem Clinical Problem Acute Disease or Injury Related Malnutrition Etiology Severe protein/calorie malnutrition in the context of acute illness related to dysphagia/inadequate oral intake and increased energy expenditure/malignancy Signs/Symptoms as evidenced by NPO/PEG tube feedings, approximately 6-8% wt loss x past 1-2 months, BLLE 3+ pitting edema which is likely asking further wt loss and muscle/fat wasting noted in the face orbitals and temporal regions Status Active Problem Recommendation Dietitian Recommendations/Changes NPO; Continue Jevity 1.5 240ml bolus feedings 5 times per day as tolerated with 100ml water flush Q feeding to provide 1800 kcal, 77 gm protein and 1412 ml free water per day. Will monitor weight, labs, bowel movements, and TF tolerance as continued. Follow-up with TF adjustments as needed. Lab / Micro Data Result Diagrams: 09/04/21 07:54 09/04/21 07:54 Labs: Laboratory Results - last 24 hr 09/04/21 07:54: WBC 4.5, RBC 3.49 L, Hgb 9.5 L, Hct 30.1 L, MCV 86.2, MCH 27.2, MCHC 31.6 L, RDW Std Deviation 50.2 H, RDW Coeff of Dianna 16.0 H, Plt Count 356, MPV 9.9, Immature Gran % (Auto) 0.700, Neut % (Auto) 75.6 H, Lymph % (Auto) 8.3 L, [place]pewa % (Auto) 13.2 H, Eos % (Auto) 1.8, Baso % (Auto) 0.4, Absolute Neuts (auto) 3.4, Absolute Lymphs (auto) 0.37 L, Nucleated RBC % 0, Platelet Estimate ADEQUATE, Hypochromasia 1+, Basophilic Stippling RARE 09/04/21 07:54: Sodium 126 L, Potassium 4.5, Chloride 87 L, Carbon Dioxide 34.0 H, Anion Gap 5, BUN 22 H, Creatinine 0.85, Estim Creat Clear Calc 57.28, Est GFR (MDRD) Af Amer 111, Est GFR (MDRD) Non-Af 92, BUN/Creatinine Ratio 25.9 H, Glucose 147 H, Calcium 8.2 L Micro: Microbiology 08/27/21 01:00 Blood Culture (Wb) - Anticubital Left Blood Culture - Final No growth in 5 days. 08/27/21 01:17 Nasal Secretion SARS-CoV-2 Antigen (Rapid) - Final Radiography Diagnostic Testing: Radiology Impression Chest X-Ray 09/03/21 14:13 IMPRESSION: Placement of Pleurx catheter left lung base with improvement left pleural effusion. However there is a small right pleural effusion and bibasilar infiltrates or atelectasis. No evidence for pneumothorax. Electronically Signed: Amarjit Cox MD at 14:46 EST Tel , Service support , Physical Exam Narrative Alert awake oriented x 3 no obvious distress no JVD s1s2 no murmurs lungs clear abdomen soft no organomegaly ++ edema left arm, trace edema b/l legs Assessment & Plan Assessment/Plan (1) Hyponatremia: PLAN: Hyponatremia: hypotonic. 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 Sodium 126 today. We started him on salt tablets which seems to have contributed to edema (today patient states he has had left arm edema for a while now, and was told negative for blood clot). Reviewed last CXR. Does not tolerate any dose of Lasix. Started on low-dose Lasix on Friday and sodium dropped by 2 points. Will temporarily hold Lasix tablets. Weight is up ~1.5kg from admission. Continue sodium chloride 2gm TID last albumin 3.0 08/08/2021. 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
--- NOTE | 2021-09-04 13:56 | PCM.PN.CARD ---
Subjective Subjective No symptoms reported and no events from last night Objective Data Vital Signs: Vital Signs Temp Pulse Resp BP Pulse Ox 98.7 F 88 16 105/59 L 95 09/04/21 12:40 09/04/21 12:40 09/04/21 12:40 09/04/21 12:40 09/04/21 12:40 Oxygen Flow Rate (L/min) [4] 5 Oxygen Flow Rate (L/min) [3] 5 Oxygen Flow Rate (L/min) [2] 5 Oxygen Flow Rate (L/min) [1 ( 5 Initial Baseline)] Oxygen Flow Rate (L/min) [ 4 AMBULATING with Oxygen #2] Oxygen Flow Rate (L/min) [ 85 AMBULATING with Oxygen #1] Oxygen Flow Rate (L/min) [At 2 REST with Oxygen] Oxygen Flow Rate (L/min) 4 Oxygen Delivery Method [4] Nasal Cannula Oxygen Delivery Method [3] Nasal Cannula Oxygen Delivery Method [2] Nasal Cannula Oxygen Delivery Method [1 ( Nasal Cannula Initial Baseline)] Oxygen Delivery Method Nasal Cannula Weight: 141 lb 12.116 oz Body Mass Index (BMI) 23.4 Intake & Output: Intake and Output for Last 24 Hours 09/02/21 09/03/21 09/04/21 23:59 23:59 23:59 Intake Total 1520 / 1520 390 / 450 90 / 90 Output Total 400 / 400 510 / 510 Balance 1120 / 1120 390 / 270 -420 / -420 Lab / Micro Data Result Diagrams: 09/04/21 07:54 09/04/21 07:54 Labs: Laboratory Results - last 24 hr 09/04/21 07:54: WBC 4.5, RBC 3.49 L, Hgb 9.5 L, Hct 30.1 L, MCV 86.2, MCH 27.2, MCHC 31.6 L, RDW Std Deviation 50.2 H, RDW Coeff of Dianna 16.0 H, Plt Count 356, MPV 9.9, Immature Gran % (Auto) 0.700, Neut % (Auto) 75.6 H, Lymph % (Auto) 8.3 L, Cedar % (Auto) 13.2 H, Eos % (Auto) 1.8, Baso % (Auto) 0.4, Absolute Neuts (auto) 3.4, Absolute Lymphs (auto) 0.37 L, Nucleated RBC % 0, Platelet Estimate ADEQUATE, Hypochromasia 1+, Basophilic Stippling RARE 09/04/21 07:54: Sodium 126 L, Potassium 4.5, Chloride 87 L, Carbon Dioxide 34.0 H, Anion Gap 5, BUN 22 H, Creatinine 0.85, Estim Creat Clear Calc 57.28, Est GFR (MDRD) Af Amer 111, Est GFR (MDRD) Non-Af 92, BUN/Creatinine Ratio 25.9 H, Glucose 147 H, Calcium 8.2 L Cardiology Labs/Tests 09/04/21 07:54: WBC 4.5, RBC 3.49 L, Hgb 9.5 L, Hct 30.1 L, MCV 86.2, MCH 27.2, MCHC 31.6 L, Plt Count 356, MPV 9.9, Immature Gran % (Auto) 0.700, Neut % (Auto) 75.6 H, Lymph % (Auto) 8.3 L, Cedar % (Auto) 13.2 H, Eos % (Auto) 1.8, Baso % (Auto) 0.4, Absolute Neuts (auto) 3.4, Nucleated RBC % 0 09/04/21 07:54: Sodium 126 L, Potassium 4.5, Chloride 87 L, Carbon Dioxide 34.0 H, Anion Gap 5, BUN 22 H, Creatinine 0.85, Est GFR (MDRD) Af Amer 111, Est GFR (MDRD) Non-Af 92, BUN/Creatinine Ratio 25.9 H, Glucose 147 H, Calcium 8.2 L Rhythm: Underlying atrial fibrillation with a paced ventricular rhythm Radiography Diagnostic Testing: Radiology Impression Chest X-Ray 09/03/21 14:13 IMPRESSION: Placement of Pleurx catheter left lung base with improvement left pleural effusion. However there is a small right pleural effusion and bibasilar infiltrates or atelectasis. No evidence for pneumothorax. Electronically Signed: Amarjit Cox MD at 14:46 EST Tel , Service support , Physical Exam Narrative Patient alert orientated x3 Cardiovascular exam; review of the cardiac monitor technician showed underlying A. fib with controlled ventricular rate and paced ventricular rhythm S1-S2 is irregular no JVD S/p left Pleurx chest tube [employer] no focal neurological deficit Assessment & Plan Assessment/Plan (1) Malignant pleural effusion: (2) Presence of permanent cardiac pacemaker: (3) Tachy-jimmie syndrome: (4) Hyperlipidemia: QUALIFIERS: Hyperlipidemia type: unspecified Qualified Code(s): E78.5 - Hyperlipidemia, unspecified (5) Paroxysmal atrial fibrillation with rapid ventricular response: PLAN: 81-year-old with history of non-small cell lung cancer with the metastasis to the pleura With malignant pleural effusion Patient had a left Pleurx catheter Cardiovascular assessment and recommendations; I discussed the cardiac medication today with the nursing staff Patient has paroxysmal A. fib, history of tachybradycardia syndrome with a permanent pacemaker The underlying cardiac rhythm is A. fib with paced ventricular rhythm which is well controlled on the current treatment regimen diltiazem, metoprolol and digoxin. Patient has diastolic heart failure with hyponatremia and has been followed by the pluck trimmer Based on [id number] risk score patient high risk for stroke and will start on anticoagulation using Eliquis 2.5 mg twice a day Discussed with the surgeon due to risk of bleeding with recent left Pleurx catheter. From cardiac standpoint patient can be discharged and to follow-up with the primary political science research assistant Dr. Block for continuation of cardiac care plan.
[2021-09-04] MEDS: Polyethylene Glycol 3350 17 GM PACKET GT (14:43)
--- NOTE | 2021-09-04 15:19 | PCM.DC ---
Discharge Instructions Diet Discharge Diet: No restrictions Activity Discharge Activity: Return to Normal Activity Dressing / Incision Call your doctor if you observe: Fever of 101 or Higher, Shortness of breath, Dizziness, Fainting spells, Swelling in the ankles, Chest pain and Increased palpitations (irregular heartbeat) Follow Up Care Test Results: Test results from this visit will be discussed in further detail at your follow-up appointment, if applicable. Discharge Plan Admission Admit Date/Time: 08/27/21 03:00 Attending Provider: Martin Pederson Primary Care Provider: [facility] Consulting Providers: Ankur Medina ; Robert Vides ; Marissa Anand NP ; Tito Block ; Tito Vance ; Raymond Sullivan Instructions Additional Instructions / Restrictions: Follow-up with your PCP in 3 to 5 days to check on your sodium with a BMP. Discharge Orders/Prescriptions Prescriptions: New metoprolol tartrate 100 mg Tablet 100 mg G-tube BID Qty: 60 RF: 0 digoxin 250 mcg (0.25 mg) Tablet 250 mcg PO DAILY Qty: 30 RF: 0 diltiazem HCl [Cardizem LA] 240 mg tablet extended release 24 hr 240 mg PO DAILY Qty: 30 RF: 0 sodium chloride 1 gram Tablet 2 g PO TID 3 Days Qty: 18 RF: 0 Continued atorvastatin 20 mg tablet 20 mg PO QHS RF: 0 Prilosec 10 mg susp,delayed release for recon 20 mg PO DAILY Qty: 30 RF: 0 ondansetron HCl 4 mg tablet 4 mg PO Q8H PRN (Reason: Nausea) RF: 0 Eliquis 2.5 mg PO/SL BID RF: 0 Tylenol 325 mg PO.IVFORM PRN PRN (Reason: Breakthrough Pain, Mild) RF: 0 bisacodyl 5 mg PO/SL PRN PRN (Reason: Constipation) RF: 0 docusate sodium 100 mg PO/SL BID RF: 0 morphine 30 mg PO/SL Q4H PRN PRN (Reason: Breakthrough Pain) RF: 0 methadone 5 mg Tablet 7.5 mg PO Q8H RF: 0 Discontinued metoprolol tartrate 50 mg tablet 75 mg PO BID RF: 0 Referrals / Follow Up: Raymond Sullivan MD [STAFF PHYSICIAN] - 09/10/21 [place], [place] [Primary Care Provider] - Within 1 Week Disposition Disposition (needs filled in before D/C Order can be placed): Home Health Service
--- NOTE | 2021-09-04 15:30 | PCM.DC.SUM ---
Providers Date of Admission: 08/27/21 Primary Care Physician: [facility] Consultations 08/27/21 15:15 Consult: Engineer Technician / Pulmonary Medicine Routine Consulting Provider: Pulmonary Medicine slick Santos Reason for Consult: right pleural exudative pleural effusion EMERGENT Consult: No Notified: Yes Date Notified: 08/27/21 Time Notified: 15:15 Method of Notification: Text 08/28/21 09:10 Consult: Cardiology Routine Consulting Provider: Tito Block Reason for Consult: A-Fib EMERGENT Consult: No MD Notified: Yes Date Notified: 08/28/21 Time Notified: 09:10 Method of Notification: Verbal 08/30/21 07:58 Consult: Oncology/Hematology Routine Consulting Provider: Tito Vance Reason for Consult: 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 EMERGENT Consult: No Notified: Yes Date Notified: 08/30/21 Time Notified: 09:10 Method of Notification: paged via satellite communications operator 08/30/21 13:34 Consult: General Surgery Routine Consulting Provider: Raymond Sullivan Reason for Consult: recurrent malignant pleural effusion, needs Pleurx catheter EMERGENT Consult: No Notified: Yes Date Notified: 08/30/21 Time Notified: 13:34 Method of Notification: Text Reason For Visit: LEFT PLEURAL EFFUSION Diagnosis Discharge Diagnosis (1) Malignant pleural effusion: Status: Acute Code(s): J91.0 - Malignant pleural effusion (2) Presence of permanent cardiac pacemaker: Status: Chronic Code(s): Z95.0 - Presence of cardiac pacemaker (3) Tachy-jimmie syndrome: Status: Chronic Code(s): I49.5 - Sick sinus syndrome (4) Hyperlipidemia: Status: Chronic Code(s): E78.5 - Hyperlipidemia, unspecified Qualifiers: Hyperlipidemia type: unspecified Qualified Code(s): E78.5 - Hyperlipidemia, unspecified (5) Paroxysmal atrial fibrillation with rapid ventricular response: Status: Acute Code(s): I48.0 - Paroxysmal atrial fibrillation Medications at Discharge Home Medications atorvastatin 20 mg tablet 20 mg PO QHS tab 05/04/21 Prilosec 20 mg PO DAILY #30 ea 06/25/21 ondansetron HCl 4 mg PO Q8H PRN 07/22/21 Eliquis 2.5 mg PO/SL BID 08/08/21 Tylenol 325 mg PO.IVFORM PRN PRN 08/08/21 bisacodyl 5 mg PO/SL PRN PRN 08/08/21 docusate sodium 100 mg PO/SL BID 08/08/21 morphine 30 mg PO/SL Q4H PRN PRN 08/08/21 methadone 7.5 mg PO Q8H 08/20/21 digoxin 250 mcg PO DAILY #30 tab 09/04/21 diltiazem HCl [Cardizem LA] 240 mg PO DAILY #30 tab 09/04/21 metoprolol tartrate 100 mg G-TUBE BID #60 tab 09/04/21 sodium chloride 2 g PO TID 3 Days #18 tab 09/04/21 Hospital Course Operations None Procedures None Summary of Care Provided Minutes Spent on Discharge: 40 Hospital Course: Per HPI: KATHIA PAT, is a 81 M with a significant history of esophageal mass; paroxysmal atrial fibrillation; tachy-bradycardia syndrome; and with permanent pacemaker who presented to the emergency department with shortness of breath that started few hours before presentation. His shortness of breath is at rest. Associated with symptom is orthopnea and paroxysmal nocturnal dyspnea. Also patient reports of bilateral lower extremity edema that started about 2 weeks ago and for which Doppler of bilateral lower extremity was negative for clots. Earlier on the same day of presentation patient routinely check his blood pressure and his pulse. His atrial fibrillation persisted per his reading on his home machine. 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 He reported that this mass was found via CT scans and PET scans. Because of the mass he is unable to eat and he is on Jevity tube feeding. He is unable to further clarify the type of Jevity tube feeding he takes. Reportedly he takes 5 cans/day: Half of a can every 1 hour. Patient follows up with Dr. Luna, oncologist. Also he is getting radiation for his cancer Hospital Course: 1. Acute hypoxic respiratory failure secondary to right-sided malignant pleural effusion/metastatic non-small cell lung cancer ?Attempted Pleurx catheter placement on Friday failed, will retry 09/03/2021 ?He has 5 more radiation treatments for palliative treatment of this cancer. ?I had a 20-minute discussion on him about advanced care planning. He states that if he cannot have a good quality of life then he does not want to go any further treatments. I discussed with him that this tumor is likely not resectable but he would not talk to a surgeon about that issue, and in review of oncology's notes he could be a candidate for immunotherapy. I advised him that prior to making any decisions about hospice versus treatment, to talk with his oncologist about the side effects of immunotherapy and and the benefit of treatment. He is already enrolled in palliative care. 09/04/2021: Feels little bit better this afternoon, denies any significant shortness of breath he was able to ambulate on 2 L nasal cannula. The Pleurx drain was placed and he will follow up with surgery as an outpatient for teaching and management and he already has palliative care and will attempt to get him home health care to intermittently drain his pleural effusion. He will also follow-up with oncology to discuss treatment options and to continue with radiation. As for his hyponatremia, will continue with salt tabs for another few days and have him follow-up with his PCP in 3 to 5 days for outpatient BMP to monitor his sodium level, hopefully when he is home and he resumes his typical home diet that should get better but there is a likely SIADH component secondary to his non-small cell lung cancer. I discussed with him and his the plan for discharge today and he expressed understanding of the risk and benefits of going home and he would like to go home today. He does not want to go to a skilled nursing and he was able to ambulate 60feet with only contact-guard and a walker which she already has at home. 2. HTN/HLD/A. fib/acute on chronic dCHF ?Blood pressures appear stable, RVR has resolved ?Continue with p.o. Cardizem, his metoprolol was increased to 100 mg twice daily and he was started on digoxin. This combination seems to feel his heart rate pretty well therefore we will discharge him on 240 mg Cardizem daily as well as 100 metoprolol p.o. twice daily as well as digoxin. I do recommend that he follow-up with his slate picker in the next couple months for medication management and chest pain. ?Can restart Eliquis on discharge ?Continue with statin ?We will see how he does with the Pleurx catheter, Lasix was discontinued secondary to hyponatremia which is stable 3. Chronic malnutrition/GERD ?This is due to his cancer as he has an inability to swallow, has a PEG tube in place we will continue with tube feeds ?Continue with PPI Physical Exam Const alert, oriented x3 and no apparent distress General Appearance: cooperative HEENT normocephalic and moist oral mucous membranes Eyes PERRL, EOMs intact bilaterally and conjunctivae normal Neck supple and no JVD Chest Chest Narrative: Left Pleurx catheter in place Resp normal respiratory effort, no retractions and no use of accessory muscles Auscultation: diminished lung sounds; Negative for crackles, rales, rhonchi or wheezes Cardio regular rate, regular rhythm, S1 normal heart sound, S2 normal heart sound and no murmurs GI soft to palpation, non-tender and non-distended; Negative for hepatosplenomegaly Extremity no clubbing, cyanosis or edema Skin no rashes or lesions noted Neuro CN's II-XII intact bilaterally, no focal motor deficits and no sensory deficits noted Psych affect normal Appearance: appropriate Medical Records Data Medical Nutrition Assessment Dietitian: Malnutrition Criteria Met Start: 08/27/21 10:52 Freq: Status: Active Protocol: Document 09/03/21 13:01 RMA (Rec: 09/03/21 13:01 RMA [id number]) Nutrition Malnutrition Evidence of Malnutrition Exists Yes Malnutrition (severe): Acute Illness/Injury Evidenced By Suboptimal Energy Intake ( Moderate),Weight Loss (Severe) ,Physical Changes (Moderate) Intake Problem Inadequate Enteral Nutrition Infusion Etiology suspected prior to admit related to inadequate volume per patient report Signs/Symptoms as evidenced by recent wt loss and inadequate TF schedule at home reported per patient Status Resolved Problem Inadequate Oral Intake Etiology related to dysphagia/ esophageal cancer Signs/Symptoms as evidenced by NPO/PEG tube feeding for nutrition Status Active Problem Clinical Problem Acute Disease or Injury Related Malnutrition Etiology Severe protein/calorie malnutrition in the context of acute illness related to dysphagia/inadequate oral intake and increased energy expenditure/malignancy Signs/Symptoms as evidenced by NPO/PEG tube feedings, approximately 6-8% wt loss x past 1-2 months, BLLE 3+ pitting edema which is likely asking further wt loss and muscle/fat wasting noted in the face orbitals and temporal regions Status Active Problem Recommendation Dietitian Recommendations/Changes NPO; Continue Jevity 1.5 240ml bolus feedings 5 times per day as tolerated with 100ml water flush Q feeding to provide 1800 kcal, 77 gm protein and 1412 ml free water per day. Will monitor weight, labs, bowel movements, and TF tolerance as continued. Follow-up with TF adjustments as needed. Weight / BMI Weight Weight: 141 lb 12.116 oz Body Mass Index (BMI) 23.4 ABG / Lab / Microbiology Data Result Diagrams: 09/04/21 07:54 09/04/21 07:54 Laboratory: Laboratory Results - last 24 hr 09/04/21 07:54: WBC 4.5, RBC 3.49 L, Hgb 9.5 L, Hct 30.1 L, MCV 86.2, MCH 27.2, MCHC 31.6 L, RDW Std Deviation 50.2 H, RDW Coeff of Dianna 16.0 H, Plt Count 356, MPV 9.9, Immature Gran % (Auto) 0.700, Neut % (Auto) 75.6 H, Lymph % (Auto) 8.3 L, [place] % (Auto) 13.2 H, Eos % (Auto) 1.8, Baso % (Auto) 0.4, Absolute Neuts (auto) 3.4, Absolute Lymphs (auto) 0.37 L, Nucleated RBC % 0, Platelet Estimate ADEQUATE, Hypochromasia 1+, Basophilic Stippling RARE 09/04/21 07:54: Sodium 126 L, Potassium 4.5, Chloride 87 L, Carbon Dioxide 34.0 H, Anion Gap 5, BUN 22 H, Creatinine 0.85, Estim Creat Clear Calc 57.28, Est GFR (MDRD) Af Amer 111, Est GFR (MDRD) Non-Af 92, BUN/Creatinine Ratio 25.9 H, Glucose 147 H, Calcium 8.2 L Microbiology: Microbiology 08/27/21 01:00 Blood Culture (Wb) - Anticubital Left Blood Culture - Final No growth in 5 days. 08/27/21 01:17 Nasal Secretion SARS-CoV-2 Antigen (Rapid) - Final D/C Instructions Discharge Diet: No restrictions Call your doctor if you observe: Fever of 101 or Higher, Shortness of breath, Dizziness, Fainting spells, Swelling in the ankles, Chest pain and Increased palpitations (irregular heartbeat) Meaningful Use Info Meaningful Use Diagnoses (Choose all that apply): None applicable Discharge Plan Admission Admit Date/Time: 08/27/21 03:00 Attending Provider: Martin Pederson [facility] [place] Consulting Providers: Ankur Medina ; Robert Vides ; Marissa Anand FELLED SEAM OPERATOR ; Tito Block ; Tito Vance ; Raymond Sullivan Instructions Additional Instructions / Restrictions: Follow-up with your PCP in 3 to 5 days to check on your sodium with a BMP. Discharge Orders/Prescriptions Prescriptions: New metoprolol tartrate 100 mg Tablet 100 mg G-tube BID Qty: 60 RF: 0 digoxin 250 mcg (0.25 mg) Tablet 250 mcg PO DAILY Qty: 30 RF: 0 diltiazem HCl [Cardizem LA] 240 mg tablet extended release 24 hr 240 mg PO DAILY Qty: 30 RF: 0 sodium chloride 1 gram Tablet 2 g PO TID 3 Days Qty: 18 RF: 0 Continued atorvastatin 20 mg tablet 20 mg PO QHS RF: 0 Prilosec 10 mg susp,delayed release for recon 20 mg PO DAILY Qty: 30 RF: 0 ondansetron HCl 4 mg tablet 4 mg PO Q8H PRN (Reason: Nausea) RF: 0 Eliquis 2.5 mg PO/SL BID RF: 0 Tylenol 325 mg PO.IVFORM PRN PRN (Reason: Breakthrough Pain, Mild) RF: 0 bisacodyl 5 mg PO/SL PRN PRN (Reason: Constipation) RF: 0 docusate sodium 100 mg PO/SL BID RF: 0 morphine 30 mg PO/SL Q4H PRN PRN (Reason: Breakthrough Pain) RF: 0 methadone 5 mg Tablet 7.5 mg PO Q8H RF: 0 Discontinued metoprolol tartrate 50 mg tablet 75 mg PO BID RF: 0 Referrals / Follow Up: Raymond Sullivan MD [STAFF PHYSICIAN] - 09/10/21 Tito Block MD [STAFF PHYSICIAN] - 11/13/21 10:30 am [place] [Primary Care Provider] - Within 1 Week (Please call to setup an appointment. ) Disposition Disposition (needs filled in before D/C Order can be placed): Home Health Service Charges/Coding Visit Charges Inpatient E&M: 36908 Disch Hosp
== END 2021-09-04 18:20 | disposition home health service (06) | DRG 374 ==
LOC: ED 02:55 → PCU 03:22
PROVIDERS: Internal Medicine Critical Care Medicine; Internal Medicine Nephrology; Student in an Organized Health Care Education/Training Program; Surgery; Admitting Provider Hospitalist; Emergency Provider Emergency Medicine; Visit Provider Family Medicine
PROC: 0W9B3ZX Drainage of Left Pleural Cavity, Percutaneous Approach, Diagnostic (ICD-10-PCS; CPT 32550; principal; 2021-08-31 12:15)
PROC: 0W9B30Z Drainage of Left Pleural Cavity with Drainage Device, Percutaneous Approach (ICD-10-PCS; CPT 32550; principal; 2021-09-03 13:05)
DX: C15.9 Malignant neoplasm of esophagus, unspecified (principal); J96.01 Acute respiratory failure with hypoxia; E43 Unspecified severe protein-calorie malnutrition; I50.33 Acute on chronic diastolic (congestive) heart failure; C78.2 Secondary malignant neoplasm of pleura; E22.2 Syndrome of inappropriate secretion of antidiuretic hormone; J91.0 Malignant pleural effusion; J93.82 Other air leak; I48.0 Paroxysmal atrial fibrillation; I49.5 Sick sinus syndrome; E78.5 Hyperlipidemia, unspecified; J44.9 Chronic obstructive pulmonary disease, unspecified; Z68.23 Body mass index [BMI] 23.0-23.9, adult; Z95.0 Presence of cardiac pacemaker; Z51.5 Encounter for palliative care; Z87.891 Personal history of nicotine dependence; Z93.1 Gastrostomy status; Z92.3 Personal history of irradiation; K21.9 Gastro-esophageal reflux disease without esophagitis; I25.10 Atherosclerotic heart disease of native coronary artery without angina pectoris; I11.0 Hypertensive heart disease with heart failure; R13.0 Aphagia
CPT/HCPCS: 32555; 36415; 71045; 71046; 71250; 76000; 80048; 82945; 83605; 83615; 83735; 83880; 83930; 83935; 84156; 84157; 84295; 84300; 84443; 84484; 85025; 85610; 87040; 87426; 88108; 88305; 88313; 88341; 88342; 89050; 93005; 94640; 97110; 97162; 97166; 97530; 97535; 97802; 97803; 99285; J7120; P9047; A4216; C1729; J1940; J2405

== ENCOUNTER 2021-09-06 01:39 | Emergency (ER) | payer OTHER, SELFPAY ==
[2021-09-06 01:40] VITALS: BP 132/62; PULSE 64; RESP 22; TEMP 36.3; O2SAT 98; BMI 25.4
--- NOTE | 2021-09-06 02:01 | EX.ED.DYSGE1 ---
HPI History of Present Illness Chief Complaint: Edema Informant: patient and spouse/S.O. Narrative Narrative: Chief complaint is a burning feeling in the left mckeon. The symptoms got much better when his Daron wrap was removed. This patient has had swelling of his left arm and left legs for at least several weeks. He had outpatient ultrasounds at [facility] that he states were negative for DVT. This is referred to in his recent admission papers also. He states that the swelling of his legs has been bothering him. It is not worsening though. However, last night his wrapped them with an Daron wrap for the first time. They had never done this before. He then woke up this morning and he had burning sensation in his left anterior mckeon. EMS took off the Daron wrap to look at his leg and the symptoms got better. He is not really having the same symptoms in his right leg. They did not wrap his left arm although it has been swollen longer than the legs. It sounds like it is thought that his esophageal cancer is likely decreasing venous return from the left causing this. He is getting radiation therapy for that. He is taking his Eliquis. [facility] Medical History Atrial fibrillation Atrial fibrillation with RVR Cancer COPD (chronic obstructive pulmonary disease) Esophageal cancer Esophageal mass Esophageal obstruction Former smoker High cholesterol Hyperlipidemia Irregular heart beat Mass in chest Neuropathy Pacemaker Paroxysmal atrial fibrillation Tachy-jimmie syndrome Troponin I above reference range Home Medications atorvastatin 20 mg tablet 20 mg FEEDING TUBE QHS tab 05/04/21 [History Last Taken 08/26/21] ondansetron HCl 4 mg FEEDING TUBE Q8H PRN 07/22/21 [History Last Taken Unknown] Eliquis 2.5 mg G-TUBE BID 08/08/21 [History Last Taken 08/26/21] Tylenol 325 mg G-TUBE PRN PRN 08/08/21 [History Last Taken Unknown] morphine 30 mg G-TUBE Q4H PRN PRN 08/08/21 [History Last Taken Unknown] methadone 7.5 mg FEEDING TUBE Q12H 08/20/21 [History Last Taken 08/26/21] metoprolol tartrate 100 mg G-TUBE BID #60 tab 09/04/21 [Rx Last Taken Unknown] digoxin 250 mcg FEEDING TUBE DAILY 09/06/21 [History Last Taken Unknown] diltiazem HCl 60 mg FEEDING TUBE Q6H 09/06/21 [History Last Taken Unknown] furosemide 20 mg FEEDING TUBE TID 09/06/21 [History Last Taken Unknown] sennosides-docusate sodium [Senna Laxative-Stool Softener] 1 tab PO BID PRN PRN 09/06/21 [History Last Taken Unknown] sodium chloride 2 g FEEDING TUBE TID 09/06/21 [History Last Taken Unknown] Allergy/AdvReac Type Severity Reaction Status Date / Time oxycodone Allergy Itching Verified 09/06/21 01:44 Family History Mother Heart disease CHD Thyroid disorder Surgical History History of bilateral cataract extraction History of left heart catheterization (01/21/17) History of tonsillectomy Presence of permanent cardiac pacemaker (10/11/19) Social History Smoking Status: Former smoker how long ago did patient quit smokin years ago alcohol intake: never substance use type: does not use caffeine: Yes Type: coffee Number of servings: 2 ROS ROS ED Constitutional Constitutional ED: Denies chills or fever(s) Eyes Eyes: Denies blurry vision ENT ENT ED: Reports other Details: Patient inability to swallow due to the esophageal cancer. He has a PEG tube in place because of that. No difficulties with the PEG tube functioning ; Denies rhinorrhea or sore throat Cardiovascular Cardiovascular: Denies chest pain or palpitations Respiratory/Chest Respiratory/Chest: Reports other Details: Patient has a catheter in the left chest for draining of pleural effusion. However he denies any shortness of breath or coughing now. ; Denies cough, dyspnea or sputum Gastrointestinal Gastrointestinal: Denies abdominal pain, nausea or vomiting Musculoskeletal Musculoskeletal: Reports other Details: See history of present illness. Integumentary Denies rash Neurologic Neurologic: Denies paresthesias or weakness Endocrine Endocrinology: Denies polydipsia or polyuria Allergic/Immunologic Allergic/Immunologic ED: Denies mouth swelling, tongue swelling or urticaria EXAM Physical Exam Const Vital Signs: 09/06/21 01:40 Temperature 97.3 F L Temperature Source Temporal Pulse Rate 64 Respiratory Rate 22 H Blood Pressure 132/62 H Blood Pressure Mean 85 Pulse Ox 98 Oxygen Delivery Method Nasal Cannula Oxygen Flow Rate (L/min) 5 Patient is thin and looks chronically ill but not acutely ill. Breathing is easy and unlabored. Positive well nourished and well developed General Appearance ED: well developed and NAD HEENT Reports moist mucous membranes Eyes General Eye ED: Negative for pale conjunctiva Neck no JVD Resp normal respiratory effort and clear to auscultation bilaterally Resp Narrative: Patient's tube looks clean and intact. His lungs actually sound relatively clear. No coughing while I am in the room. Cardio regular rate and regular rhythm Rate: other Other Details: Patient has a history of atrial fibrillation. However, his rhythm sounds regular at this time. His rate is only about 65-70. GI normal to inspection, nondistended, normoactive bowel sounds and non-tender GI Narrative: PEG tube intact and not leaking. Palpation: soft Back/Spine no CVA tenderness Extremity Extremity Narrative: Patient does have +3 edema of left upper extremity which she states is chronic and unchanged. Good palpable pulses in color. Left lower extremity was unwrapped. He had some edema of the foot where he was not wrapped but no edema of the mckeon. However there is an erythematous streak on the anterior portion of this mckeon that looks like the skin was pinched and may be irritated by the Velcro of an Daron wrap. This is the area where he has burning. This does not look infectious. This does not look vesicular. The right leg was wrapped quite tightly. I removed the Daron wrap. This was multiple layers pulled quite tightly. When I remove the whole Daron wrap his leg looked partially deformed due to the variable tightness of the wrapping. I did do Doppler pulses that have intact both dorsalis pedis and posterior tibial in the legs. No sign of arterial insufficiency. Neuro oriented x3 and no sensory deficits noted Sensorium / Orientation: alert Psych mental status grossly normal Skin Skin Narrative: See leg MDM MDM MDM Narrative Medical decision making narrative: After removing the Daron wrap his legs have returned to a normal appearance. They are not cratered dividend and malformed but they are normal straight and without edema. It was actually quite impressive the variation of the soft tissue with those very tight wrappings. There is no bleeding or bruising developing. His symptoms of burning are completely resolved. He feels completely back to normal. His blood work showed some baseline anemia. He also has low sodium but is not dropping any further. This has been chronic at this level. We are going to try to see if we can get some knee-high BELÉN hose to help him. If not we will use a 6 inch Daron wrap and gently wrap his legs. He will follow up with his physicians as an outpatient. Lab Data Attestation: I reviewed the patient's lab results. Labs: Laboratory Results - last 24 hr 09/06/21 09/06/21 01:55 01:55 WBC 5.5 RBC 3.66 L Hgb 10.0 L Hct 30.6 L MCV 83.6 MCH 27.3 MCHC 32.7 RDW Std Deviation 47.2 H RDW Coeff of Dianna 15.6 H Plt Count 399 MPV 9.5 Immature Gran % (Auto) 0.700 Neut % (Auto) 76.5 H Lymph % (Auto) 9.5 L [place] % (Auto) 10.8 H Eos % (Auto) 2.0 Baso % (Auto) 0.5 Absolute Neuts (auto) 4.2 Absolute Lymphs (auto) 0.52 L Nucleated RBC % 0 Differential Comment SCANNED Sodium 124 L Potassium 4.2 Chloride 85 L Carbon Dioxide 31.0 Anion Gap 8 BUN 28 H Creatinine 0.99 Estim Creat Clear Calc 49.18 Est GFR (MDRD) Af Amer 92 Est GFR (MDRD) Non-Af 76 BUN/Creatinine Ratio 28.2 H Glucose 93 Calcium 8.5 Discharge Plan Triage Chief Complaint: Edema ED Provider: Oswaldo Wolfe Dx/Rx/DC Orders Clinical Impression: Anterior leg pain, Peripheral edema Instructions: ED Bandage Elastic Wrap, ED Lymphedema Prescriptions: No Action atorvastatin 20 mg tablet 20 mg feeding tube QHS RF: 0 ondansetron HCl 4 mg tablet 4 mg feeding tube Q8H PRN (Reason: Nausea) RF: 0 Eliquis 2.5 mg G-tube BID RF: 0 Tylenol 325 mg G-tube PRN PRN (Reason: Breakthrough Pain, Mild) RF: 0 morphine 30 mg G-tube Q4H PRN PRN (Reason: Breakthrough Pain) RF: 0 methadone 5 mg Tablet 7.5 mg feeding tube Q12H RF: 0 metoprolol tartrate 100 mg Tablet 100 mg G-tube BID Qty: 60 RF: 0 sennosides-docusate sodium [Senna Laxative-Stool Softener] 8.6-50 mg Tablet 1 tab PO BID PRN PRN (Reason: Constipation) RF: 0 furosemide 20 mg tablet 20 mg feeding tube TID RF: 0 sodium chloride 1 gram tablet 2 g feeding tube TID RF: 0 digoxin 250 mcg (0.25 mg) tablet 250 mcg feeding tube DAILY RF: 0 diltiazem HCl 60 mg tablet 60 mg feeding tube Q6H RF: 0 [facility]Primary Care Provider[facility] - [facility] Disposition Disposition: Home, Self Care
[2021-09-06 02:08] LABS: Absolute Lymphocyte Count 0.52 X10^3/uL (0.83-4.51); Absolute Neutrophil Count 4.2 X10^3/uL (2.0-7.7); Basophil# 0.03 X10^3/uL; Basophil% 0.5 % (0-1); Eosinophil# 0.11 X10^3/uL; Hematocrit 30.6 % (40-54); Lymphocyte # 0.52 X10^3/ul (0.83-4.51); Lymphocyte % 9.5 % (19-41); Mean Corp Hgb Conc 32.7 g/dL (32-36); Mean Corpuscular Hgb 27.3 pg (27.0-32.0); Mean Corpuscular Volume 83.6 fL (80-94); Mean Platelet Vol. 9.5 fl (6.2-12.0); Monocyte# 0.59 X10^3/uL; Monocyte% 10.8 % (0-10); NRBC Flagged by Analyzer 0 % (0-5); Neutrophil # 4.19 X10^3/uL (2.7-7.7); Neutrophil % 76.5 % (47-70); POSITIVE DIFFERENTIAL YES; Platelet Count 399 K/mm3 (150-450); RBC Distribution Width CV 15.6 % (11.6-14.6); RBC Distribution Width SD 47.2 fl (35.1-43.9); Red Blood Count 3.66 M/mm3 (4.6-6.2); White Blood Count 5.5 K/mm3 (4.4-11.0)
[2021-09-06 02:19] LABS: Anion Gap 8 (5-15); BUN 28 mg/dL (7-18); BUN/Creat Ratio 28.2 RATIO (10-20); Calcium,Total 8.5 mg/dL (8.5-10.1); Chloride 85 mmol/L (98-107); Creatinine, Serum 0.99 mg/dL (0.70-1.30); EST Glomerular Filtration Rate 76 mL/min (>60); Est Glom Filt Rate - Afr Amer 92 mL/min (>60); Estimated Creatinine Clearance 49.18 ml/min; Glucose 93 mg/dL (74-106); Potassium 4.2 mmol/L (3.5-5.1); Sodium Level 124 mmol/L (136-145)
[2021-09-06 02:31] LABS: Differential Comment SCANNED; Differential Indicated SCAN CRITERIA MET
[2021-09-06 03:37] VITALS: BP 117/66; PULSE 87; RESP 18; O2SAT 97
[2021-09-06 04:00] VITALS: RESP 16
== END 2021-09-06 04:25 | disposition home or self-care (01) ==
PROVIDERS: Emergency Provider Emergency Medicine
DX: M79.606 Pain in leg, unspecified (principal); R60.9 Edema, unspecified; C15.9 Malignant neoplasm of esophagus, unspecified; Z87.891 Personal history of nicotine dependence; E78.00 Pure hypercholesterolemia, unspecified; E78.5 Hyperlipidemia, unspecified; I48.0 Paroxysmal atrial fibrillation; J44.9 Chronic obstructive pulmonary disease, unspecified; G62.9 Polyneuropathy, unspecified; Z79.01 Long term (current) use of anticoagulants; Z95.0 Presence of cardiac pacemaker
CPT/HCPCS: 80048; 85025; 99284; A4216

== ENCOUNTER 2021-09-15 15:41 | Observation (INO) | payer OTHER, SELFPAY ==
[2021-09-15] VITALS (7 sets, daily range): BP systolic 99–125; BP diastolic 50–77; PULSE 57–72; RESP 16–18; TEMP 36.3–36.7; O2SAT 94–99; BMI 25.2; BMI 24.3
--- NOTE | 2021-09-15 17:26 | EDS_ITS ---
HPI History of Present Illness Chief Complaint: Fatigue Informant: patient and spouse/S.O. Onset/Context/Timing Onset: Days Context: Gradual Onset Timing: Continuous Current Severity: Mild Maximum Severity: Mild Narrative Narrative: 81-year-old male history of lung cancer with esophageal bony mets under the care of hospice in the [facility] [place]. Also has a pacemaker and a history of CHF. Patient has not been feeling well last several days he denies any vomiting or diarrhea. He denies any fever or shortness of breath. He does have a feeding tube. Recently had a left chest drainage tube put in for what sounds like a pleural effusion. He is currently on home oxygen 2 L. He states his pain well. He denies any vomiting. He denies any abdominal pain. Prior similar symptoms: No Recent Illness/Hospitalization: No PFSH PFS Medical History Atrial fibrillation Atrial fibrillation with RVR Cancer CHF (congestive heart failure) COPD (chronic obstructive pulmonary disease) Esophageal mass Esophageal obstruction Former smoker High cholesterol Hyperlipidemia Irregular heart beat Mass in chest Neuropathy Pacemaker Paroxysmal atrial fibrillation with rapid ventricular response Tachy-jimmie syndrome Troponin I above reference range Home Medications atorvastatin 20 mg tablet 20 mg FEEDING TUBE QHS tab 05/04/21 [History Last Taken 08/26/21] ondansetron HCl 4 mg FEEDING TUBE Q8H PRN 07/22/21 [History Last Taken Unknown] Eliquis 2.5 mg G-TUBE BID 08/08/21 [History Last Taken 08/26/21] Tylenol 325 mg G-TUBE PRN PRN 08/08/21 [History Last Taken Unknown] morphine 30 mg G-TUBE Q4H PRN PRN 08/08/21 [History Last Taken Unknown] methadone 7.5 mg FEEDING TUBE Q12H 08/20/21 [History Last Taken 08/26/21] metoprolol tartrate 100 mg G-TUBE BID #60 tab 09/04/21 [Rx Last Taken Unknown] digoxin 250 mcg FEEDING TUBE DAILY 09/06/21 [History Last Taken Unknown] diltiazem HCl 60 mg FEEDING TUBE Q6H 09/06/21 [History Last Taken Unknown] furosemide 20 mg FEEDING TUBE TID 09/06/21 [History Last Taken Unknown] sennosides-docusate sodium [Senna Laxative-Stool Softener] 1 tab PO BID PRN PRN 09/06/21 [History Last Taken Unknown] Allergy/AdvReac Type Severity Reaction Status Date / Time oxycodone Allergy Itching Verified 09/15/21 15:43 Family History Mother Heart disease CHD Thyroid disorder Surgical History History of bilateral cataract extraction History of left heart catheterization (01/21/17) History of tonsillectomy Presence of permanent cardiac pacemaker (10/11/19) Social History Smoking Status: Former smoker how long ago did patient quit smokin years ago alcohol intake: never substance use type: does not use caffeine: Yes Type: coffee Number of servings: 2 ROS ROS ED ROS Narrative Weakness. Review of Systems ROS Unobtainable: Denies due to encephalopathy Constitutional Constitutional ED: Denies chills or fever(s) Eyes Eyes: Denies change in vision ENT ENT ED: Denies ear pain Cardiovascular Cardiovascular: Denies chest pain Respiratory/Chest Respiratory/Chest: Denies cough or dyspnea Gastrointestinal Gastrointestinal: Denies abdominal pain, diarrhea, nausea or vomiting Genitourinary Genitourinary ED: Denies dysuria Musculoskeletal Musculoskeletal: Denies myalgias Integumentary Denies rash Neurologic Neurologic: Denies headache(s) Psychiatric Psychiatric: Denies depression Endocrine Endocrinology: Denies polyuria Allergic/Immunologic Allergic/Immunologic ED: Denies urticaria EXAM Physical Exam Narrative Exam Narrative: 81-year-old male no acute distress vital signs stable afebrile. Current blood pressure 124/51. He is on oxygen his pulse is 95% on 3 L. HEENT exam dry extremities. Neck nontender no lymphadenopathy. Lungs clear to auscultation bilaterally. Heart regular rhythm rate about 60 no murmur. Abdomen soft nondistended normal bowel sounds no peritoneal signs. Feeding tube in epigastric region. Left drainage chest tube. Abdomen is nontender without peritoneal signs. He has a 1-2+ pitting edema both lower extremities. Its been there for weeks. He also has mild edema in his left arm. 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 Neurologically is awake and alert at this time he is answering questions and following commands. Const Vital Signs: 09/15/21 15:44 09/15/21 17:12 Temperature 98.1 F Temperature Source Temporal Pulse Rate 57 L 69 Respiratory Rate 18 16 Blood Pressure 99/59 L 124/51 H Blood Pressure Mean 72 75 Pulse Ox 99 95 Oxygen Delivery Method Nasal Cannula Nasal Cannula Oxygen Flow Rate (L/min) 3 3 Positive well nourished and well developed; Negative for obese, cachectic, contractures or unkempt General Appearance ED: well developed and NAD; Negative for unkempt, cachectic, contractures, cyanotic or diaphoretic Nutritional Appearance: Negative for cachectic or obese HEENT Reports dry mucous membranes Negative for trauma or tenderness Mouth ED: Yes dry mucous membranes Mouth: dry mucous membranes Eyes PERRL and EOMs intact bilaterally Neck no lymphadenopathy, supple and no JVD General: Negative for tenderness Chest Wall inspection of chest normal and palpation of chest normal Resp normal respiratory effort and clear to auscultation bilaterally Effort and Inspection: Negative for pain with movement Auscultation: Negative for rales, rhonchi or wheezes Cardio regular rate, regular rhythm, S1 normal heart sound, S2 normal heart sound and no murmurs GI normal to inspection, nondistended, normoactive bowel sounds, non-tender and non-distended Auscultation: normoactive bowel sounds Palpation: soft Back/Spine no CVA tenderness Extremity Negative for normal to inspection Extremity Narrative: Bilateral lower extremity 1-2+ pitting edema. Also mild edema left arm. General Extremety ED: Yes edema; Negative for tenderness General Extremity: edema Neuro oriented x3 Sensorium / Orientation: alert Psych mental status grossly normal Appearance: Negative for unkempt Mood & Affect: Negative for depressed or tearful Skin no rashes or lesions noted and no wounds MDM MDM MDM Narrative Medical decision making narrative: 81-year-old male states he is just not feeling well. Has a history of lung CA with esophageal bony mets. Has a left- sided chest tube and a feeding tube. Clinically looks dehydrated will be given IV fluids. He has third spacing in both lower extremities and left arm. Labs and x-rays are being obtained. Repeat exam unchanged at 7:25 PM. Patient be started on IV Rocephin and Zithromax for possible left-sided pneumonia. He is also been given a liter of fluid and will need to be admitted. Compared to his prior labs his sodium has been running low recently. Same range as it is today. Lab Data Attestation: I reviewed the patient's lab results. Lab results narrative: CBC shows white count 6.9. Hemoglobin 9.7. Platelets of 327. Electrolytes show sodium 122. Gap of seven. Normal BUN of 20 creatinine 0.9. Liver enzymes are unremarkable. Labs: Laboratory Results - last 24 hr 09/15/21 09/15/21 17:40 17:40 WBC 6.9 RBC 3.60 L Hgb 9.7 L Hct 29.6 L MCV 82.2 MCH 26.9 L MCHC 32.8 RDW Std Deviation 47.2 H RDW Coeff of Dianna 15.8 H Plt Count 327 MPV 9.5 Immature Gran % (Auto) 0.400 Neut % (Auto) 88.3 H Lymph % (Auto) 4.2 L [place] % (Auto) 6.7 Eos % (Auto) 0.1 Baso % (Auto) 0.3 Absolute Neuts (auto) 6.0 Absolute Lymphs (auto) 0.29 L Nucleated RBC % 0 Differential Comment SCANNED Sodium 122 L Potassium 4.8 Chloride 83 L Carbon Dioxide 32.0 Anion Gap 7 BUN 20 H Creatinine 0.91 Estim Creat Clear Calc 53.50 Est GFR (MDRD) Af Amer 102 Est GFR (MDRD) Non-Af 84 BUN/Creatinine Ratio 21.9 H Glucose 100 Calcium 8.7 Total Bilirubin 0.60 AST 25 ALT 16 Alkaline Phosphatase 112 Total Protein 6.3 L Albumin 1.6 L Globulin 4.7 H Albumin/Globulin Ratio 0.3 L Radiography Chest X-Ray - ED: 1 View, Read by ED Physician and Left Infiltrate Diagnostic Testing: Clinical Impression(s) from Imaging Studies Chest X-Ray 09/15/21 17:38 IMPRESSION: 1. Extensive left lung pneumonia. 2. Small bilateral effusions, moderate cardiomegaly. Electronically Signed: Skyler Cancino MD at 18:09 EST Tel , Service support , Chest x-ray, portable, single view interpreted myself and the radiologist shows what appears of a left lung infiltrate. He also has a history of lung CA with mets these could also be masses but does look new from December chest x-ray about 10 days ago. It could be a postobstructive pneumonia from the masses. He will be treated as possible pneumonia and it would also go along with his hyponatremia. Discharge Plan Triage Chief Complaint: Fatigue Other Complaint: Confusion ED Provider: Andre Way Dx/Rx/DC Orders Clinical Impression: Hyponatremia, Malignant pleural effusion, Pneumonia Prescriptions: No Action atorvastatin 20 mg tablet 20 mg feeding tube QHS RF: 0 ondansetron HCl 4 mg tablet 4 mg feeding tube Q8H PRN (Reason: Nausea) RF: 0 Eliquis 2.5 mg G-tube BID RF: 0 Tylenol 325 mg G-tube PRN PRN (Reason: Breakthrough Pain, Mild) RF: 0 morphine 30 mg G-tube Q4H PRN PRN (Reason: Breakthrough Pain) RF: 0 methadone 5 mg Tablet 7.5 mg feeding tube Q12H RF: 0 metoprolol tartrate 100 mg Tablet 100 mg G-tube BID Qty: 60 RF: 0 sennosides-docusate sodium [Senna Laxative-Stool Softener] 8.6-50 mg Tablet 1 tab PO BID PRN PRN (Reason: Constipation) RF: 0 furosemide 20 mg tablet 20 mg feeding tube TID RF: 0 digoxin 250 mcg (0.25 mg) tablet 250 mcg feeding tube DAILY RF: 0 diltiazem HCl 60 mg tablet 60 mg feeding tube Q6H RF: 0 [facility] [facility] [Primary Care Provider] - Disposition Disposition: Acute Care Hospital [facility]
--- NOTE | 2021-09-15 17:38 | RAD_ITS ---
STUDY: X-RAY CHEST REASON FOR EXAM: Male, 81 years old. weakness confusion and weakness, is on Hospice for lung cancer. Hospice was unable to come out and check patient so told to come to ED. TECHNIQUE: Frontal portable view of the chest COMPARISON: and August 2021 FINDINGS: Lungs are moderately emphysematous. There are extensive bilateral left greater than right pulmonary opacities, likely worsening left pneumonia. There are small to moderate bilateral pleural effusions and basal atelectasis. The heart is moderately enlarged with pacemaker in the left upper chest. Additional wire overlies the left hemithorax. There is no pneumothorax. RAD/Chest 1 View (Portable) IMPRESSION: 1. Extensive left lung pneumonia. 2. Small bilateral effusions, moderate cardiomegaly. Electronically Signed: Skyler Cancino MD at 18:09 EST Tel , Service support ,
[2021-09-15] MEDS: 0.9% Normal Saline 1,000 ML 1000 ML IV (17:41)
[2021-09-15 17:45] LABS: Absolute Lymphocyte Count 0.29 X10^3/uL (0.83-4.51); Basophil# 0.02 X10^3/uL; Basophil% 0.3 % (0-1); Eosinophil# 0.01 X10^3/uL; Eosinophils% 0.1 % (0-5); Hematocrit 29.6 % (40-54); Hemoglobin 9.7 g/dL (13.0-16.5); Lymphocyte # 0.29 X10^3/ul (0.83-4.51); Lymphocyte % 4.2 % (19-41); Mean Corp Hgb Conc 32.8 g/dL (32-36); Mean Corpuscular Hgb 26.9 pg (27.0-32.0); Mean Corpuscular Volume 82.2 fL (80-94); Mean Platelet Vol. 9.5 fl (6.2-12.0); Monocyte# 0.46 X10^3/uL; Monocyte% 6.7 % (0-10); NRBC Flagged by Analyzer 0 % (0-5); Neutrophil # 6.04 X10^3/uL (2.7-7.7); Neutrophil % 88.3 % (47-70); POSITIVE DIFFERENTIAL YES; Platelet Count 327 K/mm3 (150-450); RBC Distribution Width CV 15.8 % (11.6-14.6); RBC Distribution Width SD 47.2 fl (35.1-43.9); White Blood Count 6.9 K/mm3 (4.4-11.0)
[2021-09-15 17:50] LABS: Differential Indicated SCAN CRITERIA MET
[2021-09-15 18:01] LABS: ALB/GLOB Ratio 0.3 RATIO (0.9-2.4); AST(SGOT) 25 U/L (15-37); Alanine Aminotransfer ALT/SGPT 16 U/L (16-61); Albumin, Serum 1.6 g/dL (3.2-5.0); Alkaline Phosphatase 112 U/L (45-117); Anion Gap 7 (5-15); BUN 20 mg/dL (7-18); BUN/Creat Ratio 21.9 RATIO (10-20); Calcium,Total 8.7 mg/dL (8.5-10.1); Chloride 83 mmol/L (98-107); Creatinine, Serum 0.91 mg/dL (0.70-1.30); EST Glomerular Filtration Rate 84 mL/min (>60); Est Glom Filt Rate - Afr Amer 102 mL/min (>60); Globulin 4.7 g/dL (2.2-4.2); Glucose 100 mg/dL (74-106); Potassium 4.8 mmol/L (3.5-5.1); Protein, Total 6.3 g/dL (6.4-8.2); Sodium Level 122 mmol/L (136-145)
[2021-09-15 18:13] LABS: Differential Comment SCANNED
[2021-09-15 19:35] LABS: Bacteria 0 SEEN /hpf (None Seen); Mucous, Urine 0 SEEN /hpf (<or=2+)
[2021-09-15 19:37] LABS: Color, Urine Yellow (Yellow); Glucose, Dipstick Normal (Normal); Ketone-Dipstick 5 mg/dl (Negative); Leukocyte Esterase-Dipstick 25 /ul (Negative); Nitrite-Dipstick Negative (Negative); Occult Blood-Urine 10 /ul (Negative); Protein-Dipstick 30 mg/dl (Negative); Urine Bilirubin Dipstick 3 mg/dL (Negative); Urine Clarity Clear (Clear); Urine Urobilinogen 1 mg/dl (Normal)
[2021-09-15 19:50] LABS: Red Blood Cells-Urine 0-5 SEEN /hpf (0-5); Squamous Epithelial Cells - UA 0-5 SEEN /hpf (0-5); White Blood Cells 5-10 SEEN /hpf (0-5)
--- NOTE | 2021-09-15 20:21 | ED.RN ---
called pharmacy to inquire- sent to floor. called charger testerJESSICA Meadows to inform.
--- NOTE | 2021-09-15 20:34 | PCM.HP.STD ---
HPI - General General Date of Admission: 09/15/21 HPI Narrative KATHIA FRENCH, is a 81 M with recent diagnosis of stage IV lung cancer with wide metastasis to adjoining structures including esophagus about 1 and half months ago came to ER for fatigue and altered mental status. I talked to the patient's , Mr. Trudy French got the history from her and the patient. Patient was having confusion, unaware of the surrounding, disorientation and could not recognize his medications. As per the he was also having chills, fatigue and weakness. Patient has life long term hospice which follows for medication administration and general care but was not available on the weekend therefore came to ED Patient denies shortness of breath, tachypnea, cough or chest pain. Patient has left pleural catheter for drainage and has PEG tube for feeding. He had total 10 radiation treatments recently within last 1 month was planned to start chemotherapy on coming 09/17/2021. Chest x-ray done in the ER shows worsening left lung infiltrates. Patient has chronic hyponatremia, sodium has been in 120s since 08/27/2021. Patient other comorbidities listed below including tachybradycardia syndrome, A. fib, has pacemaker and follows Dr. Reece. [facility] Medical History Atrial fibrillation Atrial fibrillation with RVR Cancer CHF (congestive heart failure) COPD (chronic obstructive pulmonary disease) Esophageal mass Esophageal obstruction Former smoker High cholesterol Hyperlipidemia Irregular heart beat Mass in chest Neuropathy Pacemaker Paroxysmal atrial fibrillation with rapid ventricular response Tachy-jimmie syndrome Troponin I above reference range Home Medications atorvastatin 20 mg tablet 20 mg FEEDING TUBE QHS tab 05/04/21 [History Last Taken 09/14/21] ondansetron HCl 4 mg FEEDING TUBE Q8H PRN 07/22/21 [History Last Taken 09/14/21] Eliquis 2.5 mg G-TUBE BID 08/08/21 [History Last Taken 09/14/21] Tylenol 325 mg G-TUBE PRN PRN 08/08/21 [History Last Taken Unknown] morphine 30 mg G-TUBE Q4H PRN PRN 08/08/21 [History Last Taken 09/15/21] methadone 7.5 mg FEEDING TUBE Q12H 08/20/21 [History Last Taken 09/15/21] metoprolol tartrate 100 mg G-TUBE BID #60 tab 09/04/21 [Rx Last Taken 09/14/21] digoxin 250 mcg FEEDING TUBE DAILY 09/06/21 [History Last Taken 09/15/21] diltiazem HCl 60 mg FEEDING TUBE Q6H 09/06/21 [History Last Taken 09/15/21] furosemide 20 mg FEEDING TUBE TID 09/06/21 [History Last Taken 09/14/21] sennosides-docusate sodium [Senna Laxative-Stool Softener] 1 tab PO BID PRN PRN 09/06/21 [History Last Taken Unknown] Allergy/AdvReac Type Severity Reaction Status Date / Time oxycodone Allergy Itching Verified 09/15/21 15:43 Family History Mother Heart disease CHD Thyroid disorder Surgical History History of bilateral cataract extraction History of left heart catheterization (01/21/17) History of tonsillectomy Presence of permanent cardiac pacemaker (10/11/19) Social History Smoking Status: Former smoker how long ago did patient quit smokin years ago alcohol intake: never substance use type: does not use caffeine: Yes Type: coffee Number of servings: 2 ROS ROS Narrative Constitutional: Reports fatigue and weakness, confusion. Decreased functional activity HEENT: Reports systems reviewed and no addt'l complaints, except as documented Respiratory/Chest: As mentioned in HPI Gastrointestinal: Feeding well PEG tube. Denies coffee ground emesis, hematemesis or vomiting Genitourinary: Denies burning urination or new urinary tract symptoms. Dark-colored urine Musculoskeletal: Reports joint pain and limited range of motion Extremities: Generalized edema of all 4 extremities including bilateral upper, lymphedema Neurologic: Denies seizure-like activity skin: No ulcer. No rash Endocrinology: Reports systems reviewed and no addt'l complaints, except as documented Hematologic/Lymphatic: Lung cancer, lymphedema reports systems reviewed and no addt'l complaints, except as documented Rest 12 ROS are negative except as mentioned in HPI Vital Signs Vital Signs Vital Signs: 09/15/21 15:44 09/15/21 17:12 09/15/21 19:37 Temperature 98.1 F 97.6 F L Temperature Source Temporal Oral Pulse Rate 57 L 69 62 Respiratory Rate 18 16 18 Blood Pressure 99/59 L 124/51 H 125/50 H Blood Pressure Mean 72 75 75 Pulse Ox 99 95 94 Oxygen Delivery Method Nasal Cannula Nasal Cannula Nasal Cannula Oxygen Flow Rate (L/min) 3 3 3 09/15/21 19:38 Temperature 97.6 F L Temperature Source Oral Pulse Rate 62 Respiratory Rate 16 Blood Pressure 125/50 H Blood Pressure Mean 75 Pulse Ox 94 Oxygen Delivery Method Nasal Cannula Oxygen Flow Rate (L/min) 3 Weight Weight: 151 lb 10.848 oz Body Mass Index (BMI) 25.2 Physical Exam Narrative General: Alert, awake, fatigue, Cooperative, oriented x3 HEENT: Atraumatic, PERRLA, EOMI, Normocephalic Oral: Oral mucosa dry no Gingival or Mucosal Lesions/ Ulcerations Neck: Supple, No JVD, Negative Carotid Bruits Lungs: Air entry severely diminished in both lungs worse in left lung base. Left pleural catheter wrapped in dressing. Bilateral coarse crepitations. Cardiovascular: Paced rhythm, normal S1, Normal S2, No murmurs. Left subclavicular pacemaker Abdomen: PEG tube present. Bowel Sounds Present, Soft, Non Tender, Non-Distended : Dark-colored urine. No renal angle tenderness. No suprapubic tenderness. Extremities: Generalized lymphedema of all 4 extremities. Capillary Refill Less than 3 Seconds Lymph nodes: No palpable cervical or axillary lymphadenopathy Skin: No rashes, No breakdown Musculoskeletal: ROM restricted. No palpable tenderness of major joints Neurological: Cranial nerves II-XII grossly intact, DTR 2+/4 Psych/Mental Status: Flat affect fatigue Results Lab / Micro Data Result Diagrams: 09/15/21 17:40 09/15/21 17:40 Labs: Laboratory Results - last 24 hr 09/15/21 17:40: WBC 6.9, RBC 3.60 L, Hgb 9.7 L, Hct 29.6 L, MCV 82.2, MCH 26.9 L, MCHC 32.8, RDW Std Deviation 47.2 H, RDW Coeff of Dianna 15.8 H, Plt Count 327, MPV 9.5, Immature Gran % (Auto) 0.400, Neut % (Auto) 88.3 H, Lymph % (Auto) 4.2 L, [place] % (Auto) 6.7, Eos % (Auto) 0.1, Baso % (Auto) 0.3, Absolute Neuts (auto) 6.0, Absolute Lymphs (auto) 0.29 L, Nucleated RBC % 0, Differential Comment SCANNED 09/15/21 17:40: Sodium 122 L, Potassium 4.8, Chloride 83 L, Carbon Dioxide 32.0, Anion Gap 7, BUN 20 H, Creatinine 0.91, Estim Creat Clear Calc 53.50, Est GFR (MDRD) Af Amer 102, Est GFR (MDRD) Non-Af 84, BUN/Creatinine Ratio 21.9 H, Glucose 100, Calcium 8.7, Total Bilirubin 0.60, AST 25, ALT 16, Alkaline Phosphatase 112, Total Protein 6.3 L, Albumin 1.6 L, Globulin 4.7 H, Albumin/Globulin Ratio 0.3 L 09/15/21 19:30: Urine Color Yellow, Urine Clarity Clear, Urine pH 5.0, Ur Specific [place] 1.020, Urine Protein 30 H, Urine Glucose (UA) Normal, Urine Ketones 5 H, Urine Occult Blood 10 H, Urine Nitrite Negative, Urine Bilirubin 3 H, Urine Urobilinogen 1 H, Ur Leukocyte Esterase 25 H, Urine RBC 0-5 SEEN, Urine WBC 5-10 SEEN, Ur Squamous Epith Cells 0-5 SEEN, Urine Bacteria 0 SEEN, Urine Mucus 0 SEEN Radiology Impression Chest X-Ray 09/15/21 17:38 IMPRESSION: 1. Extensive left lung pneumonia. 2. Small bilateral effusions, moderate cardiomegaly. Electronically Signed: Skyler Cancino MD at 18:09 EST Tel , Service support , Assessment & Plan Assessment/Plan (1) Pneumonia: PLAN: 1. Acute encephalopathy probably infectious/metabolic from pneumonia: Patient is being admitted on MedSurg floor. Encephalopathy is resolved. 2. Widely metastasized stage IV NSCLC involving esophagus with compression, metastatic pleural effusion, lymphedema with history of COPD and prolonged smoking: Chest x-ray shows extensive bilateral left lateral and right pulmonary opacity with moderate chronic emphysematous changes. Patient had 1 dose of IV Rocephin and Zithromax in ED. Will start on IV Levaquin from tomorrow a.m. to cover Pseudomonas and gram-negative bacteria. Bronchodilator as needed. Pneumonia work-up ordered. Oxygen therapy as needed to keep pulse ox more than 90%. Patient has left pleural catheter. Patient follows [facility] and had 10 sessions of radiation last month. Patient quit smoking about 7 years ago 3. 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 Serum and urine osmolality ordered. Patient also on Lasix 20 mg 3 times daily which might lead to hyponatremia. IV fluid normal saline 50 mils per hour to range sodium gradually. 4. Cardiac conditions: Paroxysmal A. fib, tachybradycardia syndrome status post pacemaker and hypertension: Patient on Cardizem and Eliquis continued 5. Dyslipidemia and GERD: Home medication reconciliation done 6. Severe protein calorie malnutrition, limited functional capacity, DNR CC with home hospice service, anemia of chronic disease/neoplastic disease/cancer: Patient wants quality over quantity. Patient was last admitted and discharged on September 04. At that time patient had left-sided Pleurx catheter placement. Patient follows Dr. Vance. Hemoglobin 9.7. ANC 6000. ALC low at 0.29 thousand. Hypoalbuminemia. Nutritional consult for PEG tube feeding Living will/advanced directive/end of life care: Patient does have living will or advanced directive. His of power of divorce attorney for health after discussion of benefits/risks procedures involved with full code, DNR CC arrest and DNR CC, the patient and his are well aware of the diagnosis and is DNR CC with home hospice, life care service. Patient does not want artificial life support including intubation, ventilator and/chest compression, central venous catheter, vasopressor and DC shock if needed Total time spent in [id number] encounter in discussion of advanced directive 16 minutes. Charges/Coding Visit Charges Inpatient E&M: 02521 Init Hosp L3 Procedures Hospitalists Procedures: 15045 Advncd Care Plan 30 Min
[2021-09-15 20:58] LABS: Magnesium 2.2 mg/dL (1.6-2.6)
[2021-09-15 21:07] LABS: Osmolality, Serum 257 mOsm/KG (280-301)
--- NOTE | 2021-09-15 21:52 | PCS.PANDOC ---
PANDEMIC DOCUMENTATION INITIATED: Date: 05/28/2021 Time: 1900 Emergency documentation initiated 09/15/21 @ 2100
[2021-09-15] MEDS: 0.9% Normal Saline 1,000 ML 50 ML IV (22:16)
[2021-09-15] MEDS: 0.9% Saline Lock 10 ML Syringe IV (22:17)
[2021-09-15] MEDS: Ceftriaxone 1 GM/50 ML BAG IV (22:18)
[2021-09-15] MEDS: Metoprolol Tartrate 100 MG Tablet GT (23:09)
[2021-09-15] MEDS: Atorvastatin Calcium 20 MG Tablet GT (23:09)
[2021-09-15] MEDS: APIXABAN 2.5 MG TABLET GT (23:09)
[2021-09-15] MEDS: Menthol/Lanolin/Calamine/Znox 113 GM Tube 1 APPLIC TOPICAL (23:42)
[2021-09-16] VITALS (18 sets, daily range): BP systolic 108–154; BP diastolic 57–87; PULSE 68–104; RESP 18–30; TEMP 36.8–38.6; O2SAT 78–93
[2021-09-16 00:20] LABS: Urine Chloride < 10 mmol/L (Not Establ.); Urine Sodium 12 mmol/L (Not Establ.)
[2021-09-16] MEDS: Jevity 1.5. 1,000 ML Bottle 237 ML GT ×3 (03:00→11:25)
[2021-09-16 03:14] LABS: Osmolality, Urine 556 mOsm/KG
[2021-09-16 03:39] LABS: M R Staph aureus DNA By PCR Negative (Negative); Probe Check PASS; Specimen Processing Control PASS
[2021-09-16 07:11] LABS: Absolute Lymphocyte Count 0.21 X10^3/uL (0.83-4.51); Absolute Neutrophil Count 5.5 X10^3/uL (2.0-7.7); Basophil# 0.02 X10^3/uL; Basophil% 0.3 % (0-1); Eosinophil# 0.01 X10^3/uL; Eosinophils% 0.2 % (0-5); Hematocrit 25.1 % (40-54); Hemoglobin 8.1 g/dL (13.0-16.5); Lymphocyte # 0.21 X10^3/ul (0.83-4.51); Lymphocyte % 3.4 % (19-41); Mean Corp Hgb Conc 32.3 g/dL (32-36); Mean Corpuscular Hgb 26.4 pg (27.0-32.0); Mean Corpuscular Volume 81.8 fL (80-94); Mean Platelet Vol. 10.4 fl (6.2-12.0); Monocyte# 0.42 X10^3/uL; Monocyte% 6.8 % (0-10); NRBC Flagged by Analyzer 0 % (0-5); Neutrophil # 5.47 X10^3/uL (2.7-7.7); Neutrophil % 88.7 % (47-70); POSITIVE DIFFERENTIAL YES; Platelet Count 279 K/mm3 (150-450); RBC Distribution Width CV 15.9 % (11.6-14.6); RBC Distribution Width SD 47.3 fl (35.1-43.9); Red Blood Count 3.07 M/mm3 (4.6-6.2); White Blood Count 6.2 K/mm3 (4.4-11.0)
--- NOTE | 2021-09-16 07:30 | PCM.PN.HOSP ---
Subjective Subjective Patient is an 81-year-old gentleman with history of metastatic non-small cell CA involving the lung apparently under hospice who was sent to the emergency department with progressive generalized weakness and confusion. Hospice was apparently unable to check on the patient. Objective Data Objective Data Vital Signs: Vital Signs Temp Pulse Resp BP Pulse Ox 98.3 F 69 20 H 108/72 91 09/16/21 03:40 09/16/21 06:01 09/16/21 03:40 09/16/21 03:40 09/16/21 07:25 Oxygen Flow Rate (L/min) 4 Oxygen Delivery Method Nasal Cannula Weight: 66.8 kg Body Mass Index (BMI) 24.3 Intake & Output: Intake and Output for Last 24 Hours 09/14/21 09/15/21 09/16/21 23:59 23:59 23:59 Intake Total 1305 / 1305 674 / 674 Output Total 300 / 300 Balance 1305 / 1305 374 / 374 Lab / Micro Data Result Diagrams: 09/16/21 05:28 09/16/21 05:28 Labs: Laboratory Results - last 24 hr 09/15/21 17:40: WBC 6.9, RBC 3.60 L, Hgb 9.7 L, Hct 29.6 L, MCV 82.2, MCH 26.9 L, MCHC 32.8, RDW Std Deviation 47.2 H, RDW Coeff of Dianna 15.8 H, Plt Count 327, MPV 9.5, Immature Gran % (Auto) 0.400, Neut % (Auto) 88.3 H, Lymph % (Auto) 4.2 L, [place] % (Auto) 6.7, Eos % (Auto) 0.1, Baso % (Auto) 0.3, Absolute Neuts (auto) 6.0, Absolute Lymphs (auto) 0.29 L, Nucleated RBC % 0, Differential Comment SCANNED 09/15/21 17:40: Sodium 122 L, Potassium 4.8, Chloride 83 L, Carbon Dioxide 32.0, Anion Gap 7, BUN 20 H, Creatinine 0.91, Estim Creat Clear Calc 53.50, Est GFR (MDRD) Af Amer 102, Est GFR (MDRD) Non-Af 84, BUN/Creatinine Ratio 21.9 H, Glucose 100, Calcium 8.7, Total Bilirubin 0.60, AST 25, ALT 16, Alkaline Phosphatase 112, Total Protein 6.3 L, Albumin 1.6 L, Globulin 4.7 H, Albumin/Globulin Ratio 0.3 L 09/15/21 17:40: Magnesium 2.2 09/15/21 17:40: Serum Osmolality 257 L 09/15/21 19:30: Urine Color Yellow, Urine Clarity Clear, Urine pH 5.0, Ur Specific [place] 1.020, Urine Protein 30 H, Urine Glucose (UA) Normal, Urine Ketones 5 H, Urine Occult Blood 10 H, Urine Nitrite Negative, Urine Bilirubin 3 H, Urine Urobilinogen 1 H, Ur Leukocyte Esterase 25 H, Urine RBC 0-5 SEEN, Urine WBC 5-10 SEEN, Ur Squamous Epith Cells 0-5 SEEN, Urine Bacteria 0 SEEN, Urine Mucus 0 SEEN 09/15/21 19:47: COVID-19 (IVAN) Not Detected 09/15/21 23:55: Urine Osmolality 556, Ur Random Sodium 12, Urine Potassium 60.0, Urine Chloride < 10 09/16/21 00:40: MRSA (PCR) Negative Micro: Microbiology 09/15/21 19:47 Mucosa - Nose Respiratory Panel (PCR) - Final 09/15/21 19:30 Urine, Clean Catch Legionella Antigen - Final 09/15/21 19:30 Urine, Clean Catch Streptococcus pneumoniae Antigen (M - Final Radiography Diagnostic Testing: Radiology Impression Chest X-Ray 09/15/21 17:38 IMPRESSION: 1. Extensive left lung pneumonia. 2. Small bilateral effusions, moderate cardiomegaly. Electronically Signed: Skyler Cancino MD at 18:09 EST Tel , Service support , Physical Exam Narrative GENERAL: Frail looking HEENT: Atraumatic; EYES; Anicteric, Normal Conjunctiva NECK; supple, normal thyroid, RESPIRATORY: Diminished to auscultation CARDIOVASCULAR: Regular S1 S2, GI: soft, normoactive bowel sounds, : No Renal angle tenderness; EXTREMITIES: Lymphedema involving the left upper extremity MUSCULOSKELETAL: no muscle waisting NEURO: Awake; no lateralizing signs. 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 Hospice was apparently unable to check on the patient. 1. Acute encephalopathy probably infectious/metabolic from pneumonia ?admitted to regular nursing floor patient started on Rocephin and azithromycin in addition to supplemental oxygen 2. Non-small cell lung CA stage IV with metastasis ?Patient is under hospice care consult placed to hospice regarding disposition 3. Metastatic pleural effusion ?Patient had a recent Pleurx catheter placed on 09/03/2021 4. COPD ?Aerosol treatments as needed 5. 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 Paroxysmal A. fib ?Rate controlled on digoxin and diltiazem and on systemic anticoagulation with apixaban 7. History of tachybradycardia syndrome -status post pacemaker placement 8. Hypertension - Blood pressure controlled, home medications continued with dose adjustment as needed 9. Dyslipidemia -Patient is on statin therapy, continued at home dose 10. GERD ?Per history 11. Severe protein calorie malnutrition ?Secondary to multiple conditions including metastatic lung CA as evidenced by decreased oral intake decreased energy level muscle wasting. Nutritional supplementation via PEG tube 12. Anemia of malignancy ?Monitoring H&H with plans to transfuse if hemoglobin falls below 7 or patient becomes symptomatic 13. DVT prophylaxis ?On apixaban Charges/Coding Visit Charges Inpatient E&M: 96942 Subs Hosp L2
[2021-09-16 07:40] LABS: Differential Indicated SCAN CRITERIA MET
[2021-09-16 07:53] LABS: Phosphorus 3.2 mg/dL (2.5-4.9)
[2021-09-16 07:54] LABS: ALB/GLOB Ratio 0.3 RATIO (0.9-2.4); AST(SGOT) 23 U/L (15-37); Alanine Aminotransfer ALT/SGPT 15 U/L (16-61); Albumin, Serum 1.2 g/dL (3.2-5.0); Alkaline Phosphatase 101 U/L (45-117); Anion Gap 7 (5-15); BUN 19 mg/dL (7-18); BUN/Creat Ratio 23.7 RATIO (10-20); Calcium,Total 7.9 mg/dL (8.5-10.1); Chloride 86 mmol/L (98-107); EST Glomerular Filtration Rate 98 mL/min (>60); Est Glom Filt Rate - Afr Amer 119 mL/min (>60); Estimated Creatinine Clearance 60.86 ml/min; Globulin 4.1 g/dL (2.2-4.2); Glucose 127 mg/dL (74-106); Potassium 4.9 mmol/L (3.5-5.1); Protein, Total 5.3 g/dL (6.4-8.2); Sodium Level 123 mmol/L (136-145)
[2021-09-16] MEDS: Metoprolol Tartrate 100 MG Tablet GT ×2 (08:02→20:06)
[2021-09-16] MEDS: Menthol/Lanolin/Calamine/Znox 113 GM Tube 1 APPLIC TOPICAL ×2 (08:02→20:01)
[2021-09-16] MEDS: Furosemide 20 MG Tablet GT ×3 (08:02→20:01)
[2021-09-16] MEDS: Digoxin 250 MCG Tablet GT (08:02)
[2021-09-16] MEDS: APIXABAN 2.5 MG TABLET GT ×2 (08:02→20:00)
[2021-09-16] MEDS: Ensure Clear 120 ML Liquid 237 ML GT (08:11)
[2021-09-16 09:59] LABS: Differential Comment SCANNED
[2021-09-16] MEDS: levoFLOXacin IV 750 MG/150 ML BAG 100 MG IV (11:24)
[2021-09-16] MEDS: morphine (oral solution) 10MG/0.5ML Syringe 30 MG GT ×2 (15:10→19:17)
--- NOTE | 2021-09-16 18:26 | NURSING ---
PT REFUSING ANY MORE JEVITY SINCE THIS AFTERNOON. I JUST WANT TO I DONT WANT TO DO THIS STUFF ANYMORE. IS ALSO AWARE, SHE SPOKE WITH THIS NURSE PRIOR TO GOING HOME.
[2021-09-16] MEDS: dilTIAZem 60 MG Tablet GT (20:00)
[2021-09-16] MEDS: Atorvastatin Calcium 20 MG Tablet GT (20:01)
[2021-09-16] MEDS: Ipratropium/Albuterol Sulfate 3 ML AMPUL.NEB INHALATION (20:54)
[2021-09-16] MEDS: 0.9% Saline Lock 10 ML Syringe IV (20:54)
[2021-09-16] MEDS: Furosemide 40 MG/4 ML Vial IV (20:55)
[2021-09-16] MEDS: Acetaminophen 650 MG/20 ML UDC 325 MG GT (20:59)
--- NOTE | 2021-09-16 21:09 | NURSING ---
attempted to call Trudy at [phone] no answer, unable to leave a message due to voicemail box being full.
--- NOTE | 2021-09-16 21:28 | NURSING ---
Spoke to pt due to pt oxygyn needs have increased and pt is dnrcc to see if she wants to come and see pt. pt is going hospice tomorrow. will be in, pt notified and primary rn aware. Dr. Griffin here to see pt
[2021-09-17] VITALS (7 sets, daily range): BP systolic 100–154; BP diastolic 50–88; PULSE 71–95; RESP 20–26; TEMP 36.2–37.2; O2SAT 85–96
[2021-09-17] MEDS: morphine (oral solution) 10MG/0.5ML Syringe 30 MG GT ×2 (00:49→06:10)
[2021-09-17 05:59] LABS: Absolute Lymphocyte Count 0.22 X10^3/uL (0.83-4.51); Absolute Neutrophil Count 5.2 X10^3/uL (2.0-7.7); Basophil# 0.02 X10^3/uL; Basophil% 0.3 % (0-1); Eosinophil# 0.05 X10^3/uL; Eosinophils% 0.8 % (0-5); Hematocrit 29.5 % (40-54); Hemoglobin 9.3 g/dL (13.0-16.5); Lymphocyte # 0.22 X10^3/ul (0.83-4.51); Lymphocyte % 3.7 % (19-41); Mean Corp Hgb Conc 31.5 g/dL (32-36); Mean Corpuscular Hgb 26.3 pg (27.0-32.0); Mean Corpuscular Volume 83.6 fL (80-94); Monocyte# 0.39 X10^3/uL; Monocyte% 6.6 % (0-10); NRBC Flagged by Analyzer 0 % (0-5); Neutrophil # 5.21 X10^3/uL (2.7-7.7); Neutrophil % 87.8 % (47-70); POSITIVE DIFFERENTIAL YES; Platelet Count 296 K/mm3 (150-450); RBC Distribution Width CV 15.8 % (11.6-14.6); RBC Distribution Width SD 48.2 fl (35.1-43.9); Red Blood Count 3.53 M/mm3 (4.6-6.2); White Blood Count 5.9 K/mm3 (4.4-11.0)
[2021-09-17 06:02] LABS: Differential Indicated SCAN CRITERIA MET
[2021-09-17] MEDS: dilTIAZem 60 MG Tablet GT (06:10)
[2021-09-17] MEDS: Furosemide 20 MG Tablet GT (06:10)
[2021-09-17 06:37] LABS: ALB/GLOB Ratio 0.3 RATIO (0.9-2.4); AST(SGOT) 29 U/L (15-37); Alanine Aminotransfer ALT/SGPT 16 U/L (16-61); Albumin, Serum 1.4 g/dL (3.2-5.0); Alkaline Phosphatase 116 U/L (45-117); Anion Gap 6 (5-15); BUN 16 mg/dL (7-18); BUN/Creat Ratio 19.4 RATIO (10-20); Calcium,Total 8.5 mg/dL (8.5-10.1); Chloride 85 mmol/L (98-107); Creatinine, Serum 0.82 mg/dL (0.70-1.30); EST Glomerular Filtration Rate 95 mL/min (>60); Est Glom Filt Rate - Afr Amer 115 mL/min (>60); Estimated Creatinine Clearance 59.38 ml/min; Globulin 4.4 g/dL (2.2-4.2); Glucose 82 mg/dL (74-106); Potassium 3.9 mmol/L (3.5-5.1); Protein, Total 5.8 g/dL (6.4-8.2); Sodium Level 126 mmol/L (136-145)
[2021-09-17 07:14] LABS: Anisocytosis 1+
--- NOTE | 2021-09-17 08:22 | NURSING ---
Phone call to [facility] office and spoke to nurse that is managing his care. She states that [employer] Winder will be doing the paper work in Hospice care for this pt. phone number [phone] ext [phone].
--- NOTE | 2021-09-17 10:45 | CASEMGMT ---
Social Work Note ROMAN reviewed chart, pt is active with [facility] and per previous visits, it was charted pt has Medicare Part A with [place] benefits. ROMAN placed a call to registration in [place]. [place] reviewed chart, it does appear pt has Medicare Part A benefits. She will review. ROMAN spoke with physician, plan is to consult [facility]. ROMAN updated that [place] automotive dismantler is calling RN constantly to make sure pt's Hospice is being billed under Medicare Part A. Contact number is [phone] ext: [phone]. [facility] ([phone] ext:[phone]). Ham confirms pt was not under [facility] but was only under [facility] and that [facility] was billing Palliative under Medicare Part A. ROMAN updated Ham that plan is for [facility] to evaluate pt for Hospice Services. Ham states to just let her know what the plan is. ROMAN placed a call to [facility] and spoke with Patsy and provided referral. ROMAN faxed referral to [facility]. Plan: Hospice Darleen Schroeder MERCHANDISE FLOW TEAM LEADER, INSURANCE ADMINISTRATIVE ASSISTANT
[2021-09-17] MEDS: levoFLOXacin IV 750 MG/150 ML BAG 100 MG IV (11:05)
[2021-09-17] MEDS: morphine (oral solution) 10MG/0.5ML Syringe 5 MG SL/PO ×3 (12:27→19:35)
--- NOTE | 2021-09-17 13:01 | PN.HOSP_ITS ---
Subjective Subjective Follow-up on postobstructive pneumonia/stage IV metastatic lung CA: Patient was seen and examined. He is on Ventimask. Saturating in the 70s. Hospice has been consulted. Objective Data Objective Data Vital Signs: Vital Signs Temp Pulse Resp BP Pulse Ox 97.2 F L 72 24 H 148/88 H 95 09/17/21 09:20 09/17/21 09:20 09/17/21 09:20 09/17/21 09:20 09/17/21 09:20 Oxygen Flow Rate (L/min) 15 Oxygen Delivery Method Non-Rebreather Weight: 66.7 kg Body Mass Index (BMI) 24.3 Intake & Output: Intake and Output for Last 24 Hours 09/15/21 09/16/21 09/17/21 23:59 23:59 23:59 Intake Total 1305 / 1305 2818 / 2818 100 / 100 Output Total 1000 / 1000 1450 / 1450 Balance 1305 / 1305 1818 / 1818 -1350 / -1350 Lab / Micro Data Result Diagrams: 09/17/21 05:02 09/17/21 05:02 Labs: Laboratory Results - last 24 hr 09/17/21 05:02: WBC 5.9, RBC 3.53 L, Hgb 9.3 L, Hct 29.5 L, MCV 83.6, MCH 26.3 L , MCHC 31.5 L, RDW Std Deviation 48.2 H, RDW Coeff of Dianna 15.8 H, Plt Count 296, MPV 10.0, Immature Gran % (Auto) 0.800, Neut % (Auto) 87.8 H, Lymph % (Auto) 3.7 L, [place] % (Auto) 6.6, Eos % (Auto) 0.8, Baso % (Auto) 0.3, Absolute Neuts (auto) 5.2, Absolute Lymphs (auto) 0.22 L, Nucleated RBC % 0, Anisocytosis 1+ 09/17/21 05:02: Sodium 126 L, Potassium 3.9, Chloride 85 L, Carbon Dioxide 35.0 H, Anion Gap 6, BUN 16, Creatinine 0.82, Estim Creat Clear Calc 59.38, Est GFR (MDRD) Af Amer 115, Est GFR (MDRD) Non-Af 95, BUN/Creatinine Ratio 19.4, Glucose 82, Calcium 8.5, Total Bilirubin 0.50, AST 29, ALT 16, Alkaline Phosphatase 116, Total Protein 5.8 L, Albumin 1.4 L, Globulin 4.4 H, Albumin/Globulin Ratio 0.3 L Micro: Microbiology 09/15/21 19:47 Mucosa - Nose Respiratory Panel (PCR) - Final 09/15/21 19:30 Urine, Clean Catch Legionella Antigen - Final 09/15/21 19:30 Urine, Clean Catch Streptococcus pneumoniae Antigen (M - Final Physical Exam Narrative Physical exam: General: Alert, Oriented x3, Cooperative, in moderate respiratory failure, appeared frail, on oxygen via facemask HEENT: Atraumatic Oral: Moist Mucosa Neck: Supple Lungs: Diminished to auscultation Cardiovascular: HS I+II, regular, no murmurs Abdomen: Bowel Sounds Present, Soft, Non Tender Extremities: No edema Assessment & Plan Assessment/Plan (1) Pneumonia: QUALIFIERS: Pneumonia type: due to unspecified organism Laterality: bilateral Lung location: unspecified part of lung Qualified Code(s): J18.9 - Pneumonia, unspecified organism (2) Malignant pleural effusion: (3) Hyponatremia: (4) Acute metabolic encephalopathy: (5) Non-small cell lung cancer with metastasis: (6) Severe protein-calorie malnutrition: PLAN: 1. Acute hypoxic respiratory failure secondary to postobstructive pneumonia/metastatic non-small cell lung CA Patient is currently on the Ventimask Continue hospice/comfort care medications 2. Acute metabolic/infectious encephalopathy secondary to #1, waxes and wanes 3. Acute postobstructive pneumonia/metastatic non-small cell lung CA/metastatic pleural effusion status post Pleurx catheter Continue Levaquin Hospice appropriate, continue comfort care medications 4. Rest of his chronic medical conditions remained stable Hospice has been consulted. Patient is appropriate for inpatient hospice jessika willis Charges/Coding Visit Charges Inpatient E&M: 18853 Subs Hosp L3
--- NOTE | 2021-09-17 13:33 | CASEMGMT ---
Social Work Note ROMAN placed a call to [facility] and spoke with Mackenzie. Mackenzie states nothing has been updated in the system regarding pt's hospice referral. ROMAN reviewed old notes and had a direct number for Telma Patient Liaison through [facility]. Telma states she is still working at [facility], is working today but is in a different department. ROMAN spoke with JESSICA Delvalle. ROMAN updated JESSICA Delvalle that this worker had called early this morning (at around 10:30) to make Hospice referral and directly faxed the referral to [facility] and this worker has not heard anything back regarding referral and pt needs to be seen MARY. JESSICA Delvalle states she will discuss with other [facility] staff in regards to pt's referral and then let this worker know. ROMAN waiting for call back from [facility]. Darleen Schroeder LAB ANIMAL TECHNICIAN, SURVEY WORKERS SUPERVISOR
--- NOTE | 2021-09-17 13:41 | CHAPLAIN ---
Type of Pastoral Visit _x__ Initial Visit ___ Follow-up Visit ___ On-call Visit ___ General Patient Visit ___ Spiritual Assessment ___ Family Conference ___ Bereavement ___ Rapid Response ___ Code Blue ___ Other (describe below) Pastoral Care Referral From _x__ Patient _x__ Family _x__ Nurse ___ Physician ___ Technician Terminal And Repeater ___ Relief Cook ___ Other (describe below) Sacrament/Intervention _x__ Active listening ___ Anointing ___ Episcopalian ___ Bereavement ___ Communion _x__ Judith exploration ___ _x__ Life review _x__ Prayer ___ Reconciliation ___ Sacrament of Sick _x__ Supportive presence ___ Wedding ___ Other (describe below) Pastoral Comments patient has seen a big decline due to cancer; family is at bedside; RN and family requested visit by this wharf tender head; pt has difficulty speaking and staying awake but is able to answer questions and to be appropriate in response; pt states that he is ready with meaning 'to ' as he has peace with God; hospice has been consulted and will meet to evaluate pt today; states that he has read his Bible for 50 years; nephew states this is a good man, none better; when asked the patient says that I just want to go home with meaning to and go to [facility]; prayer and presence given
[2021-09-17] MEDS: Morphine 2 MG/ML Syringe 1 MG IV (14:22)
[2021-09-17] MEDS: 0.9% Saline Lock 10 ML Syringe IV (14:23)
--- NOTE | 2021-09-17 14:57 | CASEMGMT ---
Social Work Note ROMAN received call from Chely at [facility] stating RN from Hospice will be at [facility] around 3:30pm to meet with pt's family. SW in to speak with pt and pt's family. Pt's Trudy is present in room. ROMAN introduced self and role at [facility]. ROMAN updated Trudy that a RN from [facility] will be at [facility] at 3:30pm to meet with pt's family. ROMAN also offered support to Trudy and let her know SW is available if she needs anything. Pt denied additional needs or concerns at this time. Darleen Schroeder QUALITY CLOTH TESTER, CARBON ELECTRODES SUPERVISOR
--- NOTE | 2021-09-17 17:47 | DCINST_ITS ---
Discharge Instructions Diet Discharge Diet: No restrictions Follow Up Care Test Results: Test results from this visit will be discussed in further detail at your follow-up appointment, if applicable. Discharge Plan Admission Admit Date/Time: 09/15/21 19:28 Primary Reason for Your Visit: Pneumonia Attending Provider: uLcy Polanco Primary Care Provider: [facility],[place] Discharge Orders/Prescriptions Prescriptions: No Action atorvastatin 20 mg tablet 20 mg feeding tube QHS RF: 0 ondansetron HCl 4 mg tablet 4 mg feeding tube Q8H PRN (Reason: Nausea) RF: 0 Eliquis 2.5 mg G-tube BID RF: 0 Tylenol 325 mg G-tube PRN PRN (Reason: Breakthrough Pain, Mild) RF: 0 morphine 30 mg G-tube Q4H PRN PRN (Reason: Breakthrough Pain) RF: 0 methadone 5 mg Tablet 7.5 mg feeding tube Q12H RF: 0 metoprolol tartrate 100 mg Tablet 100 mg G-tube BID Qty: 60 RF: 0 sennosides-docusate sodium [Senna Laxative-Stool Softener] 8.6-50 mg Tablet 1 tab PO BID PRN PRN (Reason: Constipation) RF: 0 furosemide 20 mg tablet 20 mg feeding tube TID RF: 0 digoxin 250 mcg (0.25 mg) tablet 250 mcg feeding tube DAILY RF: 0 diltiazem HCl 60 mg tablet 60 mg feeding tube Q6H RF: 0 Jevity Liquid 237 ml feeding tube 4X/DAY RF: 0 Referrals / Follow Up: [facility],[place] [Primary Care Provider] - Disposition Disposition (needs filled in before D/C Order can be placed): Hospice in Medical Facility
--- NOTE | 2021-09-17 18:00 | PCM.DC.SUM ---
Providers Date of Admission: 09/15/21 Date of Discharge: 09/17/21 Primary Care Physician: [facility] Reason For Visit: LUNG CANCER, HOSPICE Diagnosis Discharge Diagnosis (1) Pneumonia: Status: Acute Code(s): J18.9 - Pneumonia, unspecified organism Qualifiers: Pneumonia type: due to unspecified organism Laterality: bilateral Lung location: unspecified part of lung Qualified Code(s): J18.9 - Pneumonia, unspecified organism (2) Malignant pleural effusion: Status: Acute Code(s): J91.0 - Malignant pleural effusion (3) Hyponatremia: Status: Acute Code(s): E87.1 - Hypo-osmolality and hyponatremia (4) Acute metabolic encephalopathy: Status: Acute Code(s): G93.41 - Metabolic encephalopathy (5) Non-small cell lung cancer with metastasis: Status: Chronic Code(s): C34.90 - Malignant neoplasm of unspecified part of unspecified bronchus or lung (6) Severe protein-calorie malnutrition: Status: Acute Code(s): E43 - Unspecified severe protein-calorie malnutrition Medications at Discharge Home Medications atorvastatin 20 mg tablet 20 mg FEEDING TUBE QHS tab 05/04/21 ondansetron HCl 4 mg FEEDING TUBE Q8H PRN 07/22/21 Eliquis 2.5 mg G-TUBE BID 08/08/21 Tylenol 325 mg G-TUBE PRN PRN 08/08/21 morphine 30 mg G-TUBE Q4H PRN PRN 08/08/21 methadone 7.5 mg FEEDING TUBE Q12H 08/20/21 metoprolol tartrate 100 mg G-TUBE BID #60 tab 09/04/21 digoxin 250 mcg FEEDING TUBE DAILY 09/06/21 diltiazem HCl 60 mg FEEDING TUBE Q6H 09/06/21 furosemide 20 mg FEEDING TUBE TID 09/06/21 sennosides-docusate sodium [Senna Laxative-Stool Softener] 1 tab PO BID PRN PRN 09/06/21 food supplemt, lactose-reduced [Jevity] 237 ml FEEDING TUBE 4X/DAY 09/15/21 Hospital Course Operations None Procedures None Summary of Care Provided Minutes Spent on Discharge: 45 Hospital Course: 81 M with recent diagnosis of stage IV lung cancer with metastases to adjoining structures including esophagus, about 1 and half months ago is admitted for fatigue and altered mental status. History at admission was from patient's . Patient was having confusion, unaware of the surrounding, disorientation and could not recognize his medications. As per the he was also having chills, fatigue and weakness. [facility] which follows for medication administration and general care but was not available on the weekend therefore came to ED Patient has left pleural catheter for drainage and has PEG tube for feeding. He had total 10 radiation treatments recently within last 1 month was planned to start chemotherapy on coming 09/17/2021. Chest x-ray done in the ER shows worsening left lung infiltrates. Patient has chronic hyponatremia, sodium has been in 120s since 08/27/2021. Patient was admitted [facility] the [facility] floor and managed as follows: 1. Acute hypoxic respiratory failure secondary to postobstructive pneumonia/metastatic non-small cell lung CA, worsened, was on the Ventimask Family is ok with transition to Hospice. Patient is appropriate for inpatient Hospice. 2. Acute metabolic/infectious encephalopathy secondary to #1, waxes and wanes 3. Acute postobstructive pneumonia/metastatic non-small cell lung CA/metastatic pleural effusion status post Pleurx catheter Managed on Levaquin. Hospice appropriate, continue comfort care medications Patient was discharged to inpatient Hospice unit Physical Exam Narrative See progress note of the day Weight / BMI Weight Weight: 66.7 kg Body Mass Index (BMI) 24.3 ABG / Lab / Microbiology Data Result Diagrams: 09/17/21 05:02 09/17/21 05:02 Laboratory: Laboratory Results - last 24 hr 09/17/21 05:02: WBC 5.9, RBC 3.53 L, Hgb 9.3 L, Hct 29.5 L, MCV 83.6, MCH 26.3 L, MCHC 31.5 L, RDW Std Deviation 48.2 H, RDW Coeff of Dianna 15.8 H, Plt Count 296, MPV 10.0, Immature Gran % (Auto) 0.800, Neut % (Auto) 87.8 H, Lymph % (Auto) 3.7 L, [place] % (Auto) 6.6, Eos % (Auto) 0.8, Baso % (Auto) 0.3, Absolute Neuts (auto) 5.2, Absolute Lymphs (auto) 0.22 L, Nucleated RBC % 0, Anisocytosis 1+ 09/17/21 05:02: Sodium 126 L, Potassium 3.9, Chloride 85 L, Carbon Dioxide 35.0 H, Anion Gap 6, BUN 16, Creatinine 0.82, Estim Creat Clear Calc 59.38, Est GFR (MDRD) Af Amer 115, Est GFR (MDRD) Non-Af 95, BUN/Creatinine Ratio 19.4, Glucose 82, Calcium 8.5, Total Bilirubin 0.50, AST 29, ALT 16, Alkaline Phosphatase 116, Total Protein 5.8 L, Albumin 1.4 L, Globulin 4.4 H, Albumin/Globulin Ratio 0.3 L Microbiology: Microbiology 09/15/21 19:47 Mucosa - Nose Respiratory Panel (PCR) - Final 09/15/21 19:30 Urine, Clean Catch Legionella Antigen - Final 09/15/21 19:30 Urine, Clean Catch Streptococcus pneumoniae Antigen (M - Final D/C Instructions Discharge Diet: No restrictions Meaningful Use Info Meaningful Use Diagnoses (Choose all that apply): None applicable Discharge Plan Admission Admit Date/Time: 09/15/21 19:28 Primary Reason for Your Visit: Pneumonia Attending Provider: Lucy Polanco Primary Care Provider: [facility],[place] Discharge Orders/Prescriptions Prescriptions: No Action atorvastatin 20 mg tablet 20 mg feeding tube QHS RF: 0 ondansetron HCl 4 mg tablet 4 mg feeding tube Q8H PRN (Reason: Nausea) RF: 0 Eliquis 2.5 mg G-tube BID RF: 0 Tylenol 325 mg G-tube PRN PRN (Reason: Breakthrough Pain, Mild) RF: 0 morphine 30 mg G-tube Q4H PRN PRN (Reason: Breakthrough Pain) RF: 0 methadone 5 mg Tablet 7.5 mg feeding tube Q12H RF: 0 metoprolol tartrate 100 mg Tablet 100 mg G-tube BID Qty: 60 RF: 0 sennosides-docusate sodium [Senna Laxative-Stool Softener] 8.6-50 mg Tablet 1 tab PO BID PRN PRN (Reason: Constipation) RF: 0 furosemide 20 mg tablet 20 mg feeding tube TID RF: 0 digoxin 250 mcg (0.25 mg) tablet 250 mcg feeding tube DAILY RF: 0 diltiazem HCl 60 mg tablet 60 mg feeding tube Q6H RF: 0 Jevity Liquid 237 ml feeding tube 4X/DAY RF: 0 Referrals / Follow Up: [facility] [Primary Care Provider] - Disposition Disposition (needs filled in before D/C Order can be placed): Hospice in Medical Facility Charges/Coding Visit Charges Inpatient E&M: 47585 Disch Hosp
--- NOTE | 2021-09-18 08:59 | CASEMGMT ---
Social Work Note Pt discharged to inpatient hospice. ROMAN placed a call to ROMAN Cheek and updated her that pt discharged to inpatient hospice. Darleen Schroeder DRILL RUNNER HELPER, BARREL RIB MATTING MACHINE OPERATOR
== END 2021-09-17 21:30 | disposition hospice, inpatient (51) ==
LOC: ED 19:32 → MS3 19:48
PROVIDERS: Admitting Provider Internal Medicine; Emergency Provider Emergency Medicine; Visit Provider Internal Medicine
DX: J18.9 Pneumonia, unspecified organism (principal); J44.0 Chronic obstructive pulmonary disease with (acute) lower respiratory infection; J91.0 Malignant pleural effusion; E87.1 Hypo-osmolality and hyponatremia; C34.90 Malignant neoplasm of unspecified part of unspecified bronchus or lung; C78.89 Secondary malignant neoplasm of other digestive organs; C79.51 Secondary malignant neoplasm of bone; I11.0 Hypertensive heart disease with heart failure; J96.01 Acute respiratory failure with hypoxia; G92.9 Unspecified toxic encephalopathy; I50.9 Heart failure, unspecified; I48.0 Paroxysmal atrial fibrillation; K21.9 Gastro-esophageal reflux disease without esophagitis; E43 Unspecified severe protein-calorie malnutrition; D63.0 Anemia in neoplastic disease; G62.9 Polyneuropathy, unspecified; E78.5 Hyperlipidemia, unspecified; Z79.899 Other long term (current) drug therapy; Z79.01 Long term (current) use of anticoagulants; Z95.0 Presence of cardiac pacemaker; Z99.81 Dependence on supplemental oxygen; Z87.891 Personal history of nicotine dependence; Z66 Do not resuscitate; Z68.24 Body mass index [BMI] 24.0-24.9, adult
CPT/HCPCS: 36415; 71045; 80053; 81001; 82436; 83735; 83930; 83935; 84100; 84133; 84300; 85025; 87040; 87449; 87633; 87635; 87641; 94640; 96361; 96365; 96366; 96367; 96375; 97802; 99218; 99285; J7030; U0005; A4216; G0378; J1940; U0003